=== PATIENT | male | born 1965 | race Caucasian/White ===

== ENCOUNTER → 2016-04-24 | Outpatient (CLI) | payer MEDICARE ==
[~2016-04-24] MED LIST: /ATOR40TA PO; /ESOM40CA OR; /MOXI40TA; ASPI81TA85 PO; CHLO25TA PO; COUM7.5T PO; COZA100T2 PO; DEPA500T2 PO; DICLOFENAC 1.5% TOP; FLON0.054; HYDR1TAB97 PO; KETO-28; LIDO5DIS36 TD; LISI-542 PO; MECL-68 PO; META800T82 PO; METF500T PO; METO10TA2; METO25TA2 PO; NICO21DI26 EXT; NICO21DI4; OMEG10002 PO; TRAM50TA2 PO; TRAZ50TA2 PO; TYLE325T5 PO; TYLENOL#3 PO; ZANT150T; ZETI10TA21 PO; percocet PO
--- NOTE | 2016-05-05 02:29 | ECWPNPC ---
PATIENT NAME: GELY CAMPA : 1965 GENDER: MALE VISIT DATE: 04/24/2016 DISCHARGE DATE: 04/24/16 1443 VISIT LOCKED DATE TIME: PHYSICIAN: KESHAWN ERWIN RESOURCE: KESHAWN ERWIN REASON FOR APPOINTMENT 1. BACK HISTORY OF PRESENT ILLNESS HISTORY OF PRESENT ILLNESS: PAIN THE PATIENT DESCRIBES THE PAIN... FALL RISK SCREENING: SCREENING :NO FALLS IN THE PAST YEAR TODAY'S VISIT: NOTES: RATES PAIN LEVEL TODAY 3-4/10. DESCRIBES PAIN SHARP AND ACHING. NOTES PAIN CENTERED IN BASE OF NECK, LOW BACK, KNEES AND FFEET.. CURRENT MEDICATIONS TAKING NEXIUM 40 MG CAPSULE DELAYED RELEASE 1 CAP(S) ORALLY DAILY TAKING TYLENOL EXTRA STRENGTH 625MG TABLET 2 TABLET NEEDED ORALLY NEEDED TAKING DEPAKOTE 500 MG TABLET DELAYED RELEASE 1 TABLET ORALLY ONCE A DAY TAKING MECLIZINE HCL 25 MG TABLET 2 TABLETS ORALLY TWICE DAILY TAKING LISINOPRIL 5 MG TABLET 1 TABLET ORALLY ONCE A DAY TAKING WARFARIN SODIUM 5 MG TABLET ORALLY DAILY TAKING LIPITOR 40 MG TABLET 1 TABLET ORALLY ONCE A DAY TAKING TRAZODONE 50 50MG TABLET DIRECTED ORAL AT BEDTIME TAKING VALTREX 1000 MG TABLET 1 TABLET ORALLY DAILY TAKING BACLOFEN 10 MG TABLET 1 TABLET WITH FOOD OR MILK ORALLY THREE TIMES A DAY TAKING METFORMIN HCL 850 MG TABLET 1 TABLET WITH MEALS ORALLY TWICE A DAY TAKING CHLORTHALIDONE 25 25 MG TABLET 1/2 TAB ORAL DAILY TAKING FLONASE 50 MCG/ACT SUSPENSION 1 SPRAY IN EACH NOSTRIL NASALLY ONCE A DAY TAKING NORCO 5-325 MG TABLET 1 TABLET NEEDED ORALLY TAKE 1 TAB EVERY 8-12 HRS PRN PAIN MDD=2 NOT-TAKING NEURONTIN 600 600 MG TABLET DIRECTED ORAL EVERY 8 HOURS NOT-TAKING SKELAXIN 800 MG TABLET 1 TABLET ORALLY EVERY 6HRS MEDICATION LIST REVIEWED AND RECONCILED WITH THE PATIENT PAST MEDICAL HISTORY GERD FRACTURED VERTEBRAE HIGH CHOLESTEROL STROKE HERPES ALLERGIES PENICILLIN (FOR ALLERGIES USE ONLY): HIVES: SIDE EFFECTS LATEX: HIVES/RASH SOCIAL HISTORY TOBACCO USE ARE YOU A:NONSMOKER LEARNING BARRIERS / SPECIAL NEEDS ORIENTED TO PLAN OF CARE: PATIENT, PAIN MANAGEMENT PATIENT, ORIENTED TO PLAN OF CARE: PATIENT, PAIN MANAGEMENT PATIENT. NEW PATIENT PAIN DIARY TODAY'S VISITNOTES FROM 0-10, WHAT LEVEL IS YOUR PAIN TODAY?0 PAIN CLINIC PFS, CLERGY, PUBLIC HEALTH REFERRALS PFS REFERRAL NEEDED?NO CLERGY REFERRAL NEEDED?NO PUBLIC HEALTH REFERRAL NEEDED?NO WAS THE PROVIDER NOTIFIED OF ANY PERTINENT INFO?NO PFS REFERRAL NEEDED?NO CLERGY REFERRAL NEEDED?NO PUBLIC HEALTH REFERRAL NEEDED?NO WAS THE PROVIDER NOTIFIED OF ANY PERTINENT INFO?NO REVIEW OF SYSTEMS CONSTITUTIONAL: ANY CHANGE IN YOUR MEDICAL CONDITION? NO . CHILLS NO . FEVER NO . INFECTION: DO YOU HAVE NEW INFECTIONS? NO . DO YOU HAVE HISTORY OF MRSA? NO . MUSCULOSKELETAL: ANY NEW PATTERNS OF PAIN OR NUMBNESS? RIGHT KNEE VERY UNCOMFORTABLE. LEFT KNEE POSTERIOR FEELS LIKE IT'S GRABBING AND RIGHT KNEE FEELS LIKE IT WILL GIVE OUT BUT HAS NOT FALLEN. . GASTROENTEROLOGY: ANY NEW CHANGE IN BOWEL CONTROL? NO . GENITOURINARY: ANY NEW CHANGE IN BLADDER CONTROL? NO . IS THERE A CHANCE YOU COULD BE ? NO . HEMATOLOGY/LYMPH: DO YOU TAKE ANY BLOOD THINNERS? (FOR EXAMPLE- COUMADIN, PLAVIX, AGGRENOX, PLATEL, PRADAXA, OR XARELTO) NO . WHEN WAS YOUR LAST DOSE? DATE: TIME: . NEUROLOGY: HAVE YOU FALLEN IN THE PAST 6 MONTHS? NO . ANY NEW EXTREMITY NUMBNESS OR WEAKNESS? NO . CARDIOLOGY: DO YOU HAVE A PACEMAKER OR DEFIBRILLATOR? NO . RESPIRATORY: HAVE YOU BEEN SICK IN THE PAST WEEK? NO . FEVER NO . FLU LIKE SYMPTOMS? NO . COUGH NO . INTEGUMENTARY: DO YOU HAVE ANY RASHES OR OPEN SORES? NO . ALLERGIC/IMMUNO: ARE YOU ALLERGIC TO SHELLFISH OR IV DYE? NO . ANY NEW ALLERGIES? NO . PSYCHIATRIC: DO YOU HAVE THOUGHTS OF HURTING YOURSELF OR SOMEONE ELSE? NO . ARE YOU ABUSED, NEGLECTED, OR IN AN UNSAFE ENVIRONMENT? NO . ENDOCRINOLOGY: ARE YOU DIABETIC? YES -RECENT A1C IS 7.9. IS WORKING WITH A DIET AND EXERCISE PLAN TO GET THIS UNDER CONTROL. . OTHER: DO YOU NEED ANY PRESCRIPTIONS? YES NORCO . IF YES, PLEASE LIST: ____ . ANY NEW PROBLEMS WITH YOUR MEDICATIONS? NO . WHEN DID YOU LAST EAT? ____ . WHEN DID YOU LAST DRINK? ____ . WHAT DID YOU LAST DRINK? ____ . NAME OF PERSON DRIVING YOU HOME? ____ . DO YOU HAVE ANY OTHER QUESTIONS OR CONCERNS NO . 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 VITAL SIGNS WT 250 LBS, HT 68 IN, BMI 38.01 INDEX, BP 143/84 MM HG, HR 78 /MIN, RR 18 /MIN, TEMP 97.0 F, OXYGEN SAT % 97%, NA INITIALS SC 13:46. EXAMINATION GENERAL EXAMINATION: PSYCH ALERT , ORIENTED X 3 . LUNGS:CLEAR TO AUSCULTATION BILATERALLY. HEART:HEART RATE REGULAR. MUSCULOSKELETAL:MUSCLE STRENGTH TESTING 5/5 BILATERAL LOWER EXTREMITIES, PALPATION: POSITIVE FOR PAIN OVER LUMBOSACRAL SPINE AND ACROSS THE LUMBOSACRAL AXIS. TRIGGER POINTS:, ELICITED WITH PALPATION OVER LUMBAR PARAVERTEBRAL MUSCLES AND INTO THE SACRUM. RESTRICTION OF ROM IN THIS AREA. SLOW TO RISE TO STANDING POSITION. . EXTREMITIES:MINIMAL EDEMA. ASSESSMENTS LOW BACK PAIN - M54.5 (PRIMARY) TREATMENT LOW BACK PAIN REFILL NORCO TABLET, 5-325 MG, 1 TABLET NEEDED, ORALLY, TAKE 1 TAB EVERY 8-12 HRS PRN PAIN MDD=2, 30 DAY(S), 60, REFILLS 0 NOTES: CONTINUE CURRENT MEDS. CONTINE EXERCISE ROUTINE. PROCEDURE CODES FA211 ESTABILISHED PATIENT [facility] CHARGE FOLLOW UP 2-3 MONTHS ELECTRONICALLY SIGNED BY JEFFRY CLANCY ON 05/04/2016 AT 11:05 AM EST DISCLAIMER : THIS IS A VISIT SUMMARY EXTRACTED FROM THE [employer] CHART. IT IS NOT A COPY OF THE [employer] PROGRESS NOTE. BRENT
== END ==
LOC: M PAIN 13:20
PROVIDERS: ATTEND Nurse Practitioner Family
DX: Z09 Encounter for follow-up examination after completed treatment for conditions other than malignant neoplasm (principal); M54.5 Low back pain; K21.9 Gastro-esophageal reflux disease without esophagitis; E78.00 Pure hypercholesterolemia, unspecified; Z87.81 Personal history of (healed) traumatic fracture; Z86.73 Personal history of transient ischemic attack (TIA), and cerebral infarction without residual deficits; B00.9 Herpesviral infection, unspecified; Z88.0 Allergy status to penicillin; Z91.040 Latex allergy status; Z79.01 Long term (current) use of anticoagulants; Z79.84 Long term (current) use of oral hypoglycemic drugs; Z79.891 Long term (current) use of opiate analgesic; Z79.899 Other long term (current) drug therapy

== ENCOUNTER 2016-05-15 05:48 | Inpatient (IN) | payer MEDICARE ==
[~2016-05-15] VITALS: Ht 172.7 cm; Wt 110.2 kg
[~2016-05-15 05:48] MED LIST changes: +HYDR-3713 PO; -HYDR1TAB97 PO
[2016-05-15] MEDS ORDERED: CEFUROXIME INJ 750 MG VIAL (J0697) As Ordered ONE (06:51)
[2016-05-15 07:07] LABS: BASO % 0.4 % (0.0-1.0); EOS % 0.6 % (0.0-3.0); LARGE UNSTAINED CELL # 0.2 K/mm3 (0.0-0.4); LYMPH # 1.4 K/mm3 (1.5-4.5); LYMPH % 17.8 % (24.0-44.0); MEAN CORPUSCULAR HEMOGLOBIN 33.1 pg (27.0-33.0); MEAN CORPUSCULAR HGB CONC 35.4 g/dl (32.0-36.5); MEAN CORPUSCULAR VOLUME 93.6 fl (80.0-96.0); MONO # 0.6 K/mm3 (0.0-0.8); MONO % 7.3 % (0.0-5.0); NEUTROPHILS # 5.6 K/mm3 (1.8-7.7); NEUTROPHILS % 71.9 % (36.0-66.0); PLATELET COUNT, AUTOMATED 218 k/mm3 (150-450); RED CELL DISTRIBUTION WIDTH 12.7 % (11.5-14.5); WHITE BLOOD COUNT 7.8 K/mm3 (4.0-10.0)
[2016-05-15 07:18] LABS: INR 2.07
[2016-05-15] MEDS ORDERED: diphenhydrAMINE INJ 50MG/ML VIAL (J1200) As Ordered ONE (07:27)
[2016-05-15 07:28] LABS: ANION GAP 8 MEQ/L (8-16); BLOOD UREA NITROGEN 15 MG/DL (7-18); CALCIUM LEVEL 8.9 MG/DL (8.5-10.1); CARBON DIOXIDE LEVEL 29 MEQ/L (21-32); CHLORIDE LEVEL 99 MEQ/L (98-107); CREATININE FOR GFR 0.91 MG/DL (0.70-1.30); GLOMERULAR FILTRATION RATE > 60.0 (>56); GLUCOSE, FASTING 121 MG/DL (70-105); POTASSIUM SERUM 3.7 MEQ/L (3.5-5.1); SODIUM LEVEL 136 MEQ/L (136-145)
[2016-05-15] MEDS ORDERED: CEFUROXIME SODIUM 1.5 GM in D5W MINI-BAG PLUS 50 ML IV ONE (07:30)
[2016-05-15] MEDS ORDERED: HYDROmorphone HCL 1 MG/ML SYRINGE (J1170) As Ordered ONE ×2 (08:11→10:27)
[2016-05-15] MEDS ORDERED: ISOVUE-370 76% 100ML VIAL (Q9967) As Ordered ONE (08:13)
[2016-05-15] MEDS ORDERED: NEXI40CA PO (08:40)
[2016-05-15] MEDS ORDERED: NORC5TAB PO (08:40)
[2016-05-15] MEDS ORDERED: METF850T PO (08:40)
[2016-05-15] MEDS ORDERED: CHLO25TA PO (08:40)
[2016-05-15] MEDS ORDERED: WARF-23 PO (08:40)
[2016-05-15] MEDS ORDERED: LISI-542 PO (08:40)
[2016-05-15] MEDS ORDERED: ATOR40TA PO (08:40)
[2016-05-15] MEDS ORDERED: DEPA500T2 PO (08:40)
[2016-05-15] MEDS ORDERED: TYLE500T78 PO (08:40)
[2016-05-15] MEDS ORDERED: ZETI10TA2 PO (08:40)
[2016-05-15] MEDS ORDERED: MECL-86 PO (08:40)
[2016-05-15] MEDS ORDERED: TRAZ25TA PO (08:41)
--- NOTE | 2016-05-15 09:18 | REP ---
CT NECK WITH CONTRAST: HISTORY: Abscess. CONTRAST: Isovue 370, 75 mL. There is soft tissue thickening along the lingual surface of the body of the left mandible. A 1 cm ring enhancing structure consistent with an abscess is present medial to the left mylohyoid muscle and lateral to the left stylo- and hyoglossus muscles. There is thickening of the muscles consistent with edema. Slight increased density consistent with edema is present in the surrounding subcutaneous tissue. There is no mass effect on the oropharynx. The naso- and hypopharynx, larynx and subglottic trachea are normal in appearance. The salivary and thyroid glands are normal. Small lymph nodes less than 1 cm in size are present in the internal jugular chains, posterior triangles, submandibular and submental areas. Atherosclerotic calcification is present at the carotid bifurcations. Degenerative change is present in the cervical spine. The lung apices are clear. Mucosal thickening is present in the left maxillary sinus. 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 IMPRESSION: 1 cm left tongue abscess as described above. There is no mass effect on the oropharynx. Signed by Jose Diaz MD 05/15/2016 09:30 A
[2016-05-15] MEDS ORDERED: ONDANSETRON 4MG/2ML VIAL (J2405) IV PRN (10:45)
[2016-05-15] MEDS ORDERED: MORPHINE 2 MG/ML 1ML SYRINGE IV PRN (10:45)
[2016-05-15] MEDS ORDERED: ACETAMINOPHEN TAB 650MG DOSE (2X325MG) PO PRN (10:45)
[2016-05-15] MEDS ORDERED: DEXTROSE 50% 50 ML SYRINGE IV PRN (12:00)
[2016-05-15] MEDS: HumaLOG INSULIN (NovoLOG) PER UNIT SC SCH ×3 (12:00→21:00)
[2016-05-15] MEDS ORDERED: GLUCAGON FOR INJ 1 MG VIAL (J1610) SC PRN (12:00)
[2016-05-15] MEDS ORDERED: GLUCOSE 4 GM CHEW TABLET PO PRN (12:00)
[2016-05-15 12:01] LABS: INR 2.14
--- NOTE | 2016-05-15 12:13 | HPE ---
DATE OF ADMISSION: 05/15/2016 PRIMARY CARE PROVIDER: Wesley Dyer MD CHIEF COMPLAINT: Mouth pain. HISTORY: 51-year-old gentleman feels like his throat, under each side of his tongue is swollen as if he has "golf ball" underneath his tongue and neck. He denies difficulty with swallowing. Denies shortness of breath but has had quite a bit of pain. There is no report of stridor. qSOFA score is zero. Negative sepsis screening. PAST MEDICAL HISTORY: Anxiety, CVA with some mild left-sided weakness, diabetes, hypertension and hyperlipidemia. PAST SURGICAL HISTORY: Appendectomy, tonsillectomy and cholecystectomy. SOCIAL HISTORY: He is a former smoker. Denies any alcohol use. No intravenous (IV) drug use. No recent travel. No sick contacts. FAMILY HISTORY: Noncontributory. ALLERGIES: PENICILLIN. HOME MEDICATIONS: - Nexium 40 mg daily - metformin 850 mg twice a day - Zetia 10 mg daily - chlorthalidone 25 mg half tablet daily - Lisinopril 5 mg daily - [place] 5/325 one tablet twice a day - Extra Strength Tylenol as needed - meclizine 50 mg twice a day - Coumadin 5 mg daily - Depakote 500 mg daily REVIEW OF SYSTEMS: Constitutional: He has had some chills. No reported fever. Had pain underneath the tongue, left side of the jaw line, for the last couple of days. HEENT: As outlined above. Tongue pain and jaw pain on the left with some swelling noted for the last 24-48 hours. He denies headache, lightheaded, dizziness. No difficulty with speech. No stridor. Pulmonary: Denies shortness of breath, productive sputum cough or hemoptysis. Cardiovascular: No paroxysmal nocturnal dyspnea (PND), orthopnea. No substernal chest pain. Gastrointestinal (GI): No nausea, vomiting, diarrhea. No hematochezia. Bowel movements regular. No melena. Genitourinary (): No dysuria, frequency or hematuria. Musculoskeletal: No bone loss or joint pain, swelling, erythema. Neurologic: Prior history of stroke. No migraine. No history of seizures. Endocrine: Positive for diabetes. Negative for thyroid disorder. Lymphatics: No lumps, bumps, swelling in the neck, axilla or groin. No weight loss. No night sweats. Hematology: Positive for factor V Leiden deficiency. Oncology: Negative for cancer. Psychiatric: No history of depression, suicidal ideation. No audiovisual hallucinations. 10-point review of systems complete. Pertinent positives are listed. PHYSICAL EXAMINATION: Temperature is 97.9, respiratory rate 18 and nonlabored, pulse 69, blood pressure (BP) 118/59, SpO2 is 99% on room air. General: The patient appears to be in no acute distress. Is alert, oriented, pleasant talk to. HEENT: Head is atraumatic, normocephalic. Eyes: Pupils equal, reactive to light and accommodation (FLYNN). Throat is clear, does have some notable submandibular and submental tenderness, some mild swelling. The airway appears to be patent and clear otherwise. Neck: Otherwise supple. Lungs: Clear to auscultation. Heart: Regular rate and rhythm. Abdomen: Soft. Extremities: No edema. No calf tenderness. LABORATORY DATA AND DIAGNOSTICS: White count is 7.8, hemoglobin is 14.2, and platelets are 218,000. Sodium 136, potassium 3.7, chloride 99, bicarbonate 29, anion gap 8, BUN is 15, creatinine 0.91, glucose is 121. INR is 2.07. Neck CT: 1 cm left-sided tongue mass. No mass effect on the oropharynx. Blood cultures pending times two. IMPRESSION: Mr. Trejo is a 51-year-old gentleman with a left tongue abscess affecting the submandibular and submental regions. His airway is patent. I did speak to Dr. Ashley, the ENT on-call today. He has examined the patient at bedside and will continue to follow the patient as a crm consultant. We will go ahead and admit him to the general medical floor since his airway does appear to be patent, and will continue with IV antibiotics and symptomatic therapy. PROBLEM LIST: 1. Oral abscess. 2. Diabetes. 3. History of cerebrovascular accident. 4. Hypertension. 5. History of factor V Leiden deficiency. 6. Hyperlipidemia. PLAN: The patient will be admitted to medical-surgical floor. We will continue his home medications, except for warfarin will hold, place him on a heparin drip for the time being and observe him overnight. If he does show some improvement in the abscess and does not appear to be requiring any surgical intervention, his Coumadin can be restarted in the next 24 hours. We will continue him on the cefuroxime unless Dr. Ashley recommends other antibiotic coverage. Cultures are pending at this time. DISPOSITION: Anticipate the patient will be here greater than two midnights.
[2016-05-15] MEDS ORDERED: MORPHINE 2 MG/ML 1ML SYRINGE As Ordered ONE (12:43)
[2016-05-15] MEDS ORDERED: HEPARIN SOD (PORCINE) 5000 UNITS/ML VIAL SC SCH (14:00)
[2016-05-15] MEDS ORDERED: HEPARIN 25,000 UNITS/250 ML D5W BAG (100 UNITS/ML) As Ordered ONE (15:18)
--- NOTE | 2016-05-15 15:30 | EDDOCDS ---
Physician Documentation [facility] Name: Abhijit Trejo Age: 51 yrs Sex: Male : 1965 Arrival Date: 05/15/2016 Time: 05:48 Bed 15 Private MD: Wesley Dyer Disposition: 05/15/16 09:24 Hospitalization ordered by Tello Ashley for Inpatient Admission. Preliminary diagnosis is Diseases of tongue - tongue abscess. - Bed requested for M PED. - Status is Inpatient Admission. ck1 - Condition is Stable. - Problem is new. - Symptoms are unchanged. Historical: - Allergies: PENICILLINS; unknown anxiety medication; - Home Meds: 1. Nexium 40 mg Oral cpDR 1 cap once daily 2. metformin 850 mg Oral tab 1 tab 2 times per day 3. Zetia 10 mg Oral tab 1 tab once daily 4. chlorthalidone 25 mg Oral tab 0.5 tab once daily 5. lisinopril 5 mg Oral tab 1 tab once daily 6. [place]illiard 5-325 mg Oral tab 1 tab twice a day 7. extra strength tylenol 8. meclizine 50 mg Oral tab 1 tab 2 times per day 9. warfarin 5 mg Oral tab 1 tab once daily 10. Depakote 500 mg Oral TbEC once daily - PMHx: Anxiety; CVA; GERD; Diabetes - NIDDM: controlled; Hypertension; High Cholesterol; - PSHx: Cystectomy; Appendectomy; Tonsillectomy; - Social history: Smoking status: Patient states former smoker of tobacco. No barriers to communication noted, The patient speaks fluent Bolivian, Speaks appropriately for age. - Family history: Not pertinent. - : The pt / caregiver states he / she is on anticoagulants: coumadin. Home medication list is obtained from the patient. - Exposure Risk Screening:: None identified. Vital Signs: 05/15 05:55 BP 137 / 74; Pulse 76; Resp 18; Temp 98.3(TE); Pulse Ox 97% on R/A; Weight 109.77 kg / js15 242 lbs; Height 5 ft. 8 in. (172.72 cm); 08:32 BP 118 / 59; Pulse 69; Resp 18; Temp 97.9(O); Pulse Ox 99% on R/A; Pain 2/10; ck1 11:03 BP 118 / 72; Pulse 69; Resp 18; Temp 98.7(O); Pulse Ox 97% on R/A; Pain 2/10; ck1 15:27 BP 114 / 58; Pulse 82; Resp 18; Temp 99.3; Pulse Ox 96% on R/A; Pain 4/10; ck1 05:55 Body Mass Index 36.80 (109.77 kg, 172.72 cm) js15 MDM: 06:29 IV Saline Lock ordered. cs11 06:29 -Blood Culture (Adults Only), peripheral from different site, or from device/port/PICC cs11 etc. if present ordered. 06:30 diphenhydrAMINE 12.5 mg IVP once ordered. cs11 06:30 cefUROXime 1.5 grams IV at calculated rate once over 30 mins; dilute in 50mL of NS or cs11 D5W ordered. 06:30 CBC with Diff Ordered. EDMS 06:30 MED Profile Ordered. EDMS 06:30 -Blood Culture Ordered. EDMS 06:31 Pt & Aptt Ordered. EDMS 06:34 -Blood Culture (Adults Only), peripheral from different site, or from device/port/PICC tmm1 etc. if present complete. 06:34 BLOOD CULTURES Ordered. EDMS 07:12 CBC with Diff Reviewed. sd1 07:13 BED REQUEST+ADM ordered. EDMS 07:49 MED Profile Reviewed. sd1 07:49 Pt & Aptt Reviewed. sd1 07:50 NS 0.9% 1000 ml IV at 250 mL/hr continuous ordered. sd1 07:51 CT Neck With Contrast Ordered. EDMS 08:04 Dilaudid - HYDROmorphone 0.5 mg IVP once ordered. sd1 10:26 Dilaudid - HYDROmorphone 0.5 mg IVP once ordered. sd1 10:37 PT/INR Ordered. EDMS 10:50 Admission / Observation Status ordered. EDMS 11:02 [facility] Payment Agreement was scanned into [employer] and attached to record. jp5 11:02 Financial registration complete. jp5 11:34 Attending Doctor Change: ordered. EDMS 11:50 FULL LIQUIDS DIET ordered. EDMS 11:51 PARTIAL THROMBOPLASTIN TIME Ordered. EDMS 11:51 PARTIAL THROMBOPLASTIN TIME Ordered. EDMS 11:56 PARTIAL THROMBOPLASTIN TIME Ordered. EDMS 12:48 NS 0.9% 1000 ml IV at 100 mL/hr continuous ordered. ck1 12:48 morphine 2 mg IVP once ordered. ck1 15:26 heparin (Thrombolytic Protocol, 12 units/kg/hr)) 26372 units IV at 1100 units/hr once; ck1 Max. dose 1000units/hr. No Lovenox past 18hrs/ draw labs. ordered. Administered Medications: 07:35 Drug: diphenhydrAMINE 12.5 mg [diphenhydramine 50 mg/mL injection solution (0.25 mL)] ck1 Route: IVP; Site: left antecubital; 07:35 Drug: cefUROXime 1.5 grams [cefuroxime sodium 1.5 gram solution for injection] Route: ck1 IV; Rate: calculated rate; Infused Over: 30 mins; Site: left antecubital; 08:42 Follow up: IV Status: Completed infusion ck1 08:17 Drug: Dilaudid - HYDROmorphone 0.5 mg [hydromorphone 1 mg/mL injection syringe (0.5 ck1 mL)] Route: IVP; Site: left antecubital; 08:32 Follow up: BP 118 / 59; Pulse 69 bpm; Resp 18 bpm; Temp 97.9 Oral; Pulse Ox 99% RA; ck1 Pain 2/10 Adult; Response: Confirmed pt not driving.; No Adverse Reaction; Pain is decreased 08:18 Drug: NS 0.9% 1000 ml [sodium chloride 0.9 % intravenous solution] Route: IV; Rate: 250 ck1 mL/hr; Site: left antecubital; 10:31 Drug: Dilaudid - HYDROmorphone 0.5 mg [hydromorphone 1 mg/mL injection syringe (0.5 ck1 mL)] Route: IVP; Site: left antecubital; 11:03 Follow up: BP 118 / 72; Pulse 69 bpm; Resp 18 bpm; Temp 98.7 Oral; Pulse Ox 97% RA; ck1 Pain 2/10 Adult; Response: Confirmed pt not driving.; No Adverse Reaction; Pain is decreased 12:49 Drug: NS 0.9% 1000 ml [sodium chloride 0.9 % intravenous solution] Route: IV; Rate: 100 ck1 mL/hr; Site: left antecubital; 15:25 Follow up: IV Status: Infusion discontinued ck1 12:49 Drug: morphine 2 mg [morphine 2 mg/mL intravenous cartridge (1 mL)] Route: IVP; Site: ck1 left antecubital; 15:27 Drug: heparin (Thrombolytic Protocol, 12 units/kg/hr)) 47988 units [heparin (porcine) ck1 25,000 unit/250 mL (100 unit/mL) in dextrose 5 % IV] {Co-Signature: mlb1 (Tello Gagnon RN).} Route: IV; Rate: 1100 units/hr; Site: left antecubital; Signatures: Dispatcher [employer] EDMS Elsy Ngo MD MD sd1 Lalita Rutledge RN RN kcs Rolanda Beebe RN RN ck1 Gatito Abdalla DO DO cs11 Rita Feliciano, SKATING RINK MANAGER SKATING RINK MANAGER tmm1 Leti Danielle,RN RN js15 Shaan Damon jp5 Tello Gagnon RN mlb1 The chart was reviewed and I authenticate all verbal orders and agree with the evaluation and treatment provided.Corrections: (The following items were deleted from the chart) 11:56 11:50 PARTIAL THROMBOPLASTIN TIME ordered. EDMS EDMS Attachments: 11:02 [facility] Payment Agreement jp5 MTDD
--- NOTE | 2016-05-15 15:30 | EDDOCDS ---
Nurse's Notes [facility] Name: Abhijit Trejo Age: 51 yrs Sex: Male : 1965 Arrival Date: 05/15/2016 Time: 05:48 Bed 15 Private MD: Wesley Dyer Diagnosis: Diseases of tongue-tongue abscess Presentation: 05/15 05:55 Presenting complaint: Patient states: My throat is all swollen up. It feels like I got js15 a golf ball up there. My left ear hurts and the back of my throat hurts. Risk factors: Stridor is not present. Drooling is not present. Shortness of breath is not present. Cellulitis is not present. Adult Sepsis Screening: The patient does not have new or worsening altered mentation. Patient's respiratory rate is less than 22. Systolic blood pressure is greater than 100. Patient has a qSOFA score of 0- Negative Sepsis Screen. Suicide/Homicide risk assessment-. Suicide/Homicide risk assessment- the patient denies having any suicidal and/or homicidal ideations and does not present with any other emotional, behavioral or mental health complaints. Status: Patient is not a field service supervisor or dependent. Transition of care: patient was not received from another setting of care. 05:55 Acuity: GUILLE Level 4 js15 05:55 Method Of Arrival: Walkin/Carried/Asstd js15 08:36 Acuity level changed due to complexity of care. ck1 08:36 Acuity: GUILLE Level 3 ck1 Triage Assessment: 06:02 General: Appears in no apparent distress. Pain: Location: left ear, left buccal mucosa, js15 right buccal mucosa, uvula, left aspect of posterior pharynx, right aspect of posterior pharynx and tongue Pain currently is 8 out of 10 on a pain scale. HIV screening NA for this visit Offered previously. EENT: Reports pain in mouth/throat when swallowing. Respiratory: Airway is patent Respiratory effort is even, unlabored, Respiratory pattern is regular, symmetrical. Derm: Skin is pink, warm & dry. Historical: - Allergies: PENICILLINS; unknown anxiety medication; - Home Meds: 1. Nexium 40 mg Oral cpDR 1 cap once daily 2. metformin 850 mg Oral tab 1 tab 2 times per day 3. Zetia 10 mg Oral tab 1 tab once daily 4. chlorthalidone 25 mg Oral tab 0.5 tab once daily 5. lisinopril 5 mg Oral tab 1 tab once daily 6. [place] 5-325 mg Oral tab 1 tab twice a day 7. extra strength tylenol 8. meclizine 50 mg Oral tab 1 tab 2 times per day 9. warfarin 5 mg Oral tab 1 tab once daily 10. Depakote 500 mg Oral TbEC once daily - PMHx: Anxiety; CVA; GERD; Diabetes - NIDDM: controlled; Hypertension; High Cholesterol; - PSHx: Cystectomy; Appendectomy; Tonsillectomy; - Social history: Smoking status: Patient states former smoker of tobacco. No barriers to communication noted, The patient speaks fluent Cypriot, Speaks appropriately for age. - Family history: Not pertinent. - : The pt / caregiver states he / she is on anticoagulants: coumadin. Home medication list is obtained from the patient. - Exposure Risk Screening:: None identified. Screenin:12 Screening information is obtained from the patient. Fall risk: No risks identified. ck1 Assistance ADL's: requires no assistance with activities of daily living. Abuse/DV Screen: The patient / caregiver reports he/she is: not in a situation that causes fear, pain or injury. Nutritional screening: No deficits noted. Advance Directives: Currently, there is no health care proxy. home support is adequate. Assessment: 06:30 General: Appears in no apparent distress, Behavior is cooperative. Neurological: Level af2 of Consciousness is awake, alert, obeys commands. Respiratory: Airway is patent Respiratory effort is even, unlabored. Derm: Skin is normal. 07:11 General: Appears in no apparent distress, comfortable, Behavior is appropriate for age, ck1 cooperative. Pain: Location: left ear and throat Pain currently is 8 out of 10 on a pain scale. Neurological: Level of Consciousness is awake, alert, obeys commands, Oriented to person, place, time. Respiratory: Respiratory effort is unlabored, Respiratory pattern is regular, symmetrical. Respiratory: Airway is patent Respiratory effort is even, unlabored, Respiratory pattern is regular, symmetrical. GI: No deficits noted. Derm: Skin is normal. 08:10 General: Patient complaining of increased pain in throat and left ear. Provider aware. ck1 08:46 General: Patient OOB to bathroom. Gait steady, no acute distress noted at this time. ck1 Respirations easy and unlabored, airway patent. Call light in reach, will continue to monitor patient. 09:21 General: Appears in no apparent distress, comfortable, Behavior is appropriate for age, ck1 cooperative. Pain: Location: left ear and throat Pain currently is 2 out of 10 on a pain scale. Neurological: Level of Consciousness is awake, alert, obeys commands, Oriented to person, place, time. Respiratory: Airway is patent Respiratory effort is even, unlabored, Respiratory pattern is regular, symmetrical. GI: No deficits noted. Derm: Skin is pink, warm & dry. Musculoskeletal: No deficits noted. 10:02 General: patient stating "my pain medication has worn off". Resting quietly on ck1 stretcher with eyes closed. Provider aware. 10:31 General: Appears in no apparent distress, comfortable, Behavior is appropriate for age, ck1 cooperative. Pain: Location: left ear and throat Pain currently is 7 out of 10 on a pain scale. Neurological: Level of Consciousness is awake, alert, obeys commands, Oriented to person, place, time. Respiratory: Respiratory effort is unlabored, Respiratory pattern is regular, symmetrical. Respiratory: Airway is patent. GI: No deficits noted. Derm: Skin is pink, warm & dry. 11:18 General: Appears in no apparent distress, comfortable, Behavior is appropriate for age, ck1 cooperative. Pain: Location: left ear and throat Pain currently is 2 out of 10 on a pain scale. Neurological: Level of Consciousness is awake, alert, obeys commands, Oriented to person, place, time. Respiratory: Airway is patent Respiratory effort is even, unlabored, Respiratory pattern is regular, symmetrical. GI: No deficits noted. Derm: Skin is pink, warm & dry. 12:15 General: Appears in no apparent distress, comfortable, Behavior is appropriate for age, ck1 cooperative. Pain: Location: left ear and throat Pain currently is 8 out of 10 on a pain scale. Neurological: Level of Consciousness is awake, alert, obeys commands, Oriented to person, place, time. Respiratory: Respiratory effort is unlabored, Respiratory pattern is regular, symmetrical. GI: No deficits noted. Derm: Skin is pink, warm & dry. Musculoskeletal: Circulation, motion, and sensation intact Range of motion intact in all extremities. 13:15 Reassessment: Patient appears in no apparent distress at this time. ck1 14:14 General: Patient is resting quietly on stretcher with eyes closed. Reports pain is ck1 currently 3/10. No acute distress noted. Tolerating full liquid diet without difficulty. Call light in reach, will continue to monitor patient. 15:28 General: Appears in no apparent distress, comfortable, Behavior is appropriate for age, ck1 cooperative. Pain: Location: left ear, throat Pain currently is 4 out of 10 on a pain scale. Neurological: Level of Consciousness is awake, alert, obeys commands, Oriented to person, place, time. Respiratory: Respiratory effort is unlabored, Respiratory pattern is regular, symmetrical. GI: No deficits noted. Derm: Skin is pink, warm & dry. Vital Signs: 05:55 BP 137 / 74; Pulse 76; Resp 18; Temp 98.3(TE); Pulse Ox 97% on R/A; Weight 109.77 kg; js15 Height 5 ft. 8 in. (172.72 cm); 08:32 BP 118 / 59; Pulse 69; Resp 18; Temp 97.9(O); Pulse Ox 99% on R/A; Pain 2/10; ck1 11:03 BP 118 / 72; Pulse 69; Resp 18; Temp 98.7(O); Pulse Ox 97% on R/A; Pain 2/10; ck1 15:27 BP 114 / 58; Pulse 82; Resp 18; Temp 99.3; Pulse Ox 96% on R/A; Pain 4/10; ck1 05:55 Body Mass Index 36.80 (109.77 kg, 172.72 cm) [facility] Vitals: 05:55 Log In Time: May 15, 2016 at 05:48. 15 ED Course: 05:50 Patient visited by Vasile Marlow, Reg. pm4 05:50 Wesley Dyer is Private Physician. pm4 05:50 Patient moved to Waiting pm4 05:54 Patient moved to Pre RCE js15 05:57 Triage Initiated js15 06:04 Saira Lyon,EUGENE is Primary Nurse. js15 06:04 Patient moved to 15 js15 06:26 Gatito Abdalla DO is Attending Physician. cs11 06:27 Patient visited by Gatito Abdalla DO. cs11 06:57 Rolanda Beebe,EUGENE is Primary Nurse. ck1 07:00 Attending Physician role handed off by Gatito Abdalla DO sd1 07:00 Elsy Ngo MD is Attending Physician. sd1 07:00 Pt & Aptt Sent. af2 07:00 MED Profile Sent. af2 07:00 CBC with Diff Sent. af2 07:00 -Blood Culture Sent. af2 07:08 Inserted saline lock: 18 gauge in left antecubital area and blood collected. The af2 patient tolerated the procedure well. 07:09 Patient visited by Saira Lyon RN. af2 07:12 The patient / caregiver is instructed regarding the plan of care and ED course. ck1 07:35 Patient visited by Rolanda Beebe RN. ck1 08:06 Patient visited by Rolanda Beebe RN. ck1 08:17 Patient visited by Rolanda Beebe RN. ck1 08:[address] ck1 08:31 Patient visited by Rolanda Beebe RN. ck1 08:31 Patient moved to 15 ck1 08:42 Patient visited by Rolanda Beebe RN. ck1 09:13 Primary Nurse role handed off by Saira Lyon RN kr3 09:19 Patient visited by Rolanda Beebe RN. ck1 09:24 Tello Ashley is Hospitalizing Provider. sd1 09:36 CT Neck With Contrast Returned. EDMS 11:02 [facility] Payment Agreement was scanned into [employer] and attached to record. jp5 11:19 No procedures done that require assistance. ck1 11:53 PO fluids given. ck1 Administered Medications: 07:35 Drug: diphenhydrAMINE 12.5 mg [diphenhydramine 50 mg/mL injection solution (0.25 mL)] ck1 Route: IVP; Site: left antecubital; 07:35 Drug: cefUROXime 1.5 grams [cefuroxime sodium 1.5 gram solution for injection] Route: ck1 IV; Rate: calculated rate; Infused Over: 30 mins; Site: left antecubital; 08:42 Follow up: IV Status: Completed infusion ck1 08:17 Drug: Dilaudid - HYDROmorphone 0.5 mg [hydromorphone 1 mg/mL injection syringe (0.5 ck1 mL)] Route: IVP; Site: left antecubital; 08:32 Follow up: BP 118 / 59; Pulse 69 bpm; Resp 18 bpm; Temp 97.9 Oral; Pulse Ox 99% RA; ck1 Pain 2/10 Adult; Response: Confirmed pt not driving.; No Adverse Reaction; Pain is decreased 08:18 Drug: NS 0.9% 1000 ml [sodium chloride 0.9 % intravenous solution] Route: IV; Rate: 250 ck1 mL/hr; Site: left antecubital; 10:31 Drug: Dilaudid - HYDROmorphone 0.5 mg [hydromorphone 1 mg/mL injection syringe (0.5 ck1 mL)] Route: IVP; Site: left antecubital; 11:03 Follow up: BP 118 / 72; Pulse 69 bpm; Resp 18 bpm; Temp 98.7 Oral; Pulse Ox 97% RA; ck1 Pain 2/10 Adult; Response: Confirmed pt not driving.; No Adverse Reaction; Pain is decreased 12:49 Drug: NS 0.9% 1000 ml [sodium chloride 0.9 % intravenous solution] Route: IV; Rate: 100 ck1 mL/hr; Site: left antecubital; 15:25 Follow up: IV Status: Infusion discontinued ck1 12:49 Drug: morphine 2 mg [morphine 2 mg/mL intravenous cartridge (1 mL)] Route: IVP; Site: ck1 left antecubital; 15:27 Drug: heparin (Thrombolytic Protocol, 12 units/kg/hr)) 27478 units [heparin (porcine) ck1 25,000 unit/250 mL (100 unit/mL) in dextrose 5 % IV] {Co-Signature: mlb1 (Tello Gagnon RN).} Route: IV; Rate: 1100 units/hr; Site: left antecubital; Order Results: Lab Order: CBC with Diff; SPEC'M 05/15/16 06:51 Test: WHITE BLOOD COUNT; Value: 7.8; Range: 4.0-10.0; Units: K/mm3; Status: F Test: RED BLOOD COUNT; Value: 4.28; Range: 4.30-6.10; Abnormal: Below low normal; Units: M/mm3; Status: F Test: HEMOGLOBIN; Value: 14.2; Range: 14.0-18.0; Units: g/dl; Status: F Test: HEMATOCRIT; Value: 40.0; Range: 42.0-52.0; Abnormal: Below low normal; Units: %; Status: F Test: MEAN CORPUSCULAR VOLUME; Value: 93.6; Range: 80.0-96.0; Units: fl; Status: F Test: MEAN CORPUSCULAR HEMOGLOBIN; Value: 33.1; Range: 27.0-33.0; Abnormal: Above high normal; Units: pg; Status: F Test: MEAN CORPUSCULAR HGB CONC; Value: 35.4; Range: 32.0-36.5; Units: g/dl; Status: F Test: RED CELL DISTRIBUTION WIDTH; Value: 12.7; Range: 11.5-14.5; Units: %; Status: F Test: PLATELET COUNT, AUTOMATED; Value: 218; Range: 150-450; Units: k/mm3; Status: F Test: NEUTROPHILS %; Value: 71.9; Range: 36.0-66.0; Abnormal: Above high normal; Units: %; Status: F Test: LYMPH %; Value: 17.8; Range: 24.0-44.0; Abnormal: Below low normal; Units: %; Status: F Test: MONO %; Value: 7.3; Range: 0.0-5.0; Abnormal: Above high normal; Units: %; Status: F Test: EOS %; Value: 0.6; Range: 0.0-3.0; Units: %; Status: F Test: BASO %; Value: 0.4; Range: 0.0-1.0; Units: %; Status: F Test: LARGE UNSTAINED CELL %; Value: 2.0; Range: 0.0-4.0; Units: %; Status: F Test: NEUTROPHILS #; Value: 5.6; Range: 1.8-7.7; Units: K/mm3; Status: F Test: LYMPH #; Value: 1.4; Range: 1.5-4.5; Abnormal: Below low normal; Units: K/mm3; Status: F Test: MONO #; Value: 0.6; Range: 0.0-0.8; Units: K/mm3; Status: F Test: EOS #; Value: 0.0; Range: 0.0-0.50; Units: K/mm3; Status: F Test: BASO #; Value: 0.0; Range: 0.0-0.2; Units: K/mm3; Status: F Test: LARGE UNSTAINED CELL #; Value: 0.2; Range: 0.0-0.4; Units: K/mm3; Status: F Lab Order: MED Profile; SPEC'M 05/15/16 06:51 Test: GLUCOSE, FASTING; Value: 121; Range: 70-105; Abnormal: Above high normal; Units: MG/DL; Status: F Test: BLOOD UREA NITROGEN; Value: 15; Range: 7-18; Units: MG/DL; Status: F Test: CREATININE FOR GFR; Value: 0.91; Range: 0.70-1.30; Units: MG/DL; Status: F Test: GLOMERULAR FILTRATION RATE; Value: > 60.0; Range: >56; Status: F Test: SODIUM LEVEL; Value: 136; Range: 136-145; Units: MEQ/L; Status: F Test: POTASSIUM SERUM; Value: 3.7; Range: 3.5-5.1; Units: MEQ/L; Status: F Test: CHLORIDE LEVEL; Value: 99; Range: 98-107; Units: MEQ/L; Status: F Test: CARBON DIOXIDE LEVEL; Value: 29; Range: 21-32; Units: MEQ/L; Status: F Test: ANION GAP; Value: 8; Range: 8-16; Units: MEQ/L; Status: F Test: CALCIUM LEVEL; Value: 8.9; Range: 8.5-10.1; Units: MG/DL; Status: F Test Note: ; Units are mL/min/1.73 m2 Chronic Kidney Disease Staging per NKF: Stage I & II GFR >=60 Normal to Mildly Decreased Stage III GFR 30-59 Moderately Decreased Stage IV GFR 15-29 Severely Decreased Stage V GFR <15 Very Little GFR Left ESRD GFR <15 on PROJECT MANAGEMENT INTERN Lab Order: Pt & Aptt; SPEC'M 05/15/16 06:51 Test: PROTHROMBIN TIME; Value: 23.4; Range: 12.3-14.5; Abnormal: Above high normal; Units: SECONDS; Status: F Test: INR; Value: 2.07; Status: F Test: PARTIAL THROMBOPLASTIN TIME; Value: 35.8; Range: 26.6-37.1; Units: SECONDS; Status: F Test Note: ; THERAPUTIC HUMAN INR VALUES INDICATIONS NORMAL RANGES PROPHYLAXIS/TREATMENT OF: VENOUS THROMBOSIS 2.0-3.0 PULMONARY EMBOLISM 2.0-3.0 PREVENTION OF SYSTEMIC EMBOLISM FROM: TISSUE HEART VALVES 2.0-3.0 ACUTE MYOCARDIAL INFARCTION 2.0-3.0 VALVULAR HEART DISEASE 2.0-3.0 ATRIAL FIBRILLATION 2.0-3.0 MECHANICAL VALVES(HIGH RISK) 2.5-3.5 RECURRENT MYOCARDIAL INFARCTION 2.5-3.5 Lab Order: PT/INR; SPEC'M 05/15/16 11:22 Test: PROTHROMBIN TIME; Value: 24.0; Range: 12.3-14.5; Abnormal: Above high normal; Units: SECONDS; Status: F Test: INR; Value: 2.14; Status: F Test Note: ; THERAPUTIC HUMAN INR VALUES INDICATIONS NORMAL RANGES PROPHYLAXIS/TREATMENT OF: VENOUS THROMBOSIS 2.0-3.0 PULMONARY EMBOLISM 2.0-3.0 PREVENTION OF SYSTEMIC EMBOLISM FROM: TISSUE HEART VALVES 2.0-3.0 ACUTE MYOCARDIAL INFARCTION 2.0-3.0 VALVULAR HEART DISEASE 2.0-3.0 ATRIAL FIBRILLATION 2.0-3.0 MECHANICAL VALVES(HIGH RISK) 2.5-3.5 RECURRENT MYOCARDIAL INFARCTION 2.5-3.5 Lab Order: PARTIAL THROMBOPLASTIN TIME; SPEC'M 05/15/16 11:22 Test: PARTIAL THROMBOPLASTIN TIME; Value: 35.4; Range: 26.6-37.1; Units: SECONDS; Status: F Radiology Order: CT Neck With Contrast Test: CT Neck With Contrast REASON FOR EXAMINATION: R/O abscess; CT NECK WITH CONTRAST:; ; HISTORY: Abscess.; ; CONTRAST: Isovue 370, 75 mL.; ; There is soft tissue thickening along the lingual surface of the body of the left; mandible. A 1 cm ring enhancing structure consistent with an abscess is present; medial to the left mylohyoid muscle and lateral to the left stylo- and hyoglossus; muscles. There is thickening of the muscles consistent with edema. Slight; increased density consistent with edema is present in the surrounding; subcutaneous tissue. There is no mass effect on the oropharynx. The naso- and; hypopharynx, larynx and subglottic trachea are normal in appearance. The; salivary and thyroid glands are normal. Small lymph nodes less than 1 cm in size; are present in the internal jugular chains, posterior triangles, submandibular; and submental areas. Atherosclerotic calcification is present at the carotid; bifurcations. Degenerative change is present in the cervical spine. The lung; apices are clear. Mucosal thickening is present in the left maxillary sinus. 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 There is no mass effect on the; oropharynx.; ; ; Signed by; Jose Diaz MD 05/15/2016 09:30 A; Outcome: 08:32 CT Study completed. ck1 09:24 Decision to Hospitalize by Provider. sd1 13:34 Discharge Assessment: Patient awake, alert and oriented x 3. No cognitive and/or ck1 functional deficits noted. Patient verbalized understanding of disposition instructions. patient administered narcotics - yes. Patient was admitted to the hospital or transferred to another facility. The following High Risk Discharge criteria are identified: None. Admitted to Pediatrics accompanied by tech, family with patient, via wheelchair, with chart. Condition: stable. Admission hand-off: Report called to Анна Bernal RN. Property :Personal belongings accompany Pt. 15:29 Patient left the ED. ck1 Signatures: Dispatcher [employer] EDMS Elsy Ngo MD MD sd1 Rolanda BeebeRN RN ck1 Mattie Will,RN RN kr3 Gatito Abdalla, DO cs11 Saira Lyon,RN RN af2 Leti Danielle,RN RN js15 Shaan Damon jp5 Vasile Marlow, Reg Reg pm4 Tello Gagnon RN mlb1 MTDD
[2016-05-15 15:40] VITALS: BP 138/98
[2016-05-15] MEDS ORDERED: CEFUROXIME SODIUM 1.5 GM in D5W MINI-BAG PLUS 50 ML IV SCH (16:00)
--- NOTE | 2016-05-15 16:18 | CR ---
DATE OF CONSULTATION: 05/15/2016 I was asked to see this pleasant 51-year-old white male who began three days ago with some pain in his left ear that then spread down onto his jaw and today, he developed swelling on the left side of his face and under his jaw and the tenderness increased. He was having difficulty swallowing because of the pain. A CT scan done today of his soft tissue of his neck shows a possible 1 cm abscess just alongside and under his mandible on the left side. The patient has been admitted for IV antibiotics, observation, and switching off of his warfarin in case surgical intervention is necessary. The patient denies any difficulty hearing or drainage from his ears or ringing in his ears. He has no nasal congestion, runny nose, or postnasal drip. Other than this pain in the left side of his face, jaw and neck, he has no sore throat, difficulty or hoarseness and it hurts to swallow and to drink. PHYSICAL EXAMINATION: Examination of his ears reveal the canals to be clear. Tympanic membranes are intact and mobile with normal coloration and landmarks. Examination of the nose is unremarkable. Examination of the mouth and pharynx is unremarkable. Examination of the floor of the mouth does not show a great deal of swelling if any. Examination of his neck reveals tenderness along the jawline anterior to the angle of the mandible and bimanual palpation again elicits tenderness in this area. No stones are felt in the floor of the mouth along the ducts from the submandibular gland on either side. IMPRESSION: Early possible abscess formation of the left upper neck just under the jawline. PLAN AND RECOMMENDATIONS: We will admit the patient, put him on IV antibiotics, and keep a close watch and reevaluate him for possible surgical intervention. Thank you very much for this consultation. We will follow.
[2016-05-15] MEDS: PERCOCET 5MG/325MG TAB PO PRN ×2 (16:47→21:05)
[2016-05-15] MEDS: ATORVASTATIN 20 MG TAB PO SCH (17:49)
[2016-05-15] MEDS: NS 1,000 ML IV SCH ×2 (17:49→20:42)
[2016-05-15] MEDS: CEFUROXIME SODIUM 1.5 GM in D5W MINI-BAG PLUS 50 ML IV SCH ×2 (18:01→23:45)
[2016-05-15 20:00] VITALS: BP 140/82
[2016-05-15] MEDS ORDERED: traZODone 25MG PER 1/2 TABLET PO SCH (21:00)
[2016-05-15] MEDS: DIVALPROEX 500MG *ER* TAB PO SCH (21:03)
[2016-05-15] MEDS: DOCUSATE SODIUM 100 MG CAP PO SCH (21:04)
[2016-05-15] MEDS: MECLIZINE 25 MG TABLET PO SCH (21:04)
[2016-05-15] MEDS: traZODone 50 MG TAB PO SCH (21:57)
[2016-05-15] MEDS: CHLORTHALIDONE 12.5MG PER 1/2 TABLET PO SCH (21:57)
[2016-05-15] MEDS: HEPARIN SOD (PORCINE) 5000 UNITS/ML VIAL IV PRN (22:38)
[2016-05-16] VITALS: BP 134/61
[2016-05-16] MEDS: PERCOCET 5MG/325MG TAB PO PRN ×5 (02:17→21:04)
[2016-05-16 05:05] LABS: MEAN CORPUSCULAR HGB CONC 35.1 g/dl (32.0-36.5); MEAN CORPUSCULAR VOLUME 94.2 fl (80.0-96.0); WHITE BLOOD COUNT 8.2 K/mm3 (4.0-10.0)
[2016-05-16 05:27] LABS: ANION GAP 10 MEQ/L (8-16); BLOOD UREA NITROGEN 9 MG/DL (7-18); CALCIUM LEVEL 8.4 MG/DL (8.5-10.1); CARBON DIOXIDE LEVEL 28 MEQ/L (21-32); CHLORIDE LEVEL 104 MEQ/L (98-107); CREATININE FOR GFR 0.89 MG/DL (0.70-1.30); GLOMERULAR FILTRATION RATE > 60.0 (>56); GLUCOSE, FASTING 119 MG/DL (70-105); POTASSIUM SERUM 3.9 MEQ/L (3.5-5.1); SODIUM LEVEL 142 MEQ/L (136-145)
[2016-05-16 08:00] VITALS: BP 131/71
[2016-05-16] MEDS: ATORVASTATIN 20 MG TAB PO SCH (08:37)
[2016-05-16] MEDS: DOCUSATE SODIUM 100 MG CAP PO SCH ×2 (08:37→21:05)
[2016-05-16] MEDS: CEFUROXIME SODIUM 1.5 GM in D5W MINI-BAG PLUS 50 ML IV SCH ×2 (08:37→16:02)
[2016-05-16] MEDS: EZETIMIBE 10 MG TAB (ZETIA) PO SCH (08:37)
[2016-05-16] MEDS: MECLIZINE 25 MG TABLET PO SCH ×2 (08:37→21:03)
[2016-05-16] MEDS: PANTOPRAZOLE 40MG TAB (PROTONIX) PO SCH (08:37)
[2016-05-16] MEDS: LISINOPRIL 5 MG TAB PO SCH (08:38)
[2016-05-16] MEDS: HumaLOG INSULIN (NovoLOG) PER UNIT SC SCH ×4 (08:39→21:00)
[2016-05-16] MEDS ORDERED: CHLORTHALIDONE 25 MG TAB PO SCH (09:00)
[2016-05-16] MEDS ORDERED: CHLORTHALIDONE 12.5MG PER 1/2 TABLET PO SCH (09:00)
[2016-05-16] MEDS: HEPARIN DRIP 25,000 UNITS in APPROPRIATE DILUENT 1 EA IV SCH (09:31)
--- NOTE | 2016-05-16 10:41 | IPNPDOC ---
Assessment/Plan Date Seen The patient was seen on 05/16/16. Problems Problems: (1) Oral abscess Status: Acute Problem Text: will continue with cefuroxime . ENT following. (2) Diabetes Status: Chronic (3) Hypertension Status: Chronic (4) JOSE on CPAP Status: Chronic (5) Hyperlipidemia Status: Chronic (6) GERD (gastroesophageal reflux disease) Status: Chronic (7) COPD (chronic obstructive pulmonary disease) Status: Chronic (8) Chronic back pain Status: Chronic (9) Personal history of DVT (deep vein thrombosis) Status: Chronic Problem Text: has factor v leiden and lupus anticoagulant. will keep the patient on heparin infusion and hold Coumadin as the patient may need surgical evacuation. Plan / VTE VTE Prophylaxis Ordered?: Yes Subjective Review of Systems CC/HPI The patient is a 51-year-old male admitted with a reason for visit of Oral Abscess. Events since last encounter oral and throat pain a little better, able to manage soft diet, no fever or chills, no chest pain or SOB , no abdominal pain nausea or vomiting. Objective Physical Examination General Exam: Positive: Alert, No Acute Distress Eye Exam: Positive: Conjunctiva & lids normal, EOMI, PERRLA, Negative: Sclera icteric ENT Exam: Positive: Other ENT (tongue swollen on one side), Pharyngeal Edema Neck Exam: Positive: Lymphadenopathy, Supple Chest Exam: Positive: Clear to auscultation, Normal air movement Heart Exam: Positive: Normal S1, Normal S2, Rate Normal, Regular Rhythm, Negative: Murmurs, Rubs Abdomen Exam: Positive: Normal bowel sounds, Soft, Negative: Hepatospenomegaly, Tenderness Skin Exam: Positive: Nl turgor and temperature, Negative: Breakdown, Rash Vital Signs/I&O Vital Signs Date Time Temp Pulse Resp B/P Pulse Ox O2 Delivery O2 Flow Rate FiO2 05/16/16 08:38 131/71 05/16/16 08:00 97.5 74 18 97 Room Air I&O- Last 24 Hours up to 6 AM 05/16/16 06:00 Intake Total 2010 ml Output Total 1600 ml Balance 410 ml Laboratory Data Labs 24H Laboratory Tests 2 05/15/16 11:22: Activated Partial Thromboplast Time 35.4, Prothromb Time International Ratio 2.14, Prothrombin Time 24.0H 05/15/16 16:43: Bedside Glucose (Misc Panel) 102 05/15/16 20:58: Bedside Glucose (Misc Panel) 158H 05/15/16 21:47: Activated Partial Thromboplast Time 54.6H 05/16/16 04:48: Activated Partial Thromboplast Time 82.5H, Anion Gap 10, Blood Urea Nitrogen 9, Creatinine 0.89, Sodium Level 142, Potassium Level 3.9, Chloride Level 104, Carbon Dioxide Level 28, Calcium Level 8.4L, Glomerular Filtration Rate > 60.0, Prothromb Time International Ratio 2.00, Prothrombin Time 22.8H CBC/BMP Laboratory Tests 05/16/16 04:48 Calcium Level 8.4 L, Red Blood Count 3.92 L, Mean Corpuscular Volume 94.2, Mean Corpuscular Hemoglobin 33.0, Mean Corpuscular Hemoglobin Concent 35.1, Red Cell Distribution Width 13.0 FSBS Laboratory Tests Test 05/15/16 16:43 05/15/16 20:58 Range/Units Bedside Glucose (Misc Panel) 102 158 70-105 MG/DL Microbiology Microbiology 05/15/16 Blood Culture - Preliminary, Resulted No growth after 24 hours . All specim... 05/15/16 Blood Culture - Preliminary, Resulted No growth after 24 hours . All specim... 05/16/16 Stool Occult Blood (MACHELLE), Received Pending ALEXANDER VALERO MD May 16, 2016 10:41
[2016-05-16] MEDS: HEPARIN SOD (PORCINE) 5000 UNITS/ML VIAL IV PRN (12:55)
[2016-05-16 16:00] VITALS: BP 122/65
[2016-05-16 20:00] VITALS: BP 140/69
[2016-05-16] MEDS: CHLORTHALIDONE 12.5MG PER 1/2 TABLET PO SCH (21:03)
[2016-05-16] MEDS: DIVALPROEX 500MG *ER* TAB PO SCH (21:03)
[2016-05-16] MEDS: traZODone 50 MG TAB PO SCH (21:03)
[2016-05-17 00:30] VITALS: BP 120/58
[2016-05-17] MEDS: CEFUROXIME SODIUM 1.5 GM in D5W MINI-BAG PLUS 50 ML IV SCH ×4 (00:44→23:59)
[2016-05-17] MEDS: HEPARIN DRIP 25,000 UNITS in APPROPRIATE DILUENT 1 EA IV SCH ×2 (02:55→18:19)
[2016-05-17] MEDS: PERCOCET 5MG/325MG TAB PO PRN ×5 (03:04→21:36)
[2016-05-17 07:10] LABS: MEAN CORPUSCULAR HEMOGLOBIN 32.9 pg (27.0-33.0); MEAN CORPUSCULAR HGB CONC 33.6 g/dl (32.0-36.5); MEAN CORPUSCULAR VOLUME 97.8 fl (80.0-96.0); RED CELL DISTRIBUTION WIDTH 13.7 % (11.5-14.5); WHITE BLOOD COUNT 6.1 K/mm3 (4.0-10.0)
[2016-05-17 07:15] LABS: ANION GAP 9 MEQ/L (8-16); BLOOD UREA NITROGEN 12 MG/DL (7-18); CALCIUM LEVEL 8.6 MG/DL (8.5-10.1); CARBON DIOXIDE LEVEL 27 MEQ/L (21-32); CHLORIDE LEVEL 106 MEQ/L (98-107); CREATININE FOR GFR 0.86 MG/DL (0.70-1.30); GLOMERULAR FILTRATION RATE > 60.0 (>56); GLUCOSE, FASTING 122 MG/DL (70-105); INR 1.45; POTASSIUM SERUM 4.2 MEQ/L (3.5-5.1); SODIUM LEVEL 142 MEQ/L (136-145)
[2016-05-17] MEDS: HEPARIN SOD (PORCINE) 5000 UNITS/ML VIAL IV PRN ×2 (08:00→16:24)
[2016-05-17] MEDS: PANTOPRAZOLE 40MG TAB (PROTONIX) PO SCH (08:15)
[2016-05-17] MEDS: DOCUSATE SODIUM 100 MG CAP PO SCH ×2 (08:15→21:05)
[2016-05-17] MEDS: ATORVASTATIN 20 MG TAB PO SCH (08:15)
[2016-05-17] MEDS: MECLIZINE 25 MG TABLET PO SCH ×2 (08:15→21:04)
[2016-05-17] MEDS: EZETIMIBE 10 MG TAB (ZETIA) PO SCH (08:16)
[2016-05-17] MEDS: LISINOPRIL 5 MG TAB PO SCH (08:18)
[2016-05-17] MEDS: HumaLOG INSULIN (NovoLOG) PER UNIT SC SCH ×4 (08:19→21:00)
[2016-05-17 08:31] VITALS: BP 129/65
[2016-05-17] MEDS ORDERED: ISOVUE-370 76% 100ML VIAL (Q9967) As Ordered ONE (12:54)
[2016-05-17 13:54] VITALS: BP 128/76
--- NOTE | 2016-05-17 14:27 | REP ---
CT NECK WITH CONTRAST: HISTORY: Neck abscess. CONTRAST: Isovue 370, 75 mL. A 1.3 cm abscess is present in the left floor of the mouth. The abscess is slightly increased in size compared to the previous study. The abscess is medial to the mylohyoid and lateral to the stylo- and hyoglossus muscles. The muscles are slightly increased in size. Increased soft tissue density is present along the lingual surface of the body of the mandible. These findings are consistent with edema. There is no mass effect on the oropharynx. The naso- and hypopharynx, larynx, and subglottic trachea are normal in appearance. The salivary and thyroid glands are normal. Small lymph nodes less than 1 cm in size are present in the internal jugular chains, posterior triangles, submandibular and submental areas. Atherosclerotic calcification is present at the carotid bifurcations. Degenerative change is present in the cervical spine. The lung apices are clear. Mucosal thickening is present in the left maxillary sinus. 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 IMPRESSION: There is a 1.3 cm abscess in the left floor of the mouth that is slightly increased in size compared to the previous study. There is no mass effect on the oropharynx . Signed by Jose Diaz MD 05/17/2016 02:44 P
--- NOTE | 2016-05-17 16:29 | EDDOCDS ---
Physician Documentation [facility] Name: Abhijit Trejo Age: 51 yrs Sex: Male : 1965 Arrival Date: 05/15/2016 Time: 05:48 Bed 15 Private MD: Wesley Dyer Disposition: 05/15/16 09:24 Hospitalization ordered by Tello Ashley for Inpatient Admission. Preliminary diagnosis is Diseases of tongue - tongue abscess. - Bed requested for M PED. - Status is Inpatient Admission. ck1 - Condition is Stable. - Problem is new. - Symptoms are unchanged. Historical: - Allergies: PENICILLINS; unknown anxiety medication; - Home Meds: 1. Nexium 40 mg Oral cpDR 1 cap once daily 2. metformin 850 mg Oral tab 1 tab 2 times per day 3. Zetia 10 mg Oral tab 1 tab once daily 4. chlorthalidone 25 mg Oral tab 0.5 tab once daily 5. lisinopril 5 mg Oral tab 1 tab once daily 6. [place] 5-325 mg Oral tab 1 tab twice a day 7. extra strength tylenol 8. meclizine 50 mg Oral tab 1 tab 2 times per day 9. warfarin 5 mg Oral tab 1 tab once daily 10. Depakote 500 mg Oral TbEC once daily - PMHx: Anxiety; CVA; GERD; Diabetes - NIDDM: controlled; Hypertension; High Cholesterol; - PSHx: Cystectomy; Appendectomy; Tonsillectomy; - Social history: Smoking status: Patient states former smoker of tobacco. No barriers to communication noted, The patient speaks fluent Tunisian, Speaks appropriately for age. - Family history: Not pertinent. - : The pt / caregiver states he / she is on anticoagulants: coumadin. Home medication list is obtained from the patient. - Exposure Risk Screening:: None identified. Vital Signs: 05/15 05:55 BP 137 / 74; Pulse 76; Resp 18; Temp 98.3(TE); Pulse Ox 97% on R/A; Weight 109.77 kg / js15 242 lbs; Height 5 ft. 8 in. (172.72 cm); 08:32 BP 118 / 59; Pulse 69; Resp 18; Temp 97.9(O); Pulse Ox 99% on R/A; Pain 2/10; ck1 11:03 BP 118 / 72; Pulse 69; Resp 18; Temp 98.7(O); Pulse Ox 97% on R/A; Pain 2/10; ck1 15:27 BP 114 / 58; Pulse 82; Resp 18; Temp 99.3; Pulse Ox 96% on R/A; Pain 4/10; ck1 05:55 Body Mass Index 36.80 (109.77 kg, 172.72 cm) js15 MDM: 06:29 IV Saline Lock ordered. cs11 06:29 -Blood Culture (Adults Only), peripheral from different site, or from device/port/PICC cs11 etc. if present ordered. 06:30 diphenhydrAMINE 12.5 mg IVP once ordered. cs11 06:30 cefUROXime 1.5 grams IV at calculated rate once over 30 mins; dilute in 50mL of NS or cs11 D5W ordered. 06:30 CBC with Diff Ordered. EDMS 06:30 MED Profile Ordered. EDMS 06:30 -Blood Culture Ordered. EDMS 06:31 Pt & Aptt Ordered. EDMS 06:34 -Blood Culture (Adults Only), peripheral from different site, or from device/port/PICC tmm1 etc. if present complete. 06:34 BLOOD CULTURES Ordered. EDMS 07:12 CBC with Diff Reviewed. sd1 07:13 BED REQUEST+ADM ordered. EDMS 07:49 MED Profile Reviewed. sd1 07:49 Pt & Aptt Reviewed. sd1 07:50 NS 0.9% 1000 ml IV at 250 mL/hr continuous ordered. sd1 07:51 CT Neck With Contrast Ordered. EDMS 08:04 Dilaudid - HYDROmorphone 0.5 mg IVP once ordered. sd1 10:26 Dilaudid - HYDROmorphone 0.5 mg IVP once ordered. sd1 10:37 PT/INR Ordered. EDMS 10:50 Admission / Observation Status ordered. EDMS 11:02 [facility] Payment Agreement was scanned into [employer] and attached to record. jp5 11:02 Financial registration complete. jp5 11:34 Attending Doctor Change: ordered. EDMS 11:50 FULL LIQUIDS DIET ordered. EDMS 11:51 PARTIAL THROMBOPLASTIN TIME Ordered. EDMS 11:51 PARTIAL THROMBOPLASTIN TIME Ordered. EDMS 11:56 PARTIAL THROMBOPLASTIN TIME Ordered. EDMS 12:48 NS 0.9% 1000 ml IV at 100 mL/hr continuous ordered. ck1 12:48 morphine 2 mg IVP once ordered. ck1 15:26 heparin (Thrombolytic Protocol, 12 units/kg/hr)) 83715 units IV at 1100 units/hr once; ck1 Max. dose 1000units/hr. No Lovenox past 18hrs/ draw labs. ordered. 05/16 09:22 T-Sheet-- Draft Copy was scanned into [employer] and attached to record. gb Administered Medications: 05/15 07:35 Drug: diphenhydrAMINE 12.5 mg [diphenhydramine 50 mg/mL injection solution (0.25 mL)] ck1 Route: IVP; Site: left antecubital; 07:35 Drug: cefUROXime 1.5 grams [cefuroxime sodium 1.5 gram solution for injection] Route: ck1 IV; Rate: calculated rate; Infused Over: 30 mins; Site: left antecubital; 08:42 Follow up: IV Status: Completed infusion ck1 08:17 Drug: Dilaudid - HYDROmorphone 0.5 mg [hydromorphone 1 mg/mL injection syringe (0.5 ck1 mL)] Route: IVP; Site: left antecubital; 08:32 Follow up: BP 118 / 59; Pulse 69 bpm; Resp 18 bpm; Temp 97.9 Oral; Pulse Ox 99% RA; ck1 Pain 2/10 Adult; Response: Confirmed pt not driving.; No Adverse Reaction; Pain is decreased 08:18 Drug: NS 0.9% 1000 ml [sodium chloride 0.9 % intravenous solution] Route: IV; Rate: 250 ck1 mL/hr; Site: left antecubital; 10:31 Drug: Dilaudid - HYDROmorphone 0.5 mg [hydromorphone 1 mg/mL injection syringe (0.5 ck1 mL)] Route: IVP; Site: left antecubital; 11:03 Follow up: BP 118 / 72; Pulse 69 bpm; Resp 18 bpm; Temp 98.7 Oral; Pulse Ox 97% RA; ck1 Pain 2/10 Adult; Response: Confirmed pt not driving.; No Adverse Reaction; Pain is decreased 12:49 Drug: NS 0.9% 1000 ml [sodium chloride 0.9 % intravenous solution] Route: IV; Rate: 100 ck1 mL/hr; Site: left antecubital; 15:25 Follow up: IV Status: Infusion discontinued ck1 12:49 Drug: morphine 2 mg [morphine 2 mg/mL intravenous cartridge (1 mL)] Route: IVP; Site: ck1 left antecubital; 15:27 Drug: heparin (Thrombolytic Protocol, 12 units/kg/hr)) 79484 units [heparin (porcine) ck1 25,000 unit/250 mL (100 unit/mL) in dextrose 5 % IV] {Co-Signature: mlb1 (Tello Gagnon RN).} Route: IV; Rate: 1100 units/hr; Site: left antecubital; Signatures: Dispatcher [employer] EDMS Elsy Ngo MD MD sdLalita Becerra RN RN [facility] Etta Busby, Reg Reg gb Rolanda Beebe RN RN ck1 Gatito Abdalla, DO cs11 McLear, Rita, DIRECTOR [employer] DIRECTOR [employer] tmm1 Leti Danielle RN RN js15 Shaan Damon jp5 Tello Gagnon RN mlb1 The chart was reviewed and I authenticate all verbal orders and agree with the evaluation and treatment provided.Corrections: (The following items were deleted from the chart) 11:56 11:50 PARTIAL THROMBOPLASTIN TIME ordered. [facility] EDWI Attachments: 11:02 [facility] Payment Agreement jp5 05/16 09:22 T-Sheet-- Draft Copy gb Chart Complete MTDD
--- NOTE | 2016-05-17 16:29 | EDDOCDS ---
Physician Documentation [facility] Name: Abhijit Trejo Age: 51 yrs Sex: Male : 1965 Arrival Date: 05/15/2016 Time: 05:48 Bed 15 Private MD: Wesley Dyer Disposition: 05/15/16 09:24 Hospitalization ordered by Tello Ashley for Inpatient Admission. Preliminary diagnosis is Diseases of tongue - tongue abscess. - Bed requested for M PED. - Status is Inpatient Admission. ck1 - Condition is Stable. - Problem is new. - Symptoms are unchanged. Historical: - Allergies: PENICILLINS; unknown anxiety medication; - Home Meds: 1. Nexium 40 mg Oral cpDR 1 cap once daily 2. metformin 850 mg Oral tab 1 tab 2 times per day 3. Zetia 10 mg Oral tab 1 tab once daily 4. chlorthalidone 25 mg Oral tab 0.5 tab once daily 5. lisinopril 5 mg Oral tab 1 tab once daily 6. [place] 5-325 mg Oral tab 1 tab twice a day 7. extra strength tylenol 8. meclizine 50 mg Oral tab 1 tab 2 times per day 9. warfarin 5 mg Oral tab 1 tab once daily 10. Depakote 500 mg Oral TbEC once daily - PMHx: Anxiety; CVA; GERD; Diabetes - NIDDM: controlled; Hypertension; High Cholesterol; - PSHx: Cystectomy; Appendectomy; Tonsillectomy; - Social history: Smoking status: Patient states former smoker of tobacco. No barriers to communication noted, The patient speaks fluent Samoan, Speaks appropriately for age. - Family history: Not pertinent. - : The pt / caregiver states he / she is on anticoagulants: coumadin. Home medication list is obtained from the patient. - Exposure Risk Screening:: None identified. Vital Signs: 05/15 05:55 BP 137 / 74; Pulse 76; Resp 18; Temp 98.3(TE); Pulse Ox 97% on R/A; Weight 109.77 kg / js15 242 lbs; Height 5 ft. 8 in. (172.72 cm); 08:32 BP 118 / 59; Pulse 69; Resp 18; Temp 97.9(O); Pulse Ox 99% on R/A; Pain 2/10; ck1 11:03 BP 118 / 72; Pulse 69; Resp 18; Temp 98.7(O); Pulse Ox 97% on R/A; Pain 2/10; ck1 15:27 BP 114 / 58; Pulse 82; Resp 18; Temp 99.3; Pulse Ox 96% on R/A; Pain 4/10; ck1 05:55 Body Mass Index 36.80 (109.77 kg, 172.72 cm) js15 MDM: 06:29 IV Saline Lock ordered. cs11 06:29 -Blood Culture (Adults Only), peripheral from different site, or from device/port/PICC cs11 etc. if present ordered. 06:30 diphenhydrAMINE 12.5 mg IVP once ordered. cs11 06:30 cefUROXime 1.5 grams IV at calculated rate once over 30 mins; dilute in 50mL of NS or cs11 D5W ordered. 06:30 CBC with Diff Ordered. EDMS 06:30 MED Profile Ordered. EDMS 06:30 -Blood Culture Ordered. EDMS 06:31 Pt & Aptt Ordered. EDMS 06:34 -Blood Culture (Adults Only), peripheral from different site, or from device/port/PICC tmm1 etc. if present complete. 06:34 BLOOD CULTURES Ordered. EDMS 07:12 CBC with Diff Reviewed. sd1 07:13 BED REQUEST+ADM ordered. EDMS 07:49 MED Profile Reviewed. sd1 07:49 Pt & Aptt Reviewed. sd1 07:50 NS 0.9% 1000 ml IV at 250 mL/hr continuous ordered. sd1 07:51 CT Neck With Contrast Ordered. EDMS 08:04 Dilaudid - HYDROmorphone 0.5 mg IVP once ordered. sd1 10:26 Dilaudid - HYDROmorphone 0.5 mg IVP once ordered. sd1 10:37 PT/INR Ordered. EDMS 10:50 Admission / Observation Status ordered. EDMS 11:02 [facility] Payment Agreement was scanned into [employer] and attached to record. jp5 11:02 Financial registration complete. jp5 11:34 Attending Doctor Change: ordered. EDMS 11:50 FULL LIQUIDS DIET ordered. EDMS 11:51 PARTIAL THROMBOPLASTIN TIME Ordered. EDMS 11:51 PARTIAL THROMBOPLASTIN TIME Ordered. EDMS 11:56 PARTIAL THROMBOPLASTIN TIME Ordered. EDMS 12:48 NS 0.9% 1000 ml IV at 100 mL/hr continuous ordered. ck1 12:48 morphine 2 mg IVP once ordered. ck1 15:26 heparin (Thrombolytic Protocol, 12 units/kg/hr)) 53830 units IV at 1100 units/hr once; ck1 Max. dose 1000units/hr. No Lovenox past 18hrs/ draw labs. ordered. 05/16 09:22 T-Sheet-- Draft Copy was scanned into [employer] and attached to record. gb Administered Medications: 05/15 07:35 Drug: diphenhydrAMINE 12.5 mg [diphenhydramine 50 mg/mL injection solution (0.25 mL)] ck1 Route: IVP; Site: left antecubital; 07:35 Drug: cefUROXime 1.5 grams [cefuroxime sodium 1.5 gram solution for injection] Route: ck1 IV; Rate: calculated rate; Infused Over: 30 mins; Site: left antecubital; 08:42 Follow up: IV Status: Completed infusion ck1 08:17 Drug: Dilaudid - HYDROmorphone 0.5 mg [hydromorphone 1 mg/mL injection syringe (0.5 ck1 mL)] Route: IVP; Site: left antecubital; 08:32 Follow up: BP 118 / 59; Pulse 69 bpm; Resp 18 bpm; Temp 97.9 Oral; Pulse Ox 99% RA; ck1 Pain 2/10 Adult; Response: Confirmed pt not driving.; No Adverse Reaction; Pain is decreased 08:18 Drug: NS 0.9% 1000 ml [sodium chloride 0.9 % intravenous solution] Route: IV; Rate: 250 ck1 mL/hr; Site: left antecubital; 10:31 Drug: Dilaudid - HYDROmorphone 0.5 mg [hydromorphone 1 mg/mL injection syringe (0.5 ck1 mL)] Route: IVP; Site: left antecubital; 11:03 Follow up: BP 118 / 72; Pulse 69 bpm; Resp 18 bpm; Temp 98.7 Oral; Pulse Ox 97% RA; ck1 Pain 2/10 Adult; Response: Confirmed pt not driving.; No Adverse Reaction; Pain is decreased 12:49 Drug: NS 0.9% 1000 ml [sodium chloride 0.9 % intravenous solution] Route: IV; Rate: 100 ck1 mL/hr; Site: left antecubital; 15:25 Follow up: IV Status: Infusion discontinued ck1 12:49 Drug: morphine 2 mg [morphine 2 mg/mL intravenous cartridge (1 mL)] Route: IVP; Site: ck1 left antecubital; 15:27 Drug: heparin (Thrombolytic Protocol, 12 units/kg/hr)) 52553 units [heparin (porcine) ck1 25,000 unit/250 mL (100 unit/mL) in dextrose 5 % IV] {Co-Signature: mlb1 (Tello Gagnon RN).} Route: IV; Rate: 1100 units/hr; Site: left antecubital; Signatures: Dispatcher [employer] EDMS Elsy Ngo MD MD sdLalita Becerra RN RN [facility] Etta Busby, Reg Reg gb Rolanda Beebe RN RN ck1 Gatito Abdalla, DO cs11 McLear, Rita, HOSPITAL MORTICIAN H[facility]PITAL MORTICIAN tmm1 Leti Danielle RN RN js15 Shaan Damon jp5 Tello Gagnon RN mlb1 The chart was reviewed and I authenticate all verbal orders and agree with the evaluation and treatment provided.Corrections: (The following items were deleted from the chart) 11:56 11:50 PARTIAL THROMBOPLASTIN TIME ordered. [facility] EDWI Attachments: 11:02 [facility] Payment Agreement jp5 05/16 09:22 T-Sheet-- Draft Copy gb Chart Complete MTDD
--- NOTE | 2016-05-17 16:30 | EDDOCDS ---
Nurse's Notes [facility] Name: Abhijit Trejo Age: 51 yrs Sex: Male : 1965 Arrival Date: 05/15/2016 Time: 05:48 Bed 15 Private MD: Wesley Dyer Diagnosis: Diseases of tongue-tongue abscess Presentation: 05/15 05:55 Presenting complaint: Patient states: My throat is all swollen up. It feels like I got js15 a golf ball up there. My left ear hurts and the back of my throat hurts. Risk factors: Stridor is not present. Drooling is not present. Shortness of breath is not present. Cellulitis is not present. Adult Sepsis Screening: The patient does not have new or worsening altered mentation. Patient's respiratory rate is less than 22. Systolic blood pressure is greater than 100. Patient has a qSOFA score of 0- Negative Sepsis Screen. Suicide/Homicide risk assessment-. Suicide/Homicide risk assessment- the patient denies having any suicidal and/or homicidal ideations and does not present with any other emotional, behavioral or mental health complaints. Status: Patient is not a marketing services manager or dependent. Transition of care: patient was not received from another setting of care. 05:55 Acuity: GUILLE Level 4 js15 05:55 Method Of Arrival: Walkin/Carried/Asstd js15 08:36 Acuity level changed due to complexity of care. ck1 08:36 Acuity: GUILLE Level 3 ck1 Triage Assessment: 06:02 General: Appears in no apparent distress. Pain: Location: left ear, left buccal mucosa, js15 right buccal mucosa, uvula, left aspect of posterior pharynx, right aspect of posterior pharynx and tongue Pain currently is 8 out of 10 on a pain scale. HIV screening NA for this visit Offered previously. EENT: Reports pain in mouth/throat when swallowing. Respiratory: Airway is patent Respiratory effort is even, unlabored, Respiratory pattern is regular, symmetrical. Derm: Skin is pink, warm & dry. Historical: - Allergies: PENICILLINS; unknown anxiety medication; - Home Meds: 1. Nexium 40 mg Oral cpDR 1 cap once daily 2. metformin 850 mg Oral tab 1 tab 2 times per day 3. Zetia 10 mg Oral tab 1 tab once daily 4. chlorthalidone 25 mg Oral tab 0.5 tab once daily 5. lisinopril 5 mg Oral tab 1 tab once daily 6. Lando 5-325 mg Oral tab 1 tab twice a day 7. extra strength tylenol 8. meclizine 50 mg Oral tab 1 tab 2 times per day 9. warfarin 5 mg Oral tab 1 tab once daily 10. Depakote 500 mg Oral TbEC once daily - PMHx: Anxiety; CVA; GERD; Diabetes - NIDDM: controlled; Hypertension; High Cholesterol; - PSHx: Cystectomy; Appendectomy; Tonsillectomy; - Social history: Smoking status: Patient states former smoker of tobacco. No barriers to communication noted, The patient speaks fluent Kazakh, Speaks appropriately for age. - Family history: Not pertinent. - : The pt / caregiver states he / she is on anticoagulants: coumadin. Home medication list is obtained from the patient. - Exposure Risk Screening:: None identified. Screenin:12 Screening information is obtained from the patient. Fall risk: No risks identified. ck1 Assistance ADL's: requires no assistance with activities of daily living. Abuse/DV Screen: The patient / caregiver reports he/she is: not in a situation that causes fear, pain or injury. Nutritional screening: No deficits noted. Advance Directives: Currently, there is no health care proxy. home support is adequate. Assessment: 06:30 General: Appears in no apparent distress, Behavior is cooperative. Neurological: Level af2 of Consciousness is awake, alert, obeys commands. Respiratory: Airway is patent Respiratory effort is even, unlabored. Derm: Skin is normal. 07:11 General: Appears in no apparent distress, comfortable, Behavior is appropriate for age, ck1 cooperative. Pain: Location: left ear and throat Pain currently is 8 out of 10 on a pain scale. Neurological: Level of Consciousness is awake, alert, obeys commands, Oriented to person, place, time. Respiratory: Respiratory effort is unlabored, Respiratory pattern is regular, symmetrical. Respiratory: Airway is patent Respiratory effort is even, unlabored, Respiratory pattern is regular, symmetrical. GI: No deficits noted. Derm: Skin is normal. 08:10 General: Patient complaining of increased pain in throat and left ear. Provider aware. ck1 08:46 General: Patient OOB to bathroom. Gait steady, no acute distress noted at this time. ck1 Respirations easy and unlabored, airway patent. Call light in reach, will continue to monitor patient. 09:21 General: Appears in no apparent distress, comfortable, Behavior is appropriate for age, ck1 cooperative. Pain: Location: left ear and throat Pain currently is 2 out of 10 on a pain scale. Neurological: Level of Consciousness is awake, alert, obeys commands, Oriented to person, place, time. Respiratory: Airway is patent Respiratory effort is even, unlabored, Respiratory pattern is regular, symmetrical. GI: No deficits noted. Derm: Skin is pink, warm & dry. Musculoskeletal: No deficits noted. 10:02 General: patient stating "my pain medication has worn off". Resting quietly on ck1 stretcher with eyes closed. Provider aware. 10:31 General: Appears in no apparent distress, comfortable, Behavior is appropriate for age, ck1 cooperative. Pain: Location: left ear and throat Pain currently is 7 out of 10 on a pain scale. Neurological: Level of Consciousness is awake, alert, obeys commands, Oriented to person, place, time. Respiratory: Respiratory effort is unlabored, Respiratory pattern is regular, symmetrical. Respiratory: Airway is patent. GI: No deficits noted. Derm: Skin is pink, warm & dry. 11:18 General: Appears in no apparent distress, comfortable, Behavior is appropriate for age, ck1 cooperative. Pain: Location: left ear and throat Pain currently is 2 out of 10 on a pain scale. Neurological: Level of Consciousness is awake, alert, obeys commands, Oriented to person, place, time. Respiratory: Airway is patent Respiratory effort is even, unlabored, Respiratory pattern is regular, symmetrical. GI: No deficits noted. Derm: Skin is pink, warm & dry. 12:15 General: Appears in no apparent distress, comfortable, Behavior is appropriate for age, ck1 cooperative. Pain: Location: left ear and throat Pain currently is 8 out of 10 on a pain scale. Neurological: Level of Consciousness is awake, alert, obeys commands, Oriented to person, place, time. Respiratory: Respiratory effort is unlabored, Respiratory pattern is regular, symmetrical. GI: No deficits noted. Derm: Skin is pink, warm & dry. Musculoskeletal: Circulation, motion, and sensation intact Range of motion intact in all extremities. 13:15 Reassessment: Patient appears in no apparent distress at this time. ck1 14:14 General: Patient is resting quietly on stretcher with eyes closed. Reports pain is ck1 currently 3/10. No acute distress noted. Tolerating full liquid diet without difficulty. Call light in reach, will continue to monitor patient. 15:28 General: Appears in no apparent distress, comfortable, Behavior is appropriate for age, ck1 cooperative. Pain: Location: left ear, throat Pain currently is 4 out of 10 on a pain scale. Neurological: Level of Consciousness is awake, alert, obeys commands, Oriented to person, place, time. Respiratory: Respiratory effort is unlabored, Respiratory pattern is regular, symmetrical. GI: No deficits noted. Derm: Skin is pink, warm & dry. Vital Signs: 05:55 BP 137 / 74; Pulse 76; Resp 18; Temp 98.3(TE); Pulse Ox 97% on R/A; Weight 109.77 kg; js15 Height 5 ft. 8 in. (172.72 cm); 08:32 BP 118 / 59; Pulse 69; Resp 18; Temp 97.9(O); Pulse Ox 99% on R/A; Pain 2/10; ck1 11:03 BP 118 / 72; Pulse 69; Resp 18; Temp 98.7(O); Pulse Ox 97% on R/A; Pain 2/10; ck1 15:27 BP 114 / 58; Pulse 82; Resp 18; Temp 99.3; Pulse Ox 96% on R/A; Pain 4/10; ck1 05:55 Body Mass Index 36.80 (109.77 kg, 172.72 cm) rust Vitals: 05:55 Log In Time: May 15, 2016 at 05:48. 15 ED Course: 05:50 Patient visited by Vasile Marlow, Reg. pm4 05:50 Wesley Dyer is Private Physician. pm4 05:50 Patient moved to Waiting pm4 05:54 Patient moved to Pre RCE js15 05:57 Triage Initiated js15 06:04 Saira Lyon,EUGENE is Primary Nurse. js15 06:04 Patient moved to 15 js15 06:26 Gatito Abdalla DO is Attending Physician. cs11 06:27 Patient visited by Gatito Abdalla DO. cs11 06:57 Rolanda Beebe,EUGENE is Primary Nurse. ck1 07:00 Attending Physician role handed off by Gatito Abdalla DO sd1 07:00 Elsy Ngo MD is Attending Physician. sd1 07:00 Pt & Aptt Sent. af2 07:00 MED Profile Sent. af2 07:00 CBC with Diff Sent. af2 07:00 -Blood Culture Sent. af2 07:08 Inserted saline lock: 18 gauge in left antecubital area and blood collected. The af2 patient tolerated the procedure well. 07:09 Patient visited by Saira Lyon RN. af2 07:12 The patient / caregiver is instructed regarding the plan of care and ED course. ck1 07:35 Patient visited by Rolanda Beeeb RN. ck1 08:06 Patient visited by Rolanda Beebe RN. ck1 08:17 Patient visited by Rolanda Beebe RN. ck1 08:[address] ck1 08:31 Patient visited by Rolanda Beebe RN. ck1 08:31 Patient moved to 15 ck1 08:42 Patient visited by Rolanda Beebe RN. ck1 09:13 Primary Nurse role handed off by Saira Lyon RN kr3 09:19 Patient visited by Rolanda Beebe RN. ck1 09:24 Tello Ashley is Hospitalizing Provider. sd1 09:36 CT Neck With Contrast Returned. EDMS 11:02 [facility] Payment Agreement was scanned into [employer] and attached to record. jp5 11:19 No procedures done that require assistance. ck1 11:53 PO fluids given. ck1 05/16 09:22 T-Sheet-- Draft Copy was scanned into [employer] and attached to record. gb Administered Medications: 05/15 07:35 Drug: diphenhydrAMINE 12.5 mg [diphenhydramine 50 mg/mL injection solution (0.25 mL)] ck1 Route: IVP; Site: left antecubital; 07:35 Drug: cefUROXime 1.5 grams [cefuroxime sodium 1.5 gram solution for injection] Route: ck1 IV; Rate: calculated rate; Infused Over: 30 mins; Site: left antecubital; 08:42 Follow up: IV Status: Completed infusion ck1 08:17 Drug: Dilaudid - HYDROmorphone 0.5 mg [hydromorphone 1 mg/mL injection syringe (0.5 ck1 mL)] Route: IVP; Site: left antecubital; 08:32 Follow up: BP 118 / 59; Pulse 69 bpm; Resp 18 bpm; Temp 97.9 Oral; Pulse Ox 99% RA; ck1 Pain 2/10 Adult; Response: Confirmed pt not driving.; No Adverse Reaction; Pain is decreased 08:18 Drug: NS 0.9% 1000 ml [sodium chloride 0.9 % intravenous solution] Route: IV; Rate: 250 ck1 mL/hr; Site: left antecubital; 10:31 Drug: Dilaudid - HYDROmorphone 0.5 mg [hydromorphone 1 mg/mL injection syringe (0.5 ck1 mL)] Route: IVP; Site: left antecubital; 11:03 Follow up: BP 118 / 72; Pulse 69 bpm; Resp 18 bpm; Temp 98.7 Oral; Pulse Ox 97% RA; ck1 Pain 2/10 Adult; Response: Confirmed pt not driving.; No Adverse Reaction; Pain is decreased 12:49 Drug: NS 0.9% 1000 ml [sodium chloride 0.9 % intravenous solution] Route: IV; Rate: 100 ck1 mL/hr; Site: left antecubital; 15:25 Follow up: IV Status: Infusion discontinued ck1 12:49 Drug: morphine 2 mg [morphine 2 mg/mL intravenous cartridge (1 mL)] Route: IVP; Site: ck1 left antecubital; 15:27 Drug: heparin (Thrombolytic Protocol, 12 units/kg/hr)) 23623 units [heparin (porcine) ck1 25,000 unit/250 mL (100 unit/mL) in dextrose 5 % IV] {Co-Signature: mlb1 (Tello Gagnon RN).} Route: IV; Rate: 1100 units/hr; Site: left antecubital; Order Results: Lab Order: CBC with Diff; SPEC'M 05/15/16 06:51 Test: WHITE BLOOD COUNT; Value: 7.8; Range: 4.0-10.0; Units: K/mm3; Status: F Test: RED BLOOD COUNT; Value: 4.28; Range: 4.30-6.10; Abnormal: Below low normal; Units: M/mm3; Status: F Test: HEMOGLOBIN; Value: 14.2; Range: 14.0-18.0; Units: g/dl; Status: F Test: HEMATOCRIT; Value: 40.0; Range: 42.0-52.0; Abnormal: Below low normal; Units: %; Status: F Test: MEAN CORPUSCULAR VOLUME; Value: 93.6; Range: 80.0-96.0; Units: fl; Status: F Test: MEAN CORPUSCULAR HEMOGLOBIN; Value: 33.1; Range: 27.0-33.0; Abnormal: Above high normal; Units: pg; Status: F Test: MEAN CORPUSCULAR HGB CONC; Value: 35.4; Range: 32.0-36.5; Units: g/dl; Status: F Test: RED CELL DISTRIBUTION WIDTH; Value: 12.7; Range: 11.5-14.5; Units: %; Status: F Test: PLATELET COUNT, AUTOMATED; Value: 218; Range: 150-450; Units: k/mm3; Status: F Test: NEUTROPHILS %; Value: 71.9; Range: 36.0-66.0; Abnormal: Above high normal; Units: %; Status: F Test: LYMPH %; Value: 17.8; Range: 24.0-44.0; Abnormal: Below low normal; Units: %; Status: F Test: MONO %; Value: 7.3; Range: 0.0-5.0; Abnormal: Above high normal; Units: %; Status: F Test: EOS %; Value: 0.6; Range: 0.0-3.0; Units: %; Status: F Test: BASO %; Value: 0.4; Range: 0.0-1.0; Units: %; Status: F Test: LARGE UNSTAINED CELL %; Value: 2.0; Range: 0.0-4.0; Units: %; Status: F Test: NEUTROPHILS #; Value: 5.6; Range: 1.8-7.7; Units: K/mm3; Status: F Test: LYMPH #; Value: 1.4; Range: 1.5-4.5; Abnormal: Below low normal; Units: K/mm3; Status: F Test: MONO #; Value: 0.6; Range: 0.0-0.8; Units: K/mm3; Status: F Test: EOS #; Value: 0.0; Range: 0.0-0.50; Units: K/mm3; Status: F Test: BASO #; Value: 0.0; Range: 0.0-0.2; Units: K/mm3; Status: F Test: LARGE UNSTAINED CELL #; Value: 0.2; Range: 0.0-0.4; Units: K/mm3; Status: F Lab Order: MED Profile; SPEC'M 05/15/16 06:51 Test: GLUCOSE, FASTING; Value: 121; Range: 70-105; Abnormal: Above high normal; Units: MG/DL; Status: F Test: BLOOD UREA NITROGEN; Value: 15; Range: 7-18; Units: MG/DL; Status: F Test: CREATININE FOR GFR; Value: 0.91; Range: 0.70-1.30; Units: MG/DL; Status: F Test: GLOMERULAR FILTRATION RATE; Value: > 60.0; Range: >56; Status: F Test: SODIUM LEVEL; Value: 136; Range: 136-145; Units: MEQ/L; Status: F Test: POTASSIUM SERUM; Value: 3.7; Range: 3.5-5.1; Units: MEQ/L; Status: F Test: CHLORIDE LEVEL; Value: 99; Range: 98-107; Units: MEQ/L; Status: F Test: CARBON DIOXIDE LEVEL; Value: 29; Range: 21-32; Units: MEQ/L; Status: F Test: ANION GAP; Value: 8; Range: 8-16; Units: MEQ/L; Status: F Test: CALCIUM LEVEL; Value: 8.9; Range: 8.5-10.1; Units: MG/DL; Status: F Test Note: ; Units are mL/min/1.73 m2 Chronic Kidney Disease Staging per NKF: Stage I & II GFR >=60 Normal to Mildly Decreased Stage III GFR 30-59 Moderately Decreased Stage IV GFR 15-29 Severely Decreased Stage V GFR <15 Very Little GFR Left ESRD GFR <15 on AUTOMOBILE UPHOLSTERER Lab Order: Pt & Aptt; SPEC'M 05/15/16 06:51 Test: PROTHROMBIN TIME; Value: 23.4; Range: 12.3-14.5; Abnormal: Above high normal; Units: SECONDS; Status: F Test: INR; Value: 2.07; Status: F Test: PARTIAL THROMBOPLASTIN TIME; Value: 35.8; Range: 26.6-37.1; Units: SECONDS; Status: F Test Note: ; THERAPUTIC HUMAN INR VALUES INDICATIONS NORMAL RANGES PROPHYLAXIS/TREATMENT OF: VENOUS THROMBOSIS 2.0-3.0 PULMONARY EMBOLISM 2.0-3.0 PREVENTION OF SYSTEMIC EMBOLISM FROM: TISSUE HEART VALVES 2.0-3.0 ACUTE MYOCARDIAL INFARCTION 2.0-3.0 VALVULAR HEART DISEASE 2.0-3.0 ATRIAL FIBRILLATION 2.0-3.0 MECHANICAL VALVES(HIGH RISK) 2.5-3.5 RECURRENT MYOCARDIAL INFARCTION 2.5-3.5 Lab Order: PT/INR; SPEC'M 05/15/16 11:22 Test: PROTHROMBIN TIME; Value: 24.0; Range: 12.3-14.5; Abnormal: Above high normal; Units: SECONDS; Status: F Test: INR; Value: 2.14; Status: F Test Note: ; THERAPUTIC HUMAN INR VALUES INDICATIONS NORMAL RANGES PROPHYLAXIS/TREATMENT OF: VENOUS THROMBOSIS 2.0-3.0 PULMONARY EMBOLISM 2.0-3.0 PREVENTION OF SYSTEMIC EMBOLISM FROM: TISSUE HEART VALVES 2.0-3.0 ACUTE MYOCARDIAL INFARCTION 2.0-3.0 VALVULAR HEART DISEASE 2.0-3.0 ATRIAL FIBRILLATION 2.0-3.0 MECHANICAL VALVES(HIGH RISK) 2.5-3.5 RECURRENT MYOCARDIAL INFARCTION 2.5-3.5 Lab Order: PARTIAL THROMBOPLASTIN TIME; SPEC'M 05/15/16 11:22 Test: PARTIAL THROMBOPLASTIN TIME; Value: 35.4; Range: 26.6-37.1; Units: SECONDS; Status: F Radiology Order: CT Neck With Contrast Test: CT Neck With Contrast REASON FOR EXAMINATION: R/O abscess; CT NECK WITH CONTRAST:; ; HISTORY: Abscess.; ; CONTRAST: Isovue 370, 75 mL.; ; There is soft tissue thickening along the lingual surface of the body of the left; mandible. A 1 cm ring enhancing structure consistent with an abscess is present; medial to the left mylohyoid muscle and lateral to the left stylo- and hyoglossus; muscles. There is thickening of the muscles consistent with edema. Slight; increased density consistent with edema is present in the surrounding; subcutaneous tissue. There is no mass effect on the oropharynx. The naso- and; hypopharynx, larynx and subglottic trachea are normal in appearance. The; salivary and thyroid glands are normal. Small lymph nodes less than 1 cm in size; are present in the internal jugular chains, posterior triangles, submandibular; and submental areas. Atherosclerotic calcification is present at the carotid; bifurcations. Degenerative change is present in the cervical spine. The lung; apices are clear. Mucosal thickening is present in the left maxillary sinus. 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 There is no mass effect on the; oropharynx.; ; ; Signed by; Jose Diaz MD 05/15/2016 09:30 A; Outcome: 08:32 CT Study completed. ck1 09:24 Decision to Hospitalize by Provider. sd1 13:34 Discharge Assessment: Patient awake, alert and oriented x 3. No cognitive and/or ck1 functional deficits noted. Patient verbalized understanding of disposition instructions. patient administered narcotics - yes. Patient was admitted to the hospital or transferred to another facility. The following High Risk Discharge criteria are identified: None. Admitted to Pediatrics accompanied by tech, family with patient, via wheelchair, with chart. Condition: stable. Admission hand-off: Report called to Анна Bernal RN. Property :Personal belongings accompany Pt. 15:29 Patient left the ED. ck1 Signatures: Dispatcher [employer] EDWA Elsy Ngo MD MD sd1 Etta Busby, Reg Reg gb Rolanda BeebeRN RN ck1 Mattie Will,RN RN kr3 Gatito Abdalla, DO cs11 Saira LyonRN RN af2 Leti Danielle,EUGENE RN js15 Shaan Damon jp5 Vasile Marlow, Reg Reg pm4 Tello Gagnon RN mlb1 Chart Complete MTDD
[2016-05-17] MEDS ORDERED: WARFARIN SOD 10 MG TAB PO SCH (17:00)
--- NOTE | 2016-05-17 19:34 | IPN ---
DATE: 05/17/2016 SUBJECTIVE: Patient seen and examined. No acute events overnight. Patient tolerating oral. Denies any chest pain, pressure, discomfort. Feeling that the abscess seems to be improving. Denies any shortness of breath. Able to swallow. Denies any chest pain, pressure, discomfort. Denies any fevers or chills. VITAL SIGNS: Temperature 98.6, pulse 72, respirations 18, blood pressure 128/76, pulse oximetry 100% on room air. LABORATORY DATA: WBC 6.1, hemoglobin and hematocrit 12 over 35.6, platelets 185. Chemistry: Sodium 142, potassium 4.2, chloride 106, bicarbonate 27, BUN 12, creatinine 0.86. PHYSICAL EXAMINATION: GENERAL: The patient alert and oriented times three in no acute distress. HEENT: Normocephalic. Pharyngeal swelling and left floor of the mouth swelling. NECK: Positive for lymphadenopathy. CHEST: Bilaterally clear to auscultation. CARDIAC: Regular rate and rhythm. Normal S1, S2. ABDOMEN: Soft, nontender. Positive bowel sounds. EXTREMITIES: No edema bilateral lower extremities. ASSESSMENT AND PLAN: This is a 51-year-old male patient with underlying medical history of cerebrovascular accident (CVA) with left-sided weakness, type 2 diabetes, anxiety, hypertension, dyslipidemia, also with lupus anticoagulant and factor V Leiden on Coumadin chronically, admitted for oral abscess. 1. Oral abscess. The patient currently on cefuroxime. Cultures were negative to date. Ears, nose and throat (ENT) Dr. Ashley consulted. Nothing by mouth for operating room (OR) tomorrow for abscess drainage as per Dr. Ashley. The patient is intermediate risk for intermediate risk procedure. Will hold heparin drip three hours prior to OR and restart heparin drip two hours after the procedure. 2. Type 2 diabetes. Holding oral medications. Insulin as per protocol. 3. Hypertension. Continue home medication. Monitor blood pressure. 4. Dyslipidemia. Continue home medication. 5. Obstructive sleep apnea. Continue continuous positive airway pressure (CPAP). 6. Gastroesophageal reflux disease (GERD). Continue home medication. 7. Chronic obstructive pulmonary disease (COPD). Currently stable. Continue to monitor. 8. Chronic back pain. Outpatient followup. Currently stable. 9. Underlying history of factor V Leiden and lupus anticoagulant, with history of cerebrovascular accident (CVA). Case discussed with Dr. Smith. Patient currently on heparin drip. Coumadin on hold for possible surgery. As per Dr. Smith, patient needs to be therapeutic on Coumadin prior to discharge. 10. Deep venous thrombosis (DVT) prophylaxis. The patient on heparin drip. DISPOSITION PLANNING: Pending OR tomorrow. Will restart heparin two hours after OR, and dose Coumadin and discharge the patient when the patient is clinically improved.
[2016-05-17 20:00] VITALS: BP 119/69
[2016-05-17] MEDS: CHLORTHALIDONE 12.5MG PER 1/2 TABLET PO SCH (21:04)
[2016-05-17] MEDS: traZODone 50 MG TAB PO SCH (21:04)
[2016-05-17] MEDS: DIVALPROEX 500MG *ER* TAB PO SCH (21:05)
[2016-05-18] VITALS (8 sets, daily range): BP systolic 120–162; BP diastolic 57–85
[2016-05-18 05:06] LABS: MEAN CORPUSCULAR HEMOGLOBIN 32.9 pg (27.0-33.0); MEAN CORPUSCULAR HGB CONC 34.6 g/dl (32.0-36.5); RED CELL DISTRIBUTION WIDTH 13.6 % (11.5-14.5); WHITE BLOOD COUNT 6.1 K/mm3 (4.0-10.0)
[2016-05-18 05:10] LABS: INR 1.07
[2016-05-18 05:27] LABS: ANION GAP 11 MEQ/L (8-16); BLOOD UREA NITROGEN 10 MG/DL (7-18); CALCIUM LEVEL 8.5 MG/DL (8.5-10.1); CARBON DIOXIDE LEVEL 28 MEQ/L (21-32); CHLORIDE LEVEL 104 MEQ/L (98-107); CREATININE FOR GFR 0.87 MG/DL (0.70-1.30); GLOMERULAR FILTRATION RATE > 60.0 (>56); GLUCOSE, FASTING 114 MG/DL (70-105); POTASSIUM SERUM 3.9 MEQ/L (3.5-5.1); SODIUM LEVEL 143 MEQ/L (136-145)
[2016-05-18] MEDS: HEPARIN SOD (PORCINE) 5000 UNITS/ML VIAL IV PRN (05:46)
[2016-05-18] MEDS: HumaLOG INSULIN (NovoLOG) PER UNIT SC SCH ×2 (06:23→12:21)
[2016-05-18] MEDS: HEPARIN DRIP 25,000 UNITS in APPROPRIATE DILUENT 1 EA IV SCH (07:31)
[2016-05-18] MEDS: LR 1,000 ML IV SCH ×2 (07:31→21:28)
[2016-05-18] MEDS: CEFUROXIME SODIUM 1.5 GM in D5W MINI-BAG PLUS 50 ML IV SCH ×3 (08:31→23:15)
[2016-05-18] MEDS: MECLIZINE 25 MG TABLET PO SCH ×2 (08:32→21:27)
[2016-05-18] MEDS: LISINOPRIL 5 MG TAB PO SCH (08:32)
[2016-05-18] MEDS: ATORVASTATIN 20 MG TAB PO SCH (08:32)
[2016-05-18] MEDS: DOCUSATE SODIUM 100 MG CAP PO SCH ×2 (08:32→21:27)
[2016-05-18] MEDS: PANTOPRAZOLE 40MG TAB (PROTONIX) PO SCH (08:33)
[2016-05-18] MEDS: EZETIMIBE 10 MG TAB (ZETIA) PO SCH (08:33)
--- NOTE | 2016-05-18 08:35 | IPNPDOC ---
Assessment/Plan Date Seen The patient was seen on 05/18/16. Problems Problems: (1) Oral abscess Status: Acute Problem Text: will continue with cefuroxime . planned for OR today Hold heparin 3 hours prior to OR ENT following. (2) Diabetes Status: Chronic (3) Hypertension Status: Chronic (4) JOSE on CPAP Status: Chronic (5) Hyperlipidemia Status: Chronic (6) GERD (gastroesophageal reflux disease) Status: Chronic (7) COPD (chronic obstructive pulmonary disease) Status: Chronic (8) Chronic back pain Status: Chronic (9) Personal history of DVT (deep vein thrombosis) Status: Chronic Problem Text: has factor v leiden and lupus anticoagulant. will keep the patient on heparin infusion in the perioperative period. on discharge pateint is going to be on lovenox and coumadin. Plan / VTE VTE Prophylaxis Ordered?: Yes Subjective Review of Systems CC/HPI The patient is a 51-year-old male admitted with a reason for visit of Oral Abscess. Events since last encounter says feels better, pain reduced , able to eat better, palnned for surgery this afternoon as collection increased in the repeat CT scan. Objective Physical Examination General Exam: Positive: Alert, No Acute Distress Eye Exam: Positive: Conjunctiva & lids normal, EOMI, PERRLA, Negative: Sclera icteric ENT Exam: Positive: Other ENT (tongue swollen on one side), Pharyngeal Edema Neck Exam: Positive: Lymphadenopathy, Supple Chest Exam: Positive: Clear to auscultation, Normal air movement Heart Exam: Positive: Normal S1, Normal S2, Rate Normal, Regular Rhythm, Negative: Murmurs, Rubs Abdomen Exam: Positive: Normal bowel sounds, Soft, Negative: Hepatospenomegaly, Tenderness Skin Exam: Positive: Nl turgor and temperature, Negative: Breakdown, Rash Vital Signs/I&O Vital Signs Date Time Temp Pulse Resp B/P Pulse Ox O2 Delivery O2 Flow Rate FiO2 05/18/16 00:00 97.1 67 20 128/64 96 Room Air I&O- Last 24 Hours up to 6 AM 05/18/16 06:00 Intake Total 2623 ml Output Total 2860 ml Balance -237 ml Laboratory Data Labs 24H Laboratory Tests 2 05/17/16 12:13: Bedside Glucose (Misc Panel) 112H 05/17/16 15:20: Activated Partial Thromboplast Time 60.2H 05/17/16 17:34: Bedside Glucose (Misc Panel) 103 05/17/16 20:50: Bedside Glucose (Misc Panel) 240H 05/17/16 22:13: Activated Partial Thromboplast Time 98.3H 05/18/16 01:39: Bedside Glucose (Misc Panel) 109H 05/18/16 04:41: Activated Partial Thromboplast Time 64.4H, Anion Gap 11, Blood Urea Nitrogen 10 , Creatinine 0.87, Sodium Level 143, Potassium Level 3.9, Chloride Level 104, Carbon Dioxide Level 28, Calcium Level 8.5, Glomerular Filtration Rate > 60.0, Prothromb Time International Ratio 1.07, Prothrombin Time 14.0 CBC/BMP Laboratory Tests 05/18/16 04:41 Calcium Level 8.5, Red Blood Count 3.77 L, Mean Corpuscular Volume 95.0, Mean Corpuscular Hemoglobin 32.9, Mean Corpuscular Hemoglobin Concent 34.6, Red Cell Distribution Width 13.6 FSBS Laboratory Tests Test 05/17/16 12:13 05/17/16 17:34 05/17/16 20:50 05/18/16 01:39 Range/Units Bedside Glucose (Misc Panel) 112 103 240 109 70-105 MG/DL Microbiology Microbiology 05/15/16 Blood Culture - Preliminary, Resulted No Growth after 72 hours. All specime... 05/15/16 Blood Culture - Preliminary, Resulted No Growth after 72 hours. All specime... 05/18/16 Stool Occult Blood (MACHELLE), Received Pending 05/16/16 Stool Occult Blood ([facility]) - Final, Complete ALEXANDER VALERO MD May 18, 2016 08:35
[2016-05-18] MEDS: PERCOCET 5MG/325MG TAB PO PRN ×4 (08:40→19:55)
[2016-05-18] MEDS ORDERED: ROCURONIUM BROMIDE 50 MG/5 ML VIAL As Ordered ONE (11:18)
[2016-05-18] MEDS ORDERED: ONDANSETRON 4MG/2ML VIAL (J2405) As Ordered ONE (11:18)
[2016-05-18] MEDS ORDERED: LIDOCAINE 2% INJ 100 MG/5 ML SDV (FOR ANES.) As Ordered ONE (11:18)
[2016-05-18] MEDS ORDERED: fentaNYL 250 MCG/5 ML INJECTION (J3010) As Ordered ONE (11:18)
[2016-05-18] MEDS ORDERED: dexameTHASONE 4 MG/ML 1ML VIAL (J1100) As Ordered ONE (11:18)
[2016-05-18] MEDS ORDERED: MIDAZOLAM INJ 2 MG/2 ML VIAL (J2250) As Ordered ONE ×2 (11:18→18:21)
[2016-05-18] MEDS ORDERED: PROPOFOL 200 MG/20 ML VIAL As Ordered ONE (11:18)
[2016-05-18] MEDS ORDERED: LIDOCAINE W/EPINEPHRINE 1% 20ML VIAL As Ordered ONE (18:26)
[2016-05-18] MEDS ORDERED: LIDOCAINE W/EPINEPHRINE 1% 20ML VIAL XX ONE (18:55)
[2016-05-18] MEDS ORDERED: NEOSTIGMINE 1MG/ML 5 ML SYRINGE (J2710) As Ordered ONE (18:57)
[2016-05-18] MEDS ORDERED: SEVOFLURANE INHAL SOLN 250 ML BTL As Ordered ONE (18:57)
[2016-05-18] MEDS ORDERED: GLYCOPYRROLATE INJ 0.2 MG/ML 2 ML VIAL As Ordered ONE ×2 (18:57)
[2016-05-18] MEDS ORDERED: PERCOCET 5MG/325MG TAB As Ordered ONE ×2 (19:31→19:56)
[2016-05-18] MEDS ORDERED: MEPERIDINE INJ 25 MG/ML VIAL (J2175) As Ordered ONE (19:38)
[2016-05-18] MEDS: MEPERIDINE INJ 25 MG/ML VIAL (J2175) IV PRN ×2 (19:40→19:45)
[2016-05-18] MEDS ORDERED: fentaNYL 100 MCG/2 ML INJECTION (J3010) IV PRN (19:45)
[2016-05-18] MEDS ORDERED: LR 1,000 ML IV SCH (19:45)
[2016-05-18] MEDS ORDERED: METOCLOPRAMIDE INJ 10MG/2ML VIAL (J2765) IV PRN (19:45)
[2016-05-18] MEDS ORDERED: ONDANSETRON 4MG/2ML VIAL (J2405) IV PRN (19:45)
[2016-05-18] MEDS: DIVALPROEX 500MG *ER* TAB PO SCH (21:27)
[2016-05-18] MEDS: traZODone 50 MG TAB PO SCH (21:27)
[2016-05-18] MEDS: CHLORTHALIDONE 12.5MG PER 1/2 TABLET PO SCH (21:27)
[2016-05-18] MEDS ORDERED: HEPARIN DRIP 25,000 UNITS in APPROPRIATE DILUENT 1 EA IV SCH (21:48)
[2016-05-18] MEDS ORDERED: HEPARIN SOD (PORCINE) 5000 UNITS/ML VIAL IV PRN (22:00)
[2016-05-19] VITALS (7 sets, daily range): BP systolic 110–157; BP diastolic 56–79
[2016-05-19] MEDS: PERCOCET 5MG/325MG TAB PO PRN ×6 (00:50→21:33)
[2016-05-19 05:07] LABS: MEAN CORPUSCULAR HEMOGLOBIN 32.4 pg (27.0-33.0); MEAN CORPUSCULAR HGB CONC 33.4 g/dl (32.0-36.5); MEAN CORPUSCULAR VOLUME 96.9 fl (80.0-96.0); RED CELL DISTRIBUTION WIDTH 12.6 % (11.5-14.5); WHITE BLOOD COUNT 7.8 K/mm3 (4.0-10.0)
[2016-05-19 05:13] LABS: INR 0.99
[2016-05-19 05:18] LABS: ANION GAP 9 MEQ/L (8-16); BLOOD UREA NITROGEN 7 MG/DL (7-18); CALCIUM LEVEL 8.8 MG/DL (8.5-10.1); CARBON DIOXIDE LEVEL 30 MEQ/L (21-32); CHLORIDE LEVEL 102 MEQ/L (98-107); CREATININE FOR GFR 0.83 MG/DL (0.70-1.30); GLOMERULAR FILTRATION RATE > 60.0 (>56); GLUCOSE, FASTING 116 MG/DL (70-105); POTASSIUM SERUM 4.1 MEQ/L (3.5-5.1); SODIUM LEVEL 141 MEQ/L (136-145)
[2016-05-19] MEDS: HumaLOG INSULIN (NovoLOG) PER UNIT SC SCH ×4 (08:39→21:00)
[2016-05-19] MEDS: CEFUROXIME SODIUM 1.5 GM in D5W MINI-BAG PLUS 50 ML IV SCH ×3 (08:40→23:02)
[2016-05-19] MEDS: ATORVASTATIN 20 MG TAB PO SCH (09:10)
[2016-05-19] MEDS: DOCUSATE SODIUM 100 MG CAP PO SCH ×2 (09:10→21:32)
[2016-05-19] MEDS: MECLIZINE 25 MG TABLET PO SCH ×2 (09:10→21:31)
[2016-05-19] MEDS: PANTOPRAZOLE 40MG TAB (PROTONIX) PO SCH (09:10)
[2016-05-19] MEDS: EZETIMIBE 10 MG TAB (ZETIA) PO SCH (09:11)
[2016-05-19] MEDS: LISINOPRIL 5 MG TAB PO SCH (09:12)
--- NOTE | 2016-05-19 09:48 | IPNPDOC ---
Assessment/Plan Date Seen The patient was seen on 05/19/16. Problems Problems: (1) Oral abscess Status: Acute Problem Text: will continue with cefuroxime . s/p Incision and drainage on 05/18 restarted heparin overnight. will continue for now. (2) Diabetes Status: Chronic (3) Hypertension Status: Chronic (4) JOSE on CPAP Status: Chronic (5) Hyperlipidemia Status: Chronic (6) GERD (gastroesophageal reflux disease) Status: Chronic (7) COPD (chronic obstructive pulmonary disease) Status: Chronic (8) Chronic back pain Status: Chronic (9) Personal history of DVT (deep vein thrombosis) Status: Chronic Problem Text: has factor v leiden and lupus anticoagulant. will keep the patient on heparin infusion in the perioperative period. on discharge pateint is going to be on lovenox and coumadin. Plan / VTE VTE Prophylaxis Ordered?: Yes Subjective Review of Systems CC/HPI The patient is a 51-year-old male admitted with a reason for visit of Oral Abscess. Events since last encounter complains of increased swelling and pain in the neck. no fever or chills, had incision and drainage dose on the floor of the mouth yesterday. Objective Physical Examination General Exam: Positive: Alert, No Acute Distress Eye Exam: Positive: Conjunctiva & lids normal, EOMI, PERRLA, Negative: Sclera icteric ENT Exam: Positive: Other ENT (tongue swollen on one side), Pharyngeal Edema Neck Exam: Positive: Lymphadenopathy, Supple Chest Exam: Positive: Clear to auscultation, Normal air movement Heart Exam: Positive: Normal S1, Normal S2, Rate Normal, Regular Rhythm, Negative: Murmurs, Rubs Abdomen Exam: Positive: Normal bowel sounds, Soft, Negative: Hepatospenomegaly, Tenderness Skin Exam: Positive: Nl turgor and temperature, Negative: Breakdown, Rash Vital Signs/I&O Vital Signs Date Time Temp Pulse Resp B/P Pulse Ox O2 Delivery O2 Flow Rate FiO2 05/19/16 09:13 18 Room Air 05/19/16 09:12 157/75 05/19/16 08:00 99.4 71 98 05/19/16 04:30 2.0 I&O- Last 24 Hours up to 6 AM 05/19/16 06:00 Intake Total 2978 ml Output Total 2280 ml Balance 698 ml Laboratory Data Labs 24H Laboratory Tests 2 05/18/16 12:03: Bedside Glucose (Misc Panel) 107H 05/18/16 12:04: Activated Partial Thromboplast Time 76.7H 05/18/16 21:16: Bedside Glucose (Misc Panel) 90 05/18/16 22:40: Activated Partial Thromboplast Time 23.8L 05/19/16 04:49: Activated Partial Thromboplast Time 55.4H, Anion Gap 9, Blood Urea Nitrogen 7, Creatinine 0.83, Sodium Level 141, Potassium Level 4.1, Chloride Level 102, Carbon Dioxide Level 30, Calcium Level 8.8, Glomerular Filtration Rate > 60.0, Prothromb Time International Ratio 0.99, Prothrombin Time 13.2 05/19/16 08:33: Bedside Glucose (Misc Panel) 115H CBC/BMP Laboratory Tests 05/19/16 04:49 Calcium Level 8.8, Red Blood Count 3.90 L, Mean Corpuscular Volume 96.9 H, Mean Corpuscular Hemoglobin 32.4, Mean Corpuscular Hemoglobin Concent 33.4, Red Cell Distribution Width 12.6 FSBS Laboratory Tests Test 05/18/16 12:03 05/18/16 21:16 05/19/16 08:33 Range/Units Bedside Glucose (Misc Panel) 107 90 115 70-105 MG/DL Microbiology Microbiology 05/15/16 Blood Culture - Preliminary, Resulted No Growth after 72 hours. All specime... 05/15/16 Blood Culture - Preliminary, Resulted No Growth after 72 hours. All specime... 05/18/16 Stool Occult Blood ([facility]LE) - Final, Complete 05/16/16 Stool Occult Blood ([facility]) - Final, Complete ALEXANDER VALERO MD May 19, 2016 09:48
[2016-05-19] MEDS: HEPARIN DRIP 25,000 UNITS in APPROPRIATE DILUENT 1 EA IV SCH ×2 (11:18→23:02)
[2016-05-19] MEDS: LR 1,000 ML IV SCH ×2 (11:19→22:59)
[2016-05-19] MEDS ORDERED: MAALOX 30 ML SUSP *UDC PO PRN (15:00)
[2016-05-19] MEDS: traZODone 50 MG TAB PO SCH (21:31)
[2016-05-19] MEDS: DIVALPROEX 500MG *ER* TAB PO SCH (21:32)
[2016-05-19] MEDS: CHLORTHALIDONE 12.5MG PER 1/2 TABLET PO SCH (21:32)
[2016-05-19] MEDS: FAMOTIDINE 20 MG TAB PO SCH (21:33)
[2016-05-20] VITALS: BP 113/56
[2016-05-20 04:00] VITALS: BP 121/59
[2016-05-20] MEDS: PERCOCET 5MG/325MG TAB PO PRN ×3 (04:33→21:28)
[2016-05-20 06:34] LABS: MEAN CORPUSCULAR HEMOGLOBIN 32.4 pg (27.0-33.0); MEAN CORPUSCULAR HGB CONC 33.9 g/dl (32.0-36.5); MEAN CORPUSCULAR VOLUME 95.4 fl (80.0-96.0); RED CELL DISTRIBUTION WIDTH 13.5 % (11.5-14.5); WHITE BLOOD COUNT 7.3 K/mm3 (4.0-10.0)
[2016-05-20 06:40] LABS: INR 0.98
[2016-05-20 06:55] LABS: ANION GAP 10 MEQ/L (8-16); BLOOD UREA NITROGEN 9 MG/DL (7-18); CALCIUM LEVEL 8.6 MG/DL (8.5-10.1); CARBON DIOXIDE LEVEL 27 MEQ/L (21-32); CHLORIDE LEVEL 103 MEQ/L (98-107); CREATININE FOR GFR 0.88 MG/DL (0.70-1.30); GLOMERULAR FILTRATION RATE > 60.0 (>56); GLUCOSE, FASTING 121 MG/DL (70-105); POTASSIUM SERUM 3.7 MEQ/L (3.5-5.1); SODIUM LEVEL 140 MEQ/L (136-145)
[2016-05-20 08:00] VITALS: BP 130/76
[2016-05-20] MEDS: HEPARIN DRIP 25,000 UNITS in APPROPRIATE DILUENT 1 EA IV SCH (08:42)
[2016-05-20] MEDS: CEFUROXIME SODIUM 1.5 GM in D5W MINI-BAG PLUS 50 ML IV SCH ×2 (08:49→17:11)
[2016-05-20] MEDS: FAMOTIDINE 20 MG TAB PO SCH ×2 (08:53→21:11)
[2016-05-20] MEDS: DOCUSATE SODIUM 100 MG CAP PO SCH ×2 (08:53→21:11)
[2016-05-20] MEDS: MECLIZINE 25 MG TABLET PO SCH ×2 (08:53→21:26)
[2016-05-20] MEDS: PANTOPRAZOLE 40MG TAB (PROTONIX) PO SCH (08:53)
[2016-05-20] MEDS: EZETIMIBE 10 MG TAB (ZETIA) PO SCH (08:53)
[2016-05-20] MEDS: ATORVASTATIN 20 MG TAB PO SCH (08:53)
[2016-05-20] MEDS: LISINOPRIL 5 MG TAB PO SCH (08:54)
[2016-05-20] MEDS: HumaLOG INSULIN (NovoLOG) PER UNIT SC SCH ×4 (08:55→21:00)
[2016-05-20] MEDS ORDERED: oxyCODONE 5MG TAB PO PRN (10:00)
[2016-05-20] MEDS ORDERED: ACETAMINOPHEN 500 MG TAB PO PRN (10:00)
--- NOTE | 2016-05-20 11:34 | IPNPDOC ---
Assessment/Plan Date Seen The patient was seen on 05/20/16. Problems Problems: (1) Oral abscess Status: Acute Problem Text: will continue with cefuroxime . s/p Incision and drainage on 05/18 restarted heparin overnight. will continue for now. (2) Diabetes Status: Chronic (3) Hypertension Status: Chronic (4) JOSE on CPAP Status: Chronic (5) Hyperlipidemia Status: Chronic (6) GERD (gastroesophageal reflux disease) Status: Chronic (7) COPD (chronic obstructive pulmonary disease) Status: Chronic (8) Chronic back pain Status: Chronic (9) Personal history of DVT (deep vein thrombosis) Status: Chronic Problem Text: has factor v leiden and lupus anticoagulant. will keep the patient on heparin infusion in the perioperative period. on discharge pateint is going to be on lovenox and coumadin. Plan / VTE VTE Prophylaxis Ordered?: Yes Subjective Review of Systems CC/HPI The patient is a 51-year-old male admitted with a reason for visit of Oral Abscess. Events since last encounter no complaints overnight , pain and swelling of the neck improving. Objective Physical Examination General Exam: Positive: Alert, No Acute Distress Eye Exam: Positive: Conjunctiva & lids normal, EOMI, PERRLA, Negative: Sclera icteric ENT Exam: Positive: Other ENT (tongue swollen on one side), Pharyngeal Edema Neck Exam: Positive: Lymphadenopathy, Supple Chest Exam: Positive: Clear to auscultation, Normal air movement Heart Exam: Positive: Normal S1, Normal S2, Rate Normal, Regular Rhythm, Negative: Murmurs, Rubs Abdomen Exam: Positive: Normal bowel sounds, Soft, Negative: Hepatospenomegaly, Tenderness Skin Exam: Positive: Nl turgor and temperature, Negative: Breakdown, Rash Vital Signs/I&O Vital Signs Date Time Temp Pulse Resp B/P Pulse Ox O2 Delivery O2 Flow Rate FiO2 05/20/16 10:59 100.3 20 95 Room Air 05/20/16 08:54 130/76 05/20/16 08:00 70 05/19/16 16:00 2.0 I&O- Last 24 Hours up to 6 AM 05/20/16 05:59 Intake Total 3681 ml Output Total 3250 ml Balance 431 ml Laboratory Data Labs 24H Laboratory Tests 2 05/19/16 12:19: Bedside Glucose (Misc Panel) 134H 05/20/16 06:16: Activated Partial Thromboplast Time 56.8H, Anion Gap 10, Blood Urea Nitrogen 9, Creatinine 0.88, Sodium Level 140, Potassium Level 3.7, Chloride Level 103, Carbon Dioxide Level 27, Calcium Level 8.6, Glomerular Filtration Rate > 60.0, Prothromb Time International Ratio 0.98, Prothrombin Time 13.1 CBC/BMP Laboratory Tests 05/20/16 06:16 Calcium Level 8.6, Red Blood Count 3.53 L, Mean Corpuscular Volume 95.4, Mean Corpuscular Hemoglobin 32.4, Mean Corpuscular Hemoglobin Concent 33.9, Red Cell Distribution Width 13.5 FSBS Laboratory Tests Test 05/19/16 12:19 Range/Units Bedside Glucose (Misc Panel) 134 70-105 MG/DL Microbiology Microbiology 05/15/16 Blood Culture - Final, Complete NO GROWTH AFTER 5 DAYS 05/15/16 Blood Culture - Final, Complete NO GROWTH AFTER 5 DAYS 05/18/16 Stool Occult Blood ([facility]LE) - Final, Complete 05/16/16 Stool Occult Blood ([facility]) - Final, Complete ALEXANDER VALERO MD May 20, 2016 11:34
[2016-05-20] MEDS: ENOXAPARIN 120 MG/0.8 ML SYR (J1650) SC SCH ×2 (14:00→21:17)
[2016-05-20] MEDS ORDERED: WARFARIN SOD 7.5 MG TAB PO ONE (17:00)
[2016-05-20 18:08] VITALS: BP 128/62
[2016-05-20] MEDS ORDERED: PERCOCET 5MG/325MG TAB PO PRN (18:15)
[2016-05-20] MEDS ORDERED: ACETAMINOPHEN TAB 650MG DOSE (2X325MG) PO PRN (18:15)
[2016-05-20 21:00] VITALS: BP 116/70
[2016-05-20] MEDS ORDERED: MOM 30ML SUSPENSION UDC PO SCH (21:00)
[2016-05-20] MEDS: CHLORTHALIDONE 12.5MG PER 1/2 TABLET PO SCH (21:07)
[2016-05-20] MEDS: traZODone 50 MG TAB PO SCH (21:10)
[2016-05-20] MEDS: DIVALPROEX 500MG *ER* TAB PO SCH (21:11)
[2016-05-21] MEDS: CEFUROXIME SODIUM 1.5 GM in D5W MINI-BAG PLUS 50 ML IV SCH ×2 (00:14→08:23)
[2016-05-21 02:00] VITALS: BP 122/59
[2016-05-21] MEDS: PERCOCET 5MG/325MG TAB PO PRN ×3 (03:46→13:03)
[2016-05-21 06:48] LABS: MEAN CORPUSCULAR HEMOGLOBIN 32.4 pg (27.0-33.0); MEAN CORPUSCULAR HGB CONC 33.8 g/dl (32.0-36.5); MEAN CORPUSCULAR VOLUME 95.8 fl (80.0-96.0); RED CELL DISTRIBUTION WIDTH 13.6 % (11.5-14.5); WHITE BLOOD COUNT 5.6 K/mm3 (4.0-10.0)
[2016-05-21 06:59] LABS: INR 1.01
[2016-05-21 07:00] LABS: ANION GAP 6 MEQ/L (8-16); BLOOD UREA NITROGEN 9 MG/DL (7-18); CALCIUM LEVEL 8.5 MG/DL (8.5-10.1); CARBON DIOXIDE LEVEL 31 MEQ/L (21-32); CHLORIDE LEVEL 103 MEQ/L (98-107); CREATININE FOR GFR 0.99 MG/DL (0.70-1.30); GLOMERULAR FILTRATION RATE > 60.0 (>56); GLUCOSE, FASTING 100 MG/DL (70-105); POTASSIUM SERUM 3.9 MEQ/L (3.5-5.1); SODIUM LEVEL 140 MEQ/L (136-145)
[2016-05-21] MEDS: HumaLOG INSULIN (NovoLOG) PER UNIT SC SCH ×2 (07:30→13:05)
[2016-05-21 08:15] VITALS: BP 120/59
--- NOTE | 2016-05-21 08:29 | RO ---
DATE OF PROCEDURE: 05/18/2016 PREPROCEDURE DIAGNOSIS: Left floor of the mouth abscess. POSTPROCEDURE DIAGNOSIS: Left floor of the mouth abscess. PROCEDURE: Incision and drainage of left floor of the mouth abscess. SURGEON: Dr. Tello Ashley HOUSE CALLS NURSE PRACTITIONER: ANESTHESIA: ESTIMATED BLOOD LOSS: Patient was moved to the operating table in supine position after the induction of general anesthesia and placement of an endotracheal tube. A mouth gag was placed against the upper and lower teeth to hold the mouth open. The tongue was moved toward the right revealing the left floor of the mouth. The patient already had some bleeding from the left floor of the mouth where the abscess was starting to point. 1% Xylocaine with epinephrine 1:100,000 was injected into the mucosa at this point, approximately 2 mL was used. A small incision was made with a scalpel and then using a clamp, the area was entered. A small amount of pus was obtained, not enough to obtain culture with. After further probing and no further pus coming out, the abscess site was then packed with half inch iodoform Gauze and the procedure was terminated. Patient tolerated the procedure well and left the operating room in good condition. Sponge and needle counts were correct. Estimated blood loss for the procedure was 20 mL.
[2016-05-21] MEDS ORDERED: PERCOCET 5MG/325MG TAB PO PRN (08:45)
[2016-05-21] MEDS: FAMOTIDINE 20 MG TAB PO SCH (08:47)
[2016-05-21] MEDS: PANTOPRAZOLE 40MG TAB (PROTONIX) PO SCH (08:48)
[2016-05-21] MEDS: MECLIZINE 25 MG TABLET PO SCH (08:49)
[2016-05-21] MEDS: EZETIMIBE 10 MG TAB (ZETIA) PO SCH (08:49)
[2016-05-21 08:51] VITALS: BP 122/59
[2016-05-21] MEDS: LISINOPRIL 5 MG TAB PO SCH (08:51)
[2016-05-21] MEDS: ATORVASTATIN 20 MG TAB PO SCH (08:51)
[2016-05-21] MEDS: ENOXAPARIN 120 MG/0.8 ML SYR (J1650) SC SCH (08:54)
[2016-05-21] MEDS: DOCUSATE SODIUM 100 MG CAP PO SCH (08:57)
[2016-05-21] MEDS ORDERED: PERCOCET PO (13:47)
[2016-05-21] MEDS ORDERED: LOVE0.01 SC (13:47)
[2016-05-21] MEDS ORDERED: CEFT500T3 PO (13:47)
[2016-05-21] MEDS ORDERED: CHLO125TA PO (14:35)
[2016-05-21] MEDS ORDERED: CEFUROXIME 500 MG TAB PO SCH (21:00)
== END 2016-05-21 14:55 | disposition home or self-care (01) | DRG 137 ==
LOC: M ED 05:48 → M ED INP 10:42 → M PED 15:35
PROVIDERS: ADMIT Hospitalist; ATTEND Internal Medicine Nephrology
PROC: 0W930ZZ Drainage of Oral Cavity and Throat, Open Approach (ICD-10-PCS; principal; 2016-05-18 15:00)
DX: K12.2 Cellulitis and abscess of mouth (principal); I69.354 Hemiplegia and hemiparesis following cerebral infarction affecting left non-dominant side; D68.2 Hereditary deficiency of other clotting factors; D68.62 Lupus anticoagulant syndrome; I10 Essential (primary) hypertension; E11.9 Type 2 diabetes mellitus without complications; J44.9 Chronic obstructive pulmonary disease, unspecified; M54.9 Dorsalgia, unspecified; K21.9 Gastro-esophageal reflux disease without esophagitis; E78.5 Hyperlipidemia, unspecified; G47.33 Obstructive sleep apnea (adult) (pediatric); F41.9 Anxiety disorder, unspecified; Z79.84 Long term (current) use of oral hypoglycemic drugs; Z79.01 Long term (current) use of anticoagulants; Z79.899 Other long term (current) drug therapy; Z86.718 Personal history of other venous thrombosis and embolism

== ENCOUNTER → 2016-07-09 | Outpatient (REF) | payer MEDICARE, MEDICAID ==
[~2016-07-09] MED LIST changes: +ATOR40TA PO; +CEFT500T3 PO; +CHLO125TA PO; +LOVE0.01 SC; +MECL-86 PO; +METF850T PO; +NEXI40CA PO; +NORC5TAB PO; +PERCOCET PO; +TRAZ25TA PO; +TYLE500T78 PO; +WARF-23 PO; +ZETI10TA2 PO
[2016-07-09 18:21] LABS: MEAN CORPUSCULAR HGB CONC 33.6 g/dl (32.0-36.5); MEAN CORPUSCULAR VOLUME 95.2 fl (80.0-96.0); RED CELL DISTRIBUTION WIDTH 12.6 % (11.5-14.5); WHITE BLOOD COUNT 6.4 K/mm3 (4.0-10.0)
[2016-07-09 18:45] LABS: ALBUMIN 4.4 GM/DL (3.2-5.2); ALBUMIN/GLOBULIN RATIO 1.52 (1.00-1.93); ALKALINE PHOSPHATASE 75 U/L (45-117); ALT/SGPT 25 U/L (12-78); ANION GAP 8 MEQ/L (8-16); AST/SGOT 12 U/L (15-37); BILIRUBIN,TOTAL 0.7 MG/DL (0.2-1.0); BLOOD UREA NITROGEN 13 MG/DL (7-18); CALCIUM LEVEL 8.9 MG/DL (8.5-10.1); CARBON DIOXIDE LEVEL 26 MEQ/L (21-32); CHLORIDE LEVEL 103 MEQ/L (98-107); CREATININE FOR GFR 0.88 MG/DL (0.70-1.30); GLOMERULAR FILTRATION RATE > 60.0 (>56); GLUCOSE, FASTING 118 MG/DL (70-105); POTASSIUM SERUM 4.2 MEQ/L (3.5-5.1); SODIUM LEVEL 137 MEQ/L (136-145); TOTAL PROTEIN 7.3 GM/DL (6.4-8.2)
== END ==
LOC: M LABDRAW1 14:40
PROVIDERS: ATTEND Family Medicine
DX: E11.9 Type 2 diabetes mellitus without complications (principal); E78.5 Hyperlipidemia, unspecified

== ENCOUNTER → 2016-07-23 | Outpatient (CLI) | payer MEDICARE ==
[~2016-07-23] MED LIST changes: +NORC1TAB4 PO; -NORC5TAB PO
--- NOTE | 2016-08-04 01:39 | ECWPNPC ---
PATIENT NAME: GELY CAMPA : 1965 GENDER: MALE VISIT DATE: 07/23/2016 DISCHARGE DATE: 07/23/16 1212 VISIT LOCKED DATE TIME: PHYSICIAN: KESHAWN ERWIN RESOURCE: KESHAWN ERWIN REASON FOR APPOINTMENT 1. FOLLOWUP-BACK HISTORY OF PRESENT ILLNESS HISTORY OF PRESENT ILLNESS: PAIN THE PATIENT DESCRIBES THE PAIN... FALL RISK SCREENING: SCREENING :NO FALLS IN THE PAST YEAR TODAY'S VISIT: NOTES: NO NEW STROKE SYMPTOMSRATES PAIN LEVEL TODAY 3/10 DESCRIBES PAIN CONSTANT, BURNING, SHARP, STABBING, THROBBING. NOTES PAIN IS CENTERED AT BASE OF NECK, LOW BACK AND AT KNEES AND HEELS.. CURRENT MEDICATIONS TAKING NEXIUM 40 MG CAPSULE DELAYED RELEASE 1 CAP(S) ORALLY DAILY TAKING TYLENOL EXTRA STRENGTH 625MG TABLET 2 TABLET NEEDED ORALLY NEEDED TAKING DEPAKOTE 500 MG TABLET DELAYED RELEASE 1 TABLET ORALLY ONCE A DAY TAKING MECLIZINE HCL 25 MG TABLET 2 TABLETS ORALLY TWICE DAILY TAKING LISINOPRIL 5 MG TABLET 1 TABLET ORALLY ONCE A DAY TAKING WARFARIN SODIUM 5 MG TABLET ORALLY DAILY TAKING LIPITOR 40 MG TABLET 1 TABLET ORALLY ONCE A DAY TAKING TRAZODONE 50 50MG TABLET DIRECTED ORAL AT BEDTIME TAKING METFORMIN HCL 850 MG TABLET 1 TABLET WITH MEALS ORALLY TWICE A DAY TAKING CHLORTHALIDONE 25 25 MG TABLET 1/2 TAB ORAL DAILY TAKING FLONASE 50 MCG/ACT SUSPENSION 1 SPRAY IN EACH NOSTRIL NASALLY ONCE A DAY TAKING VALTREX 1000 MG TABLET 1 TABLET ORALLY DAILY TAKING NORCO 5-325 MG TABLET 1 TABLET NEEDED ORALLY TAKE 1 TAB EVERY 8-12 HRS PRN PAIN MDD=2 NOT-TAKING BACLOFEN 10 MG TABLET 1 TABLET WITH FOOD OR MILK ORALLY THREE TIMES A DAY NOT-TAKING NEURONTIN 600 600 MG TABLET DIRECTED ORAL EVERY 8 HOURS NOT-TAKING SKELAXIN 800 MG TABLET 1 TABLET ORALLY EVERY 6HRS MEDICATION LIST REVIEWED AND RECONCILED WITH THE PATIENT PAST MEDICAL HISTORY GERD FRACTURED VERTEBRAE HIGH CHOLESTEROL STROKE HERPES ALLERGIES PENICILLIN (FOR ALLERGIES USE ONLY): HIVES: SIDE EFFECTS LATEX: HIVES/RASH EFFEXOR: ARON: SIDE EFFECTS GABAPENTIN: ALT METAL STATUS: SIDE EFFECTS TYLENOL WITH CODEINE: ANGRY THOUGHTS: SIDE EFFECTS SOCIAL HISTORY GENERAL: PAIN CLINIC PFS, CLERGY, PUBLIC HEALTH REFERRALS CLERGY REFERRAL NEEDED?NO WAS THE PROVIDER NOTIFIED OF ANY PERTINENT INFO?NO PFS REFERRAL NEEDED?NO PUBLIC HEALTH REFERRAL NEEDED?NO PATIENT: ____. REVIEW OF SYSTEMS CONSTITUTIONAL: ANY CHANGE IN YOUR MEDICAL CONDITION? NO . CHILLS NO . FEVER NO . INFECTION: DO YOU HAVE NEW INFECTIONS? NO . DO YOU HAVE HISTORY OF MRSA? NO . MUSCULOSKELETAL: ANY NEW PATTERNS OF PAIN OR NUMBNESS? YES PT REPORTS AN INCREASE IN PAIN IN HIS RIGHT KNEE . GASTROENTEROLOGY: ANY NEW CHANGE IN BOWEL CONTROL? NO . GENITOURINARY: ANY NEW CHANGE IN BLADDER CONTROL? NO . IS THERE A CHANCE YOU COULD BE ? NO . HEMATOLOGY/LYMPH: DO YOU TAKE ANY BLOOD THINNERS? (FOR EXAMPLE- COUMADIN, PLAVIX, AGGRENOX, PLATEL, PRADAXA, OR XARELTO) YES COUMADIN . WHEN WAS YOUR LAST DOSE? DATE: TIME: . NEUROLOGY: HAVE YOU FALLEN IN THE PAST 6 MONTHS? NO . ANY NEW EXTREMITY NUMBNESS OR WEAKNESS? NO . CARDIOLOGY: DO YOU HAVE A PACEMAKER OR DEFIBRILLATOR? NO . CHEST PAIN PATIENT DENIES . RESPIRATORY: HAVE YOU BEEN SICK IN THE PAST WEEK? NO . FEVER NO . FLU LIKE SYMPTOMS? NO . SHORTNESS OF BREATH ON EXERTION YES . COUGH NO . INTEGUMENTARY: DO YOU HAVE ANY RASHES OR OPEN SORES? NO . ALLERGIC/IMMUNO: ARE YOU ALLERGIC TO SHELLFISH OR IV DYE? NO . ANY NEW ALLERGIES? NO . PSYCHIATRIC: DO YOU HAVE THOUGHTS OF HURTING YOURSELF OR SOMEONE ELSE? NO . ARE YOU ABUSED, NEGLECTED, OR IN AN UNSAFE ENVIRONMENT? NO . ENDOCRINOLOGY: ARE YOU DIABETIC? YES . OTHER: DO YOU NEED ANY PRESCRIPTIONS? YES . IF YES, PLEASE LIST: ____NORCO 5/325 MG . ANY NEW PROBLEMS WITH YOUR MEDICATIONS? NO . WHEN DID YOU LAST EAT? ____ . WHEN DID YOU LAST DRINK? ____ . WHAT DID YOU LAST DRINK? ____ . NAME OF PERSON DRIVING YOU HOME? ____ . DO YOU HAVE ANY OTHER QUESTIONS OR CONCERNS NO . REVIEWED BY: PROVIDER: KESHAWN SUH . VITAL SIGNS WT 237 LBS, HT 68 IN, BMI 36.03 INDEX, BP 126/79 MM HG, HR 78 /MIN, RR 18 /MIN, TEMP 98.7 F, OXYGEN SAT % 98%, SAFE IN ENV? (Y/N) YES, NA INITIALS SC11:08, REVIEWED BY: LESLIE. EXAMINATION GENERAL EXAMINATION: PSYCH ALERT , ORIENTED X 3 . LUNGS:CLEAR TO AUSCULTATION BILATERALLY. HEART:HEART RATE REGULAR. MUSCULOSKELETAL:MUSCLE STRENGTH TESTING 5/5 BILATERAL LOWER EXTREMITIES, PALPATION: POSITIVE FOR PAIN OVER LUMBOSACRAL SPINE AND ACROSS THE LUMBOSACRAL AXIS. TRIGGER POINTS:, ELICITED WITH PALPATION OVER LUMBAR PARAVERTEBRAL MUSCLES AND INTO THE SACRUM. RESTRICTION OF ROM IN THIS AREA. SLOW TO RISE TO STANDING POSITION. . EXTREMITIES:MINIMAL EDEMA. ASSESSMENTS LOW BACK PAIN - M54.5 (PRIMARY) TREATMENT LOW BACK PAIN REFILL NORCO TABLET, 5-325 MG, 1 TABLET NEEDED, ORALLY, TAKE 1 TAB EVERY 8-12 HRS PRN PAIN MDD=2, 30 DAY(S), 60, REFILLS 0 STOP BACLOFEN TABLET, 10 MG, 1 TABLET WITH FOOD OR MILK, ORALLY, THREE TIMES A DAY NOTES: [place] CREAM OR ASPER CREME TO LOW BACK - ARE AVAIL OVER THE COUNTER. TRY TO WEAN BACK ON NORCO SO IT WILL WORK BETTER WHEN TAKING. WALK DAILY. CLINICAL NOTES: ISTOP REGISTRY REVIEWED AND DEMNOSTRATES COMPLLIANCE. BRINGS IN MEDICATIONS WHICH IS APPROPRIATE FOR WHAT WAS DISPENSED. RECENT URINE TOXICOLOGY REVIEWED. NO UNAUTHORIZED MEDICATIONS. NO ILLICIT SUBSTANCES AND PRESCRIBED MEDICATIONS WERE PRESENT. PROCEDURE CODES FA211 ESTABILISHED PATIENT [facility] FACILITY CHARGE G8783 BP SCR PRFRM RCMDD DEFIND SCR INTVL G8730 PAIN ASSESS POS TOOL F/U PLAN DOC 3016F PT SCRND [place]HL[place] USE 1124F ACP DISCUSS-NO DSCNMKR DOCD 1036F TOBACCO NON-USER 0518F FALL PLAN OF CARE DOCD G8427 DOC MEDS VERIFIED W/PT OR RE G8420 BMI<30 AND >=22 CALC & DOCU 3288F FALL RISK ASSESSMENT DOCD DISPOSITION & COMMUNICATION FOLLOW UP 6 MONTHS ELECTRONICALLY SIGNED BY JEFFRY CLANCY ON 08/01/2016 AT 07:06 PM EDT DISCLAIMER : THIS IS A VISIT SUMMARY EXTRACTED FROM THE [facility] CHART. IT IS NOT A COPY OF THE [employer] PROGRESS NOTE. MTDD
== END ==
LOC: M PAIN 11:00
PROVIDERS: ATTEND Nurse Practitioner Family
DX: Z09 Encounter for follow-up examination after completed treatment for conditions other than malignant neoplasm (principal); M54.5 Low back pain; K21.9 Gastro-esophageal reflux disease without esophagitis; E78.00 Pure hypercholesterolemia, unspecified; Z86.73 Personal history of transient ischemic attack (TIA), and cerebral infarction without residual deficits; B00.9 Herpesviral infection, unspecified; Z79.01 Long term (current) use of anticoagulants; Z79.84 Long term (current) use of oral hypoglycemic drugs; Z79.891 Long term (current) use of opiate analgesic; Z88.0 Allergy status to penicillin; Z91.040 Latex allergy status; Z88.8 Allergy status to other drugs, medicaments and biological substances; Z88.5 Allergy status to narcotic agent

== ENCOUNTER 2016-10-05 13:05 | Emergency (ER) | payer MEDICAID, MEDICARE ==
[~2016-10-05] VITALS: Ht 172.7 cm; Wt 111.0 kg
[2016-10-05 13:05] VITALS: BP 135/72
[2016-10-16] MEDS ORDERED: CARA1TAB2 PO (06:26)
== END 2016-10-05 14:24 | disposition home or self-care (01) ==
LOC: M ED 14:17
DX: M23.92 Unspecified internal derangement of left knee (principal); I10 Essential (primary) hypertension; E78.5 Hyperlipidemia, unspecified; G89.29 Other chronic pain; E11.9 Type 2 diabetes mellitus without complications; Z87.891 Personal history of nicotine dependence; Z79.899 Other long term (current) drug therapy; Z79.01 Long term (current) use of anticoagulants; Z79.84 Long term (current) use of oral hypoglycemic drugs; Z88.8 Allergy status to other drugs, medicaments and biological substances; Z88.0 Allergy status to penicillin; Z91.040 Latex allergy status

== ENCOUNTER 2016-10-15 23:25 | Emergency (ER) | payer MEDICARE, MEDICAID ==
[~2016-10-15] VITALS: Ht 172.7 cm; Wt 112.5 kg
[~2016-10-15 23:25] MED LIST changes: -ATOR40TA PO; +ATOR40TA75 PO; -LIDO5DIS36 TD; +LIDO5DIS41 TD; -METF500T PO; +METF500T13 PO; -METF850T PO; +METF850T4 PO; -ZETI10TA2 PO; +ZETI10TA30 PO
[2016-10-15] MEDS ORDERED: HYDR-3713 (23:41)
[2016-10-16] MEDS ORDERED: NITROGLYCERIN 0.4 MG SUBL TABLET SL PRN (00:15)
[2016-10-16] MEDS ORDERED: ASPIRIN 81 MG CHEW TABLET PO ONE (00:15)
[2016-10-16 00:31] LABS: ADD MANUAL DIFFER YES; DIFF SLIDE NUMBER 99; MEAN CORPUSCULAR HEMOGLOBIN 32.4 pg (27.0-33.0); MEAN CORPUSCULAR HGB CONC 33.8 g/dl (32.0-36.5); MEAN CORPUSCULAR VOLUME 95.9 fl (80.0-96.0); PLATELET COUNT, AUTOMATED 204 k/mm3 (150-450); RED CELL DISTRIBUTION WIDTH 12.9 % (11.5-14.5); WHITE BLOOD COUNT 5.3 K/mm3 (4.0-10.0)
[2016-10-16 00:37] LABS: INR 2.76
[2016-10-16 00:51] LABS: BANDS 1 % (< 11); BASOPHILS 1 % (0-4); EOSINOPHILS 1 % (0-5)
[2016-10-16 01:16] LABS: ANION GAP 6 MEQ/L (8-16); BLOOD UREA NITROGEN 14 MG/DL (7-18); CALCIUM LEVEL 8.2 MG/DL (8.5-10.1); CARBON DIOXIDE LEVEL 29 MEQ/L (21-32); CHLORIDE LEVEL 99 MEQ/L (98-107); CREATININE FOR GFR 0.82 MG/DL (0.70-1.30); GLOMERULAR FILTRATION RATE > 60.0 (>56); GLUCOSE, FASTING 107 MG/DL (70-105); POTASSIUM SERUM 3.5 MEQ/L (3.5-5.1); SODIUM LEVEL 134 MEQ/L (136-145)
[2016-10-16] MEDS ORDERED: GI COCKTAIL 50ML BTL(HYOSCYAMINE/MAALOX/LIDOCAINE VISCOUS)(1:3:1) PO ONE (01:30)
--- NOTE | 2016-10-16 06:17 | REP ---
Clinical: Chest pain . Comparison: 07/22/2014 . Technique: PA and lateral. Findings: The mediastinum and cardiac silhouette are normal. The lung saeed are clear and without acute consolidation, effusion, or pneumothorax. The skeletal structures are intact and normal. Impression: 1. No acute cardiopulmonary process. Signed by Kalpesh Reyes MD 10/16/2016 06:08 A
[2016-10-16] MEDS ORDERED: CARA1TAB6 PO (06:26)
[2016-10-16] MEDS ORDERED: PEPC1TAB4 PO (06:26)
[2016-10-16 06:31] VITALS: BP 135/85
--- NOTE | 2016-10-17 07:25 | ECGEPIP ---
Stationary ECG Study [facility] - ED Test Date: 2016-10-15 Pat Name: GELY CAMPA Department: Room: - Gender: M [employer]ulatory Internship: : 1965 Requested By: CARLOS Chang Order Number: [id number] Reading MD: Elsy Ngo Measurements Intervals [place] Rate: 66 P: 25 RI: 144 QRS: -16 QRSD: 69 T: 29 QT: 400 QTc: 421 Interpretive Statements SINUS RHYTHM PRWP NSTTW ABNORMALITY SIMILAR 07/22/14 Electronically Signed On 10-17-2016 7:25:19 EDT by Elsy Ngo
--- NOTE | 2016-10-17 07:27 | ECGEPIP ---
Stationary ECG Study [facility] - ED Test Date: 2016-10-16 Pat Name: GELY CAMPA Department: Room: - Gender: M [employer]: : 1965 Requested By: CARLOS Chang Order Number: [id number] Reading MD: Elsy Ngo Measurements Intervals [place] Rate: 57 P: 34 WV: 160 QRS: -15 QRSD: 73 T: 20 QT: 435 QTc: 426 Interpretive Statements SINUS BRADYCARDIA LOW QRS VOLTAGE IN PRECORDIAL LEADS PRWP NSTTW ABNORMALITY DECREASED RATE 10/15/16 Electronically Signed On 10-17-2016 7:27:32 EDT by Elsy Ngo
== END 2016-10-16 06:53 | disposition home or self-care (01) ==
LOC: M ED 23:25
DX: K21.9 Gastro-esophageal reflux disease without esophagitis (principal); E11.9 Type 2 diabetes mellitus without complications; I10 Essential (primary) hypertension; Z86.73 Personal history of transient ischemic attack (TIA), and cerebral infarction without residual deficits; Z87.891 Personal history of nicotine dependence; Z79.899 Other long term (current) drug therapy; Z79.84 Long term (current) use of oral hypoglycemic drugs; Z79.01 Long term (current) use of anticoagulants; Z88.8 Allergy status to other drugs, medicaments and biological substances; Z88.0 Allergy status to penicillin; Z91.040 Latex allergy status

== ENCOUNTER → 2016-10-19 | Outpatient (CLI) | payer MEDICARE, MEDICAID ==
[~2016-10-19] MED LIST changes: +CARA1TAB6 PO; +HYDR-3713; +PEPC1TAB4 PO
--- NOTE | 2016-10-19 15:13 | REP ---
Left knee MRI: Comparisons is the plain film study of 04/13/2014. The study is performed with proton density, T2 and gradient echo data sets in sagittal, axial and coronal projections. There is a joint effusion. There are filling defects within the joint fluid in the medial gutter which could be a loose bodies or synovial artifact. The patellar articular cartilage and trochlear articular cartilage is unremarkable. The the medial lateral compartment articular cartilage is unremarkable. There is a bipartite patella. The anterior posterior cruciate ligaments are unremarkable. There is a flap tear/horizontal cleavage tear of the medial meniscus posterior horn. The anterior horn is unremarkable. The lateral meniscus is unremarkable. The quadriceps and patellar tendons are unremarkable. The medial and lateral collateral ligaments are unremarkable. Impression: Flap tear/ horizontal cleavage tear the posterior horn of the medial meniscus. Large joint effusion. Filling defects within the effusion in the suprapatellar pouch medially could represent loose bodies or synovial artifact. There is a bipartite patella. There is no Redman's cyst. There are small osteophytes on the lateral femoral condyle compatible with mild osteoarthritis. Signed by Riley Johnson MD 10/19/2016 03:04 P
== END ==
LOC: M PLARAD 11:15
PROVIDERS: ATTEND Orthopaedic Surgery
DX: M25.562 Pain in left knee (principal)

== ENCOUNTER → 2016-10-24 | Outpatient (REF) | payer MEDICARE ==
[2016-10-24 13:30] LABS: BASO % 0.5 % (0.0-1.0); EOS # 0.1 K/mm3 (0.0-0.50); LYMPH # 2.3 K/mm3 (1.5-4.5); LYMPH % 32.6 % (24.0-44.0); MEAN CORPUSCULAR HEMOGLOBIN 32.6 pg (27.0-33.0); MONO # 0.4 K/mm3 (0.0-0.8); MONO % 6.6 % (0.0-5.0); NEUTROPHILS # 3.8 K/mm3 (1.8-7.7); NEUTROPHILS % 56.3 % (36.0-66.0); RED CELL DISTRIBUTION WIDTH 13.1 % (11.5-14.5); WHITE BLOOD COUNT 6.7 K/mm3 (4.0-10.0)
[2016-10-24 14:59] LABS: ALBUMIN 3.9 GM/DL (3.2-5.2); ALBUMIN/GLOBULIN RATIO 1.26 (1.00-1.93); ALKALINE PHOSPHATASE 71 U/L (45-117); ALT/SGPT 34 U/L (12-78); ANION GAP 9 MEQ/L (8-16); AST/SGOT 17 U/L (15-37); BILIRUBIN,TOTAL 0.6 MG/DL (0.2-1.0); BLOOD UREA NITROGEN 16 MG/DL (7-18); CALCIUM LEVEL 9.2 MG/DL (8.5-10.1); CARBON DIOXIDE LEVEL 28 MEQ/L (21-32); CHLORIDE LEVEL 103 MEQ/L (98-107); CHOLESTEROL LEVEL 101 MG/DL (<200); CREATININE FOR GFR 0.86 MG/DL (0.70-1.30); GLOMERULAR FILTRATION RATE > 60.0 (>56); GLUCOSE, FASTING 119 MG/DL (70-105); POTASSIUM SERUM 4.5 MEQ/L (3.5-5.1); SODIUM LEVEL 140 MEQ/L (136-145); TRIGLYCERIDES LEVEL 118 MG/DL (<150)
== END ==
LOC: M LABDRAW1 12:56
PROVIDERS: ATTEND Family Medicine
DX: Z00.00 Encounter for general adult medical examination without abnormal findings (principal); E11.9 Type 2 diabetes mellitus without complications; I10 Essential (primary) hypertension

== ENCOUNTER → 2016-10-31 | Outpatient (CLI) | payer MEDICARE, MEDICAID ==
--- NOTE | 2016-10-31 16:11 | REP ---
MRI LUMBAR SPINE WITHOUT CONTRAST: HISTORY: Left leg numbness. COMPARISON: 02/11/2013 Decreased signal intensity on T2-weighted images is present in the L2-3 through L5-S1 intervertebral discs. The discs are decreased in height. These findings are consistent with disc degeneration. A small right paracentral disc protrusion is present at the T11-12 level. There is minimal effacement of the thecal sac without spinal cord compression. The T11 neural foramina are patent on sagittal images. There is bulge or herniation at the L1-2 and L2-3 levels. There nerves exit the neural foramina without compression. A diffuse disc bulge is present at the L3-4 level. There is minimal compression of the thecal sac. There is hypertrophy of the posterior articulating facets. The L3 nerves exit the neural foramina without compression. A diffuse disc bulge is present at the L4-5 level. This abuts the thecal sac. There is hypertrophy of the posterior articulating facets. A small right intraforaminal and lateral disc protrusion is present. There is compression of the right L4 nerve in the neural foramen. The left L4 nerve exits the neural foramen without compression. A diffuse disc bulge is present at the L5-S1 level. This abuts the thecal sac. There is hypertrophy of the posterior articulating facets. There are 7 mm of grade 1 spondylolisthesis of L5 on S1. This is associated with L5 pars defects. There is compression of the L5 nerves in the neural foramina. The conus medullaris is normal in appearance terminating at the level of the T12-L1 intervertebral discs. Normal signal intensity is present in the lumbar vertebral bodies. IMPRESSION: 1. Diffuse disc bulges at the L3-4 level with minimal thecal sac compression. 2. Diffuse disc bulge at the L4-5 level. This abuts the thecal sac. A small right intraforaminal and lateral disc protrusion is present. There is compression of the right L4 nerve in the neural foramen. The disc protrusion and nerve compression are new findings. 3. Diffuse disc bulge at the L5-S1 level. This abuts the thecal sac. There is grade 1 spondylolisthesis of L5 on S1 with associated L5 pars defects. There is compression of the L5 nerves in the neural foramina. There is no other significant change. Signed by Jose Diaz MD 10/31/2016 04:13 P
== END ==
LOC: M RAD 14:52
PROVIDERS: ATTEND Family Medicine
DX: M51.36 Other intervertebral disc degeneration, lumbar region (principal); M51.06 Intervertebral disc disorders with myelopathy, lumbar region; M51.17 Intervertebral disc disorders with radiculopathy, lumbosacral region; M43.17 Spondylolisthesis, lumbosacral region

== ENCOUNTER → 2017-02-20 | Outpatient (CLI) | payer MEDICARE | END | disposition home or self-care (01) | LOC: M PAIN 13:15 | PROVIDERS: ATTEND Nurse Practitioner Family | DX: G89.29 Other chronic pain (principal); M54.5 Low back pain; M12.88 Other specific arthropathies, not elsewhere classified, other specified site; M43.16 Spondylolisthesis, lumbar region; K21.9 Gastro-esophageal reflux disease without esophagitis; E78.00 Pure hypercholesterolemia, unspecified; A60.02 Herpesviral infection of other male genital organs; Z86.73 Personal history of transient ischemic attack (TIA), and cerebral infarction without residual deficits; Z79.899 Other long term (current) drug therapy; Z79.01 Long term (current) use of anticoagulants; Z88.0 Allergy status to penicillin; Z88.8 Allergy status to other drugs, medicaments and biological substances; L23.1 Allergic contact dermatitis due to adhesives; Z87.891 Personal history of nicotine dependence ==

== ENCOUNTER → 2017-04-10 | Outpatient (CLI) | payer MEDICARE | LOC: M PAIN 13:00 | DX: M54.5 Low back pain (principal); M12.88 Other specific arthropathies, not elsewhere classified, other specified site; M43.16 Spondylolisthesis, lumbar region; M25.562 Pain in left knee; M25.561 Pain in right knee; E11.9 Type 2 diabetes mellitus without complications; Z88.0 Allergy status to penicillin; Z88.8 Allergy status to other drugs, medicaments and biological substances; Z91.040 Latex allergy status; Z79.01 Long term (current) use of anticoagulants; Z79.84 Long term (current) use of oral hypoglycemic drugs; Z79.891 Long term (current) use of opiate analgesic; Z79.899 Other long term (current) drug therapy; Z86.73 Personal history of transient ischemic attack (TIA), and cerebral infarction without residual deficits | CPT/HCPCS: G0463 ==

== ENCOUNTER → 2017-04-11 | Outpatient (CLI) | payer MEDICARE ==
--- NOTE | 2017-04-11 13:39 | REP ---
Right knee series: Five views. History: Pain in the right knee. Comparison study: April 13, 2014. Findings: Five views of the right knee show mild osteoarthritic spurring of the patella on lateral and sunrise views and in the medial and lateral compartments on the frontal and oblique radiographs. There is a small benign exostosis from the proximal tibial metaphysis unchanged. No bony erosive or destructive lesion is seen. A normal fabella is again noted. Impression: Mild three compartment osteoarthritis. No acute bony abnormality. Signed by David Mccormick MD 04/11/2017 03:59 P
== END ==
LOC: M RAD 12:51
PROVIDERS: ATTEND Nurse Practitioner Family
DX: M17.11 Unilateral primary osteoarthritis, right knee (principal)

== ENCOUNTER 2017-05-01 08:13 | Day surgery (SDC) | payer MEDICARE ==
[2017-05-01] MEDS ORDERED: PROPOFOL 200 MG/20 ML VIAL As Ordered ×3 (08:57→09:15)
[2017-05-01] MEDS ORDERED: LIDOCAINE 2% INJ 100 MG/5 ML SDV (FOR ANES.) As Ordered (08:57)
== END 2017-05-01 10:11 | disposition home or self-care (01) ==
LOC: M OPP 08:13
DX: Z12.11 Encounter for screening for malignant neoplasm of colon (principal); Z86.010 Personal history of colon polyps; D12.0 Benign neoplasm of cecum; K64.0 First degree hemorrhoids; K22.70 Barrett's esophagus without dysplasia; K22.8 Other specified diseases of esophagus; K44.9 Diaphragmatic hernia without obstruction or gangrene; I10 Essential (primary) hypertension; E78.5 Hyperlipidemia, unspecified; R00.2 Palpitations; E11.9 Type 2 diabetes mellitus without complications; R12 Heartburn; K21.9 Gastro-esophageal reflux disease without esophagitis; A60.09 Herpesviral infection of other urogenital tract; D68.51 Activated protein C resistance; M19.90 Unspecified osteoarthritis, unspecified site; M54.2 Cervicalgia; M54.89 Other dorsalgia; I63.9 Cerebral infarction, unspecified; G47.30 Sleep apnea, unspecified; R06.83 Snoring; Z87.891 Personal history of nicotine dependence; Z88.8 Allergy status to other drugs, medicaments and biological substances; Z88.0 Allergy status to penicillin; Z91.040 Latex allergy status; Z79.01 Long term (current) use of anticoagulants; Z79.899 Other long term (current) drug therapy
CPT/HCPCS: 45385

== ENCOUNTER → 2017-05-24 | Outpatient (CLI) | payer MEDICARE, MEDICAID | LOC: M PAIN 10:00 | DX: M54.5 Low back pain (principal); M12.88 Other specific arthropathies, not elsewhere classified, other specified site; M43.16 Spondylolisthesis, lumbar region; M25.562 Pain in left knee; M25.561 Pain in right knee; K21.9 Gastro-esophageal reflux disease without esophagitis; E11.9 Type 2 diabetes mellitus without complications; E78.00 Pure hypercholesterolemia, unspecified; Z79.01 Long term (current) use of anticoagulants; Z79.84 Long term (current) use of oral hypoglycemic drugs; Z79.899 Other long term (current) drug therapy; Z88.0 Allergy status to penicillin; Z88.5 Allergy status to narcotic agent; Z88.8 Allergy status to other drugs, medicaments and biological substances; Z91.040 Latex allergy status; Z86.73 Personal history of transient ischemic attack (TIA), and cerebral infarction without residual deficits; Z87.891 Personal history of nicotine dependence | CPT/HCPCS: G0463 ==

== ENCOUNTER → 2017-08-21 | Outpatient (CLI) | payer MEDICARE, MEDICAID | LOC: M PAIN 10:00 | DX: M54.5 Low back pain (principal); M12.88 Other specific arthropathies, not elsewhere classified, other specified site; M43.16 Spondylolisthesis, lumbar region; M25.562 Pain in left knee; M25.561 Pain in right knee; E78.00 Pure hypercholesterolemia, unspecified; E11.9 Type 2 diabetes mellitus without complications; Z79.01 Long term (current) use of anticoagulants; Z79.84 Long term (current) use of oral hypoglycemic drugs; Z79.899 Other long term (current) drug therapy; Z88.0 Allergy status to penicillin; Z88.8 Allergy status to other drugs, medicaments and biological substances; Z91.040 Latex allergy status; Z86.73 Personal history of transient ischemic attack (TIA), and cerebral infarction without residual deficits | CPT/HCPCS: G0463 ==

== ENCOUNTER 2017-10-09 08:25 | Emergency (ER) | payer MEDICARE, MEDICAID ==
[2017-10-09] MEDS: PERCOCET 5MG/325MG TAB PO (09:19)
== END 2017-10-09 09:47 | disposition home or self-care (01) ==
LOC: M ED 08:25
DX: S93.402A Sprain of unspecified ligament of left ankle, initial encounter (principal); X50.1XXA Overexertion from prolonged static or awkward postures, initial encounter; Y92.9 Unspecified place or not applicable; Y93.9 Activity, unspecified; Y99.9 Unspecified external cause status; Z79.84 Long term (current) use of oral hypoglycemic drugs; Z79.01 Long term (current) use of anticoagulants; Z79.899 Other long term (current) drug therapy; Z88.1 Allergy status to other antibiotic agents; Z88.0 Allergy status to penicillin; Z88.8 Allergy status to other drugs, medicaments and biological substances; Z91.040 Latex allergy status
CPT/HCPCS: 73610

== ENCOUNTER → 2017-11-21 | Outpatient (CLI) | payer MEDICARE, MEDICAID | LOC: M PAIN 10:00 | DX: M54.5 Low back pain (principal); M12.88 Other specific arthropathies, not elsewhere classified, other specified site; M43.16 Spondylolisthesis, lumbar region; M25.562 Pain in left knee; M25.561 Pain in right knee; E78.00 Pure hypercholesterolemia, unspecified; Z79.01 Long term (current) use of anticoagulants; Z79.84 Long term (current) use of oral hypoglycemic drugs; Z79.899 Other long term (current) drug therapy; Z88.0 Allergy status to penicillin; Z88.8 Allergy status to other drugs, medicaments and biological substances; Z91.040 Latex allergy status; Z86.73 Personal history of transient ischemic attack (TIA), and cerebral infarction without residual deficits; Z87.891 Personal history of nicotine dependence | CPT/HCPCS: G0463 ==

== ENCOUNTER → 2018-02-21 | Outpatient (CLI) | payer MEDICARE, MEDICAID | LOC: M PAIN 09:00 | DX: M54.5 Low back pain (principal); M12.88 Other specific arthropathies, not elsewhere classified, other specified site; M25.561 Pain in right knee; M25.562 Pain in left knee; K21.9 Gastro-esophageal reflux disease without esophagitis; E78.00 Pure hypercholesterolemia, unspecified; Z86.73 Personal history of transient ischemic attack (TIA), and cerebral infarction without residual deficits; B00.9 Herpesviral infection, unspecified; Z87.891 Personal history of nicotine dependence; Z79.01 Long term (current) use of anticoagulants; Z79.84 Long term (current) use of oral hypoglycemic drugs; Z79.899 Other long term (current) drug therapy; Z79.891 Long term (current) use of opiate analgesic; Z88.0 Allergy status to penicillin; Z91.040 Latex allergy status; Z88.8 Allergy status to other drugs, medicaments and biological substances | CPT/HCPCS: G0463 ==

== ENCOUNTER → 2018-07-08 | Outpatient (REF) | payer MEDICARE, MEDICAID ==
[~2018-07-08] MED LIST changes: -/ATOR40TA PO; -/ESOM40CA OR; -/MOXI40TA; +AVEL1TAB2; +COUM6TAB PO; -HYDR-3713; +LIPI1TAB2 PO; +LOVE1INJ2 SC; +METO1TAB32 PO; +NEXI1CAP3 OR; -NORC1TAB4 PO; +NORC1TAB7 PO; -PEPC1TAB4 PO; +PEPC1TAB5 PO; +TYLE650T35 PO; +VALT500T PO
[2018-07-08 12:22] LABS: APPEARANCE, URINE CLEAR (CLEAR); BACTERIA, URINE AUTO NEGATIVE (NEGATIVE); BILIRUBIN, URINE AUTO NEGATIVE (NEGATIVE); BLOOD, URINE BLOOD NEGATIVE (NEGATIVE); COLOR, URINE YELLOW (YELLOW); GLUCOSE, URINE (UA) AUTO NEGATIVE (NEGATIVE); KETONE, URINE AUTO NEGATIVE (NEGATIVE); LEUKOCYTE ESTERASE, URINE AUTO NEGATIVE (NEGATIVE); NITRITE, URINE AUTO NEGATIVE (NEGATIVE); PROTEIN, URINE AUTO NEGATIVE (NEGATIVE); RBC, URINE AUTO 2 /HPF (0-3); SPECIFIC GRAVITY URINE AUTO 1.018 (1.002-1.035); SQUAMOUS EPITHELIAL CELL UR AU 0 /HPF (0-6); UROBILINOGEN, URINE AUTO 0.2 mg/dL (0.0-2.0); WBC, URINE AUTO 0 /HPF (0-3)
[2018-07-08 12:27] LABS: BASO % 0.4 % (0.0-1.0); EOS # 0.1 10^3/uL (0.0-0.50); EOS % 1.1 % (0.0-3.0); HEMATOCRIT 43.1 % (42.0-52.0); HEMOGLOBIN 14.9 g/dl (13.5-17.5); LYMPH # 2.2 10^3/uL (1.5-4.5); LYMPH % 28.5 % (24.0-44.0); MEAN CORPUSCULAR HGB CONC 34.6 g/dl (32.0-36.5); MEAN CORPUSCULAR VOLUME 92.5 fl (80.0-96.0); MONO # 0.7 10^3/uL (0.0-0.8); MONO % 8.9 % (0.0-5.0); NEUTROPHILS # 4.8 10^3/uL (1.8-7.7); NEUTROPHILS % 60.7 % (36.0-66.0); PLATELET COUNT, AUTOMATED 243 10^3/uL (150-450); RED BLOOD COUNT 4.66 10^6/uL (4.30-6.10); WHITE BLOOD COUNT 7.9 10^3/uL (4.0-10.0)
[2018-07-08 13:03] LABS: ALBUMIN 4.2 GM/DL (3.2-5.2); ALT/SGPT 45 U/L (12-78); BILIRUBIN,TOTAL 0.6 MG/DL (0.2-1.0); BLOOD UREA NITROGEN 17 MG/DL (7-18); CALCIUM LEVEL 9.1 MG/DL (8.5-10.1); CARBON DIOXIDE LEVEL 26 MEQ/L (21-32); CHLORIDE LEVEL 99 MEQ/L (98-107); CREATININE FOR GFR 1.06 MG/DL (0.70-1.30); GLOMERULAR FILTRATION RATE > 60.0 (>56); GLUCOSE, FASTING 163 MG/DL (70-100); IMMUNOGLOBULIN G 895 MG/DL (681-1648); IMMUNOGLOBULIN M 76.3 MG/DL (40-230); POTASSIUM SERUM 4.4 MEQ/L (3.5-5.1); SODIUM LEVEL 134 MEQ/L (136-145); TOTAL PROTEIN 7.2 GM/DL (6.4-8.2)
[2018-07-09 06:33] LABS: HEPATITIS C VIRUS ABY INDEX 0.1 INDEX (<0.8); HIV 1&2 SCREEN CENTAUR NEGATIVE (NEGATIVE)
[2018-07-09 12:33] LABS: CHLAMYDIA DNA AMPLIFICATION NEGATIVE (NEGATIVE); GC DNA AMPLIFICATION NEGATIVE (NEGATIVE)
== END ==
LOC: M SFHCPLAZ 10:00
PROVIDERS: ATTEND Internal Medicine Infectious Disease
DX: N41.1 Chronic prostatitis (principal); A60.02 Herpesviral infection of other male genital organs; L81.8 Other specified disorders of pigmentation; B37.2 Candidiasis of skin and nail
CPT/HCPCS: 80053; 81001; 82784; 85025; 86780; 86803; 87088; 87186; 87389; 87491; 87591; G0463

== ENCOUNTER → 2018-07-10 | Outpatient (CLI) | payer MEDICARE, MEDICAID ==
--- NOTE | 2018-07-25 00:51 | ECWPNPC ---
PATIENT NAME: GELY CAMPA : 1965 GENDER: MALE VISIT DATE: 07/10/2018 DISCHARGE DATE: 07/10/18 1444 VISIT LOCKED DATE TIME: PHYSICIAN: ISABELLE HERNANDEZ RESOURCE: ISABELLE HERNANDEZ REASON FOR APPOINTMENT 1. BACK PAIN/KNEES HISTORY OF PRESENT ILLNESS HISTORY OF PRESENT ILLNESS: HERE FOR CHRONIC LOW BACK AND NECK PAIN.ALSO SUFFERS FROM CHRONIC KNEE PAIN.FINDING CURRENT MEDICATION HELPFUL AT REDUCING PAIN AND KEEPING HIM COMFORTABLE.HE IS NOTING THAT RECENTLY MIDDAY PAIN IS ESCALATED.HE CANT TAKE IBUPROFEN DUE TO PRIOR HX OF STROKE AND CURRENTLY ON BLOOD THINNER. PAIN THE PATIENT DESCRIBES THE PAIN... FALL RISK SCREENING: SCREENING : NO FALLS IN THE PAST YEAR. CURRENT MEDICATIONS TAKING NEXIUM 40 MG CAPSULE DELAYED RELEASE 1 CAP(S) ORALLY TWICE A DAY TAKING TYLENOL EXTRA STRENGTH 625MG TABLET 2 TABLET NEEDED ORALLY THREE TIMES A DAY TAKING DEPAKOTE 500 MG TABLET DELAYED RELEASE 1 TABLET ORALLY ONCE A DAY TAKING MECLIZINE HCL 25 MG TABLET 2 TABLETS ORALLY TWICE DAILY TAKING LISINOPRIL 5 MG TABLET 1 TABLET ORALLY ONCE A DAY TAKING WARFARIN SODIUM 5 MG TABLET ORALLY DAILY, EXCEPT ON WEDNESDAYS AND FRIDAYS PATIENT TAKES 6 MG TAKING LIPITOR 40 MG TABLET 1 TABLET ORALLY ONCE A DAY TAKING TRAZODONE 50 50MG TABLET DIRECTED ORAL AT BEDTIME TAKING METFORMIN HCL 1000 MG TABLET 1 TABLET WITH MEALS ORALLY TWICE A DAY TAKING CHLORTHALIDONE 25 25 MG TABLET 1/2 TAB ORAL DAILY TAKING FLONASE 50 MCG/ACT SUSPENSION 1 SPRAY IN EACH NOSTRIL NASALLY ONCE A DAY TAKING ZETIA 10 MG TABLET 1 TABLET ORALLY ONCE A DAY TAKING BACLOFEN 10 MG TABLET 1 TABLET WITH FOOD OR MILK ORALLY THREE TIMES A DAY TAKING OXYCODONE-ACETAMINOPHEN 5-325 MG TABLET 1 TABLET NEEDED ORALLY EVERY 6- 8 HRS PRN PAIN MDD=2 TAKING VALACYCLOVIR HCL 1 GM TABLET 1 TABLET ORALLY ONCE A DAY NOT-TAKING VALTREX 1 GM TABLET 1 TABLET ORALLY DAILY, NOTES: DUPLICATE MEDICATION LIST REVIEWED AND RECONCILED WITH THE PATIENT PAST MEDICAL HISTORY GERD FRACTURED VERTEBRAE HIGH CHOLESTEROL STROKE HERPES DM CHRONIC PROSTATITIS KNEE PAIN BACK PAIN ALLERGIES PENICILLIN (FOR ALLERGIES USE ONLY): HIVES - SIDE EFFECTS LATEX: HIVES/RASH EFFEXOR: ARON - SIDE EFFECTS GABAPENTIN: ALT METAL STATUS - SIDE EFFECTS TYLENOL WITH CODEINE: ANGRY THOUGHTS - SIDE EFFECTS JANUVIA: SWEATING/CHEST PAIN - SIDE EFFECTS SURGICAL HISTORY REMOVAL BREAST CYSTS X2 APPENDECTOMY FAMILY HISTORY FATHER: 62 YRS, DIAGNOSED WITH HEART DISEASE MOTHER: ALIVE 75 YRS, DIABETES, HYPERTENSION, HEART DISEASE SOCIAL HISTORY GENERAL: TOBACCO USE ARE YOU A:FORMER SMOKER HOW LONG HAS IT BEEN SINCE YOU LAST SMOKED?1-5 YEARS LATEX QUESTIONNAIRE LATEX ALLERGY : HAVE YOU EVER DEVELOPED ANY TYPE OF REACTION AFTER HANDLING LATEX PRODUCTS SUCH RUBBER GLOVES, CONDOMS, DIAPHRAGMS, BALLOONS, SOCKS, OR UNDERWEAR?YES - PLEASE INDICATE :RUBBER GLOVES LATEX ALLERGY : HAVE YOU EVER DEVELOPED ANY TYPE OF REACTION DURING OR AFTER DENTAL APPOINTMENT, VAGINAL/RECTAL EXAMINATION, SURGICAL PROCEDURE, OR ANY OTHER EXPOSURE?NO LATEX RISK : HAVE YOU EVER HAD ANY DIFFICULTY BREATHING OR HIVES AFTER EATING OR HANDLING ANY FRUITS, OR VEGETABLES; SUCH KIWI, BANANAS, STONE FRUITS, OR CHESTNUTSNO LATEX RISK : DO YOU HAVE A PREVIOUS PERSONAL HISTORY OF MORE THAN NINE SURGERIES, SPINA BIFIDA, OR REPEATED CATHERTIZATIONS? NO LATEX RISK : ARE YOU FREQUENTLY EXPOSED TO LATEX PRODUCTS IN YOUR OCCUPATION?NO DATE ASKED : 07/08/2018 ALCOHOL SCREENING DID YOU HAVE A DRINK CONTAINING ALCOHOL IN THE PAST YEAR?NO POINTS0 INTERPRETATIONNEGATIVE RECREATIONAL DRUG USE DRUG USE?NO CAFFEINE CAFFEINE USE?YES SEXUAL HX HAD SEX IN THE LAST 12 MONTHS (VAGINAL, ORAL, OR ANAL)?NO HAVE YOU EVER HAD AN STD?NO HIV / HEP-C SCREENING HIV TEST OFFERED TO PATIENT:YES DATE OFFERED:07/08/2018 BROCHURE PROVIDED TO PATIENTNO HEP-C TEST OFFERED TO PATIENT:YES DATE OFFERED:07/08/2018 JEWISH [id number] NONE LANGUAGE LANGUAGES SPOKEN:DANISH EDUCATION LEVEL OF EDUCATION:FINISHED HIGH SCHOOL LEARNING BARRIERS / SPECIAL NEEDS BARRIERS TO LEARNING?NO HEARING IMPAIRED?NO VISION IMPAIRED?YES :CORRECTIVE LENSES COGNITIVELY IMPAIRED?NO READINESS TO LEARN?YES LEARNING PREFERENCES?NO LEARNING CAPABILITIES PRESENT?YES EMOTIONAL BARRIERS?NO SPECIAL 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 DIET: NO CONCENTRATED SWEETS.. EXERCISE: NONE. MARITAL STATUS: SINGLE. OTHERS AT HOME: CHILD-SON. PAIN CLINIC PFS, CLERGY, PUBLIC HEALTH REFERRALS PFS REFERRAL NEEDED?NO CLERGY REFERRAL NEEDED?NO PUBLIC HEALTH REFERRAL NEEDED?NO WAS THE PROVIDER NOTIFIED OF ANY PERTINENT INFO?NO HAS THE PATIENT BEEN EDUCATED REGARDING HIS/HER PLAN OF CARE?YES HAS THE PATIENT BEEN EDUCATED REGARDING PAIN, THE RISK FOR PAIN, THE IMPORTANCE OF EFFECTIVE PAIN MANAGEMENT, AND THE PAIN ASSESSMENT PROCESS?YES ADVANCE DIRECTIVE HEALTH CARE PROXY? YES, NAME OF HCP ARNAUD CAMPA, CONTACT # FOR HCP [phone], DO YOU HAVE A COPY WITH YOU? NO, DO YOU HAVE A DNR? NO, WOULD YOU LIKE MORE INFORMATION? NO, LIVING WILL? NO, WOULD YOU LIKE MORE INFORMATION? NO, POWER OF INSURANCE VERIFICATION CLERK? NO, WOULD YOU LIKE MORE INFORMATION? NO. 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 HOSPITALIZATION/MAJOR DIAGNOSTIC PROCEDURE STROKE REVIEW OF SYSTEMS REVIEWED BY: PROVIDER: ISABELLE SUH . CONSTITUTIONAL: ANY CHANGE IN YOUR MEDICAL CONDITION? NO . CHILLS NO . FEVER NO . INFECTION: DO YOU HAVE NEW INFECTIONS? YES, STATES TOOTH INFECTION FROM BROKEN TOOTH . DO YOU HAVE HISTORY OF MRSA? NO . MUSCULOSKELETAL: ANY NEW PATTERNS OF PAIN OR NUMBNESS? YES, STATES WORSENING PAIN IN RIGHT KNEE . GASTROENTEROLOGY: ANY NEW CHANGE IN BOWEL CONTROL? NO . GENITOURINARY: ANY NEW CHANGE IN BLADDER CONTROL? NO . IS THERE A CHANCE YOU COULD BE ? NO . HEMATOLOGY/LYMPH: DO YOU TAKE ANY BLOOD THINNERS? (FOR EXAMPLE- COUMADIN, PLAVIX, AGGRENOX, PLATEL, PRADAXA, OR XARELTO) YES, COUMADIN . WHEN WAS YOUR LAST DOSE? DATE: 07/09/18TIME: 1700 . NEUROLOGY: HAVE YOU FALLEN IN THE PAST 12 MONTHS? NO . ANY NEW EXTREMITY NUMBNESS OR WEAKNESS? NO . CARDIOLOGY: DO YOU HAVE A PACEMAKER OR DEFIBRILLATOR? NO . RESPIRATORY: HAVE YOU BEEN SICK IN THE PAST WEEK? YES, TOOTH ACHE/INFECTION . FEVER NO . FLU LIKE SYMPTOMS? NO . COUGH NO . INTEGUMENTARY: DO YOU HAVE ANY RASHES OR OPEN SORES? NO . ALLERGIC/IMMUNO: ARE YOU ALLERGIC TO IV DYE? NO . ANY NEW ALLERGIES? NO . PSYCHIATRIC: DO YOU HAVE THOUGHTS OF HURTING YOURSELF OR SOMEONE ELSE? NO . ARE YOU ABUSED, NEGLECTED, OR IN AN UNSAFE ENVIRONMENT? NO . ENDOCRINOLOGY: ARE YOU DIABETIC? YES . OTHER: DO YOU NEED ANY PRESCRIPTIONS? YES . IF YES, PLEASE LIST: ____OXYCODONE . ANY NEW PROBLEMS WITH YOUR MEDICATIONS? YES, STATES BACLOFEN DOES NOT HELP FOR LONG PERIODS OF TIME. STATES THEY ONLY LAST FOR A FEW HOURS . WHEN DID YOU LAST EAT? ____ . WHEN DID YOU LAST DRINK? ____ . WHAT DID YOU LAST DRINK? ____ . NAME OF PERSON DRIVING YOU HOME? ____ . DO YOU HAVE ANY OTHER QUESTIONS OR CONCERNS YES, WOULD LIKE TO JUST FAMILIARIZE HIMSELF WITH ISABELLE . VITAL SIGNS WT 252.6 LBS, HT 68 IN, BMI 38.40 INDEX, BP 124/85 MM HG, HR 80 /MIN, RR 18 /MIN, TEMP 97.5 F, OXYGEN SAT % 97%, SAFE IN ENV? (Y/N) YES, NA INITIALS SC 13:47, REVIEWED BY: EN. EXAMINATION GENERAL EXAMINATION: GENERAL APPEARANCE:AWAKE,ALERT ,PLEAASANT . PSYCHAFFECT NORMAL . LUNGS:LUNG KRAFT ARE CLEAR TO AUSCULTATION BILATERALLY. GOOD MOVEMENT OF AIR . HEART:S1, S2 IN A REGULAR RATE AND RHYTHM. NO SIGNIFICANT MURMURS, RUBS OR GALLOPS NOTED . ASSESSMENTS LOW BACK PAIN - M54.5 (PRIMARY) TREATMENT LOW BACK PAIN INCREASE OXYCODONE-ACETAMINOPHEN TABLET, 5-325 MG, 1 TABLET NEEDED, ORALLY, Q8H PRN MDD3 #75 TABS SHOULD LAST 30 DAYS, 30 DAY(S), 75, REFILLS 0 STOP BACLOFEN TABLET, 10 MG, 1 TABLET WITH FOOD OR MILK, ORALLY, THREE TIMES A DAY NOTES: SLOWLY WEAN DOWN AND OFF BACLOFEN.TAKE ONE AM AND PM X5 DAYS,THEN 1 DAILY X5 DAYS THEN STOP, ISTOP REGISTRY REVIEWED AND DEMONSTRATES COMPLLIANCE. BRINGS IN MEDICATIONS WHICH IS APPROPRIATE FOR WHAT WAS DISPENSED. RECENT URINE TOXICOLOGY REVIEWED. NO UNAUTHORIZED MEDICATIONS. NO ILLICIT SUBSTANCES AND PRESCRIBED MEDICATIONS WERE PRESENT. , RISKS AND BENEFITS OF NARCOTIC/OPIOD MEDICATIONS WERE REVIEWED WITH PATIENT - THIS INCLUDES BUT IS NOT LIMITED TO RISK OF DEPENDANCE/DEVELOPMENT OF ADDICTION, MOOD DISTURBANCE AND DEPRESSION, OSTEOPOROSIS, HORMONAL AND LABIDAL CHANGES, RESPIRATORY DEPRESSION AND . PATIENT IS ADVISED NOT TO DRIVE OR DRINK ALCOHOL WHILE ON THESE MEDICATIONS. PROCEDURE CODES FA211 ESTABILISHED PATIENT [facility] CHARGE DISPOSITION & COMMUNICATION FOLLOW UP 2 MONTHS ELECTRONICALLY SIGNED BY VIKASH GRADY ON 07/24/2018 AT 01:58 PM EDT DISCLAIMER : THIS IS A VISIT SUMMARY EXTRACTED FROM THE [employer] CHART. IT IS NOT A COPY OF THE [employer] PROGRESS NOTE. BRENT
== END ==
LOC: M PAIN 13:45
PROVIDERS: ATTEND Nurse Practitioner Family
DX: M54.5 Low back pain (principal); M54.2 Cervicalgia; G89.29 Other chronic pain; K21.9 Gastro-esophageal reflux disease without esophagitis; E78.00 Pure hypercholesterolemia, unspecified; Z86.73 Personal history of transient ischemic attack (TIA), and cerebral infarction without residual deficits; E11.9 Type 2 diabetes mellitus without complications; Z87.891 Personal history of nicotine dependence; Z88.0 Allergy status to penicillin; Z91.040 Latex allergy status; Z88.5 Allergy status to narcotic agent; Z88.8 Allergy status to other drugs, medicaments and biological substances; Z79.01 Long term (current) use of anticoagulants; Z79.84 Long term (current) use of oral hypoglycemic drugs; Z79.899 Other long term (current) drug therapy

== ENCOUNTER 2018-08-16 20:29 | Observation (INO) | payer MEDICARE, MEDICAID ==
[~2018-08-16] VITALS: Ht 172.7 cm; Wt 116.4 kg
[2018-08-16] MEDS ORDERED: DIVALPROEX 500MG *ER* TAB PO SCH (21:00)
[2018-08-16] MEDS ORDERED: traZODone 50 MG TAB PO SCH (21:00)
[2018-08-16] MEDS ORDERED: OXYC1TAB23 PO (21:10)
[2018-08-16 21:33] LABS: BASO % 0.5 % (0.0-1.0); EOS # 0.1 10^3/uL (0.0-0.50); EOS % 1.7 % (0.0-3.0); HEMOGLOBIN 13.9 g/dl (13.5-17.5); LYMPH # 2.2 10^3/uL (1.5-4.5); LYMPH % 33.8 % (24.0-44.0); MEAN CORPUSCULAR HEMOGLOBIN 32.6 pg (27.0-33.0); MEAN CORPUSCULAR HGB CONC 34.8 g/dl (32.0-36.5); MEAN CORPUSCULAR VOLUME 93.9 fl (80.0-96.0); MONO # 0.6 10^3/uL (0.0-0.8); MONO % 8.6 % (0.0-5.0); NEUTROPHILS # 3.6 10^3/uL (1.8-7.7); NEUTROPHILS % 55.1 % (36.0-66.0); PLATELET COUNT, AUTOMATED 249 10^3/uL (150-450); RED BLOOD COUNT 4.26 10^6/uL (4.30-6.10); WHITE BLOOD COUNT 6.6 10^3/uL (4.0-10.0)
[2018-08-16 21:44] LABS: INR 2.16; PARTIAL THROMBOPLASTIN TIME 35.1 SECONDS (25.4-37.6); PROTHROMBIN TIME 24.5 SECONDS (12.1-14.4)
[2018-08-16 21:58] LABS: ALBUMIN 3.8 GM/DL (3.2-5.2); ALT/SGPT 44 U/L (12-78); BILIRUBIN,DIRECT < 0.1 MG/DL (0.0-0.2); BILIRUBIN,TOTAL 0.3 MG/DL (0.2-1.0); BLOOD UREA NITROGEN 19 MG/DL (7-18); CALCIUM LEVEL 8.8 MG/DL (8.5-10.1); CARBON DIOXIDE LEVEL 28 MEQ/L (21-32); CHLORIDE LEVEL 102 MEQ/L (98-107); CK-MB VALUE MASS < 1.0 NG/ML (<3.6); CPK CREATINE PHOSPHOKINASE 72 U/L (39-308); CREATININE FOR GFR 1.02 MG/DL (0.70-1.30); GLOMERULAR FILTRATION RATE > 60.0 (>56); GLUCOSE, FASTING 212 MG/DL (70-100); MB/CK RELATIVE INDEX 1.39 (< OR =4); POTASSIUM SERUM 3.9 MEQ/L (3.5-5.1); SODIUM LEVEL 139 MEQ/L (136-145); TOTAL PROTEIN 6.6 GM/DL (6.4-8.2); TROPONIN I < 0.02 NG/ML (< 0.10)
--- NOTE | 2018-08-16 22:05 | REPVR ---
EXAM: CT Head Without Contrast EXAM DATE/TIME: 08/16/18 (8:37pm) CLINICAL HISTORY: 53 year old male with headache and dizziness TECHNIQUE: Imaging protocol: Axial computed tomography images of the head without contrast. Radiation optimization: All CT scans at this facility use at least one of these dose optimization techniques: automated exposure control; mA and/or kV adjustment per patient size (includes targeted exams where dose is matched to clinical indication); or iterative reconstruction. COMPARISON: CT HEAD of 07/04/13 FINDINGS: Brain: Atrophic changes (perhaps out of proportion to the stated age of this patient). No acute hemorrhage. No cerebral edema. Ventricles: Normal. No ventriculomegaly. Bones/joints: Unremarkable. No acute fracture. Sinuses: Visualized sinuses are unremarkable. No acute sinusitis. Mastoid air cells: Visualized mastoid air cells are unremarkable. No mastoid effusion. Soft tissues: Unremarkable. IMPRESSION: No acute intracranial pathology is appreciated. Slightly more advanced atrophy now seen, compared to June 2013. Electronically signed by: Amanda Bryan On 08/16/2018 22:04:39 PM
[2018-08-16] MEDS ORDERED: PERCOCET 5MG/325MG TAB PO ONE (22:30)
[2018-08-16] MEDS ORDERED: GLUCOSE 4 GM CHEW TABLET PO PRN (23:30)
[2018-08-16] MEDS ORDERED: ACETAMINOPHEN TAB 650MG DOSE (2X325MG) PO PRN (23:30)
[2018-08-16] MEDS ORDERED: GLUCAGON FOR INJ 1 MG VIAL (J1610) SC PRN (23:30)
[2018-08-16] MEDS ORDERED: DEXTROSE 50% 50 ML SYRINGE IV PRN (23:30)
[2018-08-16] MEDS ORDERED: CHLO125TA PO (23:48)
[2018-08-16] MEDS ORDERED: WARF-60 PO (23:48)
[2018-08-16] MEDS ORDERED: VALT1TAB PO (23:48)
[2018-08-16] MEDS ORDERED: WARF-23 PO (23:48)
[2018-08-16] MEDS ORDERED: FLON1SPR NARES (23:48)
[2018-08-16] MEDS ORDERED: METF10004 PO (23:48)
[2018-08-17] MEDS: PANTOPRAZOLE 40MG TAB (PROTONIX) PO SCH ×2 (00:33→09:24)
--- NOTE | 2018-08-17 00:41 | REPVR ---
EXAM: US Duplex Bilateral Extracranial Arteries EXAM DATE/TIME: 08/16/2018 11:30 PM CLINICAL HISTORY: 53 years old, male; Signs and symptoms; Other: Headache, TIA TECHNIQUE: Imaging protocol: Real-time Duplex ultrasound scan of the Bilateral carotid and vertebral arteries combining millard scale, color Doppler and spectral waveform analysis. COMPARISON: CT Head without contrast 08/16/2018 8:30 PM FINDINGS: Right common carotid artery: Right proximal common carotid artery velocity is 82 cm/s, mid is 84 cm/s and distal is 72 cm/s. Right internal carotid artery: Right proximal ICA velocity is 60 cm/s, mid is 61 cm/s and distal is 58 cm/s. Right ICA/CCA ratio: Right ICA/CCA ratio is 0.73. Right external carotid artery: Right external carotid artery velocity is 92 cm/s. Left common carotid artery: Left proximal common carotid artery velocity is 106 cm/s, mid is 107 cm/s and distal is 97 cm/s. Left internal carotid artery: Left proximal ICA velocity is 36 cm/s, mid is 48 cm/s and distal is 55 cm/s. Left ICA/CCA ratio: Left ICA/CCA ratio is 0.52. Left external carotid artery: Left external carotid artery velocity is 60 cm/s. Other findings: Minimal plaque is noted bilaterally. IMPRESSION: 1. Minimal bilateral plaque. 2. No evidence of hemodynamically significant stenosis. COMMENT: Carotid Stenosis Reference using SRU criteria: Mild: less than 50% stenosis. ICA PSV is less than 125 cm/second and plaque or intimal thickening is visible. Moderate: 50-69% stenosis. ICA PSV is 125 to 230 cm/second and plaque is visible. Severe: 70-94% stenosis. ICA PSV is more than 230 cm/second and visible plaque and lumen narrowing are seen. Near occlusion: 95-99% stenosis. ICA PSV is variable and significant plaque and luminal narrowing are seen. Occluded: 100% stenosis. No flow identified. Electronically signed by: Mahesh Rosas On 08/17/2018 00:40:55 AM
[2018-08-17 01:05] VITALS: BP 159/86
--- NOTE | 2018-08-17 01:52 | REPVR ---
EXAM: MR Head Without Contrast EXAM DATE/TIME: 08/16/2018 12:14 AM CLINICAL HISTORY: 53 years old, male; Dizziness and visual disturbance; slight headache but mostly lost vision for a few min. Along with sweaty, nausea, and dizziness, does have HX of stroke 6 yrs ago TECHNIQUE: Imaging protocol: MR of the head without contrast. COMPARISON: CT head 08/16/2018 and 10/14/2012. MR Head 07/04/2013 images without report. FINDINGS: Brain: No midline shift, mass effect, acute intracranial hemorrhage, or restricted diffusion. Minimal, hyperintense FLAIR signal, periventricular, cerebral white matter abnormality. This likely represents minimal chronic small vessel ischemia. Focal volume loss with mild hypointense GRE signal of left cerebellar hemisphere inferior aspect again seen. Ventricles: No ventriculomegaly. Bones/joints: Unremarkable. Soft tissues: Unremarkable. Sinuses: Partially-imaged small mucous retention cyst or polyp in left maxillary sinus. Mastoid air cells: Unremarkable. Orbits: Unremarkable. IMPRESSION: 1. No MR evidence of acute intracranial abnormality. 2. Focal volume loss with mild abnormal signal of left cerebellar hemisphere inferior aspect again seen. This may represent old hemorrhage. Abnormality noted here since CT head of 10/14/2012. Electronically signed by: Eben Rodgers On 08/17/2018 01:51:37 AM
--- NOTE | 2018-08-17 02:06 | REPVR ---
EXAM: MR Angiogram Head Without Contrast, Arteries EXAM DATE/TIME: 08/16/2018 12:14 AM CLINICAL HISTORY: 53 years old, male; Dizziness and giddiness and headache and visual disturbance; Sudden visual loss; slight headache but mostly lost vision for a few min. Along with sweaty, nausea, and dizziness, does have HX of stroke 6 yrs ago TECHNIQUE: Imaging protocol: MR angiogram head without contrast. Exam focused on the arteries. 3D rendering: MIP reconstructed images were created and reviewed. COMPARISON: MRA BRAIN 07/04/2013 images without report. FINDINGS: Right internal carotid artery: Unremarkable. Right anterior cerebral artery: Unremarkable. Right middle cerebral artery: Unremarkable. Right posterior cerebral artery: Unremarkable. Right vertebral artery: Unremarkable. Left internal carotid artery: Unremarkable. Left anterior cerebral artery: Markedly small diameter of left A1 segment. Distal branches of left anterior cerebral artery appear to rise from right anterior cerebral artery (normal variant). Left middle cerebral artery: Unremarkable. Left posterior cerebral artery: Left P1 segment is atretic and persistent origin of left posterior cerebral artery (normal variant). Left vertebral artery: Intracranial left vertebral artery is markedly small diameter and terminates as left posterior inferior cerebellar artery (normal variant). Basilar artery: Unremarkable. IMPRESSION: No MR evidence of acute large intracranial arterial occlusion, aneurysm, or AVM. Electronically signed by: Eben Rodgers On 08/17/2018 02:06:30 AM
[2018-08-17 05:00] VITALS: BP 137/85
[2018-08-17] MEDS ORDERED: HumaLOG INSULIN (NovoLOG) PER UNIT SC SCH ×2 (07:30→21:00)
[2018-08-17 07:45] LABS: HEMATOCRIT 38.2 % (42.0-52.0); HEMOGLOBIN 13.3 g/dl (13.5-17.5); MEAN CORPUSCULAR HEMOGLOBIN 32.5 pg (27.0-33.0); MEAN CORPUSCULAR HGB CONC 34.8 g/dl (32.0-36.5); MEAN CORPUSCULAR VOLUME 93.4 fl (80.0-96.0); PLATELET COUNT, AUTOMATED 226 10^3/uL (150-450); RED BLOOD COUNT 4.09 10^6/uL (4.30-6.10); WHITE BLOOD COUNT 6.5 10^3/uL (4.0-10.0)
--- NOTE | 2018-08-17 07:46 | ECGEPIP ---
Stationary ECG Study [facility] - ED Test Date: 2018-08-16 Pat Name: GELY CAMPA Department: Room: [place] [address] Gender: M Block Breaker: SAMY : 1965 Requested By: SAIRA LOW Order Number: [id number] Reading MD: Elsy Ngo Measurements Intervals [place] Rate: 71 P: 49 NE: 127 QRS: 27 QRSD: 81 T: 45 QT: 389 QTc: 425 Interpretive Statements SINUS RHYTHM LOW QRS VOLTAGE IN PRECORDIAL LEADS PRWP NSTTW ABNORMALITY INCREASED RATE 10/16/16 Electronically Signed On 08-17-2018 7:46:03 EDT by Elsy Ngo
[2018-08-17 08:00] VITALS: BP 139/81
--- NOTE | 2018-08-17 08:04 | REP ---
Chest one-view HISTORY: Infarction Comparison: 08/16/2018 The lungs are clear. The heart is normal in size. The pulmonary vasculature is normal in appearance. Impression: No acute disease. Electronically Signed by Jose Diaz MD 08/17/2018 07:55 A
[2018-08-17 08:13] LABS: BLOOD UREA NITROGEN 20 MG/DL (7-18); CALCIUM LEVEL 8.9 MG/DL (8.5-10.1); CARBON DIOXIDE LEVEL 27 MEQ/L (21-32); CHLORIDE LEVEL 102 MEQ/L (98-107); CREATININE FOR GFR 0.86 MG/DL (0.70-1.30); GLOMERULAR FILTRATION RATE > 60.0 (>56); GLUCOSE, FASTING 232 MG/DL (70-100); SODIUM LEVEL 136 MEQ/L (136-145)
[2018-08-17] MEDS ORDERED: MECLIZINE 25 MG TABLET PO SCH (09:00)
[2018-08-17] MEDS ORDERED: FLUTICASONE PROP 0.05% NASAL SPRAY 16 GM (FLONASE) NARES SCH (09:00)
[2018-08-17] MEDS ORDERED: EZETIMIBE 10 MG TAB (ZETIA) PO SCH (09:00)
[2018-08-17] MEDS ORDERED: PERCOCET 5MG/325MG TAB PO SCH (09:00)
[2018-08-17] MEDS ORDERED: LISINOPRIL 5 MG TAB PO SCH (09:00)
[2018-08-17 09:24] LABS: INR 2.08; PROTHROMBIN TIME 23.8 SECONDS (12.1-14.4)
[2018-08-17 09:25] VITALS: BP 139/81
[2018-08-17] MEDS ORDERED: GLIM2TAB PO (10:24)
[2018-08-17] MEDS ORDERED: valACYclovir HCL 500 MG TAB PO SCH (12:00)
[2018-08-17] MEDS ORDERED: ATORVASTATIN 20 MG TAB PO SCH (12:00)
[2018-08-17] MEDS ORDERED: WARFARIN SOD 5 MG TAB PO SCH (17:00)
[2018-08-17] MEDS ORDERED: CHLORTHALIDONE 12.5MG PER 1/2 TABLET PO SCH (18:00)
--- NOTE | 2018-08-18 12:09 | DS.PDOC ---
Discharge Summary General Date of Admission Aug 16, 2018 at 23:02 Date of Discharge 08/17/18 Discharge Summary PROCEDURES PERFORMED DURING STAY: [None]. DISCHARGE DIAGNOSES: Non specific headache Stroke ruled out H/o cerebellar Stroke Diabetes. Hypertension. Obstructive sleep apnea (JOSE), on continuous positive airway pressure (CPAP). Hyperlipidemia. Gastroesophageal reflux disease (GERD). Chronic obstructive pulmonary disease (COPD). Chronic back pain. History of deep vein thrombosis (DVT) due to Factor V Leiden and antiphospholipid syndrome on Coumadin. Chronic genital Herpes Chronic prostatitis Hiatal hernia Whiting's esophagus Tubular and adenomatous polyps. Morbid obesity COMPLICATIONS/CHIEF COMPLAINT: Headache. HISTORY OF PRESENT ILLNESS: Please see history and physical HOSPITAL COURSE: 53 year old Patient with PMH of CVA , DVT , Factor V Leiden, antiphospholipid syndrome, JOSE on CPAP, Diabetes, hypertension, hyperlipidemia, COPD woke up with a headache and he saw his sugars are higher than usual he id not think anything off it . Later in the day he had a brief episode of blackness coming over his eyes which lasted for a few seconds then resolved however his headache continued . He was concerned that he may be having a stroke so came to the ED. He was admitted under observation status. In the hospital he had an MRI and MRA which did not show any acute stoke. His headache also resolved. He was discharged home in a stable condition. DISCHARGE MEDICATIONS: Please see below. ALLERGIES: Please see below. PHYSICAL EXAMINATION ON DISCHARGE: VITAL SIGNS: Please see below. GENERAL: awake, alert, oriented x 3, lying down in bed in no acute distress HEENT: Normocephalic, atraumatic moist mucous membranes, anicteric eyes NECK: supple, no JVD CARDIOVASCULAR EXAMINATION: S1, S2, regular, no rub, murmur or gallop RESPIRATORY EXAMINATION: clear to auscultation, distant breath sounds ABDOMINAL EXAMINATION: obese, nontender, normal bowel sounds. EXTREMITIES: No cyanosis, clubbing or edema. LABORATORY DATA: Please see below. ACTIVITY: [As tolerated]. DIET: Carb consistent DISPOSITION: 01 Home, Self-Care. DISCHARGE INSTRUCTIONS: Follow up with PMD in 2 weeks DISCHARGE CONDITION: [Stable]. TIME SPENT ON DISCHARGE: Greater than 30 minutes. Vital Signs/I&Os Vital Signs Date Time Temp Pulse Resp B/P (MAP) Pulse Ox O2 Delivery O2 Flow Rate FiO2 08/17/18 10:12 20 08/17/18 09:25 139/81 08/17/18 08:00 97.4 73 97 08/17/18 00:30 Room Air I&O- Last 24 Hours up to 6 AM 08/17/18 05:59 Intake Total 360 ml Balance 360 ml Laboratory Data Labs 24H Laboratory Tests 2 08/16/18 21:28: Immature Granulocyte % (Auto) 0.3, White Blood Count 6.6, Red Blood Count 4.26L, Hemoglobin 13.9, Hematocrit 40.0L, Mean Corpuscular Volume 93.9, Mean Corpuscular Hemoglobin 32.6, Mean Corpuscular Hemoglobin Concent 34.8, Red Cell Distribution Width 12.8, Platelet Count 249, Neutrophils (%) (Auto) 55.1, Lymphocytes (%) (Auto) 33.8, Monocytes (%) (Auto) 8.6H, Eosinophils (%) (Auto) 1.7, Basophils (%) (Auto) 0.5, Neutrophils # (Auto) 3.6, Lymphocytes # (Auto) 2.2, Monocytes # (Auto) 0.6, Eosinophils # (Auto) 0.1, Basophils # (Auto) 0.0, Nucleated Red Blood Cells % (auto) 0.0, Prothrombin Time 24.5H, Prothromb Time International Ratio 2.16, Activated Partial Thromboplast Time 35.1, Anion Gap 9, Glomerular Filtration Rate > 60.0, Calcium Level 8.8, Aspartate Amino Transf (AST/SGOT) 19, Alanine Aminotransferase (ALT/SGPT) 44, Alkaline Phosphatase 92, Total Bilirubin 0.3, Direct Bilirubin < 0.1, Total Creatine Kinase 72, Creatine Kinase MB < 1.0, Creatine Kinase MB Relative Index 1.39, Troponin I < 0.02, To toro Protein 6.6, Albumin 3.8, Albumin/Globulin Ratio 1.36 08/16/18 22:22: Bedside Glucose (Misc Panel) 170H 08/17/18 07:15: Nucleated Red Blood Cells % (auto) 0.0, Anion Gap 7L, Glomerular Filtration Rate > 60.0, Calcium Level 8.9, Blood Urea Nitrogen 20H, Creatinine 0.86, Sodium Level 136, Potassium Level 4.0, Chloride Level 102, Carbon Dioxide Level 27 08/17/18 08:40: Prothrombin Time 23.8H, Prothromb Time International Ratio 2.08 CBC/BMP Laboratory Tests 08/16/18 21:28 Red Blood Count 4.26 L, Mean Corpuscular Volume 93.9, Mean Corpuscular Hemoglobin 32.6, Mean Corpuscular Hemoglobin Concent 34.8, Red Cell Distribution Width 12.8, Neutrophils (%) (Auto) 55.1, Lymphocytes (%) (Auto) 33.8, Monocytes (%) (Auto) 8.6 H, Eosinophils (%) (Auto) 1.7, Basophils (%) (Auto) 0.5, Neutrophils # (Auto) 3.6, Lymphocytes # (Auto) 2.2, Monocytes # (Auto) 0.6, Eosinophils # (Auto) 0.1, Basophils # (Auto) 0.0 08/17/18 07:15 Red Blood Count 4.09 L, Mean Corpuscular Volume 93.4, Mean Corpuscular H emoglobin 32.5, Mean Corpuscular Hemoglobin Concent 34.8, Red Cell Distribution Width 12.7, Calcium Level 8.9 FSBS Laboratory Tests Test 08/16/18 22:22 Range/Units Bedside Glucose (Misc Panel) 170 70-105 MG/DL Discharge Medications Scheduled Atorvastatin Calcium (Atorvastatin Calcium) 40 Mg Tab, 40 MG PO DAILY, ( Reported) TAKES @ NOON Chlorthalidone (Chlorthalidone) 25 Mg Tablet, 12.5 MG PO QPM, (Reported) Divalproex Sodium (Depakote ER) 500 Mg Tab, 500 MG PO QHS, (Reported) Esomeprazole Magnesium (Nexium) 40 Mg Cap, 40 MG PO BID, (Reported) Ezetimibe (Zetia) 10 Mg Tab, 10 MG PO DAILY, (Reported) Fluticasone Propionate (Flonase Allergy Relief) 9.9 Ml [place].susp, 2 SPRAY NARES DAILY, (Reported) Glimepiride (Glimepiride) 2 Mg Tablet, 0.5 TAB PO DAILY before breakfast daily Lisinopril (Lisinopril) 5 Mg Tab, 5 MG PO DAILY, (Reported) Meclizine HCl (Meclizine HCl) 25 Mg Tab, 25 MG PO DAILY, (Reported) Metformin HCl (Metformin HCl) 1,000 Mg Tablet, 1,000 MG PO BID, (Reported) Oxycodone HCl/Acetaminophen (Oxycodone-Acetaminophen 5-325) 1 Each Tablet, 1 TAB PO BID, (Reported) Trazodone HCl (Trazodone HCl) 50 Mg Tab, 50 MG PO QHS, (Reported) Valacyclovir HCl (Valtrex) 1,000 Mg Tablet, 1 GM PO DAILY, (Reported) AT NOON Warfarin Sodium (Warfarin Sodium) 5 Mg Tablet, 5 MG PO 3XW, (Reported) SATURDAY, SATURDAY, AND SATURDAY Warfarin Sodium (Warfarin Sodium) 6 Mg Tablet, 6 MG PO 4XWK, (Reported) SATURDAY, SATURDAY, SATURDAY, AND SATURDAY Scheduled PRN Acetaminophen (Tylenol Arthritis) 650 Mg Tab, 1,300 MG PO BID PRN for PAIN, (Reported) Allergies Coded Allergies: Penicillins (Verified Allergy, Unknown, 08/16/18) LARGE HIVES celecoxib (Verified Allergy, Unknown, 08/16/18) INCREASE BLOOD PRESSURE gabapentin (Verified Allergy, Unknown, 08/16/18) MAKES PT FEEL WOOZY latex (Verified Allergy, Unknown, 08/16/18) RASH venlafaxine (Verified Allergy, Unknown, 08/16/18) PANIC ATTACKS; SIGNIFICANT INSOMNIA ALEXANDER VALERO MD Aug 17, 2018 17:02
--- NOTE | 2018-08-18 18:45 | HPE ---
DATE OF ADMISSION: 08/16/2018 CHIEF COMPLAINT: Headache. HISTORY OF PRESENT ILLNESS: A 53-year-old gentleman who came to the emergency room (ER) with worsening occipital area headache since today morning. The patient took 500 mg Tylenol three tablets at home and his home medication oral Percocet without any relief. In the ER, the patient was found hemodynamically stable with vital signs of temperature 97.8, heart rate 75, respiratory rate 20, blood pressure 152/72, saturating 96% on room air. CT head did not show any acute pathology. EKG was normal sinus rhythm. On physical examination, there was no focal deficit. ER contacted on-call neurologist and as per recommendation, MRI head, MRA head and ultrasound carotids were ordered and hospitalist service was consulted to admit the patient for observation. The patient was seen and examined at bedside in the emergency room. The patient was resting comfortably in the bed. The patient complained of mild occipital area headache. The patient denied any other associated symptoms. PAST MEDICAL HISTORY: Anxiety, history of cerebrovascular accident (CVA) with mild subjective left-sided weakness, history of factor V Leiden deficiency on oral Coumadin, diabetes mellitus type 2, hypertension, hyperlipidemia. PAST SURGICAL HISTORY: Appendectomy, tonsillectomy, cholecystectomy. ALLERGIES: Allergic to PENICILLIN. HOME MEDICATIONS: Reviewed, please refer to permanent medical records. SOCIAL HISTORY: Former smoker, denied alcohol intake or illicit drug abuse, independent for activities of daily living. FAMILY HISTORY: Reviewed and noncontributory. REVIEW OF SYSTEMS: 10-point review of systems was performed and it was negative except as per history of present illness (HPI). PHYSICAL EXAMINATION: GENERAL: The patient is comfortable, no in acute distress. HEENT: Head is atraumatic, bilateral pupils round, reacting to light and accommodation, oral mucosa moist. NECK: Supple. RESPIRATORY SYSTEM: Clear to auscultation. No added sounds. CARDIOVASCULAR SYSTEM: Regular rate and rhythm. No murmur appreciated. ABDOMEN: Soft, obese abdomen. Normal bowel sounds. EXTREMITIES: No peripheral edema. CENTRAL NERVOUS SYSTEM: Cranial nerves I-XII grossly intact. No focal deficit. PSYCHIATRIC: Mood normal. SKIN: No rash. LABORATORY DATA AND IMAGING STUDIES: Reviewed. White count 6.6, hemoglobin 13.9, platelets 249. BUN 19, creatinine 1.02, blood glucose 212, INR 2.16. CT head shows no acute pathology. EKG shows normal sinus rhythm. ASSESSMENT: A 53-year-old gentleman with history of prior cerebrovascular accident (CVA), history of factor V Leiden deficiency who came with complaint of sudden onset of worsening headache. The patient took Tylenol and Percocet at home and in the emergency department, he was given oral Percocet. After that, his headache improved. IMPRESSION: Headache. PLAN: 1. Headache. We will followup MRI head, MRA head, ultrasound carotids. We will continue home medication for chronic headache. The patient takes Depakote. 2. We will followup with neurology service. 3. Diabetes mellitus, type 2, uncontrolled. We will continue home medication and start the patient on insulin sliding scale. 4. Americal diabetes association (ADA) diet. 5. History of factor V Leiden deficiency. We will continue home medication Coumadin. International normalized ratio (INR) is therapeutic. 6. Hypertension. We will resume home medication. 7. Hyperlipidemia. We will resume home medication. 8. Obesity, supportive care.
== END 2018-08-17 10:53 | disposition home or self-care (01) ==
LOC: M ED 20:29 → M ED INP 23:02 → M PED 08-17 00:54
PROVIDERS: ADMIT Internal Medicine; ATTEND Internal Medicine
DX: R51 Headache (principal); R42 Dizziness and giddiness; H53.9 Unspecified visual disturbance; E11.65 Type 2 diabetes mellitus with hyperglycemia; I10 Essential (primary) hypertension; G47.33 Obstructive sleep apnea (adult) (pediatric); E78.5 Hyperlipidemia, unspecified; K21.9 Gastro-esophageal reflux disease without esophagitis; J44.9 Chronic obstructive pulmonary disease, unspecified; A60.02 Herpesviral infection of other male genital organs; N41.1 Chronic prostatitis; K44.9 Diaphragmatic hernia without obstruction or gangrene; K22.70 Barrett's esophagus without dysplasia; M54.9 Dorsalgia, unspecified; Z86.718 Personal history of other venous thrombosis and embolism; D68.61 Antiphospholipid syndrome; F41.9 Anxiety disorder, unspecified; E66.01 Morbid (severe) obesity due to excess calories; Z68.39 Body mass index [BMI] 39.0-39.9, adult; I69.354 Hemiplegia and hemiparesis following cerebral infarction affecting left non-dominant side; Z86.010 Personal history of colon polyps; Z79.899 Other long term (current) drug therapy; Z79.01 Long term (current) use of anticoagulants; Z79.84 Long term (current) use of oral hypoglycemic drugs; Z79.891 Long term (current) use of opiate analgesic; Z88.0 Allergy status to penicillin; Z88.8 Allergy status to other drugs, medicaments and biological substances; Z87.891 Personal history of nicotine dependence

== ENCOUNTER → 2018-09-05 | Outpatient (CLI) | payer MEDICARE, MEDICAID ==
[~2018-09-05] MED LIST changes: +FLON1SPR NARES; +GLIM2TAB PO; +METF10004 PO; +OXYC1TAB23 PO; +TRAZ1TAB11 PO; -TRAZ25TA PO; +VALT1TAB PO; +WARF-60 PO
--- NOTE | 2018-09-25 00:43 | ECWPNPC ---
PATIENT NAME: GELY CAMPA : 1965 GENDER: MALE VISIT DATE: 09/05/2018 DISCHARGE DATE: 09/05/18 1126 VISIT LOCKED DATE TIME: PHYSICIAN: ISABELLE HERNANDEZ RESOURCE: ISABELLE HERNANDEZ REASON FOR APPOINTMENT 1. BACK PAIN/KNEES HISTORY OF PRESENT ILLNESS HISTORY OF PRESENT ILLNESS: HERE FOR CHRONIC LOW BACK AND NECK PAIN.ALSO SUFFERS FROM CHRONIC KNEE PAIN.FINDING CURRENT MEDICATION HELPFUL AT REDUCING PAIN AND KEEPING HIM COMFORTABLE.WE INCREASED PERCOCET 5/325 #75 TAB FOR 30 DAY SUPPLY.THIS IS HELPING. PAIN THE PATIENT DESCRIBES THE PAIN... THE PATIENT DESCRIBES THE PAIN... FALL RISK SCREENING: SCREENING :NO FALLS REPORTED IN THE LAST YEAR CURRENT MEDICATIONS TAKING NEXIUM 40 MG CAPSULE DELAYED RELEASE 1 CAP(S) ORALLY TWICE A DAY TAKING TYLENOL EXTRA STRENGTH 625MG TABLET 2 TABLET NEEDED ORALLY THREE TIMES A DAY TAKING DEPAKOTE 500 MG TABLET DELAYED RELEASE 1 TABLET ORALLY ONCE A DAY TAKING MECLIZINE HCL 25 MG TABLET 1 TABLET NEEDED ORALLY TWICE DAILY TAKING LISINOPRIL 5 MG TABLET 1 TABLET ORALLY ONCE A DAY TAKING WARFARIN SODIUM 5 MG TABLET ORALLY Saturday SAT SUN OTHER DAYS 6 MG TAKING LIPITOR 40 MG TABLET 1 TABLET ORALLY ONCE A DAY TAKING TRAZODONE 50 50MG TABLET DIRECTED ORAL AT BEDTIME TAKING METFORMIN HCL 1000 MG TABLET 1 TABLET WITH MEALS ORALLY TWICE A DAY TAKING CHLORTHALIDONE 25 25 MG TABLET 1/2 TAB ORAL DAILY TAKING FLONASE 50 MCG/ACT SUSPENSION 1 SPRAY IN EACH NOSTRIL NASALLY ONCE A DAY TAKING ZETIA 10 MG TABLET 1 TABLET ORALLY ONCE A DAY TAKING VALACYCLOVIR HCL 1 GM TABLET 1 TABLET ORALLY ONCE A DAY UNKNOWN OXYCODONE-ACETAMINOPHEN 5-325 MG TABLET 1 TABLET NEEDED ORALLY Q8H PRN MDD3 #75 TABS SHOULD LAST 30 DAYS UNKNOWN VALTREX 1 GM TABLET 1 TABLET ORALLY DAILY, NOTES: DUPLICATE MEDICATION LIST REVIEWED AND RECONCILED WITH THE PATIENT PAST MEDICAL HISTORY GERD FRACTURED VERTEBRAE HIGH CHOLESTEROL STROKE HERPES DM CHRONIC PROSTATITIS KNEE PAIN BACK PAIN SQUAMOUS CELL CARCINOMA ALLERGIES PENICILLIN (FOR ALLERGIES USE ONLY): HIVES - SIDE EFFECTS LATEX: HIVES/RASH EFFEXOR: ARON - SIDE EFFECTS GABAPENTIN: ALT METAL STATUS - SIDE EFFECTS TYLENOL WITH CODEINE: ANGRY THOUGHTS - SIDE EFFECTS JANUVIA: SWEATING/CHEST PAIN - SIDE EFFECTS SURGICAL HISTORY REMOVAL BREAST CYSTS X2 APPENDECTOMY FAMILY HISTORY FATHER: 62 YRS, DIAGNOSED WITH HEART DISEASE MOTHER: ALIVE 75 YRS, DIABETES, HYPERTENSION, HEART DISEASE SOCIAL HISTORY GENERAL: TOBACCO USE ARE YOU A:FORMER SMOKER HOW LONG HAS IT BEEN SINCE YOU LAST SMOKED?1-5 YEARS HIV / HEP-C SCREENING HIV TEST OFFERED TO PATIENT:YES DATE OFFERED:07/08/2018 BROCHURE PROVIDED TO PATIENTNO HEP-C TEST OFFERED TO PATIENT:YES DATE OFFERED:07/08/2018 OTHERS AT HOME: CHILD-SON. EDUCATION LEVEL OF EDUCATION:FINISHED HIGH SCHOOL DIET: NO CONCENTRATED SWEETS.. LANGUAGE LANGUAGES SPOKEN:ANDORRAN DOMESTIC VIOLENCE DO YOU FEEL SAFE IN YOUR ENVIRONMENT?YES RECREATIONAL DRUG USE DRUG USE?NO EXERCISE: NONE. 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 CLINIC PFS, CLERGY, PUBLIC HEALTH REFERRALS PFS REFERRAL NEEDED?NO CLERGY REFERRAL NEEDED?NO PUBLIC HEALTH REFERRAL NEEDED?NO WAS THE PROVIDER NOTIFIED OF ANY PERTINENT INFO?NO HAS THE PATIENT BEEN EDUCATED REGARDING HIS/HER PLAN OF CARE?YES HAS THE PATIENT BEEN EDUCATED REGARDING PAIN, THE RISK FOR PAIN, THE IMPORTANCE OF EFFECTIVE PAIN MANAGEMENT, AND THE PAIN ASSESSMENT PROCESS?YES LATEX QUESTIONNAIRE LATEX ALLERGY : HAVE YOU EVER DEVELOPED ANY TYPE OF REACTION AFTER HANDLING LATEX PRODUCTS SUCH RUBBER GLOVES, CONDOMS, DIAPHRAGMS, BALLOONS, SOCKS, OR UNDERWEAR?YES - PLEASE INDICATE :RUBBER GLOVES LATEX ALLERGY : HAVE YOU EVER DEVELOPED ANY TYPE OF REACTION DURING OR AFTER DENTAL APPOINTMENT, VAGINAL/RECTAL EXAMINATION, SURGICAL PROCEDURE, OR ANY OTHER EXPOSURE?NO LATEX RISK : HAVE YOU EVER HAD ANY DIFFICULTY BREATHING OR HIVES AFTER EATING OR HANDLING ANY FRUITS, OR VEGETABLES; SUCH KIWI, BANANAS, STONE FRUITS, OR CHESTNUTSNO LATEX RISK : DO YOU HAVE A PREVIOUS PERSONAL HISTORY OF MORE THAN NINE SURGERIES, SPINA BIFIDA, OR REPEATED CATHERTIZATIONS? NO LATEX RISK : ARE YOU FREQUENTLY EXPOSED TO LATEX PRODUCTS IN YOUR OCCUPATION?NO DATE ASKED : 07/08/2018 CAFFEINE CAFFEINE USE?YES ADVANCE DIRECTIVE HEALTH CARE PROXY? YES, NAME OF HCP ARNAUD CAMPA, CONTACT # FOR HCP [phone], DO YOU HAVE A COPY WITH YOU? NO, DO YOU HAVE A DNR? NO, WOULD YOU LIKE MORE INFORMATION? NO, LIVING WILL? NO, WOULD YOU LIKE MORE INFORMATION? NO, POWER OF PCB DESIGNER? NO, WOULD YOU LIKE MORE INFORMATION? NO. JEHOVAH'S WITNESS [id number] NONE MARITAL STATUS: SINGLE. ALCOHOL SCREENING DID YOU HAVE A DRINK CONTAINING ALCOHOL IN THE PAST YEAR?NO POINTS0 INTERPRETATIONNEGATIVE OCCUPATION: RETIRED. SEXUAL HX HAD SEX IN THE LAST 12 MONTHS (VAGINAL, ORAL, OR ANAL)?NO HAVE YOU EVER HAD AN STD?NO SEPERATED DISABLED CONSTRUCTION WORKERREVIEWED WITH PATIENT 07/10/18 4279 JS. HOSPITALIZATION/MAJOR DIAGNOSTIC PROCEDURE STROKE REVIEW OF SYSTEMS REVIEWED BY: PROVIDER: ISABELLE SUH . CONSTITUTIONAL: ANY CHANGE IN YOUR MEDICAL CONDITION? NO . CHILLS NO . FEVER NO . INFECTION: DO YOU HAVE NEW INFECTIONS? NO . DO YOU HAVE HISTORY OF MRSA? NO . MUSCULOSKELETAL: ANY NEW PATTERNS OF PAIN OR NUMBNESS? NO . GASTROENTEROLOGY: ANY NEW CHANGE IN BOWEL CONTROL? NO . GENITOURINARY: ANY NEW CHANGE IN BLADDER CONTROL? NO . IS THERE A CHANCE YOU COULD BE ? NO . HEMATOLOGY/LYMPH: DO YOU TAKE ANY BLOOD THINNERS? (FOR EXAMPLE- COUMADIN, PLAVIX, AGGRENOX, PLATEL, PRADAXA, OR XARELTO) NO . WHEN WAS YOUR LAST DOSE? DATE: TIME: . NEUROLOGY: HAVE YOU FALLEN IN THE PAST 12 MONTHS? NO . ANY NEW EXTREMITY NUMBNESS OR WEAKNESS? NO . CARDIOLOGY: DO YOU HAVE A PACEMAKER OR DEFIBRILLATOR? NO . RESPIRATORY: HAVE YOU BEEN SICK IN THE PAST WEEK? NO . FEVER NO . FLU LIKE SYMPTOMS? NO . COUGH NO . INTEGUMENTARY: DO YOU HAVE ANY RASHES OR OPEN SORES? NO . ALLERGIC/IMMUNO: ARE YOU ALLERGIC TO IV DYE? NO . ANY NEW ALLERGIES? NO . PSYCHIATRIC: DO YOU HAVE THOUGHTS OF HURTING YOURSELF OR SOMEONE ELSE? NO . ARE YOU ABUSED, NEGLECTED, OR IN AN UNSAFE ENVIRONMENT? NO . ENDOCRINOLOGY: ARE YOU DIABETIC? NO . OTHER: DO YOU NEED ANY PRESCRIPTIONS? NO . IF YES, PLEASE LIST: ____ . ANY NEW PROBLEMS WITH YOUR MEDICATIONS? NO . WHEN DID YOU LAST EAT? ____ . WHEN DID YOU LAST DRINK? ____ . WHAT DID YOU LAST DRINK? ____ . NAME OF PERSON DRIVING YOU HOME? ____ . DO YOU HAVE ANY OTHER QUESTIONS OR CONCERNS NO . VITAL SIGNS WT 253.4 LBS, HT 68 IN, BMI 38.53 INDEX, BP 153/99 MM HG, HR 74 /MIN, TEMP 96.9 F, OXYGEN SAT % 97%, NA INITIALS SC 10:55. EXAMINATION GENERAL EXAMINATION: GENERAL APPEARANCE:AWAKE,ALERT ,PLEAASANT . PSYCHAFFECT NORMAL . LUNGS:LUNG KRAFT ARE CLEAR TO AUSCULTATION BILATERALLY. GOOD MOVEMENT OF AIR . HEART:S1, S2 IN A REGULAR RATE AND RHYTHM. NO SIGNIFICANT MURMURS, RUBS OR GALLOPS NOTED . ASSESSMENTS LOW BACK PAIN - M54.5 TREATMENT LOW BACK PAIN REFILL OXYCODONE-ACETAMINOPHEN TABLET, 5-325 MG, 1 TABLET NEEDED, ORALLY, Q8H PRN MDD3 #75 TABS SHOULD LAST 30 DAYS, 30 DAY(S), 75, REFILLS 0 NOTES: ISTOP REGISTRY REVIEWED AND DEMONSTRATES COMPLLIANCE. (REF # ) BRINGS IN MEDICATIONS WHICH IS APPROPRIATE FOR WHAT WAS DISPENSED. RECENT URINE TOXICOLOGY REVIEWED. NO UNAUTHORIZED MEDICATIONS. NO ILLICIT SUBSTANCES AND PRESCRIBED MEDICATIONS WERE PRESENT. , RISKS AND BENEFITS OF NARCOTIC/OPIOD MEDICATIONS WERE REVIEWED WITH PATIENT - THIS INCLUDES BUT IS NOT LIMITED TO RISK OF DEPENDANCE/DEVELOPMENT OF ADDICTION, MOOD DISTURBANCE AND DEPRESSION, OSTEOPOROSIS, HORMONAL AND LABIDAL CHANGES, RESPIRATORY DEPRESSION AND . PATIENT IS ADVISED NOT TO DRIVE OR DRINK ALCOHOL WHILE ON THESE MEDICATIONS. PROCEDURE CODES FA211 ESTABILISHED PATIENT [facility] CHARGE DISPOSITION & COMMUNICATION FOLLOW UP 3 MONTHS (REASON: MED MGMNT) ELECTRONICALLY SIGNED BY VIKASH GRADY ON 09/24/2018 AT 09:46 AM EDT DISCLAIMER : THIS IS A VISIT SUMMARY EXTRACTED FROM THE [employer] CHART. IT IS NOT A COPY OF THE [employer] PROGRESS NOTE. STEPHENIED
== END ==
LOC: M PAIN 10:15
PROVIDERS: ATTEND Nurse Practitioner Family
DX: M54.5 Low back pain (principal); M54.2 Cervicalgia; M25.569 Pain in unspecified knee; Z79.891 Long term (current) use of opiate analgesic; Z79.84 Long term (current) use of oral hypoglycemic drugs; Z79.899 Other long term (current) drug therapy; Z88.0 Allergy status to penicillin; Z91.040 Latex allergy status; Z87.891 Personal history of nicotine dependence

== ENCOUNTER → 2018-10-31 | Outpatient (REF) | payer MEDICARE, MEDICAID | LOC: M LAB LCGH 14:32 | PROVIDERS: ATTEND Surgery | DX: A60.00 Herpesviral infection of urogenital system, unspecified (principal); R22.1 Localized swelling, mass and lump, neck; L72.0 Epidermal cyst ==

== ENCOUNTER → 2018-12-05 | Outpatient (CLI) | payer MEDICARE, MEDICAID ==
[~2018-12-05] MED LIST changes: +ZETI10TA16 PO; -ZETI10TA30 PO
== END ==
LOC: M PAIN 10:00
PROVIDERS: ATTEND Nurse Practitioner Family
DX: M43.16 Spondylolisthesis, lumbar region (principal); M54.5 Low back pain; G89.29 Other chronic pain; K21.9 Gastro-esophageal reflux disease without esophagitis; E78.00 Pure hypercholesterolemia, unspecified; E11.9 Type 2 diabetes mellitus without complications; Z87.891 Personal history of nicotine dependence; Z88.0 Allergy status to penicillin; Z88.5 Allergy status to narcotic agent; Z88.8 Allergy status to other drugs, medicaments and biological substances; Z91.040 Latex allergy status; Z79.84 Long term (current) use of oral hypoglycemic drugs; Z79.899 Other long term (current) drug therapy

== ENCOUNTER 2019-01-01 02:21 | Emergency (ER) | payer MEDICARE, MEDICAID ==
[~2019-01-01] VITALS: Ht 172.7 cm; Wt 113.6 kg
[2019-01-01 02:55] LABS: BASO # 0.1 10^3/uL (0.0-0.2); BASO % 0.7 % (0.0-1.0); EOS # 0.2 10^3/uL (0.0-0.5); EOS % 2.3 % (0.0-3.0); HEMATOCRIT 39.1 % (42.0-52.0); HEMOGLOBIN 13.8 g/dl (13.5-17.5); LYMPH # 2.9 10^3/uL (1.5-5.0); MEAN CORPUSCULAR HEMOGLOBIN 33.3 pg (27.0-33.0); MEAN CORPUSCULAR HGB CONC 35.3 g/dl (32.0-36.5); MEAN CORPUSCULAR VOLUME 94.2 fl (80.0-96.0); MONO # 0.6 10^3/uL (0.0-0.8); MONO % 8.1 % (0.0-5.0); NEUTROPHILS # 3.7 10^3/uL (1.5-8.5); NEUTROPHILS % 49.5 % (36.0-66.0); PLATELET COUNT, AUTOMATED 244 10^3/uL (150-450); RED BLOOD COUNT 4.15 10^6/uL (4.30-6.10); WHITE BLOOD COUNT 7.5 10^3/uL (4.0-10.0)
[2019-01-01] MEDS ORDERED: METAL LOCK LOOP XX ONE (03:01)
[2019-01-01 03:24] LABS: BLOOD UREA NITROGEN 17 MG/DL (7-18); CALCIUM LEVEL 9.1 MG/DL (8.5-10.1); CARBON DIOXIDE LEVEL 27 MEQ/L (21-32); CHLORIDE LEVEL 99 MEQ/L (98-107); CK-MB VALUE MASS < 1.0 NG/ML (<3.6); CPK CREATINE PHOSPHOKINASE 70 U/L (39-308); GLOMERULAR FILTRATION RATE > 60.0 (>56); GLUCOSE, FASTING 164 MG/DL (70-100); MB/CK RELATIVE INDEX 1.43 (< OR =4); POTASSIUM SERUM 3.9 MEQ/L (3.5-5.1); SODIUM LEVEL 137 MEQ/L (136-145); TROPONIN I < 0.02 NG/ML (< 0.10)
[2019-01-01 05:02] VITALS: BP 146/74
--- NOTE | 2019-01-01 09:14 | REP ---
CHEST, SINGLE VIEW: COMPARISON: 08/16/2018 Single view of the chest is performed. There is no evidence of acute infiltrate or pulmonary edema. The heart is not significantly enlarged. There is mild calcification of the thoracic aorta. Mediastinal silhouette is unchanged. There is slight elevation of the left hemidiaphragm unchanged. IMPRESSION: No acute infiltrate. Electronically Signed by Riley Laboy MD 01/01/2019 11:38 A
--- NOTE | 2019-01-01 20:27 | ECGEPIP ---
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
== END 2019-01-01 05:11 | disposition left against medical advice (07) ==
LOC: M ED 02:21
DX: R07.9 Chest pain, unspecified (principal); I10 Essential (primary) hypertension; E78.5 Hyperlipidemia, unspecified; E11.9 Type 2 diabetes mellitus without complications; Z86.73 Personal history of transient ischemic attack (TIA), and cerebral infarction without residual deficits; Z87.891 Personal history of nicotine dependence; Z85.828 Personal history of other malignant neoplasm of skin; Z82.49 Family history of ischemic heart disease and other diseases of the circulatory system; Z88.0 Allergy status to penicillin; Z88.1 Allergy status to other antibiotic agents; Z88.8 Allergy status to other drugs, medicaments and biological substances; Z91.040 Latex allergy status; Z79.899 Other long term (current) drug therapy; Z79.891 Long term (current) use of opiate analgesic; Z79.01 Long term (current) use of anticoagulants; Z79.84 Long term (current) use of oral hypoglycemic drugs

== ENCOUNTER 2019-01-01 10:40 | Emergency (ER) | payer MEDICARE, MEDICAID ==
[~2019-01-01] VITALS: Ht 172.7 cm; Wt 113.7 kg
[2019-01-01 11:07] LABS: BASO % 0.5 % (0.0-1.0); EOS # 0.1 10^3/uL (0.0-0.5); EOS % 1.8 % (0.0-3.0); HEMOGLOBIN 15.1 g/dl (13.5-17.5); LYMPH # 1.6 10^3/uL (1.5-5.0); MEAN CORPUSCULAR HEMOGLOBIN 33.4 pg (27.0-33.0); MEAN CORPUSCULAR HGB CONC 35.1 g/dl (32.0-36.5); MEAN CORPUSCULAR VOLUME 95.1 fl (80.0-96.0); MONO # 0.6 10^3/uL (0.0-0.8); NEUTROPHILS # 3.9 10^3/uL (1.5-8.5); NEUTROPHILS % 62.2 % (36.0-66.0); PLATELET COUNT, AUTOMATED 252 10^3/uL (150-450); RED BLOOD COUNT 4.52 10^6/uL (4.30-6.10); WHITE BLOOD COUNT 6.2 10^3/uL (4.0-10.0)
--- NOTE | 2019-01-01 11:29 | REP ---
CHEST, SINGLE VIEW: Single view of the chest is performed and compared to a prior exam the same day. There is no change since the prior exam. There is no acute infiltrate. The heart and mediastinum are unchanged. IMPRESSION: Stable exam with no acute pulmonary disease. Electronically Signed by Riley Laboy MD 01/01/2019 02:07 P
[2019-01-01 11:41] LABS: BLOOD UREA NITROGEN 16 MG/DL (7-18); CARBON DIOXIDE LEVEL 31 MEQ/L (21-32); CHLORIDE LEVEL 100 MEQ/L (98-107); CK-MB VALUE MASS < 1.0 NG/ML (<3.6); CPK CREATINE PHOSPHOKINASE 123 U/L (39-308); CREATININE FOR GFR 0.99 MG/DL (0.70-1.30); GLOMERULAR FILTRATION RATE > 60.0 (>56); GLUCOSE, FASTING 173 MG/DL (70-100); MB/CK RELATIVE INDEX 0.81 (< OR =4); POTASSIUM SERUM 4.4 MEQ/L (3.5-5.1); SODIUM LEVEL 139 MEQ/L (136-145); TROPONIN I < 0.02 NG/ML (< 0.10)
[2019-01-01] MEDS ORDERED: GI COCKTAIL 50ML BTL(HYOSCYAMINE/MAALOX/LIDOCAINE VISCOUS)(1:3:1) PO ONE (12:30)
[2019-01-01] MEDS ORDERED: KETOROLAC 30 MG/ML VIAL (J1885) IV ONE (13:15)
[2019-01-01] MEDS ORDERED: METOCLOPRAMIDE INJ 10MG/2ML VIAL (J2765) IV ONE (13:15)
[2019-01-01 14:10] VITALS: BP 137/73
--- NOTE | 2019-01-01 20:32 | ECGEPIP ---
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
== END 2019-01-01 14:14 | disposition home or self-care (01) ==
LOC: M ED 10:40
DX: R07.89 Other chest pain (principal); I10 Essential (primary) hypertension; E11.9 Type 2 diabetes mellitus without complications; E78.5 Hyperlipidemia, unspecified; R06.02 Shortness of breath; F17.200 Nicotine dependence, unspecified, uncomplicated; Z86.73 Personal history of transient ischemic attack (TIA), and cerebral infarction without residual deficits; Z85.828 Personal history of other malignant neoplasm of skin; Z82.49 Family history of ischemic heart disease and other diseases of the circulatory system; Z88.0 Allergy status to penicillin; Z88.1 Allergy status to other antibiotic agents; Z88.8 Allergy status to other drugs, medicaments and biological substances; Z91.040 Latex allergy status; Z79.899 Other long term (current) drug therapy; Z79.891 Long term (current) use of opiate analgesic; Z79.01 Long term (current) use of anticoagulants; Z79.84 Long term (current) use of oral hypoglycemic drugs
CPT/HCPCS: 71045; 80048; 82550; 82553; 84484; 85025; 85379; 93005; 93041; 94760; 96374; 96375; 99284; 99285; J1885; J2765

== ENCOUNTER → 2019-01-15 | Outpatient (CLI) | payer MEDICARE, MEDICAID ==
--- NOTE | 2019-01-20 01:31 | ECWPNPC ---
PATIENT NAME: GELY CAMPA : 1965 GENDER: MALE VISIT DATE: 01/15/2019 DISCHARGE DATE: 01/15/19 1503 VISIT LOCKED DATE TIME: PHYSICIAN: LULU MANCUSO RESOURCE: LULU MANCUSO REASON FOR APPOINTMENT 1. MED MGMNT- WILL BE10 MINS LATE HISTORY OF PRESENT ILLNESS HISTORY OF PRESENT ILLNESS: PAIN THE PATIENT DESCRIBES THE PAIN... 54-YEAR-OLD MALE IN FOR CHRONIC PAIN FOLLOW-UP. HE RATES HIS PAIN CURRENTLY AT A 4/10 AND DESCRIBES IT SHARP, BURNING, AND SHOOTING. HE FEELS MEDICATIONS ARE WORKING WELL TO HELP MANAGE HIS PAIN AND HE DENIES MED SIDE EFFECTS THIS TIME. FALL RISK SCREENING: SCREENING :NO FALLS REPORTED IN THE LAST YEAR CURRENT MEDICATIONS TAKING NEXIUM 40 MG CAPSULE DELAYED RELEASE 1 CAP(S) ORALLY TWICE A DAY TAKING TYLENOL EXTRA STRENGTH 625MG TABLET 2 TABLET NEEDED ORALLY THREE TIMES A DAY TAKING DEPAKOTE 500 MG TABLET DELAYED RELEASE 1 TABLET ORALLY ONCE A DAY TAKING MECLIZINE HCL 25 MG TABLET 1 TABLET NEEDED ORALLY TWICE DAILY TAKING LISINOPRIL 5 MG TABLET 1 TABLET ORALLY 15 MG ONCE A DAY TAKING WARFARIN SODIUM 5 MG TABLET ORALLY SATURDAY - SATURDAY IS 6MG, SATURDAY IS 5MG TAKING LIPITOR 40 MG TABLET 1 TABLET ORALLY ONCE A DAY TAKING TRAZODONE 50 50MG TABLET DIRECTED ORAL AT BEDTIME TAKING METFORMIN HCL 1000 MG TABLET 1 TABLET WITH MEALS ORALLY TWICE A DAY TAKING CHLORTHALIDONE 25 25 MG TABLET 1/2 TAB ORAL DAILY TAKING FLONASE 50 MCG/ACT SUSPENSION 1 SPRAY IN EACH NOSTRIL NASALLY ONCE A DAY TAKING ZETIA 10 MG TABLET 1 TABLET ORALLY ONCE A DAY TAKING BYDUREON 2 MG PEN-INJECTOR DIRECTED SUBCUTANEOUS TAKING OXYCODONE-ACETAMINOPHEN 5-325 MG TABLET 1 TABLET NEEDED ORALLY Q8H PRN MDD3 #75 TABS SHOULD LAST 30 DAYS TAKING VALACYCLOVIR HCL 1 GM TABLET 1 TABLET ORALLY ONCE A DAY NOT-TAKING VALTREX 1 GM TABLET 1 TABLET ORALLY DAILY, NOTES: DUPLICATE MEDICATION LIST REVIEWED AND RECONCILED WITH THE PATIENT PAST MEDICAL HISTORY GERD FRACTURED VERTEBRAE HIGH CHOLESTEROL STROKE HERPES DM CHRONIC PROSTATITIS KNEE PAIN BACK PAIN SQUAMOUS CELL CARCINOMA ALLERGIES PENICILLIN (FOR ALLERGIES USE ONLY): HIVES - SIDE EFFECTS LATEX: HIVES/RASH EFFEXOR: ARON - SIDE EFFECTS GABAPENTIN: ALT METAL STATUS - SIDE EFFECTS TYLENOL WITH CODEINE: ANGRY THOUGHTS - SIDE EFFECTS JANUVIA: SWEATING/CHEST PAIN - SIDE EFFECTS SURGICAL HISTORY REMOVAL BREAST CYSTS X2 APPENDECTOMY ABD SKIN CANCER REMOVED FAMILY HISTORY FATHER: 62 YRS, DIAGNOSED WITH UNSPECIFIED HEART DISEASE MOTHER: ALIVE 75 YRS, DIABETES, HYPERTENSION, UNSPECIFIED HEART DISEASE SOCIAL HISTORY GENERAL: TOBACCO USE ARE YOU A:FORMER SMOKER HOW LONG HAS IT BEEN SINCE YOU LAST SMOKED?1-5 YEARS HIV / HEP-C SCREENING HIV TEST OFFERED TO PATIENT:YES DATE OFFERED:07/08/2018 HEP-C TEST OFFERED TO PATIENT:YES DATE OFFERED:07/08/2018 BROCHURE PROVIDED TO PATIENTNO OTHERS AT HOME: CHILD-SON. EDUCATION LEVEL OF EDUCATION:FINISHED HIGH SCHOOL DIET: NO CONCENTRATED SWEETS.. LANGUAGE LANGUAGES SPOKEN:[place]ER DOMESTIC VIOLENCE DO YOU FEEL SAFE IN YOUR ENVIRONMENT?YES RECREATIONAL DRUG USE DRUG USE?NO EXERCISE: NONE. 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 CLINIC PFS, CLERGY, PUBLIC HEALTH REFERRALS PFS REFERRAL NEEDED?NO CLERGY REFERRAL NEEDED?NO PUBLIC HEALTH REFERRAL NEEDED?NO WAS THE PROVIDER NOTIFIED OF ANY PERTINENT INFO?NO HAS THE PATIENT BEEN EDUCATED REGARDING HIS/HER PLAN OF CARE?YES HAS THE PATIENT BEEN EDUCATED REGARDING PAIN, THE RISK FOR PAIN, THE IMPORTANCE OF EFFECTIVE PAIN MANAGEMENT, AND THE PAIN ASSESSMENT PROCESS?YES LATEX QUESTIONNAIRE LATEX ALLERGY : HAVE YOU EVER DEVELOPED ANY TYPE OF REACTION AFTER HANDLING LATEX PRODUCTS SUCH RUBBER GLOVES, CONDOMS, DIAPHRAGMS, BALLOONS, SOCKS, OR UNDERWEAR?YES LATEX ALLERGY : HAVE YOU EVER DEVELOPED ANY TYPE OF REACTION DURING OR AFTER DENTAL APPOINTMENT, VAGINAL/RECTAL EXAMINATION, SURGICAL PROCEDURE, OR ANY OTHER EXPOSURE?NO - PLEASE INDICATE :RUBBER GLOVES DATE ASKED : 07/08/2018 LATEX RISK : HAVE YOU EVER HAD ANY DIFFICULTY BREATHING OR HIVES AFTER EATING OR HANDLING ANY FRUITS, OR VEGETABLES; SUCH KIWI, BANANAS, STONE FRUITS, OR CHESTNUTSNO LATEX RISK : DO YOU HAVE A PREVIOUS PERSONAL HISTORY OF MORE THAN NINE SURGERIES, SPINA BIFIDA, OR REPEATED CATHERIZATIONS? NO LATEX RISK : ARE YOU FREQUENTLY EXPOSED TO LATEX PRODUCTS IN YOUR OCCUPATION?NO CAFFEINE CAFFEINE USE?YES ADVANCE DIRECTIVE ADVANCE DIRECTIVE DISCUSSED WITH PATIENT:YES DECLINED [facility] [id number] NONE MARITAL STATUS: SINGLE. ALCOHOL SCREENING DID YOU HAVE A DRINK CONTAINING ALCOHOL IN THE PAST YEAR?NO POINTS0 INTERPRETATIONNEGATIVE OCCUPATION: RETIRED. SEXUAL HX HAD SEX IN THE LAST 12 MONTHS (VAGINAL, ORAL, OR ANAL)?NO HAVE YOU EVER HAD AN STD?NO SEPERATED DISABLED CONSTRUCTION WORKERREVIEWED WITH PATIENT 07/10/18 1359 JSREVIEWED WITH PT 01/15/19 1414 NLJ. HOSPITALIZATION/MAJOR DIAGNOSTIC PROCEDURE STROKE REVIEW OF SYSTEMS REVIEWED BY: PROVIDER: MELBA SUH-C . CONSTITUTIONAL: ANY CHANGE IN YOUR MEDICAL CONDITION? YES- STATES HE HAS BEEN SEEING HIS PCP AND DR. WALLACE FOR HIS HYPERTENSION, STATES HIS BP HAS BEEN HIGHER LATELY . CHILLS NO . FEVER NO . INFECTION: DO YOU HAVE NEW INFECTIONS? NO . DO YOU HAVE HISTORY OF MRSA? NO . MUSCULOSKELETAL: ANY NEW PATTERNS OF PAIN OR NUMBNESS? NO- STATES PAIN IS CONTROLLED WITH MEDS STATES AT HIS WORSE HIS PAIN IS A 4 . GASTROENTEROLOGY: ANY NEW CHANGE IN BOWEL CONTROL? NO . GENITOURINARY: ANY NEW CHANGE IN BLADDER CONTROL? NO . IS THERE A CHANCE YOU COULD BE ? NO . HEMATOLOGY/LYMPH: DO YOU TAKE ANY BLOOD THINNERS? (FOR EXAMPLE- COUMADIN, PLAVIX, AGGRENOX, PLATEL, PRADAXA, OR XARELTO) YES- COUMADIN . WHEN WAS YOUR LAST DOSE? DATE:01/14/19 TIME: 1700 . NEUROLOGY: HAVE YOU FALLEN IN THE PAST 12 MONTHS? NO . ANY NEW EXTREMITY NUMBNESS OR WEAKNESS? NO . CARDIOLOGY: DO YOU HAVE A PACEMAKER OR DEFIBRILLATOR? NO . RESPIRATORY: HAVE YOU BEEN SICK IN THE PAST WEEK? YES- STATES HIS BP HAS BEEN HOGH AND HIS FSBS HAVE BEEN HIGH, STATES HE IS SEEING HIS PCP AND DR. WALLACE . FEVER NO . FLU LIKE SYMPTOMS? NO . COUGH NO . INTEGUMENTARY: DO YOU HAVE ANY RASHES OR OPEN SORES? NO . ALLERGIC/IMMUNO: ARE YOU ALLERGIC TO IV DYE? NO . ANY NEW ALLERGIES? NO . PSYCHIATRIC: DO YOU HAVE THOUGHTS OF HURTING YOURSELF OR SOMEONE ELSE? NO . ARE YOU ABUSED, NEGLECTED, OR IN AN UNSAFE ENVIRONMENT? NO . ENDOCRINOLOGY: ARE YOU DIABETIC? YES . OTHER: DO YOU NEED ANY PRESCRIPTIONS? NO . IF YES, PLEASE LIST: ____ . ANY NEW PROBLEMS WITH YOUR MEDICATIONS? NO . WHEN DID YOU LAST EAT? ____ . WHEN DID YOU LAST DRINK? ____ . WHAT DID YOU LAST DRINK? ____ . NAME OF PERSON DRIVING YOU HOME? ____ . DO YOU HAVE ANY OTHER QUESTIONS OR CONCERNS NO . VITAL SIGNS WT 247.8 LBS, HT 68 IN, BMI 37.67 INDEX, BP 132/73 MM HG, HR 79 /MIN, RR 18 /MIN, TEMP 97.4 F, OXYGEN SAT % 100%, NA INITIALS AW 1412. EXAMINATION GENERAL EXAMINATION: GENERALNO ACUTE DISTRESS, WELL NOURISHED AND HYDRATED. PSYCHAPPROPRIATE MOOD AND AFFECT . LUNGS:CLEAR TO AUSCULTATION BILATERALLY, NO WHEEZES, RHONCHI, RALES. HEART:NO MURMURS, REGULAR RATE AND RHYTHM. ASSESSMENTS LOW BACK PAIN - M54.5 (PRIMARY) TREATMENT LOW BACK PAIN CLINICAL NOTES: 54-YEAR-OLD MALE IN FOR CHRONIC PAIN FOLLOW-UP. GIVEN PRESENTING SYMPTOMS AND RESULTS PHYSICAL EXAMINATION RECOMMENDED FOLLOW-UP IN 3 MONTHS. PATIENT HAS EXPRESSED UNDERSTANDING OF AND WAS IN AGREEMENT WITH TREATMENT PLAN. GIVEN TIME TO ASK QUESTIONS AND EXPRESS CONCERNS., ISTOP REGISTRY REVIEWED AND DEMONSTRATES COMPLLIANCE. (REF # [id number] ) BRINGS IN MEDICATIONS WHICH IS APPROPRIATE FOR WHAT WAS DISPENSED. RECENT URINE TOXICOLOGY REVIEWED. NO UNAUTHORIZED MEDICATIONS. NO ILLICIT SUBSTANCES AND PRESCRIBED MEDICATIONS WERE PRESENT. PROCEDURE CODES FA211 ESTABILISHED PATIENT [facility] FACILITY CHARGE DISPOSITION & COMMUNICATION FOLLOW UP 3 MONTHS (REASON: CHRONIC PAIN) ELECTRONICALLY SIGNED BY VIKASH HOOKS ON 01/19/2019 AT 10:11 AM EDT DISCLAIMER : THIS IS A VISIT SUMMARY EXTRACTED FROM THE [employer] CHART. IT IS NOT A COPY OF THE [employer] PROGRESS NOTE. BRENT
== END ==
LOC: M PAIN 13:45
PROVIDERS: ATTEND Family Medicine
DX: M54.5 Low back pain (principal); G89.29 Other chronic pain; K21.9 Gastro-esophageal reflux disease without esophagitis; E11.9 Type 2 diabetes mellitus without complications; Z87.891 Personal history of nicotine dependence; Z88.0 Allergy status to penicillin; Z88.5 Allergy status to narcotic agent; Z88.8 Allergy status to other drugs, medicaments and biological substances; Z91.040 Latex allergy status; Z79.01 Long term (current) use of anticoagulants; Z79.899 Other long term (current) drug therapy

== ENCOUNTER → 2019-01-29 | Outpatient (REF) | payer MEDICARE, MEDICAID ==
[2019-01-29 15:26] LABS: BASO % 0.4 % (0.0-1.0); EOS # 0.1 10^3/uL (0.0-0.5); EOS % 0.7 % (0.0-3.0); HEMATOCRIT 40.7 % (42.0-52.0); HEMOGLOBIN 13.4 g/dl (13.5-17.5); LYMPH # 2.1 10^3/uL (1.5-5.0); LYMPH % 31.2 % (24.0-44.0); MEAN CORPUSCULAR HGB CONC 32.9 g/dl (32.0-36.5); MEAN CORPUSCULAR VOLUME 97.1 fl (80.0-96.0); MONO # 0.6 10^3/uL (0.0-0.8); MONO % 9.2 % (0.0-5.0); NEUTROPHILS % 58.2 % (36.0-66.0); PLATELET COUNT, AUTOMATED 250 10^3/uL (150-450); RED BLOOD COUNT 4.19 10^6/uL (4.30-6.10); WHITE BLOOD COUNT 6.8 10^3/uL (4.0-10.0)
[2019-01-29 15:46] LABS: C REACTIVE PROTEIN QUANTITATIV < 0.30 MG/DL (0.00-0.30); GLUCOSE, FASTING 121 MG/DL (70-100); RHEUMATOID FACTOR QUANT < 10.0 IU/ML (<15.0)
[2019-02-01 00:07] LABS: ANTINUCLEAR ANTIBODIES DIRECT Negative (Negative); Lyme Disease IgG/IgM Antibodie <0.91 ISR (0.00-0.90); Lyme Disease IgM Ab Quantitati <0.80 index (0.00-0.79)
== END ==
LOC: M LABDRAW1 11:32
PROVIDERS: ATTEND Physician Assistant Surgical
DX: M17.0 Bilateral primary osteoarthritis of knee (principal); Z79.899 Other long term (current) drug therapy

== ENCOUNTER → 2019-03-05 | Outpatient (CLI) | payer MEDICARE, MEDICAID ==
[~2019-03-05] MED LIST changes: -GLIM2TAB PO; +GLIM2TAB2 PO
--- NOTE | 2019-03-05 19:11 | REP ---
MRI brain: 03/05/2019. Indication: Stroke. Comparison: 08/16/2018. Technique: Multiplanar short and long TR sequences of the brain were performed without IV Gadolinium. Findings: There are no areas of restricted diffusion to suggest an acute infarction. There is no intracranial mass effect or hydrocephalous. Chronic left cerebellar infarctions are redemonstrated. Very subtle loss of signal within the right frontal lobe on the gradient sequence is present. Stable. No significant signal abnormalities are present within the brainstem or brain parenchyma. The midline structures, and craniocervical junction are unremarkable. Impression: No acute intracranial process. Chronic left cerebellar infarctions. Electronically Signed by Van Vaughn DO 03/05/2019 07:03 P
--- NOTE | 2019-03-05 19:28 | REP ---
Intracranial MRA: 03/05/2019. Indication: Stroke. Comparison: 07/04/2013. New technique: 3-D [id number] imaging of the intracranial vessels were performed. Findings: There is no intracranial high-grade stenosis, vessel occlusion, aneurysm or AVM. Azygos MARCE is present with diminutive left A1 segment. The nondominant left vertebral artery terminates as PICA. Predominantly origins of the performance analyst is noted with associated diminutive basilar artery. Impression: No high-grade stenosis or vessel occlusion. Electronically Signed by Van Vaughn DO 03/05/2019 07:19 P
== END ==
LOC: M RAD 17:19
PROVIDERS: ATTEND Psychiatry & Neurology Neurology
DX: G46.4 Cerebellar stroke syndrome (principal); R29.810 Facial weakness

== ENCOUNTER → 2019-03-17 | Outpatient (REF) | payer MEDICARE, MEDICAID ==
[2019-03-17 16:02] LABS: APPEARANCE, URINE CLEAR (CLEAR); BACTERIA, URINE AUTO NEGATIVE (NEGATIVE); BILIRUBIN, URINE AUTO NEGATIVE (NEGATIVE); BLOOD, URINE BLOOD NEGATIVE (NEGATIVE); COLOR, URINE YELLOW (YELLOW); GLUCOSE, URINE (UA) AUTO NEGATIVE (NEGATIVE); KETONE, URINE AUTO TRACE mg/dL (NEGATIVE); LEUKOCYTE ESTERASE, URINE AUTO NEGATIVE (NEGATIVE); MUCUS, URINE SMALL (NEGATIVE); NITRITE, URINE AUTO NEGATIVE (NEGATIVE); PROTEIN, URINE AUTO NEGATIVE (NEGATIVE); RBC, URINE AUTO 1 /HPF (0-3); SQUAMOUS EPITHELIAL CELL UR AU 0 /HPF (0-6); UROBILINOGEN, URINE AUTO 0.2 mg/dL (0.0-2.0); WBC, URINE AUTO 1 /HPF (0-3)
== END ==
LOC: M SFHCPLAZ 15:25
PROVIDERS: ATTEND Internal Medicine Infectious Disease
DX: N41.1 Chronic prostatitis (principal)
CPT/HCPCS: 81001; 87086; G0463

== ENCOUNTER → 2019-03-24 | Outpatient (REF) | payer MEDICARE, MEDICAID ==
[2019-03-24 16:20] LABS: CREATININE, URINE 59.1 MG/DL; MALB URINE SIEMENS 5.7 MG/L; MAU/CREAT RATIO 9.6 MCG/MG (0.0-30.0)
== END ==
LOC: M LAB REF 15:28
PROVIDERS: ATTEND Internal Medicine Endocrinology, Diabetes & Metabolism
DX: E11.65 Type 2 diabetes mellitus with hyperglycemia (principal)

== ENCOUNTER → 2019-04-17 | Outpatient (CLI) | payer MEDICARE, MEDICAID ==
[~2019-04-17] MED LIST changes: -GLIM2TAB2 PO; +GLIM2TAB4 PO
--- NOTE | 2019-05-05 09:56 | ECWPNPC ---
PATIENT NAME: GELY CAMPA : 1965 GENDER: MALE VISIT DATE: 04/17/2019 DISCHARGE DATE: 04/17/19 1454 VISIT LOCKED DATE TIME: PHYSICIAN: ISABELLE HERNANDEZ RESOURCE: ISABELLE HERNANDEZ REASON FOR APPOINTMENT 1. CHRONIC PAIN HISTORY OF PRESENT ILLNESS HISTORY OF PRESENT ILLNESS: HERE FOR CHRONIC LOW BACK AND NECK PAIN.ALSO SUFFERS FROM CHRONIC KNEE PAIN.STATES KNEE PAIN AND GENERALIZED JOINT PAIN HAS ESCALATED OVER THE PAST 6 MONTHS.FINDING CURRENT MEDICATION NOT HELPFUL USUAL.STATES HE IS TAKING THREE TAB DAILY THEN RUNNING OUT AND SUFFERING UNTIL HE CAN GET MORE.HE IS GIVEN #75 TABS FOR 30 DAY SUPPLY.RATING PAIN VAS 4-5/10. PAIN THE PATIENT DESCRIBES THE PAIN... FALL RISK SCREENING: SCREENING :NO FALLS REPORTED IN THE LAST YEAR CURRENT MEDICATIONS TAKING NEXIUM 40 MG CAPSULE DELAYED RELEASE 1 CAP(S) ORALLY TWICE A DAY TAKING TYLENOL EXTRA STRENGTH 625MG TABLET 2 TABLET NEEDED ORALLY THREE TIMES A DAY TAKING DEPAKOTE 500 MG TABLET DELAYED RELEASE 1 TABLET ORALLY ONCE A DAY TAKING MECLIZINE HCL 25 MG TABLET 1 TABLET NEEDED ORALLY TWICE DAILY TAKING LISINOPRIL 10 MG TABLET 1 TABLET ORALLY BID TAKING WARFARIN SODIUM 5 MG TABLET ORALLY SATURDAY - SATURDAY IS 6MG, SATURDAY IS 5MG TAKING LIPITOR 40 MG TABLET 1 TABLET ORALLY ONCE A DAY TAKING TRAZODONE 50 50MG TABLET DIRECTED ORAL AT BEDTIME TAKING METFORMIN HCL 1000 MG TABLET 1 TABLET WITH MEALS ORALLY TWICE A DAY TAKING CHLORTHALIDONE 25 25 MG TABLET 1/2 TAB ORAL DAILY TAKING FLONASE 50 MCG/ACT SUSPENSION 1 SPRAY IN EACH NOSTRIL NASALLY ONCE A DAY TAKING ZETIA 10 MG TABLET 1 TABLET ORALLY ONCE A DAY TAKING BYDUREON 2 MG PEN-INJECTOR DIRECTED SUBCUTANEOUS TAKING VALACYCLOVIR HCL 1 GM TABLET 1 TABLET ORALLY ONCE A DAY TAKING LEVOFLOXACIN 500 MG TABLET 1 TABLET ORALLY ONCE A DAY TAKING OXYCODONE-ACETAMINOPHEN 5-325 MG TABLET 1 TABLET NEEDED ORALLY Q8H PRN MDD3 #75 TABS SHOULD LAST 30 DAYS MEDICATION LIST REVIEWED AND RECONCILED WITH THE PATIENT PAST MEDICAL HISTORY GERD FRACTURED VERTEBRAE HIGH CHOLESTEROL STROKE HERPES DM CHRONIC PROSTATITIS KNEE PAIN BACK PAIN 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 ALLERGIES PENICILLIN (FOR ALLERGIES USE ONLY): HIVES - SIDE EFFECTS LATEX: HIVES/RASH EFFEXOR: ARON - SIDE EFFECTS GABAPENTIN: ALT METAL STATUS - SIDE EFFECTS TYLENOL WITH CODEINE: ANGRY THOUGHTS - SIDE EFFECTS JANUVIA: SWEATING/CHEST PAIN - SIDE EFFECTS SURGICAL HISTORY REMOVAL BREAST CYSTS X2 APPENDECTOMY ABD SKIN CANCER REMOVED FAMILY HISTORY FATHER: 62 YRS, DIAGNOSED WITH UNSPECIFIED HEART DISEASE MOTHER: ALIVE 75 YRS, UNSPECIFIED HEART DISEASE, DIABETES, HYPERTENSION SOCIAL HISTORY GENERAL: TOBACCO USE ARE YOU A:FORMER SMOKER HOW LONG HAS IT BEEN SINCE YOU LAST SMOKED?1-5 YEARS HIV / HEP-C SCREENING HIV TEST OFFERED TO PATIENT:YES DATE OFFERED:07/08/2018 HEP-C TEST OFFERED TO PATIENT:YES DATE OFFERED:07/08/2018 BROCHURE PROVIDED TO PATIENTNO OTHERS AT HOME: CHILD-SON. EDUCATION LEVEL OF EDUCATION:FINISHED HIGH SCHOOL DIET: NO CONCENTRATED SWEETS.. LANGUAGE LANGUAGES SPOKEN:UG[place] DOMESTIC VIOLENCE DO YOU FEEL SAFE IN YOUR ENVIRONMENT?YES RECREATIONAL DRUG USE DRUG USE?NO EXERCISE: NONE. 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 NEEDED?NO PAIN CLINIC PFS, CLERGY, PUBLIC HEALTH REFERRALS PFS REFERRAL NEEDED?NO CLERGY REFERRAL NEEDED?NO PUBLIC HEALTH REFERRAL NEEDED?NO WAS THE PROVIDER NOTIFIED OF ANY PERTINENT INFO?NO HAS THE PATIENT BEEN EDUCATED REGARDING HIS/HER PLAN OF CARE?YES HAS THE PATIENT BEEN EDUCATED REGARDING PAIN, THE RISK FOR PAIN, THE IMPORTANCE OF EFFECTIVE PAIN MANAGEMENT, AND THE PAIN ASSESSMENT PROCESS?YES LATEX QUESTIONNAIRE LATEX ALLERGY : HAVE YOU EVER DEVELOPED ANY TYPE OF REACTION AFTER HANDLING LATEX PRODUCTS SUCH RUBBER GLOVES, CONDOMS, DIAPHRAGMS, BALLOONS, SOCKS, OR UNDERWEAR?YES LATEX ALLERGY : HAVE YOU EVER DEVELOPED ANY TYPE OF REACTION DURING OR AFTER DENTAL APPOINTMENT, VAGINAL/RECTAL EXAMINATION, SURGICAL PROCEDURE, OR ANY OTHER EXPOSURE?NO - PLEASE INDICATE :RUBBER GLOVES DATE ASKED : 07/08/2018 LATEX RISK : HAVE YOU EVER HAD ANY DIFFICULTY BREATHING OR HIVES AFTER EATING OR HANDLING ANY FRUITS, OR VEGETABLES; SUCH KIWI, BANANAS, STONE FRUITS, OR CHESTNUTSNO LATEX RISK : DO YOU HAVE A PREVIOUS PERSONAL HISTORY OF MORE THAN NINE SURGERIES, SPINA BIFIDA, OR REPEATED CATHERIZATIONS? NO LATEX RISK : ARE YOU FREQUENTLY EXPOSED TO LATEX PRODUCTS IN YOUR OCCUPATION?NO CAFFEINE CAFFEINE USE?YES ADVANCE DIRECTIVE ADVANCE DIRECTIVE DISCUSSED WITH PATIENT:YES DECLINED ALEVISM [id number] NONE MARITAL STATUS: SINGLE. ALCOHOL SCREENING DID YOU HAVE A DRINK CONTAINING ALCOHOL IN THE PAST YEAR?NO POINTS0 INTERPRETATIONNEGATIVE OCCUPATION: RETIRED. SEXUAL HX HAD SEX IN THE LAST 12 MONTHS (VAGINAL, ORAL, OR ANAL)?NO HAVE YOU EVER HAD AN STD?NO SEPERATED DISABLED CONSTRUCTION WORKERREVIEWED WITH PATIENT 07/10/18 1359 JSREVIEWED WITH PT 01/15/19 1414 NLJ. HOSPITALIZATION/MAJOR DIAGNOSTIC PROCEDURE STROKE 2012 REVIEW OF SYSTEMS REVIEWED BY: PROVIDER: ISABELLE SUH . CONSTITUTIONAL: ANY CHANGE IN YOUR MEDICAL CONDITION? LEFT KNEE TORN MENISCUS . CHILLS NO . FEVER NO . INFECTION: DO YOU HAVE NEW INFECTIONS? NO . DO YOU HAVE HISTORY OF MRSA? NO . MUSCULOSKELETAL: ANY NEW PATTERNS OF PAIN OR NUMBNESS? INCREASED IN BOTH KNEEAND HIPS "ESPECIALLY ON RIGHT"S . GASTROENTEROLOGY: ANY NEW CHANGE IN BOWEL CONTROL? NO . GENITOURINARY: ANY NEW CHANGE IN BLADDER CONTROL? NO . IS THERE A CHANCE YOU COULD BE ? NO . HEMATOLOGY/LYMPH: DO YOU TAKE ANY BLOOD THINNERS? (FOR EXAMPLE- COUMADIN, PLAVIX, AGGRENOX, PLATEL, PRADAXA, OR XARELTO) YES COUMADIN . WHEN WAS YOUR LAST DOSE? DATE: TIME: . NEUROLOGY: HAVE YOU FALLEN IN THE PAST 12 MONTHS? FELL ON PATCH OF ICE 3 OR 4 DAYS AGO . ANY NEW EXTREMITY NUMBNESS OR WEAKNESS? NO . CARDIOLOGY: DO YOU HAVE A PACEMAKER OR DEFIBRILLATOR? NO . RESPIRATORY: HAVE YOU BEEN SICK IN THE PAST WEEK? NO . FEVER NO . FLU LIKE SYMPTOMS? NO . COUGH NO . INTEGUMENTARY: DO YOU HAVE ANY RASHES OR OPEN SORES? BRUISING INSIDE LEFT KNEE FROM FALL . ALLERGIC/IMMUNO: ARE YOU ALLERGIC TO IV DYE? NO . ANY NEW ALLERGIES? NO . PSYCHIATRIC: DO YOU HAVE THOUGHTS OF HURTING YOURSELF OR SOMEONE ELSE? NO . ARE YOU ABUSED, NEGLECTED, OR IN AN UNSAFE ENVIRONMENT? NO . ENDOCRINOLOGY: ARE YOU DIABETIC? YES . OTHER: DO YOU NEED ANY PRESCRIPTIONS? NO . IF YES, PLEASE LIST: ____ . ANY NEW PROBLEMS WITH YOUR MEDICATIONS? NO . WHEN DID YOU LAST EAT? ____ . WHEN DID YOU LAST DRINK? ____ . WHAT DID YOU LAST DRINK? ____ . NAME OF PERSON DRIVING YOU HOME? ____ . DO YOU HAVE ANY OTHER QUESTIONS OR CONCERNS IN MORE PAIN THAN USUAL . VITAL SIGNS WT 250.0 LBS, HT 68 IN, BMI 38.01 INDEX, BP 141/71 MM HG, HR 74 /MIN, RR 16 /MIN, TEMP 97.0 F, OXYGEN SAT % 98%, NA INITIALS AW 1357. EXAMINATION GENERAL EXAMINATION: GENERAL AWAKE,ALERT ,PLEASANT . PSYCH AFFECT NORMAL . LUNGS: LUNG KRAFT ARE CLEAR TO AUSCULTATION BILATERALLY. GOOD MOVEMENT OF AIR . HEART: S1, S2 IN A REGULAR RATE AND RHYTHM. NO SIGNIFICANT MURMURS, RUBS OR GALLOPS NOTED . ASSESSMENTS LOW BACK PAIN - M54.5 (PRIMARY) TREATMENT LOW BACK PAIN INCREASE OXYCODONE-ACETAMINOPHEN TABLET, 7.5-325 MG, 1 TABLET NEEDED, ORALLY, Q8H PRN MDD3 #75 TABS SHOULD LAST 30 DAYS, 30 DAY(S), 75, REFILLS 0 NOTES: ISTOP REGISTRY REVIEWED AND DEMONSTRATES COMPLLIANCE. BRINGS IN MEDICATIONS WHICH IS APPROPRIATE FOR WHAT WAS DISPENSED. RECENT URINE TOXICOLOGY REVIEWED. NO UNAUTHORIZED MEDICATIONS. NO ILLICIT SUBSTANCES AND PRESCRIBED MEDICATIONS WERE PRESENT. , RISKS OF NARCOTIC/OPIOD MEDICATIONS INCLUDES BUT IS NOT LIMITED TO RISK OF DEPENDANCE/DEVELOPMENT OF ADDICTION, MOOD DISTURBANCE AND DEPRESSION, OSTEOPOROSIS, HORMONAL AND LABIDAL CHANGES, RESPIRATORY DEPRESSION AND . PATIENT IS ADVISED NOT TO DRIVE OR DRINK ALCOHOL WHILE ON THESE MEDICATIONS. PROCEDURE CODES FA211 ESTABILISHED PATIENT [facility] CHARGE DISPOSITION & COMMUNICATION FOLLOW UP 2 MONTHS WITH [facility] (REASON: MED MGMNT) ELECTRONICALLY SIGNED BY VIKASH GRADY ON 05/04/2019 AT 04:14 PM EST DISCLAIMER : THIS IS A VISIT SUMMARY EXTRACTED FROM THE [employer] CHART. IT IS NOT A COPY OF THE [employer] PROGRESS NOTE. BRENT
== END ==
LOC: M PAIN 13:45
PROVIDERS: ATTEND Nurse Practitioner Family
DX: M54.5 Low back pain (principal); G89.29 Other chronic pain; K21.9 Gastro-esophageal reflux disease without esophagitis; Z86.73 Personal history of transient ischemic attack (TIA), and cerebral infarction without residual deficits; E11.9 Type 2 diabetes mellitus without complications; Z87.891 Personal history of nicotine dependence; Z88.0 Allergy status to penicillin; Z88.5 Allergy status to narcotic agent; Z88.8 Allergy status to other drugs, medicaments and biological substances; Z91.040 Latex allergy status; Z79.84 Long term (current) use of oral hypoglycemic drugs; Z79.899 Other long term (current) drug therapy

== ENCOUNTER → 2019-05-11 | Outpatient (CLI) | payer MEDICARE, MEDICAID ==
--- NOTE | 2019-05-27 01:24 | ECWPNPC ---
PATIENT NAME: GELY CAMPA : 1965 GENDER: MALE VISIT DATE: 05/11/2019 DISCHARGE DATE: 05/11/19931 VISIT LOCKED DATE TIME: PHYSICIAN: ISABELLE HERNANDEZ RESOURCE: ISABELLE HERNANDEZ REASON FOR APPOINTMENT 1. MEDS/PILL DESTRUCTION HISTORY OF PRESENT ILLNESS HISTORY OF PRESENT ILLNESS: PAIN THE PATIENT DESCRIBES THE PAIN... HERE FOR ROUTINE FOLLOW-UP OF PRIMARY GENERALIZED BACK PAIN. LAST VISIT, I HAD INCREASED THE STRENGTH OF THE OXYCODONE TO 7.5 MG. STATES THAT HE IS UNABLE TO FUNCTION ON THAT DOSE. HE WAS COMPLAINING OF INCREASE IN GENERALIZED BACK PAIN AT THE LAST VISIT. HE HAS TRIED MULTIPLE DIFFERENT MEDICATIONS AND OXYCODONE SEEMS TO BE MOST EFFECTIVE AT THE 5 MG STRENGTH. I'VE AGREED TO INCREASE THAT TO 3 TABLETS A DAY NEEDED FOR SEVERE PAIN #90 FOR 30 DAYS. RATING PAIN LEVEL A 3/10 VAS. FALL RISK SCREENING: SCREENING :NO FALLS REPORTED IN THE LAST YEAR CURRENT MEDICATIONS TAKING NEXIUM 40 MG CAPSULE DELAYED RELEASE 1 CAP(S) ORALLY TWICE A DAY TAKING TYLENOL EXTRA STRENGTH 625MG TABLET 2 TABLET NEEDED ORALLY THREE TIMES A DAY TAKING DEPAKOTE 500 MG TABLET DELAYED RELEASE 1 TABLET ORALLY ONCE A DAY TAKING MECLIZINE HCL 25 MG TABLET 1 TABLET NEEDED ORALLY TWICE DAILY TAKING LISINOPRIL 10 MG TABLET 1 TABLET ORALLY BID TAKING WARFARIN SODIUM 5 MG TABLET ORALLY SATURDAY - SATURDAY IS 6MG, SATURDAY IS 5MG TAKING LIPITOR 40 MG TABLET 1 TABLET ORALLY ONCE A DAY TAKING TRAZODONE 50 50MG TABLET DIRECTED ORAL AT BEDTIME TAKING METFORMIN HCL 1000 MG TABLET 1 TABLET WITH MEALS ORALLY TWICE A DAY TAKING CHLORTHALIDONE 25 25 MG TABLET 1/2 TAB ORAL DAILY TAKING FLONASE 50 MCG/ACT SUSPENSION 1 SPRAY IN EACH NOSTRIL NASALLY ONCE A DAY TAKING ZETIA 10 MG TABLET 1 TABLET ORALLY ONCE A DAY TAKING BYDUREON 2 MG PEN-INJECTOR DIRECTED SUBCUTANEOUS TAKING VALACYCLOVIR HCL 1 GM TABLET 1 TABLET ORALLY ONCE A DAY TAKING OXYCODONE-ACETAMINOPHEN 7.5-325 MG TABLET 1 TABLET NEEDED ORALLY Q8H PRN MDD3 #75 TABS SHOULD LAST 30 DAYS NOT-TAKING LEVOFLOXACIN 500 MG TABLET 1 TABLET ORALLY ONCE A DAY MEDICATION LIST REVIEWED AND RECONCILED WITH THE PATIENT PAST MEDICAL HISTORY GERD FRACTURED VERTEBRAE HIGH CHOLESTEROL STROKE HERPES DM CHRONIC PROSTATITIS KNEE PAIN BACK PAIN 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 ALLERGIES PENICILLIN (FOR ALLERGIES USE ONLY): HIVES - SIDE EFFECTS LATEX: HIVES/RASH EFFEXOR: ARON - SIDE EFFECTS GABAPENTIN: ALT METAL STATUS - SIDE EFFECTS TYLENOL WITH CODEINE: ANGRY THOUGHTS - SIDE EFFECTS JANUVIA: SWEATING/CHEST PAIN - SIDE EFFECTS SURGICAL HISTORY REMOVAL BREAST CYSTS X2 APPENDECTOMY ABD SKIN CANCER REMOVED FAMILY HISTORY FATHER: 62 YRS, DIAGNOSED WITH UNSPECIFIED HEART DISEASE MOTHER: ALIVE 75 YRS, DIABETES, HYPERTENSION, UNSPECIFIED HEART DISEASE SOCIAL HISTORY GENERAL: TOBACCO USE ARE YOU A:FORMER SMOKER HOW LONG HAS IT BEEN SINCE YOU LAST SMOKED?1-5 YEARS HIV / HEP-C SCREENING HIV TEST OFFERED TO PATIENT:YES DATE OFFERED:07/08/2018 HEP-C TEST OFFERED TO PATIENT:YES DATE OFFERED:07/08/2018 BROCHURE PROVIDED TO PATIENTNO OTHERS AT HOME: CHILD-SON. EDUCATION LEVEL OF EDUCATION:FINISHED HIGH SCHOOL DIET: NO CONCENTRATED SWEETS.. LANGUAGE LANGUAGES SPOKEN:[place]GY[place] DOMESTIC VIOLENCE DO YOU FEEL SAFE IN YOUR ENVIRONMENT?YES RECREATIONAL DRUG USE DRUG USE?NO EXERCISE: NONE. 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?NO PAIN CLINIC PFS, CLERGY, PUBLIC HEALTH REFERRALS PFS REFERRAL NEEDED?NO CLERGY REFERRAL NEEDED?NO PUBLIC HEALTH REFERRAL NEEDED?NO WAS THE PROVIDER NOTIFIED OF ANY PERTINENT INFO?NO HAS THE PATIENT BEEN EDUCATED REGARDING HIS/HER PLAN OF CARE?YES HAS THE PATIENT BEEN EDUCATED REGARDING PAIN, THE RISK FOR PAIN, THE IMPORTANCE OF EFFECTIVE PAIN MANAGEMENT, AND THE PAIN ASSESSMENT PROCESS?YES LATEX QUESTIONNAIRE LATEX ALLERGY : HAVE YOU EVER DEVELOPED ANY TYPE OF REACTION AFTER HANDLING LATEX PRODUCTS SUCH RUBBER GLOVES, CONDOMS, DIAPHRAGMS, BALLOONS, SOCKS, OR UNDERWEAR?YES - PLEASE INDICATE :RUBBER GLOVES LATEX ALLERGY : HAVE YOU EVER DEVELOPED ANY TYPE OF REACTION DURING OR AFTER DENTAL APPOINTMENT, VAGINAL/RECTAL EXAMINATION, SURGICAL PROCEDURE, OR ANY OTHER EXPOSURE?NO LATEX RISK : HAVE YOU EVER HAD ANY DIFFICULTY BREATHING OR HIVES AFTER EATING OR HANDLING ANY FRUITS, OR VEGETABLES; SUCH KIWI, BANANAS, STONE FRUITS, OR CHESTNUTSNO LATEX RISK : DO YOU HAVE A PREVIOUS PERSONAL HISTORY OF MORE THAN NINE SURGERIES, SPINA BIFIDA, OR REPEATED CATHERIZATIONS? NO LATEX RISK : ARE YOU FREQUENTLY EXPOSED TO LATEX PRODUCTS IN YOUR OCCUPATION?NO DATE ASKED : 07/08/2018 CAFFEINE CAFFEINE USE?YES ADVANCE DIRECTIVE ADVANCE DIRECTIVE DISCUSSED WITH PATIENT:YES 05/11/2019 PATIENT HAS NO ADVANCED DIRECTIVES AND DECLINED HCP INFORMATION AT THIS TIME. JS SIKHISM [id number] NONE MARITAL STATUS: SINGLE. ALCOHOL SCREENING DID YOU HAVE A DRINK CONTAINING ALCOHOL IN THE PAST YEAR?NO POINTS0 INTERPRETATIONNEGATIVE OCCUPATION: RETIRED. SEXUAL HX HAD SEX IN THE LAST 12 MONTHS (VAGINAL, ORAL, OR ANAL)?NO HAVE YOU EVER HAD AN STD?NO SEPERATED DISABLED CONSTRUCTION WORKERREVIEWED WITH PATIENT 07/10/18 1359 JSREVIEWED WITH PT 01/15/19 1414 NLJREVIEWED WITH PATIENT 05/11/2019 0908 JS. HOSPITALIZATION/MAJOR DIAGNOSTIC PROCEDURE STROKE 2011 REVIEW OF SYSTEMS REVIEWED BY: PROVIDER: ISABELLE SUH . CONSTITUTIONAL: ANY CHANGE IN YOUR MEDICAL CONDITION? NO . CHILLS NO . FEVER NO . INFECTION: DO YOU HAVE NEW INFECTIONS? NO . DO YOU HAVE HISTORY OF MRSA? NO . MUSCULOSKELETAL: ANY NEW PATTERNS OF PAIN OR NUMBNESS? NO . GASTROENTEROLOGY: ANY NEW CHANGE IN BOWEL CONTROL? NO . GENITOURINARY: ANY NEW CHANGE IN BLADDER CONTROL? NO . IS THERE A CHANCE YOU COULD BE ? NO . HEMATOLOGY/LYMPH: DO YOU TAKE ANY BLOOD THINNERS? (FOR EXAMPLE- COUMADIN, PLAVIX, AGGRENOX, PLATEL, PRADAXA, OR XARELTO) YES, COUMADIN . WHEN WAS YOUR LAST DOSE? DATE: 05/10/2019TIME: 1700 . NEUROLOGY: HAVE YOU FALLEN IN THE PAST 12 MONTHS? NO . ANY NEW EXTREMITY NUMBNESS OR WEAKNESS? NO . CARDIOLOGY: DO YOU HAVE A PACEMAKER OR DEFIBRILLATOR? NO . RESPIRATORY: HAVE YOU BEEN SICK IN THE PAST WEEK? NO . FEVER NO . FLU LIKE SYMPTOMS? NO . COUGH NO . INTEGUMENTARY: DO YOU HAVE ANY RASHES OR OPEN SORES? NO . ALLERGIC/IMMUNO: ARE YOU ALLERGIC TO IV DYE? NO . ANY NEW ALLERGIES? NO . PSYCHIATRIC: DO YOU HAVE THOUGHTS OF HURTING YOURSELF OR SOMEONE ELSE? NO . ARE YOU ABUSED, NEGLECTED, OR IN AN UNSAFE ENVIRONMENT? NO . ENDOCRINOLOGY: ARE YOU DIABETIC? YES . OTHER: DO YOU NEED ANY PRESCRIPTIONS? YES . IF YES, PLEASE LIST: ____WOULD LIKE TO SWITCH BACK TO THE PERCOCET 5/325 MG . ANY NEW PROBLEMS WITH YOUR MEDICATIONS? YES, THE PERCOCET 7.5/325 MG IS TOO STRONG FOR HIM - STATES IT MAKES HIM TOO TIRED AND JUST WANT TO SLEEP ALL DAY . WHEN DID YOU LAST EAT? ____ . WHEN DID YOU LAST DRINK? ____ . WHAT DID YOU LAST DRINK? ____ . NAME OF PERSON DRIVING YOU HOME? ____ . DO YOU HAVE ANY OTHER QUESTIONS OR CONCERNS NO . VITAL SIGNS WT 252.8 LBS, HT 68 IN, BMI 38.43 INDEX, BP 177/92 MM HG, HR 74 /MIN, RR 18 /MIN, TEMP 97.8 F, OXYGEN SAT % 99%, SAFE IN ENV? (Y/N) YES, REVIEWED BY: EN05/11/2019 DISCUSSED ELEVAED BP WITH PATIENT. STATES THAT HE HAS BEEN VERY STRESSED THE PAST WEEK AND HAS ONLY BEEN GETTING 3 HOURS OF SLEEP PER NIGHT. ALSO SATES THAT HE HASN'T TAKEN HIS BP MEDICATION YET TODAY. JS. EXAMINATION GENERAL EXAMINATION: GENERAL AWAKE,ALERT ,PLEASANT . PSYCH AFFECT NORMAL . LUNGS: LUNG KRAFT ARE CLEAR TO AUSCULTATION BILATERALLY. GOOD MOVEMENT OF AIR . HEART: S1, S2 IN A REGULAR RATE AND RHYTHM. NO SIGNIFICANT MURMURS, RUBS OR GALLOPS NOTED . ASSESSMENTS LOW BACK PAIN - M54.5 (PRIMARY) TREATMENT LOW BACK PAIN STOP OXYCODONE-ACETAMINOPHEN TABLET, 7.5-325 MG, 1 TABLET NEEDED, ORALLY, Q8H PRN MDD3 #75 TABS SHOULD LAST 30 DAYS START PERCOCET TABLET, 5-325 MG, 1 TABLET NEEDED, ORALLY, Q8H PRN MDD3, 30 DAYS, 90, REFILLS 0 NOTES: OXYCODONE 7.5/325 IS WASTED PER CLINIC POLICY., ISTOP REGISTRY REVIEWED AND DEMONSTRATES COMPLLIANCE. BRINGS IN MEDICATIONS WHICH IS APPROPRIATE FOR WHAT WAS DISPENSED. RECENT URINE TOXICOLOGY REVIEWED. NO UNAUTHORIZED MEDICATIONS. NO ILLICIT SUBSTANCES AND PRESCRIBED MEDICATIONS WERE PRESENT. , RISKS OF NARCOTIC/OPIOD MEDICATIONS-INCLUDES BUT IS NOT LIMITED TO RISK OF DEPENDANCE/DEVELOPMENT OF ADDICTION, MOOD DISTURBANCE AND DEPRESSION, OSTEOPOROSIS, HORMONAL AND LABIDAL CHANGES, RESPIRATORY DEPRESSION AND . PATIENT IS ADVISED NOT TO DRIVE OR DRINK ALCOHOL WHILE ON THESE MEDICATIONS. DISPOSITION & COMMUNICATION FOLLOW UP 3 MOS W L[facility]U (REASON: MED MGMNT) ELECTRONICALLY SIGNED BY ISABELLE SUH, VIKASH ON 05/26/2019 AT 08:47 AM EST DISCLAIMER : THIS IS A VISIT SUMMARY EXTRACTED FROM THE [employer] CHART. IT IS NOT A COPY OF THE [employer] PROGRESS NOTE. BRENT
== END ==
LOC: M PAIN 09:00
PROVIDERS: ATTEND Nurse Practitioner Family
DX: M54.5 Low back pain (principal); K21.9 Gastro-esophageal reflux disease without esophagitis; E11.9 Type 2 diabetes mellitus without complications; Z87.891 Personal history of nicotine dependence; Z88.0 Allergy status to penicillin; Z88.5 Allergy status to narcotic agent; Z88.8 Allergy status to other drugs, medicaments and biological substances; Z91.040 Latex allergy status; Z79.01 Long term (current) use of anticoagulants; Z79.84 Long term (current) use of oral hypoglycemic drugs; Z79.899 Other long term (current) drug therapy

== ENCOUNTER 2019-06-22 10:17 | Day surgery (SDC) | payer MEDICARE, MEDICAID ==
[~2019-06-22] VITALS: Ht 172.7 cm; Wt 113.3 kg
[~2019-06-22 10:17] MED LIST changes: +LIDOCAINE 1% MDV 20ML VIAL SQ PRN; +LIDOCAINE 2% INJ 100 MG/5 ML SDV (FOR ANES.) As Ordered ONE; +LISI-538 PO; +MIDAZOLAM INJ 2 MG/2 ML VIAL (J2250) As Ordered ONE; +ONDANSETRON 4MG/2ML VIAL (J2405) As Ordered ONE; +fentaNYL 100 MCG/2 ML INJECTION (J3010) As Ordered ONE; +propofoL 200 MG/20 ML VIAL As Ordered ONE
[2019-06-22] MEDS ORDERED: ENOX120I3 SQ (10:52)
[2019-06-22 11:13] LABS: INR 0.95; PROTHROMBIN TIME 12.4 SECONDS (11.8-14.0)
[2019-06-22] MEDS ORDERED: LR 1,000 ML IV ONE (11:15)
[2019-06-22] MEDS ORDERED: CLINDAMYCIN 900 MG/50 ML PREMIX BAG As Ordered ONE (11:27)
[2019-06-22] MEDS ORDERED: ROPIvacaine 0.5% 30 ML INJECTION (J2795 PER 1MG) As Ordered ONE (11:31)
[2019-06-22] MEDS ORDERED: CLINDAMYCIN 900 MG in IV 1 EA IV ONE (11:45)
[2019-06-22] MEDS ORDERED: KETOROLAC 60 MG/2 ML VIAL (J1885) As Ordered ONE (11:52)
[2019-06-22] MEDS ORDERED: TRIAMCINOLONE ACETONIDE SUSP 40 MG/ML VIAL (J3301) As Ordered ONE (12:11)
[2019-06-22] MEDS ORDERED: propofoL 200 MG/20 ML VIAL As Ordered ONE (12:21)
[2019-06-22] MEDS ORDERED: oxyCODONE 5MG TAB As Ordered ONE (12:50)
[2019-06-22] MEDS: oxyCODONE 5MG TAB PO PRN ×2 (12:54→13:30)
[2019-06-22] MEDS ORDERED: fentaNYL 100 MCG/2 ML INJECTION (J3010) IV PRN (13:00)
[2019-06-22] MEDS ORDERED: ACETAMINOPH W/CODEINE #3 TAB UD PO PRN ×2 (13:00)
[2019-06-22] MEDS ORDERED: ONDANSETRON 4MG/2ML VIAL (J2405) IV PRN (13:00)
[2019-06-22] MEDS ORDERED: LR 1,000 ML IV SCH ×2 (13:00)
[2019-06-22] MEDS ORDERED: MORPHINE 2 MG/ML 1ML VIAL (J2270) IV PRN (13:15)
[2019-06-22 13:22] VITALS: BP 137/79
--- NOTE | 2019-06-23 09:17 | RO ---
DATE OF PROCEDURE: 06/22/2019 PREOP DIAGNOSIS: Right knee osteoarthritis and medial meniscus tear. POSTOPERATIVE DIAGNOSIS: Right knee osteoarthritis and medial meniscus tear with lateral meniscus tear plica with fairly extensive medial compartment and patellofemoral arthritis. PROCEDURE PERFORMED: SURGEON: Dr. Jamey Fontanez. JALOUSIES INSTALLER: ANESTHESIA: General: ESTIMATED BLOOD LOSS: 5 mL COMPLICATIONS: None. INDICATIONS: 54-year-old gentleman with multiple medical problems who has ongoing knee pain. He wished to go ahead with surgical treatment. He had an MRI scan consistent with meniscus pathology but he also had some arthritis. He understood the nature this the risks of bleeding, infection, damage to nerves, vessels, persistent pain, blood clots, medical problems among others. The patient was on bridge therapy before hand, off of his Coumadin on Lovenox and he has instructions from his primary provider to continue the Lovenox and Coumadin at a designated time frame postop. DESCRIPTION OF PROCEDURE: The patient was taken to the operating room, placed in supine position after general anesthesia was induced. The right lower extremity was prepped and draped in usual sterile fashion. Time-out was performed. Tourniquet was inflated. I then created inferomedial and collateral portals per routine. Identified patellofemoral joint. He had grade 3-4 changes in his trochlea, grade 3 changes on the patella. He had a thickened medial plica that was excised with a shaver. Both gutters were identified, the medial compartment was identified and he had a complex large medial meniscus tear that resected with a combination of basket punch a 4.2 shaver back to a stable rim. I then reprobed the meniscus, made sure it was stable. There was grade 2-3 changes on the medial femoral condyle, grade 2 changes on the medial tibial plateau. I then proceeded to notch. The anterior cruciate ligament (ACL) was identified was intact but he had some indentation on it and looking at the anterior part of the notch, there were some spurring evident that I think was impinging on the ACL so I debrided back the spur and the notch. In addition, there was some spurring on the tibial side anterior to the ACL the also appeared to impinge on the femur and so I burred this down as well. Following this there was no impingement anteriorly. I went to the lateral side and there was some central lateral meniscus tearing that was removed just with the shaver. I then re-examined entire joint, reprobed the menisci irrigated copiously, removed the instrumentation, closed the portals using #3-0 nylon suture. Injected 30 mL of Naropin with 20 mg of Kenalog for his arthritis. Sterile addressing was applied. Tourniquet was deflated. He was taken to recovery room in stable condition. There were no known complications. The plan will be routine postop.
== END 2019-06-22 14:32 | disposition home or self-care (01) ==
LOC: M SDC 10:17
PROVIDERS: ATTEND Orthopaedic Surgery
DX: M17.11 Unilateral primary osteoarthritis, right knee (principal); M23.231 Derangement of other medial meniscus due to old tear or injury, right knee; E11.9 Type 2 diabetes mellitus without complications; I10 Essential (primary) hypertension; E78.00 Pure hypercholesterolemia, unspecified; Z86.73 Personal history of transient ischemic attack (TIA), and cerebral infarction without residual deficits; Z79.4 Long term (current) use of insulin; Z79.01 Long term (current) use of anticoagulants; Z87.891 Personal history of nicotine dependence; Z79.899 Other long term (current) drug therapy; Z88.0 Allergy status to penicillin; Z88.8 Allergy status to other drugs, medicaments and biological substances; Z91.040 Latex allergy status
CPT/HCPCS: 29880; 36415; 85610; J1885; J2250; J2405; J2795; J3010; J3301

== ENCOUNTER → 2019-07-10 | Outpatient (CLI) | payer MEDICARE, MEDICAID ==
[~2019-07-10] MED LIST changes: +ENOX120I3 SQ; -LIDOCAINE 1% MDV 20ML VIAL SQ PRN; -LIDOCAINE 2% INJ 100 MG/5 ML SDV (FOR ANES.) As Ordered ONE; -MIDAZOLAM INJ 2 MG/2 ML VIAL (J2250) As Ordered ONE; -ONDANSETRON 4MG/2ML VIAL (J2405) As Ordered ONE; -fentaNYL 100 MCG/2 ML INJECTION (J3010) As Ordered ONE; -propofoL 200 MG/20 ML VIAL As Ordered ONE
--- NOTE | 2019-07-14 02:32 | ECWPNPC ---
PATIENT NAME: GELY CAMPA : 1965 GENDER: MALE VISIT DATE: 07/10/2019 DISCHARGE DATE: 07/10/19 1430 VISIT LOCKED DATE TIME: PHYSICIAN: LULU MANCUSO RESOURCE: LULU MANCUSO REASON FOR APPOINTMENT 1. MED AB- CHRONIC PAIN HISTORY OF PRESENT ILLNESS PAIN SCREENING: PATIENT HAS A COMPLAINT OF ACUTE OR CHRONIC PAIN :YES LOCATION OF PAIN:NECK, LOW BACK, KNEES INTENSITY OF PAIN (SCALE OF 1 TO 10):4 WHAT DOES YOUR PAIN FEEL LIKE:ACHING, BURNING DURATION:CONTINOUS, CONSTANT, ALL DAY PLAN/GOALS/TREATMENT/INTERVENTION/FOLLOW UP:SEE PLAN 54-YEAR-OLD MALE IN FOR CHRONIC PAIN FOLLOW-UP. HE RATES PAIN CURRENTLY AT A 3 OUT OF 10 AND DESCRIBES IT BURNING AND GRIPPING. HE FEELS MEDICATIONS ARE WORKING WELL AND DENIES MED SIDE EFFECTS AT THIS TIME. FALL RISK SCREENING: SCREENING :NO FALLS REPORTED IN THE LAST YEAR HISTORY OF PRESENT ILLNESS: PAIN THE PATIENT DESCRIBES THE PAIN... CURRENT MEDICATIONS TAKING NEXIUM 40 MG CAPSULE DELAYED RELEASE 1 CAP(S) ORALLY TWICE A DAY TAKING TYLENOL EXTRA STRENGTH 625MG TABLET 2 TABLET NEEDED ORALLY THREE TIMES A DAY TAKING DEPAKOTE 500 MG TABLET DELAYED RELEASE 1 TABLET ORALLY ONCE A DAY TAKING MECLIZINE HCL 25 MG TABLET 1 TABLET NEEDED ORALLY TWICE DAILY TAKING LISINOPRIL 10 MG TABLET 1 TABLET ORALLY BID TAKING WARFARIN SODIUM 5 MG TABLET ORALLY SATURDAY - SATURDAY IS 6MG, SATURDAY IS 5MG TAKING LIPITOR 40 MG TABLET 1 TABLET ORALLY ONCE A DAY TAKING TRAZODONE 50 50MG TABLET DIRECTED ORAL AT BEDTIME TAKING METFORMIN HCL 1000 MG TABLET 1 TABLET WITH MEALS ORALLY TWICE A DAY TAKING CHLORTHALIDONE 25 25 MG TABLET 1/2 TAB ORAL DAILY TAKING FLONASE 50 MCG/ACT SUSPENSION 1 SPRAY IN EACH NOSTRIL NASALLY ONCE A DAY TAKING ZETIA 10 MG TABLET 1 TABLET ORALLY ONCE A DAY TAKING BYDUREON 2 MG PEN-INJECTOR DIRECTED SUBCUTANEOUS TAKING VALACYCLOVIR HCL 1 GM TABLET 1 TABLET ORALLY ONCE A DAY TAKING PERCOCET 5-325 MG TABLET 1 TABLET NEEDED ORALLY Q8H PRN MDD3 NOT-TAKING LEVOFLOXACIN 500 MG TABLET 1 TABLET ORALLY ONCE A DAY MEDICATION LIST REVIEWED AND RECONCILED WITH THE PATIENT PAST MEDICAL HISTORY GERD FRACTURED VERTEBRAE HIGH CHOLESTEROL STROKE HERPES DM CHRONIC PROSTATITIS KNEE PAIN BACK PAIN 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 ALLERGIES PENICILLIN (FOR ALLERGIES USE ONLY): HIVES - SIDE EFFECTS LATEX: HIVES/RASH EFFEXOR: ARON - SIDE EFFECTS GABAPENTIN: ALT METAL STATUS - SIDE EFFECTS TYLENOL WITH CODEINE: ANGRY THOUGHTS - SIDE EFFECTS JANUVIA: SWEATING/CHEST PAIN - SIDE EFFECTS CELEBREX: B/P INCREASE SURGICAL HISTORY REMOVAL BREAST CYSTS X2 APPENDECTOMY ABD SKIN CANCER REMOVED RIGHT KNEE TORN MENISCUS 06/22/2019 FAMILY HISTORY FATHER: 62 YRS, DIAGNOSED WITH UNSPECIFIED HEART DISEASE MOTHER: ALIVE 75 YRS, DIABETES, HYPERTENSION, UNSPECIFIED HEART DISEASE SOCIAL HISTORY GENERAL: TOBACCO USE ARE YOU A:FORMER SMOKER HOW LONG HAS IT BEEN SINCE YOU LAST SMOKED?1-5 YEARS HIV / HEP-C SCREENING HIV TEST OFFERED TO PATIENT:YES DATE OFFERED:07/08/2018 HEP-C TEST OFFERED TO PATIENT:YES DATE OFFERED:07/08/2018 BROCHURE PROVIDED TO PATIENTNO OTHERS AT HOME: CHILD-SON. EDUCATION LEVEL OF EDUCATION:FINISHED HIGH SCHOOL DIET: NO CONCENTRATED SWEETS.. LANGUAGE LANGUAGES SPOKEN:CROATIAN DOMESTIC VIOLENCE DO YOU FEEL SAFE IN YOUR ENVIRONMENT?YES RECREATIONAL DRUG USE DRUG USE?NO EXERCISE: NONE. 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 RELINER NEEDED?NO PAIN CLINIC PFS, CLERGY, PUBLIC HEALTH REFERRALS PFS REFERRAL NEEDED?NO CLERGY REFERRAL NEEDED?NO PUBLIC HEALTH REFERRAL NEEDED?NO WAS THE PROVIDER NOTIFIED OF ANY PERTINENT INFO?NO HAS THE PATIENT BEEN EDUCATED REGARDING HIS/HER PLAN OF CARE?YES HAS THE PATIENT BEEN EDUCATED REGARDING PAIN, THE RISK FOR PAIN, THE IMPORTANCE OF EFFECTIVE PAIN MANAGEMENT, AND THE PAIN ASSESSMENT PROCESS?YES LATEX QUESTIONNAIRE LATEX ALLERGY : HAVE YOU EVER DEVELOPED ANY TYPE OF REACTION AFTER HANDLING LATEX PRODUCTS SUCH RUBBER GLOVES, CONDOMS, DIAPHRAGMS, BALLOONS, SOCKS, OR UNDERWEAR?YES - PLEASE INDICATE :RUBBER GLOVES LATEX ALLERGY : HAVE YOU EVER DEVELOPED ANY TYPE OF REACTION DURING OR AFTER DENTAL APPOINTMENT, VAGINAL/RECTAL EXAMINATION, SURGICAL PROCEDURE, OR ANY OTHER EXPOSURE?NO LATEX RISK : HAVE YOU EVER HAD ANY DIFFICULTY BREATHING OR HIVES AFTER EATING OR HANDLING ANY FRUITS, OR VEGETABLES; SUCH KIWI, BANANAS, STONE FRUITS, OR CHESTNUTSNO LATEX RISK : DO YOU HAVE A PREVIOUS PERSONAL HISTORY OF MORE THAN NINE SURGERIES, SPINA BIFIDA, OR REPEATED CATHERIZATIONS? NO LATEX RISK : ARE YOU FREQUENTLY EXPOSED TO LATEX PRODUCTS IN YOUR OCCUPATION?NO DATE ASKED : 07/10/2019 CAFFEINE CAFFEINE USE?YES ADVANCE DIRECTIVE ADVANCE DIRECTIVE DISCUSSED WITH PATIENT:YES 07/10/2019 PATIENT HAS NO ADVANCED DIRECTIVES AND DECLINED HCP INFORMATION AT THIS TIME. JS HOAHAOISM [id number] NONE MARITAL STATUS: SINGLE. ALCOHOL SCREENING DID YOU HAVE A DRINK CONTAINING ALCOHOL IN THE PAST YEAR?NO POINTS0 INTERPRETATIONNEGATIVE OCCUPATION: RETIRED. SEXUAL HX HAD SEX IN THE LAST 12 MONTHS (VAGINAL, ORAL, OR ANAL)?NO HAVE YOU EVER HAD AN STD?NO HOSPITALIZATION/MAJOR DIAGNOSTIC PROCEDURE STROKE 2011 REVIEW OF SYSTEMS REVIEWED BY: PROVIDER: MELBA TERAN . CONSTITUTIONAL: ANY CHANGE IN YOUR MEDICAL CONDITION? NO . CHILLS NO . FEVER NO . INFECTION: DO YOU HAVE NEW INFECTIONS? NO . DO YOU HAVE HISTORY OF MRSA? NO . MUSCULOSKELETAL: ANY NEW PATTERNS OF PAIN OR NUMBNESS? NO . GASTROENTEROLOGY: ANY NEW CHANGE IN BOWEL CONTROL? NO . GENITOURINARY: ANY NEW CHANGE IN BLADDER CONTROL? NO . IS THERE A CHANCE YOU COULD BE ? NO . HEMATOLOGY/LYMPH: DO YOU TAKE ANY BLOOD THINNERS? (FOR EXAMPLE- COUMADIN, PLAVIX, AGGRENOX, PLATEL, PRADAXA, OR XARELTO) NO . WHEN WAS YOUR LAST DOSE? DATE: TIME: . NEUROLOGY: HAVE YOU FALLEN IN THE PAST 12 MONTHS? NO . ANY NEW EXTREMITY NUMBNESS OR WEAKNESS? NO . CARDIOLOGY: DO YOU HAVE A PACEMAKER OR DEFIBRILLATOR? NO . RESPIRATORY: HAVE YOU BEEN SICK IN THE PAST WEEK? NO . FEVER NO . FLU LIKE SYMPTOMS? NO . COUGH NO . INTEGUMENTARY: DO YOU HAVE ANY RASHES OR OPEN SORES? NO . ALLERGIC/IMMUNO: ARE YOU ALLERGIC TO IV DYE? NO . ANY NEW ALLERGIES? NO . PSYCHIATRIC: DO YOU HAVE THOUGHTS OF HURTING YOURSELF OR SOMEONE ELSE? NO . ARE YOU ABUSED, NEGLECTED, OR IN AN UNSAFE ENVIRONMENT? NO . ENDOCRINOLOGY: ARE YOU DIABETIC? YES . OTHER: DO YOU NEED ANY PRESCRIPTIONS? NO . IF YES, PLEASE LIST: ____ . ANY NEW PROBLEMS WITH YOUR MEDICATIONS? NO . WHEN DID YOU LAST EAT? ____ . WHEN DID YOU LAST DRINK? ____ . WHAT DID YOU LAST DRINK? ____ . NAME OF PERSON DRIVING YOU HOME? ____ . DO YOU HAVE ANY OTHER QUESTIONS OR CONCERNS NO . VITAL SIGNS WT 249.9 LBS, HT 68 IN, BMI 37.99 INDEX, BP 127/65 MM HG, HR 89 /MIN, RR 18 /MIN, TEMP 96.4 F, OXYGEN SAT % 98%, SAFE IN ENV? (Y/N) YES, NA INITIALS AW 1344, REVIEWED BY: NA. EXAMINATION GENERAL EXAMINATION: GENERALNO ACUTE DISTRESS, WELL NOURISHED AND HYDRATED. PSYCHAPPROPRIATE MOOD AND AFFECT . LUNGS:CLEAR TO AUSCULTATION BILATERALLY, NO WHEEZES, RHONCHI, RALES. HEART:NO MURMURS, REGULAR RATE AND RHYTHM. 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 GIVEN PRESENTING SYMPTOMS AND RESULTS OF PHYSICAL EXAMINATION RECOMMENDED CONTINUATION OF CURRENT MEDICATION REGIMEN WITH FOLLOW-UP IN 3 MONTHS. PATIENT HAS EXPRESSED UNDERSTANDING OF AND WAS IN AGREEMENT WITH TREATMENT PLAN. GIVEN TIME TO ASK QUESTIONS AND EXPRESS CONCERNS., ISTOP REGISTRY REVIEWED AND DEMONSTRATES COMPLLIANCE. (REF # [id number] ) BRINGS IN MEDICATIONS WHICH IS APPROPRIATE FOR WHAT WAS DISPENSED. RECENT URINE TOXICOLOGY REVIEWED. NO UNAUTHORIZED MEDICATIONS. NO ILLICIT SUBSTANCES AND PRESCRIBED MEDICATIONS WERE PRESENT. PROCEDURE CODES FA211 ESTABILISHED PATIENT [facility] CHARGE DISPOSITION & COMMUNICATION FOLLOW UP 3 MONTHS (REASON: BACK PAIN) ELECTRONICALLY SIGNED BY VIKASH HOOKS ON 07/13/2019 AT 01:58 PM EDT DISCLAIMER : THIS IS A VISIT SUMMARY EXTRACTED FROM THE [employer] CHART. IT IS NOT A COPY OF THE [employer] PROGRESS NOTE. BRENT
== END ==
LOC: M PAIN 13:45
PROVIDERS: ATTEND Family Medicine
DX: M46.96 Unspecified inflammatory spondylopathy, lumbar region (principal)

== ENCOUNTER → 2019-10-19 | Outpatient (CLI) | payer MEDICARE, MEDICAID ==
[~2019-10-19] MED LIST changes: -COUM6TAB PO; +COUM6TAB10 PO
--- NOTE | 2019-10-21 04:55 | ECWPNPC ---
PATIENT NAME: GELY CAMPA : 1965 GENDER: MALE VISIT DATE: 10/19/2019 DISCHARGE DATE: 10/19/19 1334 VISIT LOCKED DATE TIME: PHYSICIAN: LULU MANCUSO RESOURCE: LULU MANCUSO REASON FOR APPOINTMENT 1. CHRONIC PAIN HISTORY OF PRESENT ILLNESS GENERAL: - 54-YEAR-OLD MALE IN FOR CHRONIC PAIN FOLLOW-UP. HE RATES HIS PAIN CURRENTLY AT A 3 OUT OF 10 AND DESCRIBES IT ACHING, BURNING, AND SHARP. PATIENT FEELS THE MEDICATIONS ARE HELPFUL AND DENIES MED SIDE EFFECTS AT THIS TIME. FALL RISK SCREENING: SCREENING :NO FALLS REPORTED IN THE LAST YEAR PAIN SCREENING: PATIENT HAS A COMPLAINT OF ACUTE OR CHRONIC PAIN :YES LOCATION OF PAIN:LOW BACK, KNEES INTENSITY OF PAIN (SCALE OF 1 TO 10):3 WHAT DOES YOUR PAIN FEEL LIKE:ACHING, BURNING, SHARP DURATION:CONTINOUS, CONSTANT, ALL DAY PAIN IS INCREASED BY:ACTIVITIES, PROLONGED STANDING PAIN IS DECREASED BY:USE OF PAIN MEDICATIONS, SITTING PAIN HAS INTERFERED WITH THE FOLLOWING:MOOD, HOUSEWORK, RELATIONSHIP WITH OTHERS, ENJOYMENT OF LIFE PLAN/GOALS/TREATMENT/INTERVENTION/FOLLOW UP:SEE PLAN NURSING NOTE: -. PAIN CENTER INTAKE QUESTIONS: DO YOU HAVE A HISTORY OF MRSA? :NO DO YOU TAKE A BLOOD THINNERS? :YES WARFARIN 10/18/19 @6PM DO YOU HAVE ANY BLEEDING DISORDERS? :YES CLOTTING DISORDERS ANY NEW NUMBNESS OR WEAKNESS IN YOUR LEGS OR ARMS? :NO ANY PACEMAKER,DEFIBRILLATOR, OR DORSAL COLUMN STIMULATOR? :NO DO YOU HAVE ANY RASHES OR OPEN SORES? :NO ARE YOU ALLERGIC TO IV DYE? :NO ARE YOU DIABETIC? :YES ANY NEW PROBLEMS WITH YOUR MEDICATIONS? :NO HAVE YOU RECEIVED A VACCINE IN THE PAST 30 DAYS? :NO DO YOU PLAN TO RECEIVE A VACCINE IN THE NEXT 21 DAYS? :NO DO YOU NEED ANY PRESCRIPTION? :NO DO YOU TAKE ANY IMMUNOSUPPRESSIVE MEDICATIONS? :NO IS THERE A CHANCE YOU COULD BE ? :NO ARE YOU BREAST FEEDING? :NO CURRENT MEDICATIONS TAKING NEXIUM 40 MG CAPSULE DELAYED RELEASE 1 CAP(S) ORALLY TWICE A DAY TAKING TYLENOL EXTRA STRENGTH 625MG TABLET 2 TABLET NEEDED ORALLY THREE TIMES A DAY TAKING DEPAKOTE 500 MG TABLET DELAYED RELEASE 1 TABLET ORALLY ONCE A DAY TAKING MECLIZINE HCL 25 MG TABLET 1 TABLET NEEDED ORALLY TWICE DAILY TAKING LISINOPRIL 10 MG TABLET 1 TABLET ORALLY BID TAKING WARFARIN SODIUM 5 MG TABLET ORALLY SATURDAY - SATURDAY IS 6MG, SATURDAY IS 5MG TAKING LIPITOR 40 MG TABLET 1 TABLET ORALLY ONCE A DAY TAKING TRAZODONE 50 50MG TABLET DIRECTED ORAL AT BEDTIME TAKING METFORMIN HCL 1000 MG TABLET 1 TABLET WITH MEALS ORALLY TWICE A DAY TAKING CHLORTHALIDONE 25 25 MG TABLET 1/2 TAB ORAL DAILY TAKING FLONASE 50 MCG/ACT SUSPENSION 1 SPRAY IN EACH NOSTRIL NASALLY ONCE A DAY TAKING ZETIA 10 MG TABLET 1 TABLET ORALLY ONCE A DAY TAKING BYDUREON 2 MG PEN-INJECTOR DIRECTED SUBCUTANEOUS TAKING VALACYCLOVIR HCL 1 GM TABLET 1 TABLET ORALLY ONCE A DAY TAKING PERCOCET 5-325 MG TABLET 1 TABLET NEEDED ORALLY Q8H PRN MDD3 NOT-TAKING LEVOFLOXACIN 500 MG TABLET 1 TABLET ORALLY ONCE A DAY MEDICATION LIST REVIEWED AND RECONCILED WITH THE PATIENT PAST MEDICAL HISTORY GERD FRACTURED VERTEBRAE HIGH CHOLESTEROL STROKE HERPES DM CHRONIC PROSTATITIS KNEE PAIN BACK PAIN 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 ALLERGIES PENICILLIN (FOR ALLERGIES USE ONLY): HIVES - SIDE EFFECTS LATEX: HIVES/RASH EFFEXOR: ARON - SIDE EFFECTS GABAPENTIN: ALT METAL STATUS - SIDE EFFECTS TYLENOL WITH CODEINE: ANGRY THOUGHTS - SIDE EFFECTS JANUVIA: SWEATING/CHEST PAIN - SIDE EFFECTS CELEBREX: B/P INCREASE SURGICAL HISTORY REMOVAL BREAST CYSTS X2 APPENDECTOMY ABD SKIN CANCER REMOVED RIGHT KNEE TORN MENISCUS 06/22/2019 FAMILY HISTORY FATHER: 62 YRS, DIAGNOSED WITH UNSPECIFIED HEART DISEASE MOTHER: ALIVE 75 YRS, DIABETES, HYPERTENSION, UNSPECIFIED HEART DISEASE SOCIAL HISTORY GENERAL: TOBACCO USE ARE YOU A:FORMER SMOKER HOW LONG HAS IT BEEN SINCE YOU LAST SMOKED?1-5 YEARS LATEX QUESTIONNAIRE LATEX ALLERGY : HAVE YOU EVER DEVELOPED ANY TYPE OF REACTION AFTER HANDLING LATEX PRODUCTS SUCH RUBBER GLOVES, CONDOMS, DIAPHRAGMS, BALLOONS, SOCKS, OR UNDERWEAR?YES - PLEASE INDICATE :RUBBER GLOVES LATEX ALLERGY : HAVE YOU EVER DEVELOPED ANY TYPE OF REACTION DURING OR AFTER DENTAL APPOINTMENT, VAGINAL/RECTAL EXAMINATION, SURGICAL PROCEDURE, OR ANY OTHER EXPOSURE?NO LATEX RISK : HAVE YOU EVER HAD ANY DIFFICULTY BREATHING OR HIVES AFTER EATING OR HANDLING ANY FRUITS, OR VEGETABLES; SUCH KIWI, BANANAS, STONE FRUITS, OR CHESTNUTSNO LATEX RISK : DO YOU HAVE A PREVIOUS PERSONAL HISTORY OF MORE THAN NINE SURGERIES, SPINA BIFIDA, OR REPEATED CATHERIZATIONS? NO LATEX RISK : ARE YOU FREQUENTLY EXPOSED TO LATEX PRODUCTS IN YOUR OCCUPATION?NO DATE ASKED : 10/19/2019 ALCOHOL SCREENING DID YOU HAVE A DRINK CONTAINING ALCOHOL IN THE PAST YEAR?NO POINTS0 INTERPRETATIONNEGATIVE RECREATIONAL DRUG USE DRUG USE?NO CAFFEINE CAFFEINE USE?YES SEXUAL HX HAD SEX IN THE LAST 12 MONTHS (VAGINAL, ORAL, OR ANAL)?NO HAVE YOU EVER HAD AN STD?NO HIV / HEP-C SCREENING HIV TEST OFFERED TO PATIENT:YES DATE OFFERED:07/08/2018 HEP-C TEST OFFERED TO PATIENT:YES DATE OFFERED:07/08/2018 BROCHURE PROVIDED TO PATIENTNO CHURCH [id number] NONE LANGUAGE LANGUAGES SPOKEN:IRISH EDUCATION LEVEL OF EDUCATION:FINISHED HIGH SCHOOL LEARNING BARRIERS / SPECIAL NEEDS BARRIERS TO LEARNING?NO HEARING IMPAIRED?NO VISION IMPAIRED?YES COGNITIVELY IMPAIRED?NO :CORRECTIVE LENSES READINESS TO LEARN?YES LEARNING PREFERENCES?NO LEARNING CAPABILITIES PRESENT?YES EMOTIONAL BARRIERS?NO SPECIAL DEVICES?YES :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 DIET: NO CONCENTRATED SWEETS.. EXERCISE: NONE. MARITAL STATUS: SINGLE. OTHERS AT HOME: CHILD-SON. PAIN CLINIC PFS, CLERGY, PUBLIC HEALTH REFERRALS PFS REFERRAL NEEDED?NO CLERGY REFERRAL NEEDED?NO PUBLIC HEALTH REFERRAL NEEDED?NO WAS THE PROVIDER NOTIFIED OF ANY PERTINENT INFO?NO HAS THE PATIENT BEEN EDUCATED REGARDING HIS/HER PLAN OF CARE?YES HAS THE PATIENT BEEN EDUCATED REGARDING PAIN, THE RISK FOR PAIN, THE IMPORTANCE OF EFFECTIVE PAIN MANAGEMENT, AND THE PAIN ASSESSMENT PROCESS?YES ADVANCE DIRECTIVE ADVANCE DIRECTIVE DISCUSSED WITH PATIENT:YES 07/10/2019 PATIENT HAS NO ADVANCED DIRECTIVES AND DECLINED HCP INFORMATION AT THIS TIME. JS HOSPITALIZATION/MAJOR DIAGNOSTIC PROCEDURE STROKE 2011 REVIEW OF SYSTEMS CONSTITUTIONAL: ANY RECENT FEVER NO . CHILLS NO . WEIGHT CHANGE OF UNKNOWN REASONS NO . GASTROENTEROLOGY: NEW UNEXPLAINABLE CHANGES IN BOWEL CONTROL NO . CONSTIPATION NO . GENITOURINARY: ANY NEW CHANGE IN BLADDER CONTROL? NO . NEUROLOGY: NEW ONSET DIZZINESS OR NEUROLOGICAL CHANGES NOT MENTIONED NO . NEW NUMBNESS OR PAIN PATTERNS NOT MENTIONED AND PERTINENT TO TODAY'S VISIT NO . CARDIOLOGY: NEW CHEST PRESSURE NO . NEW CHEST PAIN NO . RESPIRATORY: UNEXPLAINABLE COUGH NO . NEW SHORTNESS OF BREATH NO . VITAL SIGNS WT 245.0 LBS, HT 68 IN, BMI 37.25 INDEX, BP 122/73 MM HG, HR 69 /MIN, RR 18 /MIN, TEMP 98.1 F, OXYGEN SAT % 99%, NA INITIALS AW 1307. EXAMINATION GENERAL EXAMINATION: GENERALNO ACUTE DISTRESS, WELL NOURISHED AND HYDRATED. PSYCHAPPROPRIATE MOOD AND AFFECT . LUNGS:CLEAR TO AUSCULTATION BILATERALLY, NO WHEEZES, RHONCHI, RALES. HEART:NO MURMURS, REGULAR RATE AND RHYTHM. ASSESSMENTS LOW BACK PAIN - M54.5 (PRIMARY) TREATMENT LOW BACK PAIN CLINICAL NOTES: 54-YEAR-OLD MALE IN FOR CHRONIC PAIN FOLLOW-UP. GIVEN PRESENTING SYMPTOMS RECOMMENDED CONTINUATION OF CURRENT MEDICATION REGIMEN WITH FOLLOW-UP IN 3 MONTHS. PATIENT HAS EXPRESSED UNDERSTANDING OF AND WAS IN AGREEMENT WITH TREATMENT PLAN. GIVEN TIME TO ASK QUESTIONS AND EXPRESS CONCERNS. , ISTOP REGISTRY REVIEWED AND DEMONSTRATES COMPLLIANCE. (REF # [id number] ) BRINGS IN MEDICATIONS WHICH IS APPROPRIATE FOR WHAT WAS DISPENSED. RECENT URINE TOXICOLOGY REVIEWED. NO UNAUTHORIZED MEDICATIONS. NO ILLICIT SUBSTANCES AND PRESCRIBED MEDICATIONS WERE PRESENT. PROCEDURE CODES FA211 ESTABILISHED PATIENT [facility] CHARGE DISPOSITION & COMMUNICATION FOLLOW UP 3 MONTHS (REASON: BACK PAIN) ELECTRONICALLY SIGNED BY VIKASH HOOKS ON 10/20/2019 AT 08:27 AM EDT DISCLAIMER : THIS IS A VISIT SUMMARY EXTRACTED FROM THE [email or web address] CHART. IT IS NOT A COPY OF THE [email or web address] PROGRESS NOTE. BRENT
== END ==
LOC: M PAIN 13:00
PROVIDERS: ATTEND Family Medicine
DX: M54.5 Low back pain (principal); Z79.01 Long term (current) use of anticoagulants; Z79.84 Long term (current) use of oral hypoglycemic drugs; Z79.891 Long term (current) use of opiate analgesic; Z79.899 Other long term (current) drug therapy; Z88.0 Allergy status to penicillin; Z88.8 Allergy status to other drugs, medicaments and biological substances; Z91.040 Latex allergy status; Z87.891 Personal history of nicotine dependence

== ENCOUNTER → 2020-01-19 | Outpatient (CLI) | payer MEDICARE, MEDICAID ==
[~2020-01-19] MED LIST changes: +ACET650T61 PO; -TYLE650T35 PO
== END ==
LOC: M PAIN 12:53
PROVIDERS: ATTEND Family Medicine
DX: M54.5 Low back pain (principal)

== ENCOUNTER → 2020-02-18 | Outpatient (CLI) | payer MEDICARE, MEDICAID ==
--- NOTE | 2020-02-20 06:19 | ECWPNPC ---
PATIENT NAME: GELY CAMPA : 1965 GENDER: MALE VISIT DATE: 02/18/2020 DISCHARGE DATE: 02/18/20 1202 VISIT LOCKED DATE TIME: PHYSICIAN: LULU MANCUSO RESOURCE: LULU MANCUSO REASON FOR APPOINTMENT 1. BACK HISTORY OF PRESENT ILLNESS DEPRESSION SCREENING: PHQ-2 (2015 EDITION) LITTLE INTEREST OR PLEASURE IN DOING THINGS?NOT AT ALL FEELING DOWN, DEPRESSED, OR HOPELESS?NOT AT ALL TOTAL SCORE0 55-YEAR-OLD MALE IN FOR CHRONIC PAIN FOLLOW-UP. HE RATES HIS PAIN CURRENTLY AT A 2 OUT OF 10 AND DESCRIBES IT ACHING, AND SHARP. HE FEELS MEDICATIONS ARE HELPFUL AND DENIES MED SIDE EFFECTS AT THIS TIME. GENERAL: -. FALL RISK SCREENING: SCREENING :NO FALLS REPORTED IN THE LAST YEAR NONE PAIN SCREENING: PATIENT HAS A COMPLAINT OF ACUTE OR CHRONIC PAIN :YES LOCATION OF PAIN:NECK, MID BACK, LOW BACK, KNEES BACK-2 KNEES -4 WHEN WALKING INTENSITY OF PAIN (SCALE OF 1 TO 10):2 WHAT DOES YOUR PAIN FEEL LIKE:ACHING, SHARP DURATION:RHYTHMIC PAIN IS INCREASED BY:ACTIVITIES, PROLONGED STANDING PAIN IS DECREASED BY:USE OF PAIN MEDICATIONS NURSING NOTE: -. PAIN CENTER INTAKE QUESTIONS: DO YOU HAVE A HISTORY OF MRSA? :NO DO YOU TAKE A BLOOD THINNERS? :YES DO YOU HAVE ANY BLEEDING DISORDERS? :NO ANY NEW NUMBNESS OR WEAKNESS IN YOUR LEGS OR ARMS? :NO ANY PACEMAKER,DEFIBRILLATOR, OR DORSAL COLUMN STIMULATOR? :NO DO YOU HAVE ANY RASHES OR OPEN SORES? :NO ARE YOU ALLERGIC TO IV DYE? :NO ARE YOU DIABETIC? :YES ANY NEW PROBLEMS WITH YOUR MEDICATIONS? :NO HAVE YOU RECEIVED A VACCINE IN THE PAST 30 DAYS? :NO DO YOU PLAN TO RECEIVE A VACCINE IN THE NEXT 21 DAYS? :NO DO YOU NEED ANY PRESCRIPTION? :NO DO YOU TAKE ANY IMMUNOSUPPRESSIVE MEDICATIONS? :NO IS THERE A CHANCE YOU COULD BE ? :NO ARE YOU BREAST FEEDING? :NO CURRENT MEDICATIONS TAKING NEXIUM 40 MG CAPSULE DELAYED RELEASE 1 CAP(S) ORALLY TWICE A DAY TAKING DEPAKOTE 500 MG TABLET DELAYED RELEASE 1 TABLET ORALLY ONCE A DAY TAKING MECLIZINE HCL 25 MG TABLET 1 TABLET NEEDED ORALLY TWICE DAILY TAKING LISINOPRIL 10 MG TABLET 1 TABLET ORALLY BID TAKING WARFARIN SODIUM 5 MG TABLET ORALLY SATURDAY - SATURDAY IS 6MG, SATURDAY IS 5MG TAKING LIPITOR 40 MG TABLET 1 TABLET ORALLY ONCE A DAY TAKING TRAZODONE 50 50MG TABLET DIRECTED ORAL AT BEDTIME TAKING METFORMIN HCL 1000 MG TABLET 1 TABLET WITH MEALS ORALLY TWICE A DAY TAKING CHLORTHALIDONE 25 25 MG TABLET 1/2 TAB ORAL DAILY TAKING FLONASE 50 MCG/ACT SUSPENSION 1 SPRAY IN EACH NOSTRIL NASALLY ONCE A DAY TAKING ZETIA 10 MG TABLET 1 TABLET ORALLY ONCE A DAY TAKING BYDUREON 2 MG PEN-INJECTOR DIRECTED SUBCUTANEOUS TAKING VALACYCLOVIR HCL 1 GM TABLET 1 TABLET ORALLY ONCE A DAY TAKING PERCOCET 5-325 MG TABLET 1 TABLET NEEDED ORALLY Q6H PRN MDD4 NOT-TAKING TYLENOL EXTRA STRENGTH 625MG TABLET 2 TABLET NEEDED ORALLY THREE TIMES A DAY NOT-TAKING LEVOFLOXACIN 500 MG TABLET 1 TABLET ORALLY ONCE A DAY MEDICATION LIST REVIEWED AND RECONCILED WITH THE PATIENT PAST MEDICAL HISTORY GERD FRACTURED VERTEBRAE HIGH CHOLESTEROL STROKE HERPES DM CHRONIC PROSTATITIS KNEE PAIN BACK PAIN 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 ALLERGIES PENICILLIN (FOR ALLERGIES USE ONLY): HIVES - SIDE EFFECTS LATEX: HIVES/RASH EFFEXOR: ARON - SIDE EFFECTS GABAPENTIN: ALT METAL STATUS - SIDE EFFECTS TYLENOL WITH CODEINE: ANGRY THOUGHTS - SIDE EFFECTS JANUVIA: SWEATING/CHEST PAIN - SIDE EFFECTS CELEBREX: B/P INCREASE SURGICAL HISTORY REMOVAL BREAST CYSTS X2 APPENDECTOMY ABD SKIN CANCER REMOVED RIGHT KNEE TORN MENISCUS 06/22/2019 FAMILY HISTORY FATHER: 62 YRS, DIAGNOSED WITH UNSPECIFIED HEART DISEASE MOTHER: ALIVE 75 YRS, HYPERTENSION, UNSPECIFIED HEART DISEASE, DIABETES SOCIAL HISTORY GENERAL: TOBACCO USE ARE YOU A:FORMER SMOKER HOW LONG HAS IT BEEN SINCE YOU LAST SMOKED?1-5 YEARS LATEX QUESTIONNAIRE LATEX ALLERGY : HAVE YOU EVER DEVELOPED ANY TYPE OF REACTION AFTER HANDLING LATEX PRODUCTS SUCH RUBBER GLOVES, CONDOMS, DIAPHRAGMS, BALLOONS, SOCKS, OR UNDERWEAR?YES - PLEASE INDICATE :RUBBER GLOVES LATEX ALLERGY : HAVE YOU EVER DEVELOPED ANY TYPE OF REACTION DURING OR AFTER DENTAL APPOINTMENT, VAGINAL/RECTAL EXAMINATION, SURGICAL PROCEDURE, OR ANY OTHER EXPOSURE?NO LATEX RISK : HAVE YOU EVER HAD ANY DIFFICULTY BREATHING OR HIVES AFTER EATING OR HANDLING ANY FRUITS, OR VEGETABLES; SUCH KIWI, BANANAS, STONE FRUITS, OR CHESTNUTSNO LATEX RISK : DO YOU HAVE A PREVIOUS PERSONAL HISTORY OF MORE THAN NINE SURGERIES, SPINA BIFIDA, OR REPEATED CATHERIZATIONS? NO LATEX RISK : ARE YOU FREQUENTLY EXPOSED TO LATEX PRODUCTS IN YOUR OCCUPATION?NO DATE ASKED : 02/18/2020 ALCOHOL SCREENING DID YOU HAVE A DRINK CONTAINING ALCOHOL IN THE PAST YEAR?NO POINTS0 INTERPRETATIONNEGATIVE RECREATIONAL DRUG USE DRUG USE?NO CAFFEINE CAFFEINE USE?YES SEXUAL HX HAD SEX IN THE LAST 12 MONTHS (VAGINAL, ORAL, OR ANAL)?NO HAVE YOU EVER HAD AN STD?NO HIV / HEP-C SCREENING HIV TEST OFFERED TO PATIENT:YES DATE OFFERED:07/08/2018 HEP-C TEST OFFERED TO PATIENT:YES DATE OFFERED:07/08/2018 BROCHURE PROVIDED TO PATIENTNO ANGLICAN [id number] NONE LANGUAGE LANGUAGES SPOKEN:GUYANESE EDUCATION LEVEL OF EDUCATION:FINISHED HIGH SCHOOL LEARNING BARRIERS / SPECIAL NEEDS BARRIERS TO LEARNING?NO HEARING IMPAIRED?NO VISION IMPAIRED?YES COGNITIVELY IMPAIRED?NO :CORRECTIVE LENSES READINESS TO LEARN?YES LEARNING PREFERENCES?NO LEARNING CAPABILITIES PRESENT?YES EMOTIONAL BARRIERS?NO SPECIAL DEVICES?YES :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 DIET: NO CONCENTRATED SWEETS.. EXERCISE: NONE. MARITAL STATUS: SINGLE. OTHERS AT HOME: CHILD-SON. PAIN CLINIC PFS, CLERGY, PUBLIC HEALTH REFERRALS PFS REFERRAL NEEDED?NO CLERGY REFERRAL NEEDED?NO PUBLIC HEALTH REFERRAL NEEDED?NO WAS THE PROVIDER NOTIFIED OF ANY PERTINENT INFO?NO HAS THE PATIENT BEEN EDUCATED REGARDING HIS/HER PLAN OF CARE?YES HAS THE PATIENT BEEN EDUCATED REGARDING PAIN, THE RISK FOR PAIN, THE IMPORTANCE OF EFFECTIVE PAIN MANAGEMENT, AND THE PAIN ASSESSMENT PROCESS?YES ADVANCE DIRECTIVE ADVANCE DIRECTIVE DISCUSSED WITH PATIENT:YES 07/10/2019 PATIENT HAS NO ADVANCED DIRECTIVES AND DECLINED HCP INFORMATION AT THIS TIME. JS HOSPITALIZATION/MAJOR DIAGNOSTIC PROCEDURE STROKE 2012 REVIEW OF SYSTEMS CONSTITUTIONAL: ANY RECENT FEVER NO . CHILLS NO . WEIGHT CHANGE OF UNKNOWN REASONS NO . GASTROENTEROLOGY: NEW UNEXPLAINABLE CHANGES IN BOWEL CONTROL NO . CONSTIPATION NO . GENITOURINARY: ANY NEW CHANGE IN BLADDER CONTROL? NO . NEUROLOGY: NEW ONSET DIZZINESS OR NEUROLOGICAL CHANGES NOT MENTIONED NO . NEW NUMBNESS OR PAIN PATTERNS NOT MENTIONED AND PERTINENT TO TODAY'S VISIT NO . CARDIOLOGY: NEW CHEST PRESSURE NO . NEW CHEST PAIN NO . RESPIRATORY: UNEXPLAINABLE COUGH NO . NEW SHORTNESS OF BREATH NO . VITAL SIGNS WT 241.6 LBS, HT 68 IN, BMI 36.73 INDEX, BP 148/75 MM HG, HR 72 /MIN, RR 18 /MIN, TEMP 97.9 F, OXYGEN SAT % 98%, SAFE IN ENV? (Y/N) YES, NA INITIALS MI 11:43, REVIEWED BY: EN. EXAMINATION GENERAL EXAMINATION: GENERALNO ACUTE DISTRESS, WELL NOURISHED AND HYDRATED. PSYCHAPPROPRIATE MOOD AND AFFECT . LUNGS:CLEAR TO AUSCULTATION BILATERALLY, NO WHEEZES, RHONCHI, RALES. HEART:NO MURMURS, REGULAR RATE AND RHYTHM. 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 GIVEN PRESENTING SYMPTOMS RECOMMENDED CONTINUATION OF CURRENT MEDICATION REGIMEN WITH FOLLOW-UP IN 3 MONTHS. PATIENT HAS EXPRESSED UNDERSTANDING OF AND WAS IN AGREEMENT WITH TREATMENT PLAN. GIVEN TIME TO ASK QUESTIONS AND EXPRESS CONCERNS. , ISTOP REGISTRY REVIEWED AND DEMONSTRATES COMPLLIANCE. (REF # [id number] ) BRINGS IN MEDICATIONS WHICH IS APPROPRIATE FOR WHAT WAS DISPENSED. RECENT URINE TOXICOLOGY REVIEWED. NO UNAUTHORIZED MEDICATIONS. NO ILLICIT SUBSTANCES AND PRESCRIBED MEDICATIONS WERE PRESENT. PROCEDURE CODES FA211 ESTABILISHED PATIENT [facility] CHARGE DISPOSITION & COMMUNICATION FOLLOW UP 3 MONTHS (REASON: BACK PAIN ) ELECTRONICALLY SIGNED BY VIKASH HOOKS ON 02/19/2020 AT 10:02 AM EDT DISCLAIMER : THIS IS A VISIT SUMMARY EXTRACTED FROM THE [employer] CHART. IT IS NOT A COPY OF THE [employer] PROGRESS NOTE. BRENT
== END ==
LOC: M PAIN 11:30
PROVIDERS: ATTEND Family Medicine
DX: M46.96 Unspecified inflammatory spondylopathy, lumbar region (principal); G89.29 Other chronic pain; E11.9 Type 2 diabetes mellitus without complications; K21.9 Gastro-esophageal reflux disease without esophagitis; Z86.73 Personal history of transient ischemic attack (TIA), and cerebral infarction without residual deficits; Z87.891 Personal history of nicotine dependence; Z88.0 Allergy status to penicillin; Z88.5 Allergy status to narcotic agent; Z88.8 Allergy status to other drugs, medicaments and biological substances; Z91.040 Latex allergy status; Z79.01 Long term (current) use of anticoagulants; Z79.84 Long term (current) use of oral hypoglycemic drugs; Z79.899 Other long term (current) drug therapy

== ENCOUNTER → 2020-04-16 | Outpatient (CLI) | payer MEDICARE, MEDICAID | LOC: M LABSMTC 11:05 | PROVIDERS: ATTEND Orthopaedic Surgery | DX: Z01.812 Encounter for preprocedural laboratory examination (principal); Z20.828 Contact with and (suspected) exposure to other viral communicable diseases ==

== ENCOUNTER 2020-04-23 03:53 | Emergency (ER) | payer MEDICARE, MEDICAID ==
[~2020-04-23] VITALS: Ht 172.7 cm; Wt 112.7 kg
[2020-04-23] MEDS ORDERED: VALA1TAB5 (04:07)
[2020-04-23] MEDS ORDERED: METF-838 (04:07)
[2020-04-23] MEDS ORDERED: DOXY100C (04:07)
[2020-04-23] MEDS ORDERED: PREGABALIN 50 MG CAP (LYRICA) PO ONE (04:45)
--- NOTE | 2020-04-23 05:56 | REPVR ---
PROCEDURE INFORMATION: Exam: US Duplex Left Lower Extremity Veins, Limited Exam date and time: 04/23/2020 5:06 AM Age: 55 years old Clinical indication: Pain; Leg, lower; Left; Prior surgery; Surgery date: 3-7 days post-operative; Surgery type: Knee surgery on 04/20/2020; Additional info: Leg pain and swelling after surgery TECHNIQUE: Imaging protocol: Real-time Duplex ultrasound of the Left Lower Extremity with 2-D millard scale, color Doppler flow and spectral waveform analysis with image documentation. Limited exam focused on the left lower extremity veins. COMPARISON: No relevant prior studies available. FINDINGS: Left deep veins: Unremarkable. The common femoral, femoral, proximal profunda femoral and popliteal veins are patent without thrombus. Normal Doppler waveforms. Normal compressibility and/or augmentation response. Left superficial veins: Unremarkable. Saphenofemoral junction is patent without thrombus. Soft tissues: Unremarkable. IMPRESSION: No evidence of deep vein thrombosis. Electronically signed by: Gio Pond On 04/23/2020 05:56:22 AM
--- NOTE | 2020-04-23 06:31 | REPVR ---
PROCEDURE INFORMATION: Exam: XR Left Femur Exam date and time: 04/23/2020 5:37 AM Age: 55 years old Clinical indication: Pain; Thigh; Left; Additional info: Left hip/thigh pain after knee surgery TECHNIQUE: Imaging protocol: XR Left femur. Views: 2 views. COMPARISON: MRI-Knee WITHOUT CONTRAST 10/19/2016 12:27 PM FINDINGS: Bones/joints: No acute fracture. Large knee joint effusion. No dislocation. Bipartite patella. Knee is not fully evaluated on this study. Soft tissues: Unremarkable. No soft tissue gas. Vasculature: Moderate calcified atherosclerotic disease. IMPRESSION: 1. No acute fracture. 2. Large knee joint effusion. Correlate with history. Electronically signed by: Crista Hernandez On 04/23/2020 06:31:27 AM
[2020-04-23] MEDS ORDERED: METAXALONE 800 MG TABLET PO ONE (07:00)
[2020-04-23] MEDS ORDERED: MORPHINE 10 MG/ML 1ML VIAL (J2270) IM ONE (07:00)
[2020-04-23] MEDS ORDERED: SKEL800T97 PO (07:02)
[2020-04-23] MEDS ORDERED: PREG50CA PO (07:02)
[2020-04-23 07:52] VITALS: BP 151/79
== END 2020-04-23 08:00 | disposition home or self-care (01) ==
LOC: M ED 03:53
DX: M25.552 Pain in left hip (principal); M25.562 Pain in left knee; Z98.890 Other specified postprocedural states; M79.89 Other specified soft tissue disorders; D68.2 Hereditary deficiency of other clotting factors; D68.61 Antiphospholipid syndrome; Z88.0 Allergy status to penicillin; Z88.1 Allergy status to other antibiotic agents; Z88.8 Allergy status to other drugs, medicaments and biological substances; Z91.040 Latex allergy status; Z79.899 Other long term (current) drug therapy; Z79.891 Long term (current) use of opiate analgesic; Z79.01 Long term (current) use of anticoagulants; Z79.2 Long term (current) use of antibiotics; Z79.84 Long term (current) use of oral hypoglycemic drugs
CPT/HCPCS: 73552; 93971; 96372; 99283; J2270

== ENCOUNTER → 2020-05-19 | Outpatient (CLI) | payer MEDICARE, MEDICAID ==
[~2020-05-19] MED LIST changes: +DOXY100C; +METF-838; +PREG50CA PO; +SKEL800T97 PO; +VALA1TAB5
--- NOTE | 2020-05-20 07:32 | ECWPNPC ---
PATIENT NAME: GELY CAMPA : 1965 GENDER: MALE VISIT DATE: 05/19/2020 DISCHARGE DATE: 05/19/20 1211 VISIT LOCKED DATE TIME: PHYSICIAN: LULU MANCUSO RESOURCE: LULU MANCUSO REASON FOR APPOINTMENT 1. 3 MO F/O BACK PAIN HISTORY OF PRESENT ILLNESS PAIN CENTER INTAKE QUESTIONS: 55-YEAR-OLD MALE IN FOR CHRONIC PAIN FOLLOW-UP. HE RATES HIS PAIN CURRENTLY AT A 4 OUT OF 10 AND DESCRIBES IT ACHING, CONTINUOUS, THROBBING, AND SHOOTING. HE FEELS MEDICATIONS ARE HELPFUL AND DENIES MED SIDE EFFECTS AT THIS TIME. HE DOES ADMIT TO BREAKTHROUGH PAIN AT TIMES. DEPRESSION SCREENING: PHQ-2 (2015 EDITION) LITTLE INTEREST OR PLEASURE IN DOING THINGS?NOT AT ALL FEELING DOWN, DEPRESSED, OR HOPELESS?NOT AT ALL TOTAL SCORE0 55-YEAR-OLD MALE IN FOR CHRONIC PAIN FOLLOW-UP. HE RATES HIS PAIN CURRENTLY AT A 2 OUT OF 10 AND DESCRIBES IT ACHING, AND SHARP. HE FEELS MEDICATIONS ARE HELPFUL AND DENIES MED SIDE EFFECTS AT THIS TIME. GENERAL: - - -. FALL RISK SCREENING: SCREENING :NO FALLS REPORTED IN THE LAST YEAR NONE PAIN SCREENING: PATIENT HAS A COMPLAINT OF ACUTE OR CHRONIC PAIN :YES LOCATION OF PAIN:NECK, MID BACK, LOW BACK, KNEES BACK-2 KNEES -4 WHEN WALKING INTENSITY OF PAIN (SCALE OF 1 TO 10):4 WHAT DOES YOUR PAIN FEEL LIKE:ACHING, CONTINOUS, THROBBING, SHOOTING DURATION:RHYTHMIC PAIN IS INCREASED BY:ACTIVITIES, PROLONGED STANDING PAIN IS DECREASED BY:USE OF PAIN MEDICATIONS, OTHERS PHYSICAL THERAPY HELPS FOR 4 HOURS. EXERCISE AT HOME HELPS SOME. TREATMENT/MEDICATIONS USED TO MANAGE PAIN:OTC PAIN RELIEVERS, NSAIDS, TOPICAL CORTICOSTEROIDS, PHYSICAL THERAPY LEVEL OF RELIEF FROM PAIN TREATMENTS IN THE PAST:50% NURSING NOTE: - - -. CURRENT MEDICATIONS TAKING NEXIUM 40 MG CAPSULE DELAYED RELEASE 1 CAP(S) ORALLY TWICE A DAY TAKING DEPAKOTE 500 MG TABLET DELAYED RELEASE 1 TABLET ORALLY ONCE A DAY TAKING MECLIZINE HCL 25 MG TABLET 1 TABLET NEEDED ORALLY TWICE DAILY TAKING LISINOPRIL 20 MG TABLET 1 TABLET ORALLY DAILY TAKING WARFARIN SODIUM 5 MG TABLET ORALLY SATURDAY - SATURDAY IS 5MG TAKING LIPITOR 40 MG TABLET 1 TABLET ORALLY ONCE A DAY TAKING TRAZODONE 50 50MG TABLET 02/21 ORAL AT BEDTIME TAKING METFORMIN HCL 500 MG TABLET 2 TABLET WITH A MEAL ORALLY TWICE A DAY TAKING CHLORTHALIDONE 25 25 MG TABLET 1/2 TAB ORAL DAILY TAKING FLONASE 50 MCG/ACT SUSPENSION 1 SPRAY IN EACH NOSTRIL NASALLY ONCE A DAY TAKING ZETIA 10 MG TABLET 1 TABLET ORALLY ONCE A DAY TAKING BYDUREON 2 MG PEN-INJECTOR DIRECTED SUBCUTANEOUS TAKING VALACYCLOVIR HCL 1 GM TABLET 1 TABLET ORALLY ONCE A DAY TAKING ZOLOFT 50 MG TABLET 1 TABLET ORALLY ONCE A DAY TAKING IBUPROFEN 200 MG TABLET 4 TABLETS ORALLY DAILY TAKING PERCOCET 5-325 MG TABLET 1 TABLET NEEDED ORALLY Q6H PRN MDD4 TAKING ACETAMINOPHEN 650 MG TABLET EXTENDED RELEASE 3 TABLET ORALLY DAILY NOT-TAKING VALACYCLOVIR HCL 1 GM TABLET 1 TABLET ORALLY ONCE A DAY, NOTES: DUPLICATE NOT-TAKING DOXYCYCLINE HYCLATE 100 MG CAPSULE 1 CAPSULE ORALLY BID MEDICATION LIST REVIEWED AND RECONCILED WITH THE PATIENT PAST MEDICAL HISTORY GERD FRACTURED VERTEBRAE HIGH CHOLESTEROL STROKE HERPES DM CHRONIC PROSTATITIS KNEE PAIN BACK PAIN 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 ALLERGIES PENICILLIN (FOR ALLERGIES USE ONLY): HIVES - SIDE EFFECTS LATEX: HIVES/RASH EFFEXOR: ARON - SIDE EFFECTS GABAPENTIN: ALT METAL STATUS - SIDE EFFECTS TYLENOL WITH CODEINE: ANGRY THOUGHTS - SIDE EFFECTS JANUVIA: SWEATING/CHEST PAIN - SIDE EFFECTS CELEBREX: B/P INCREASE SURGICAL HISTORY REMOVAL BREAST CYSTS X2 APPENDECTOMY ABD SKIN CANCER REMOVED RIGHT KNEE TORN MENISCUS 06/22/2019 LEFT KNEE TORN MENISCUS AND CARTILAGE REPAIR 04/20/2020 SOCIAL HISTORY GENERAL: TOBACCO USE ARE YOU A:FORMER SMOKER HOW LONG HAS IT BEEN SINCE YOU LAST SMOKED?1-5 YEARS LATEX QUESTIONNAIRE LATEX ALLERGY : HAVE YOU EVER DEVELOPED ANY TYPE OF REACTION AFTER HANDLING LATEX PRODUCTS SUCH RUBBER GLOVES, CONDOMS, DIAPHRAGMS, BALLOONS, SOCKS, OR UNDERWEAR?YES - PLEASE INDICATE :RUBBER GLOVES LATEX ALLERGY : HAVE YOU EVER DEVELOPED ANY TYPE OF REACTION DURING OR AFTER DENTAL APPOINTMENT, VAGINAL/RECTAL EXAMINATION, SURGICAL PROCEDURE, OR ANY OTHER EXPOSURE?NO LATEX RISK : HAVE YOU EVER HAD ANY DIFFICULTY BREATHING OR HIVES AFTER EATING OR HANDLING ANY FRUITS, OR VEGETABLES; SUCH KIWI, BANANAS, STONE FRUITS, OR CHESTNUTSNO LATEX RISK : DO YOU HAVE A PREVIOUS PERSONAL HISTORY OF MORE THAN NINE SURGERIES, SPINA BIFIDA, OR REPEATED CATHERIZATIONS? NO LATEX RISK : ARE YOU FREQUENTLY EXPOSED TO LATEX PRODUCTS IN YOUR OCCUPATION?NO DATE ASKED : 05/19/2020 ALCOHOL USE: NO. ALCOHOL SCREENING DID YOU HAVE A DRINK CONTAINING ALCOHOL IN THE PAST YEAR?NO POINTS0 INTERPRETATIONNEGATIVE RECREATIONAL DRUG USE DRUG USE?NO CAFFEINE CAFFEINE USE?YES SEXUAL HX HAD SEX IN THE LAST 12 MONTHS (VAGINAL, ORAL, OR ANAL)?NO HAVE YOU EVER HAD AN STD?NO HIV / HEP-C SCREENING HIV TEST OFFERED TO PATIENT:YES DATE OFFERED:07/08/2018 HEP-C TEST OFFERED TO PATIENT:YES DATE OFFERED:07/08/2018 BROCHURE PROVIDED TO PATIENTNO SABIANIST [id number] NONE LANGUAGE LANGUAGES SPOKEN:[place] EDUCATION LEVEL OF EDUCATION:FINISHED HIGH SCHOOL LEARNING BARRIERS / SPECIAL NEEDS BARRIERS TO LEARNING?NO HEARING IMPAIRED?NO VISION IMPAIRED?YES :CORRECTIVE LENSES COGNITIVELY IMPAIRED?NO READINESS TO LEARN?YES LEARNING PREFERENCES?NO LEARNING CAPABILITIES PRESENT?YES EMOTIONAL BARRIERS?NO SPECIAL 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 DIET: NO CONCENTRATED SWEETS.. EXERCISE: NONE. MARITAL STATUS: SINGLE. OTHERS AT HOME: CHILD-SON. - PFS REFERRAL NEEDED?NO CLERGY REFERRAL NEEDED?NO PUBLIC HEALTH REFERRAL NEEDED?NO WAS THE PROVIDER NOTIFIED OF ANY PERTINENT INFO?NO HAS THE PATIENT BEEN EDUCATED REGARDING HIS/HER PLAN OF CARE?YES HAS THE PATIENT BEEN EDUCATED REGARDING PAIN, THE RISK FOR PAIN, THE IMPORTANCE OF EFFECTIVE PAIN MANAGEMENT, AND THE PAIN ASSESSMENT PROCESS?YES ADVANCE DIRECTIVE ADVANCE DIRECTIVE DISCUSSED WITH PATIENT:YES 07/10/2019 PATIENT HAS NO ADVANCED DIRECTIVES AND DECLINED HCP INFORMATION AT THIS TIME. JS HOSPITALIZATION/MAJOR DIAGNOSTIC PROCEDURE STROKE 2012 REVIEW OF SYSTEMS CONSTITUTIONAL: ANY RECENT FEVER NO . CHILLS NO . WEIGHT CHANGE OF UNKNOWN REASONS NO . GASTROENTEROLOGY: NEW UNEXPLAINABLE CHANGES IN BOWEL CONTROL NO . CONSTIPATION NO . GENITOURINARY: ANY NEW CHANGE IN BLADDER CONTROL? NO . NEUROLOGY: NEW ONSET DIZZINESS OR NEUROLOGICAL CHANGES NOT MENTIONED NO . NEW NUMBNESS OR PAIN PATTERNS NOT MENTIONED AND PERTINENT TO TODAY'S VISIT NO . CARDIOLOGY: NEW CHEST PRESSURE NO . NEW CHEST PAIN NO . RESPIRATORY: UNEXPLAINABLE COUGH NO . NEW SHORTNESS OF BREATH NO . VITAL SIGNS WT 245.8 LBS, HT 68 IN, BMI 37.37 INDEX, BP 135/62 MM HG, HR 95 /MIN, RR 20 /MIN, TEMP 99 F, OXYGEN SAT % 98%, SAFE IN ENV? (Y/N) YES, REVIEWED BY: ASHLIE MERRITT MA. EXAMINATION GENERAL EXAMINATION: GENERALNO ACUTE DISTRESS, WELL NOURISHED AND HYDRATED. PSYCHAPPROPRIATE MOOD AND AFFECT . LUNGS:CLEAR TO AUSCULTATION BILATERALLY, NO WHEEZES, RHONCHI, RALES. HEART:NO MURMURS, REGULAR RATE AND RHYTHM. ASSESSMENTS LUMBAR FACET ARTHROPATHY - M12.88 (PRIMARY), RISK: (NULL) CHRONIC PRESCRIPTION OPIATE USE - Z79.899 TREATMENT LUMBAR FACET ARTHROPATHY REFILL PERCOCET TABLET, 5-325 MG, 1 TABLET NEEDED, ORALLY, Q6H PRN MDD4, 30 DAYS, 120, REFILLS 0 START SKELAXIN TABLET, 800 MG, 1 TABLET, ORALLY, THREE TIMES A DAY, 30 DAY(S), 90 LAB: PAIN CENTER URINE TOX (SEND OUT) NOTES: 55-YEAR-OLD MALE IN FOR CHRONIC PAIN FOLLOW-UP. GIVEN PRESENTING SYMPTOMS RECOMMENDED STARTING SKELAXIN 800 MG 3 TIMES A DAY NEEDED FOR MUSCLE SPASMS. PATIENT HAS TRIALED AND FAILED CYCLOBENZAPRINE, TIZANIDINE, AND BACLOFEN IN THE PAST. SUCH, I WISH TO TRY SKELAXIN. PATIENT HAS EXPRESSED UNDERSTANDING OF AND WAS IN AGREEMENT WITH TREATMENT PLAN. GIVEN TIME TO ASK QUESTIONS AND EXPRESS CONCERNS. , ISTOP REGISTRY REVIEWED AND DEMONSTRATES COMPLLIANCE. (REF # [id number] ) BRINGS IN MEDICATIONS WHICH IS APPROPRIATE FOR WHAT WAS DISPENSED. RECENT URINE TOXICOLOGY REVIEWED. NO UNAUTHORIZED MEDICATIONS. NO ILLICIT SUBSTANCES AND PRESCRIBED MEDICATIONS WERE PRESENT. PROCEDURE CODES FA211 ESTABILISHED PATIENT [facility] CHARGE DISPOSITION & COMMUNICATION FOLLOW UP 3 MONTHS (REASON: BACK PAIN ) ELECTRONICALLY SIGNED BY VIKASH HOOKS ON 05/19/2020 AT 03:07 PM EST DISCLAIMER : THIS IS A VISIT SUMMARY EXTRACTED FROM THE [employer] CHART. IT IS NOT A COPY OF THE [employer] PROGRESS NOTE. BRENT
== END ==
LOC: M PAIN 11:15
PROVIDERS: ATTEND Family Medicine
DX: M12.88 Other specific arthropathies, not elsewhere classified, other specified site (principal); K21.9 Gastro-esophageal reflux disease without esophagitis; E78.00 Pure hypercholesterolemia, unspecified; Z86.73 Personal history of transient ischemic attack (TIA), and cerebral infarction without residual deficits; B02.9 Zoster without complications; E11.9 Type 2 diabetes mellitus without complications; Z85.828 Personal history of other malignant neoplasm of skin; Z87.891 Personal history of nicotine dependence; Z79.891 Long term (current) use of opiate analgesic; Z79.899 Other long term (current) drug therapy; Z79.1 Long term (current) use of non-steroidal anti-inflammatories (NSAID); Z88.0 Allergy status to penicillin; Z88.8 Allergy status to other drugs, medicaments and biological substances; Z88.5 Allergy status to narcotic agent; Z91.040 Latex allergy status

== ENCOUNTER → 2020-08-27 | Outpatient (CLI) | payer MEDICARE, MEDICAID ==
[~2020-08-27] MED LIST changes: -LISI-538 PO; -LISI-542 PO; +LISI-898 PO; +LISI20TA33 PO
== END ==
LOC: M LABSMTC 11:41
PROVIDERS: ATTEND Anesthesiology
DX: Z11.52 Encounter for screening for COVID-19 (principal)

== ENCOUNTER → 2020-09-01 | Outpatient (CLI) | payer MEDICARE, MEDICAID ==
[2020-09-01 10:37] LABS: INR 0.92; PROTHROMBIN TIME 12.6 SECONDS (12.5-14.3)
== END ==
LOC: M LAB 09:53
PROVIDERS: ATTEND Anesthesiology
DX: M47.817 Spondylosis without myelopathy or radiculopathy, lumbosacral region (principal); Z79.01 Long term (current) use of anticoagulants; M12.88 Other specific arthropathies, not elsewhere classified, other specified site; E11.9 Type 2 diabetes mellitus without complications; G47.30 Sleep apnea, unspecified; K21.9 Gastro-esophageal reflux disease without esophagitis; Z87.891 Personal history of nicotine dependence; Z88.0 Allergy status to penicillin; Z88.5 Allergy status to narcotic agent; Z88.8 Allergy status to other drugs, medicaments and biological substances; Z91.040 Latex allergy status; Z79.84 Long term (current) use of oral hypoglycemic drugs; Z79.899 Other long term (current) drug therapy
CPT/HCPCS: 36415; 64493; 64494; 85610; J3301; Q9967

== ENCOUNTER → 2020-09-01 | Outpatient (CLI) | payer MEDICARE, MEDICAID ==
[~2020-09-01] MED LIST changes: +BUPIVACAINE HCL 0.25% 30ML VIAL As Ordered ONE; +ISOVUE-M 300 61% 15ML VIAL As Ordered ONE; +LIDOCAINE 1% SDV 30ML VIAL As Ordered ONE; +NORCO, ANEXSIA 5/325MG TABLET (HYDROcodone/ACETAMINOPHEN) As Ordered ONE; +TRIAMCINOLONE ACETONIDE SUSP 40 MG/ML VIAL (J3301) As Ordered ONE; +diazePAM 5MG TABLET As Ordered ONE
--- NOTE | 2020-09-01 17:14 | REP ---
INDICATION: BILATERAL LFBT L4-L5, L5-S1. COMPARISON: None. TECHNIQUE: For C-arm views lower lumbar spine. FINDINGS: Mylo are seen along the lower lumbar spine. A small amount of contrast is injected. IMPRESSION: 30 seconds of fluoroscopy time was utilized. <Electronically signed by Riley Laboy > 09/01/20 [id number]
--- NOTE | 2020-09-02 23:55 | ECWPNPC ---
PATIENT NAME: GELY CAMPA : 1965 GENDER: MALE VISIT DATE: 09/01/2020 DISCHARGE DATE: 09/01/20 1249 VISIT LOCKED DATE TIME: PHYSICIAN: LILA DEGROOT MD RESOURCE: LILA DEGROOT MD REASON FOR APPOINTMENT 1. BILATERAL THERAPEUTIC LUMBAR FACET BLOCK L4-L5-L5-S1 HISTORY OF PRESENT ILLNESS GENERAL: -. FALL RISK SCREENING: SCREENING : NO FALLS REPORTED IN THE LAST YEAR. PAIN SCREENING: PATIENT HAS A COMPLAINT OF ACUTE OR CHRONIC PAIN :YES LOCATION OF PAIN:LOW BACK, LEFT HIP INTENSITY OF PAIN (SCALE OF 1 TO 10):6 5-6 WITH ACTIVITY, 3-4 AT REST WHAT DOES YOUR PAIN FEEL LIKE:ACHING, BURNING, CONTINOUS, SHARP, THROBBING DURATION:CONTINOUS, CONSTANT PAIN IS INCREASED BY:ACTIVITIES, PROLONGED STANDING PAIN IS DECREASED BY:USE OF PAIN MEDICATIONS, OTHERS REST NURSING NOTE: -. PAIN CENTER INTAKE QUESTIONS: DO YOU HAVE A HISTORY OF MRSA? :NO DO YOU TAKE A BLOOD THINNERS? :YES COUMADIN LAST DOSE 08/27/20. LOVENOX LAST DOSE 08/31/20. DO YOU HAVE ANY BLEEDING DISORDERS? :YES FACTOR V LEIDEN AND ANTIPHOSPHOLID ANY NEW NUMBNESS OR WEAKNESS IN YOUR LEGS OR ARMS? :NO ANY PACEMAKER,DEFIBRILLATOR, OR DORSAL COLUMN STIMULATOR? :NO DO YOU HAVE ANY RASHES OR OPEN SORES? :NO ARE YOU ALLERGIC TO IV DYE? :NO ARE YOU DIABETIC? :YES FSBS: 198 ANY NEW PROBLEMS WITH YOUR MEDICATIONS? :NO HAVE YOU RECEIVED A VACCINE IN THE PAST 30 DAYS? :NO DO YOU PLAN TO RECEIVE A VACCINE IN THE NEXT 21 DAYS? :NO DO YOU TAKE ANY IMMUNOSUPPRESSIVE MEDICATIONS? :NO ANY HISTORY OF SEIZURES? :NO ANY HISTORY OF CARDIAC ISSUES OR EVENTS? :NO DO YOU HAVE ANY KIDNEY OR LIVER DISEASE? :NO DO YOU HAVE SLEEP APNEA? :YES DO YOU WEAR A CPAP?YES ANY RECENT HEAD INJURY? :NO DO YOU HAVE ANY NEW INFECTIONS? :NO IS THERE A CHANCE YOU COULD BE ? :NO ARE YOU BREAST FEEDING? :NO WHEN DID YOU LAST EAT? : 08/31 2300 WHEN DID YOU LAST DRINK? : 09/01 0830 WHAT DID YOU LAST DRINK? : WATER NAME OF PERSON DRIVING YOU HOME? : ARNAUD (DAUGHTER) DO YOU HAVE ANY OTHER QUESTIONS OR CONCERNS? : NO CURRENT MEDICATIONS TAKING NEXIUM 40 MG CAPSULE DELAYED RELEASE 1 CAP(S) ORALLY TWICE A DAY TAKING DEPAKOTE 500 MG TABLET DELAYED RELEASE 1 TABLET ORALLY ONCE A DAY, NOTES: 08/31 PM TAKING MECLIZINE HCL 25 MG TABLET 1 TABLET NEEDED ORALLY TWICE DAILY TAKING LISINOPRIL 20 MG TABLET 1 TABLET ORALLY DAILY TAKING WARFARIN SODIUM 5 MG TABLET ORALLY SATURDAY - SATURDAY IS 5MG, NOTES: COUMADIN LAST DOSE 08/27. BRIDGED WITH LOVENOX WITH LAST DOSE 120MG BID 08/30 AT 2200 TAKING LIPITOR 40 MG TABLET 1 TABLET ORALLY ONCE A DAY TAKING TRAZODONE 50 50MG TABLET 02/21 ORAL 75MG AT BEDTIME, NOTES: 08/31 PM TAKING METFORMIN HCL 500 MG TABLET 2 TABLET WITH A MEAL ORALLY TWICE A DAY, NOTES: 08/31 1699 TAKING CHLORTHALIDONE 25 25 MG TABLET 1/2 TAB ORAL DAILY, NOTES: 08/31 PM TAKING FLONASE 50 MCG/ACT SUSPENSION 1 SPRAY IN EACH NOSTRIL NASALLY ONCE A DAY TAKING ZETIA 10 MG TABLET 1 TABLET ORALLY ONCE A DAY, NOTES: 09/01 AM TAKING BYDUREON 2 MG PEN-INJECTOR DIRECTED SUBCUTANEOUS ONCE A WEEK, NOTES: Saturday08/28/20 TAKING VALACYCLOVIR HCL 1 GM TABLET 1 TABLET ORALLY ONCE A DAY, NOTES: 08/31 PM TAKING ZOLOFT 50 MG TABLET 1 TABLET ORALLY ONCE A DAY TAKING ACETAMINOPHEN 650 MG TABLET EXTENDED RELEASE 3 TABLET ORALLY DAILY, NOTES: 08/31 PM TAKING SKELAXIN 800 MG TABLET 1 TABLET ORALLY THREE TIMES A DAY, NOTES: NOT RECENTLY TAKING PERCOCET 5-325 MG TABLET 1 TABLET NEEDED ORALLY 1 TAB TID X 1 WEEK, THEN 1 TAB BID X 2 WEEKS, THEN 1 TAB DAILY X 1 WEEK, THEN 1 TAB EVERY OTHER DAY THEN STO, NOTES: 09/01 AM TAKING ADVIL LIQUI-GELS MINIS 200 MG CAPSULE 1 CAPSULE WITH FOOD OR MILK NEEDED ORALLY THREE TIMES A DAY, NOTES: NOT RECENTLY NOT-TAKING IBUPROFEN 200 MG TABLET 4 TABLETS ORALLY EVERY 4 HOURS NEEDED MDD 2400 MG NOT-TAKING VALACYCLOVIR HCL 1 GM TABLET 1 TABLET ORALLY ONCE A DAY, NOTES: DUPLICATE NOT-TAKING DOXYCYCLINE HYCLATE 100 MG CAPSULE 1 CAPSULE ORALLY BID MEDICATION LIST REVIEWED AND RECONCILED WITH THE PATIENT PAST MEDICAL HISTORY GERD FRACTURED VERTEBRAE HIGH CHOLESTEROL STROKE HERPES DM CHRONIC PROSTATITIS KNEE PAIN BACK PAIN 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 ALLERGIES PENICILLIN (FOR ALLERGIES USE ONLY): HIVES - SIDE EFFECTS LATEX: HIVES/RASH EFFEXOR: ARON - SIDE EFFECTS GABAPENTIN: ALT METAL STATUS - SIDE EFFECTS TYLENOL WITH CODEINE: ANGRY THOUGHTS - SIDE EFFECTS JANUVIA: SWEATING/CHEST PAIN - SIDE EFFECTS CELEBREX: B/P INCREASE SURGICAL HISTORY REMOVAL BREAST CYSTS X2 APPENDECTOMY ABD SKIN CANCER REMOVED RIGHT KNEE TORN MENISCUS 06/22/2019 LEFT KNEE TORN MENISCUS AND CARTILAGE REPAIR 04/20/2020 FAMILY HISTORY FATHER: 62 YRS, DIAGNOSED WITH UNSPECIFIED HEART DISEASE MOTHER: ALIVE 75 YRS, HYPERTENSION, UNSPECIFIED HEART DISEASE, DIABETES SOCIAL HISTORY GENERAL: TOBACCO USE ARE YOU A:FORMER SMOKER HOW LONG HAS IT BEEN SINCE YOU LAST SMOKED?1-5 YEARS LATEX QUESTIONNAIRE LATEX ALLERGY : HAVE YOU EVER DEVELOPED ANY TYPE OF REACTION AFTER HANDLING LATEX PRODUCTS SUCH RUBBER GLOVES, CONDOMS, DIAPHRAGMS, BALLOONS, SOCKS, OR UNDERWEAR?YES - PLEASE INDICATE :RUBBER GLOVES LATEX ALLERGY : HAVE YOU EVER DEVELOPED ANY TYPE OF REACTION DURING OR AFTER DENTAL APPOINTMENT, VAGINAL/RECTAL EXAMINATION, SURGICAL PROCEDURE, OR ANY OTHER EXPOSURE?NO LATEX RISK : HAVE YOU EVER HAD ANY DIFFICULTY BREATHING OR HIVES AFTER EATING OR HANDLING ANY FRUITS, OR VEGETABLES; SUCH KIWI, BANANAS, STONE FRUITS, OR CHESTNUTSNO LATEX RISK : DO YOU HAVE A PREVIOUS PERSONAL HISTORY OF MORE THAN NINE SURGERIES, SPINA BIFIDA, OR REPEATED CATHERIZATIONS? NO LATEX RISK : ARE YOU FREQUENTLY EXPOSED TO LATEX PRODUCTS IN YOUR OCCUPATION?NO DATE ASKED : 08/30/2020 ALCOHOL USE: NO. ALCOHOL SCREENING DID YOU HAVE A DRINK CONTAINING ALCOHOL IN THE PAST YEAR?NO POINTS0 INTERPRETATIONNEGATIVE RECREATIONAL DRUG USE DRUG USE?NO CAFFEINE CAFFEINE USE?YES SEXUAL HX HAD SEX IN THE LAST 12 MONTHS (VAGINAL, ORAL, OR ANAL)?NO HAVE YOU EVER HAD AN STD?NO HIV / HEP-C SCREENING HIV TEST OFFERED TO PATIENT:YES DATE OFFERED:07/08/2018 HEP-C TEST OFFERED TO PATIENT:YES DATE OFFERED:07/08/2018 BROCHURE PROVIDED TO PATIENTNO BAPTISM [id number] NONE LANGUAGE LANGUAGES SPOKEN:SWISS EDUCATION LEVEL OF EDUCATION:FINISHED HIGH SCHOOL LEARNING BARRIERS / SPECIAL NEEDS CHANGE FROM LAST VISIT?NO BARRIERS TO LEARNING?NO HEARING IMPAIRED?NO VISION IMPAIRED?YES COGNITIVELY IMPAIRED?NO :CORRECTIVE LENSES READINESS TO LEARN?YES LEARNING PREFERENCES?NO LEARNING CAPABILITIES PRESENT?YES EMOTIONAL BARRIERS?NO SPECIAL DEVICES?YES :CANE NEEDED BIOMEDICAL ENGINEERING SUPERVISOR NEEDED?NO DOMESTIC VIOLENCE DO YOU FEEL SAFE IN YOUR ENVIRONMENT?YES OCCUPATION: RETIRED. DIET: NO CONCENTRATED SWEETS.. EXERCISE: NONE. MARITAL STATUS: SINGLE. OTHERS AT HOME: CHILD-SON. - PFS REFERRAL NEEDED?NO CLERGY REFERRAL NEEDED?NO PUBLIC HEALTH REFERRAL NEEDED?NO WAS THE PROVIDER NOTIFIED OF ANY PERTINENT INFO?NO HAS THE PATIENT BEEN EDUCATED REGARDING HIS/HER PLAN OF CARE?YES HAS THE PATIENT BEEN EDUCATED REGARDING PAIN, THE RISK FOR PAIN, THE IMPORTANCE OF EFFECTIVE PAIN MANAGEMENT, AND THE PAIN ASSESSMENT PROCESS?YES ADVANCE DIRECTIVE ADVANCE DIRECTIVE DISCUSSED WITH PATIENT:YES 07/10/2019 PATIENT HAS NO ADVANCED DIRECTIVES AND DECLINED HCP INFORMATION AT THIS TIME. JS HOSPITALIZATION/MAJOR DIAGNOSTIC PROCEDURE STROKE 2011 VITAL SIGNS WT 250.6 LBS, HT 68 IN, BMI 38.10 INDEX, BP 125/75 MM HG, HR 86 /MIN, RR 20 /MIN, TEMP 98.0 F, OXYGEN SAT % 98%, BLOOD GLUCOSE LEVEL 198, SAFE IN ENV? (Y/N) YES, NA INITIALS SC 10:24, REVIEWED BY: Amadou GUTIERREZ CLINICAL ASSESSMENT MANAGER. EXAMINATION GENERAL: A HISTORY AND PHYSICAL EXAM ON THE PATIENT WAS DONE ON 08/17/2020(DATE OF ORIGINAL ASSESSMENT) IN PREPARATION OF SURGERY/PROCEDURE. I HAVE NOW REASSESSED THIS PATIENT'S HEALTH STATUS AND PERFORMED AN UPDATED EXAM TODAY. ALL CHANGES IN THE PATIENT'S HISTORY, PHYSICAL EXAM, PRE-EXISTING CONDITONS, AND INDICATIONS/CONTRAINDICATIONS TO THE PLANNED PROCEDURE AND ANESTHESIA ARE DOCUMENTED AND EVALUATED BELOW. I ATTEST TO THE ADEQUACY AND APPROPRIATENESS OF MY ASSESSMENT, AND CONFIRM THE NECESSITY FOR THE PLANNED PROCEDURE. THE PATIENT IS ALERT, ORIENTED TIMES THREE AND COOPERATIVE. LUNGS ARE CLEAR TO AUSCULTATION. HEART SHOWS REGULAR RHYTHM, NO MURMURS AND NO GALLOPS. ASSESSMENTS LUMBAR FACET ARTHROPATHY - M12.88 (PRIMARY) TREATMENT LUMBAR FACET ARTHROPATHY [facility] FACET BLOCK (PAIN)[id number] COMPLETION OF PROCEDURAL VISIT WHEN MEETS CRITERIA MEDICATION: NORCO TABLET 5MG/325MG ORALLY (HYDROCODONE/ACETAMINOPHEN)EMY GUTIERREZ 09/01/2020 10:54:05 AM > VERIFIED ТАТЬЯНА GUTIERREZ 09/01/2020 11:04:31 AM > ADMINISTERED AT 1103. MEDICATION: VALIUM TAB 5MG ORALLY (DIAZEPAM)EMY GUTIERREZ 09/01/2020 10:54:21 AM > VERIFIED ТАТЬЯНА GUTIERREZ 09/01/2020 11:05:14 AM > ADMINISTERED AT 1103. SALINE ТАТЬЯНА CONTRERAS 09/01/2020 11:19:57 AM > 2 ATTEMPTS, FIRST ATTEMPT IN LEFT AC, POSITIVE FLASH, UNABLE TO ADVANCE IV CATHETER OR FLUSH, IV CATHETER DISCONTINUED, DSD APPLIED. SECOND ATTEMPT IN IN RIGHT HAND UNABLE TO OBTAIN FLASH, IV CATHETER REMOVED, DSD APPLIED. PATIENT TOLERATED PROCEDURE WELL. ТАТЬЯНА GUTIERREZ 09/01/2020 12:08:58 PM > 22G OBTAINED BY Willa AKHTAR RN ON FIRST ATTEMPT IN LEFT HAND, POSITIVE FLASH, POSITIVE FLUSH, NO S/S OF INFILTRATION, PATIENT TOLERATED WELL. OTHERS NOTES: PAT COMPLETED 08/30/20 M KIERAN KNIGHT. PROCEDURES PAIN NURSING RECORD PROCEDURE IN ROOM 1155, PHYSICIAN IN ROOM 1212, START 1218, FINISH 1223, PHYSICIAN OUT OF ROOM 1225, OUT OF ROOM 1230, ECG NORMAL SINUS, PATIENT SHIELDED YES, SAFETY STRAP YES, PREP CHLOROPREP Amadou GUTIERREZ RN, DRESSING TEGADERM DR. DEGROOT LOC: ТАТЬЯНА GUTIERREZ 09/01/2020 11:55:55 PM > 1. ALERT, ORIENTED LOC REMAINED AT BASELINE THROUGHOUT THE PROCEDURE RESP: ТАТЬЯНА GUTIERREZ 09/01/2020 11:55:55 PM > 1. REGULAR, NO DYSPNEA COLOR: ТАТЬЯНА GUTIERREZ 09/01/2020 11:55:55 PM > 1. PINK SKIN: ТАТЬЯНА GUTIERREZ 09/01/2020 11:55:55 PM > 1. WARM, DRY POSITION: ТАТЬЯНА GUTIERREZ 09/01/2020 11:55:55 PM > 1. PRONE VITALS: ANA SNELL 09/01/2020 11:22:31 AM > HR 74 02 96% BP 112/62 ANA SNELL 09/01/2020 11:35:49 AM > HR78 02 94% BP 129/69 ANA SNELL 09/01/2020 11:59:02 AM > HR 70 02 97% BP 115/65 ТАТЬЯНА GUTIERREZ 09/01/2020 12:04:37 PM > 161/106, 79, 98% RA, 18. ТАТЬЯНА GUTIERREZ 09/01/2020 12:06:05 PM > 157/81, 75, 97% RA, 18. ТАТЬЯНА GUTIERREZ 09/01/2020 12:15:43 PM > 136/70, 72, 98 % RA, 18. ТАТЬЯНА GUTIERREZ 09/01/2020 12:32:58 PM > POST PROCEDURE: 123/73, 76, 97% RA, 18. NOTES ТАТЬЯНА GUTIERREZ 09/01/2020 10:37:35 AM > TMR TEACHER SPOKE WITH HARSHAL IN LAB X 4943, SHE STATED SPECIMEN RECIEVED AND WILL TAKE 15-20 MINS TO RESULT. ТАТЬЯНА GUTIERREZ 09/01/2020 12:37:12 PM > PATIENT GIVEN SPECIAL INSTRUCTIONS BY DR. MIKAYLA ONEAL TO RESUME COUMADIN TODAY 09/01/20 AND LOVENOX ON 09/02/20. COMPLETION OF PROCEDURE APPOINTMENT: POST PAIN 3-07/30, DRESSING SITE DRY AND INTACT, IV DISCONTINUED, SITE CLEAR, CATHETER INTACT, GAIT STEADY, TEACHING COMPLETED, PATIENT ACKNOWLEDGES UNDERSTANDING YES PATIENT PROVIDED POST PROCEDURE PAIN DIARY, COVID SYMPTOM MONITORING INSTRUCTIONS AND POST PROCEDURE INSTRUCTIONS, HANDOUTS REVIEWED WITH PATIENT; PATIENT VERBALIZES UNDERSTANDING, NO QUESTIONS OR CONCERNS AT THIS TIME., PROCEDURE APPOINTMENT COMPLETED AT 1245 BY: Amadou GUTIERREZ RN. PN LUMBAR FACET BLOCK THERAPEUTIC PRE PROCEDURE DIAGNOSIS LUMBAR SPONDYLOSIS, LUMBOSACRAL SPONDYLOSIS POST PROCEDURE DIAGNOSIS LUMBAR SPONDYLOSIS, LUMBOSACRAL SPONDYLOSIS PROCEDURE BILATERAL L4-L5 AND BILATERAL L5-S1 LUMBAR FACET THERAPEUTIC BLOCK SURGEON DR. LILA DEGROOT OTOLARYNGOLOGIST NONE ANESTHESIA LOCAL PRE PROCEDURE NOTE THE PATIENT HAS A HISTORY OF CHRONIC LOW BACK PAIN. I EVALUATED THE PATIENT AND REVIEWED THE CHART. I WENT OVER THE RISKS, ALTERNATIVES, AND BENEFITS ASSOCIATED WITH THIS PROCEDURE. THE PATIENT WOULD LIKE TO PROCEED AND GIVES CONSENT TO PERFORM THE PROCEDURE. THE PATIENT DENIES UNEXPLAINABLE WEIGHT LOSS, FEVER, CHILLS, OR NEW CHANGES IN URINARY OR BOWEL CONTROL. THE PATIENT IS COVID-19 NEGATIVE DESCRIPTION OF PROCEDURE THE PATIENT WAS BROUGHT TO THE PROCEDURE ROOM AND PLACED IN THE PRONE POSITION. THE LUMBOSACRAL AREA WAS CLEANED WITH CHLORAPREP SOLUTION AND DRAPED ASEPTICALLY. THE PROCEDURE WAS DONE UNDER STERILE CONDITIONS. A TIMEOUT WAS PERFORMED WHERE THE CONSENTED SITE WAS VERIFIED WITH EVERYONE IN THE ROOM. UNDER FLUOROSCOPIC GUIDANCE, THE TARGET POINT WAS SELECTED AT THE RIGHT AND LEFT L4-L5 AND RIGHT AND LEFT L5-S1 FACET JOINTS. TARGET POINT WAS SELECTED AFTER LATERAL ROTATION AND TILT OF THE MAGNIFIER OF THE C-ARM. I CONFIRMED AGAIN THE SITE OF TARGET. LIDOCAINE 0.5% WAS USED TO NUMB THE SKIN AND THE SUBCUTANEOUS TISSUE BELOW IT. SPINAL NEEDLES, 22-GAUGE, WERE ADVANCED UNDER FLUOROSCOPIC GUIDANCE AND FOLLOWING PATIENT FEEDBACK UNTIL THE TARGETS WERE TOUCHED. THE POSITION OF THE NEEDLES WAS VERIFIED WITH AP AND LATERAL VIEWS. AFTER PROPER POSITION OF THE NEEDLES WAS ACHIEVED, ISOVUE-M DYE 30%, 0.1 ML, WAS INJECTED SHOWING ADEQUATE SPREAD OF THE DYE. KENALOG 10 MG WAS INJECTED AT EACH SITE. THEN, A SOLUTION OF 1.0 ML OF BUPIVACAINE 0.125% OF WAS USED TO FLUSH EACH SITE. THE MEDICATION WAS VERIFIED WITH THE NURSE. THERE WAS NO EVIDENCE OF BLOOD, PARESTHESIA OR CEREBROSPINAL FLUID DURING THE PROCEDURE. THE PATIENT WAS SENT TO THE RECOVERY ROOM. THE PATIENT WAS MOVING THE EXTREMITIES AND DOING WELL. THERE WERE NO COMPLICATIONS DURING THE PROCEDURE. ESTIMATED BLOOD LOSS WAS LESS THAN 5 ML. FLUOROSCOPY TIME WAS 30 SECONDS POST PROCEDURE NOTE DEPENDING ON THE RESULTS, CONSIDER DIAGNOSTIC TESTS TO CONSIDER RADIOFREQUENCY. THE PATIENT WILL BE SEEN IN A FOLLOW UP IN THE NEXT FEW WEEKS. I AM LOOKING FOR LONG LASTING RELIEF FOR THE PATIENT WITH THIS INTERVENTION. INSTRUCTIONS WERE GIVEN, QUESTIONS WERE ANSWERED, AND THE PATIENT EXPRESSED UNDERSTANDING AND AGREES WITH THE PLAN. I, MORENA SHER, DOCUMENTED THE ABOVE INFORMATION ACTING A SCRIBE FOR DR. DEGROOT. I HAVE REVIEWED THE ABOVE DOCUMENT, WRITTEN BY MORENA SHER, PRODUCTION MACHINE TENDER, AND I VERIFY THAT IT IS ACCURATE LABS LAB: PT-INR INR 0.92 ( - ) PROTIME 12.6 (12.5-14.3 - SECONDS) PROCEDURE CODES 21305 INJ PARAVERT F JNT L/S 1 LEV, MODIFIERS: 50 [id number] INJ PARAVERT F JNT L/S 2 LEV, MODIFIERS: 50 DISPOSITION & COMMUNICATION FOLLOW UP FOLLOW UP WITH COMMUNITY ENGAGEMENT SPECIALIST (REASON: POST BILATERAL THERAPEUTIC LUMBAR FACET BLOCK L4-L5, L5-S1) ELECTRONICALLY SIGNED BY LILA DEGROOT MD, MD ON 09/02/2020 AT 04:02 PM EDT DISCLAIMER : THIS IS A VISIT SUMMARY EXTRACTED FROM THE [employer] CHART. IT IS NOT A COPY OF THE [employer] PROGRESS NOTE. BRENT
== END ==
LOC: M PAIN 10:20
PROVIDERS: ATTEND Anesthesiology
DX: M12.88 Other specific arthropathies, not elsewhere classified, other specified site (principal); E11.9 Type 2 diabetes mellitus without complications; G47.30 Sleep apnea, unspecified; K21.9 Gastro-esophageal reflux disease without esophagitis; Z87.891 Personal history of nicotine dependence; Z88.0 Allergy status to penicillin; Z88.5 Allergy status to narcotic agent; Z88.8 Allergy status to other drugs, medicaments and biological substances; Z91.040 Latex allergy status; Z79.84 Long term (current) use of oral hypoglycemic drugs; Z79.899 Other long term (current) drug therapy

== ENCOUNTER → 2020-09-15 | Outpatient (CLI) | payer MEDICARE, MEDICAID ==
[~2020-09-15] MED LIST changes: -BUPIVACAINE HCL 0.25% 30ML VIAL As Ordered ONE; -ISOVUE-M 300 61% 15ML VIAL As Ordered ONE; -LIDOCAINE 1% SDV 30ML VIAL As Ordered ONE; -NORCO, ANEXSIA 5/325MG TABLET (HYDROcodone/ACETAMINOPHEN) As Ordered ONE; -TRIAMCINOLONE ACETONIDE SUSP 40 MG/ML VIAL (J3301) As Ordered ONE; -diazePAM 5MG TABLET As Ordered ONE
--- NOTE | 2020-09-17 03:29 | ECWPNPC ---
PATIENT NAME: GELY CAMPA : 1965 GENDER: MALE VISIT DATE: 09/15/2020 DISCHARGE DATE: 09/15/20 1406 VISIT LOCKED DATE TIME: PHYSICIAN: LULU MANCUSO RESOURCE: LULU MANCUSO REASON FOR APPOINTMENT 1. POST BILATERAL THERAPEUTIC LUMBAR FACET BLOCK L4-L5-L5-S1/DISCUSS MEDICATIONS HISTORY OF PRESENT ILLNESS DEPRESSION SCREENING: PHQ-2 (2015 EDITION) LITTLE INTEREST OR PLEASURE IN DOING THINGS?NOT AT ALL FEELING DOWN, DEPRESSED, OR HOPELESS?NOT AT ALL TOTAL SCORE0 GENERAL: HPI 55-YEAR-OLD MALE IN FOR A POST-BILATERAL THERAPEUTIC LUMBAR FACET BLOCK FOLLOW-UP. PATIENT FEELS THE PROCEDURE DID NOT HELP HIM ALL THAT MUCH FURTHER STATING HIS PAIN PRIOR TO THE PROCEDURE WAS 6 OUT OF 10 AND POSTPROCEDURE WAS A 4-5 OUT OF 10. HE RATES PAIN CURRENTLY AT A 4/10 AND DESCRIBES IT ACHING, AND SHOOTING.. -. FALL RISK SCREENING: SCREENING : NO FALLS REPORTED IN THE LAST YEAR. PAIN SCREENING: PATIENT HAS A COMPLAINT OF ACUTE OR CHRONIC PAIN :YES LOCATION OF PAIN:LOW BACK INTENSITY OF PAIN (SCALE OF 1 TO 10):4 WHAT DOES YOUR PAIN FEEL LIKE:ACHING, SHOOTING DURATION:CONTINOUS, CONSTANT, ALL DAY PAIN IS INCREASED BY:ACTIVITIES PAIN IS DECREASED BY:USE OF PAIN MEDICATIONS, OTHERS " NOTHING REALLY " NURSING NOTE: -. PAIN CENTER INTAKE QUESTIONS: DO YOU HAVE A HISTORY OF MRSA? :NO DO YOU TAKE A BLOOD THINNERS? :YES WARFARIN DO YOU HAVE ANY BLEEDING DISORDERS? :NO CLOTTING DISORDER ANY NEW NUMBNESS OR WEAKNESS IN YOUR LEGS OR ARMS? :NO ANY PACEMAKER,DEFIBRILLATOR, OR DORSAL COLUMN STIMULATOR? :NO DO YOU HAVE ANY RASHES OR OPEN SORES? :NO ARE YOU ALLERGIC TO IV DYE? :NO ARE YOU DIABETIC? :YES ANY NEW PROBLEMS WITH YOUR MEDICATIONS? :NO HAVE YOU RECEIVED A VACCINE IN THE PAST 30 DAYS? :NO DO YOU PLAN TO RECEIVE A VACCINE IN THE NEXT 21 DAYS? :YES IF SO WHAT VACCINE AND WHEN? 1ST COVID 10/18/2020 DO YOU NEED ANY PRESCRIPTION? :NO DO YOU TAKE ANY IMMUNOSUPPRESSIVE MEDICATIONS? :NO IS THERE A CHANCE YOU COULD BE ? :NO ARE YOU BREAST FEEDING? :NO CURRENT MEDICATIONS TAKING NEXIUM 40 MG CAPSULE DELAYED RELEASE 1 CAP(S) ORALLY TWICE A DAY TAKING DEPAKOTE 500 MG TABLET DELAYED RELEASE 1 TABLET ORALLY ONCE A DAY TAKING MECLIZINE HCL 25 MG TABLET 1 TABLET NEEDED ORALLY TWICE DAILY TAKING LISINOPRIL 20 MG TABLET 1 TABLET ORALLY DAILY TAKING WARFARIN SODIUM 5 MG TABLET ORALLY SATURDAY - SATURDAY IS 5MG, NOTES: COUMADIN LAST DOSE 08/27. BRIDGED WITH LOVENOX WITH LAST DOSE 120MG BID 08/30 AT 2200 TAKING LIPITOR 40 MG TABLET 1 TABLET ORALLY ONCE A DAY TAKING TRAZODONE 50 50MG TABLET 02/21 ORAL 75MG AT BEDTIME TAKING METFORMIN HCL 500 MG TABLET 2 TABLET WITH A MEAL ORALLY TWICE A DAY TAKING CHLORTHALIDONE 25 25 MG TABLET 1/2 TAB ORAL DAILY TAKING FLONASE 50 MCG/ACT SUSPENSION 1 SPRAY IN EACH NOSTRIL NASALLY ONCE A DAY TAKING ZETIA 10 MG TABLET 1 TABLET ORALLY ONCE A DAY TAKING BYDUREON 2 MG PEN-INJECTOR DIRECTED SUBCUTANEOUS ONCE A WEEK TAKING VALACYCLOVIR HCL 1 GM TABLET 1 TABLET ORALLY ONCE A DAY TAKING ZOLOFT 50 MG TABLET 1 TABLET ORALLY ONCE A DAY TAKING ACETAMINOPHEN 650 MG TABLET EXTENDED RELEASE 3 TABLET ORALLY DAILY TAKING ADVIL LIQUI-GELS MINIS 200 MG CAPSULE 1 CAPSULE WITH FOOD OR MILK NEEDED ORALLY THREE TIMES A DAY NOT-TAKING SKELAXIN 800 MG TABLET 1 TABLET ORALLY THREE TIMES A DAY, NOTES: NOT RECENTLY NOT-TAKING PERCOCET 5-325 MG TABLET 1 TABLET NEEDED ORALLY 1 TAB TID X 1 WEEK, THEN 1 TAB BID X 2 WEEKS, THEN 1 TAB DAILY X 1 WEEK, THEN 1 TAB EVERY OTHER DAY THEN STO NOT-TAKING IBUPROFEN 200 MG TABLET 4 TABLETS ORALLY EVERY 4 HOURS NEEDED MDD 2400 MG NOT-TAKING VALACYCLOVIR HCL 1 GM TABLET 1 TABLET ORALLY ONCE A DAY, NOTES: DUPLICATE NOT-TAKING DOXYCYCLINE HYCLATE 100 MG CAPSULE 1 CAPSULE ORALLY BID MEDICATION LIST REVIEWED AND RECONCILED WITH THE PATIENT PAST MEDICAL HISTORY GERD FRACTURED VERTEBRAE HIGH CHOLESTEROL STROKE HERPES DM CHRONIC PROSTATITIS KNEE PAIN BACK PAIN 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 ALLERGIES PENICILLIN (FOR ALLERGIES USE ONLY): HIVES - SIDE EFFECTS LATEX: HIVES/RASH EFFEXOR: ARON - SIDE EFFECTS GABAPENTIN: ALT METAL STATUS - SIDE EFFECTS TYLENOL WITH CODEINE: ANGRY THOUGHTS - SIDE EFFECTS JANUVIA: SWEATING/CHEST PAIN - SIDE EFFECTS CELEBREX: B/P INCREASE SURGICAL HISTORY REMOVAL BREAST CYSTS X2 APPENDECTOMY ABD SKIN CANCER REMOVED RIGHT KNEE TORN MENISCUS 06/22/2019 LEFT KNEE TORN MENISCUS AND CARTILAGE REPAIR 04/20/2020 RIGHT KNEE REPLACEMENT 10/27/2020 FAMILY HISTORY FATHER: 62 YRS, DIAGNOSED WITH UNSPECIFIED HEART DISEASE MOTHER: ALIVE 75 YRS, HYPERTENSION, UNSPECIFIED HEART DISEASE, DIABETES SOCIAL HISTORY GENERAL: TOBACCO USE ARE YOU A:FORMER SMOKER HOW LONG HAS IT BEEN SINCE YOU LAST SMOKED?1-5 YEARS LATEX QUESTIONNAIRE LATEX ALLERGY : HAVE YOU EVER DEVELOPED ANY TYPE OF REACTION AFTER HANDLING LATEX PRODUCTS SUCH RUBBER GLOVES, CONDOMS, DIAPHRAGMS, BALLOONS, SOCKS, OR UNDERWEAR?YES - PLEASE INDICATE :RUBBER GLOVES LATEX ALLERGY : HAVE YOU EVER DEVELOPED ANY TYPE OF REACTION DURING OR AFTER DENTAL APPOINTMENT, VAGINAL/RECTAL EXAMINATION, SURGICAL PROCEDURE, OR ANY OTHER EXPOSURE?NO LATEX RISK : HAVE YOU EVER HAD ANY DIFFICULTY BREATHING OR HIVES AFTER EATING OR HANDLING ANY FRUITS, OR VEGETABLES; SUCH KIWI, BANANAS, STONE FRUITS, OR CHESTNUTSNO LATEX RISK : DO YOU HAVE A PREVIOUS PERSONAL HISTORY OF MORE THAN NINE SURGERIES, SPINA BIFIDA, OR REPEATED CATHERIZATIONS? NO LATEX RISK : ARE YOU FREQUENTLY EXPOSED TO LATEX PRODUCTS IN YOUR OCCUPATION?NO DATE ASKED : 09/15/2020 ALCOHOL USE: NO. ALCOHOL SCREENING DID YOU HAVE A DRINK CONTAINING ALCOHOL IN THE PAST YEAR?NO POINTS0 INTERPRETATIONNEGATIVE RECREATIONAL DRUG USE DRUG USE?NO CAFFEINE CAFFEINE USE?YES SEXUAL HX HAD SEX IN THE LAST 12 MONTHS (VAGINAL, ORAL, OR ANAL)?NO HAVE YOU EVER HAD AN STD?NO HIV / HEP-C SCREENING HIV TEST OFFERED TO PATIENT:YES DATE OFFERED:07/08/2018 HEP-C TEST OFFERED TO PATIENT:YES DATE OFFERED:07/08/2018 BROCHURE PROVIDED TO PATIENTNO MANDAEISM [id number] NONE LANGUAGE LANGUAGES SPOKEN:UPPER SORBIAN EDUCATION LEVEL OF EDUCATION:FINISHED HIGH SCHOOL LEARNING BARRIERS / SPECIAL NEEDS CHANGE FROM LAST VISIT?NO BARRIERS TO LEARNING?NO HEARING IMPAIRED?NO VISION IMPAIRED?YES :CORRECTIVE LENSES COGNITIVELY IMPAIRED?NO READINESS TO LEARN?YES LEARNING PREFERENCES?NO LEARNING CAPABILITIES PRESENT?YES EMOTIONAL BARRIERS?NO SPECIAL DEVICES?YES :CANE NEEDED FRENCH EDGE OPERATOR NEEDED?NO DOMESTIC VIOLENCE DO YOU FEEL SAFE IN YOUR ENVIRONMENT?YES OCCUPATION: RETIRED. DIET: NO CONCENTRATED SWEETS.. EXERCISE: NONE. MARITAL STATUS: SINGLE. OTHERS AT HOME: CHILD-SON. - PFS REFERRAL NEEDED?NO CLERGY REFERRAL NEEDED?NO PUBLIC HEALTH REFERRAL NEEDED?NO WAS THE PROVIDER NOTIFIED OF ANY PERTINENT INFO?NO HAS THE PATIENT BEEN EDUCATED REGARDING HIS/HER PLAN OF CARE?YES HAS THE PATIENT BEEN EDUCATED REGARDING PAIN, THE RISK FOR PAIN, THE IMPORTANCE OF EFFECTIVE PAIN MANAGEMENT, AND THE PAIN ASSESSMENT PROCESS?YES ADVANCE DIRECTIVE ADVANCE DIRECTIVE DISCUSSED WITH PATIENT:YES 07/10/2019 PATIENT HAS NO ADVANCED DIRECTIVES AND DECLINED HCP INFORMATION AT THIS TIME. JS HOSPITALIZATION/MAJOR DIAGNOSTIC PROCEDURE STROKE 2012 REVIEW OF SYSTEMS CONSTITUTIONAL: ANY RECENT FEVER NO . CHILLS NO . WEIGHT CHANGE OF UNKNOWN REASONS NO . GASTROENTEROLOGY: NEW UNEXPLAINABLE CHANGES IN BOWEL CONTROL NO . CONSTIPATION NO . GENITOURINARY: ANY NEW CHANGE IN BLADDER CONTROL? NO . NEUROLOGY: NEW ONSET DIZZINESS OR NEUROLOGICAL CHANGES NOT MENTIONED NO . NEW NUMBNESS OR PAIN PATTERNS NOT MENTIONED AND PERTINENT TO TODAY'S VISIT NO . CARDIOLOGY: NEW CHEST PRESSURE NO . PATIENT DENIES NO . RESPIRATORY: UNEXPLAINABLE COUGH NO . NEW SHORTNESS OF BREATH NO . VITAL SIGNS WT 252 LBS, HT 68 IN, BMI 38.31 INDEX, BP 131/70 MM HG, HR 60 /MIN, RR 19 /MIN, TEMP 97.2 F, OXYGEN SAT % 99%, SAFE IN ENV? (Y/N) YES, NA INITIALS T.T 1:52PATIENT STATED THAT HE JUST DRANK A REDBULL ON HIS WAY TO HIS APPOINTMENT, CAUSING HIS BLOOD PRESSURE TO BE HIGH VICTOR MANUEL SMITH. EXAMINATION GENERAL EXAMINATION: GENERALNO ACUTE DISTRESS, WELL NOURISHED AND HYDRATED. PSYCHAPPROPRIATE MOOD AND AFFECT . LUNGS:CLEAR TO AUSCULTATION BILATERALLY, NO WHEEZES, RHONCHI, RALES. HEART:NO MURMURS, REGULAR RATE AND RHYTHM. ASSESSMENTS OTHER CHRONIC PAIN - G89.29 (PRIMARY) SPONDYLOSIS OF LUMBOSACRAL REGION - M47.817, RISK: (NULL) TREATMENT OTHER CHRONIC PAIN PAIN PROCEDURE LOGDATE OF [id number]/2021PROCEDURE:BILATERAL LUMBAR THERAPEUTIC FACET L4-L5 L5-C2NVSRSR OF PRE SEDATE5 MG VALIUM NORCO 5-325RESULT:PRE 10 POST 4-08/29- SPONDYLOSIS OF LUMBOSACRAL REGION REFILL PERCOCET TABLET, 5-325 MG, 1 TABLET NEEDED, ORALLY, Q6H PRN MDD 4, 30 DAY(S), 120, REFILLS 0 NOTES: 55-YEAR-OLD MALE IN FOR POST BILATERAL THERAPEUTIC LUMBAR FACET BLOCK FOLLOW-UP. GIVEN PRESENTING SYMPTOMS RECOMMEND CONTINUING WITH MEDICATIONS WITH FOLLOW-UP IN ONE MONTH. PATIENT HAS EXPRESSED UNDERSTANDING OF AND WAS IN AGREEMENT WITH TREATMENT PLAN. GIVEN TIME TO ASK QUESTIONS AND EXPRESS CONCERNS. [employer] REVIEWED AND DEMONSTRATES COMPLLIANCE. (REF #[id number] ) BRINGS IN MEDICATIONS WHICH IS APPROPRIATE FOR WHAT WAS DISPENSED. RECENT URINE TOXICOLOGY REVIEWED. NO UNAUTHORIZED MEDICATIONS. NO ILLICIT SUBSTANCES AND PRESCRIBED MEDICATIONS WERE PRESENT. PROCEDURE CODES [id number] ESTABILISHED PATIENT [facility] CHARGE DISPOSITION & COMMUNICATION FOLLOW UP 4 WEEKS (REASON: LOW BACK PAIN ) ELECTRONICALLY SIGNED BY VIKASH HOOKS ON 09/16/2020 AT 09:28 AM EDT DISCLAIMER : THIS IS A VISIT SUMMARY EXTRACTED FROM THE [employer] CHART. IT IS NOT A COPY OF THE [employer] PROGRESS NOTE. BRENT
== END ==
LOC: M PAIN 13:30
PROVIDERS: ATTEND Family Medicine
DX: G89.29 Other chronic pain (principal); M47.817 Spondylosis without myelopathy or radiculopathy, lumbosacral region; K21.9 Gastro-esophageal reflux disease without esophagitis; E78.00 Pure hypercholesterolemia, unspecified; E11.9 Type 2 diabetes mellitus without complications; Z86.73 Personal history of transient ischemic attack (TIA), and cerebral infarction without residual deficits; A60.02 Herpesviral infection of other male genital organs; N41.1 Chronic prostatitis; Z85.828 Personal history of other malignant neoplasm of skin; Z87.81 Personal history of (healed) traumatic fracture; Z87.891 Personal history of nicotine dependence; Z79.01 Long term (current) use of anticoagulants; Z79.84 Long term (current) use of oral hypoglycemic drugs; Z79.899 Other long term (current) drug therapy; Z88.0 Allergy status to penicillin; Z88.6 Allergy status to analgesic agent; Z88.8 Allergy status to other drugs, medicaments and biological substances; Z88.5 Allergy status to narcotic agent; Z91.040 Latex allergy status

== ENCOUNTER → 2020-09-30 | Outpatient (CLI) | payer MEDICARE, MEDICAID ==
[2020-09-30 16:58] LABS: ALBUMIN 3.9 GM/DL (3.2-5.2); ALT/SGPT 28 U/L (12-78); BILIRUBIN,TOTAL 0.5 MG/DL (0.2-1.0); BLOOD UREA NITROGEN 19 MG/DL (7-18); CALCIUM LEVEL 9.1 MG/DL (8.5-10.1); CARBON DIOXIDE LEVEL 27 MEQ/L (21-32); CHLORIDE LEVEL 100 MEQ/L (98-107); CREATININE FOR GFR 0.95 MG/DL (0.70-1.30); GLOMERULAR FILTRATION RATE > 60.0 (>56); GLUCOSE, FASTING 183 MG/DL (70-100); POTASSIUM SERUM 4.2 MEQ/L (3.5-5.1); SODIUM LEVEL 134 MEQ/L (136-145); TOTAL PROTEIN 7.2 GM/DL (6.4-8.2)
== END ==
LOC: M LAB 15:35
PROVIDERS: ATTEND Physician Assistant
DX: I11.9 Hypertensive heart disease without heart failure (principal)

== ENCOUNTER → 2020-10-13 | Outpatient (CLI) | payer MEDICARE, MEDICAID ==
--- NOTE | 2020-10-15 03:42 | ECWPNPC ---
PATIENT NAME: GELY CAMPA : 1965 GENDER: MALE VISIT DATE: 10/13/2020 DISCHARGE DATE: 10/13/20 1448 VISIT LOCKED DATE TIME: PHYSICIAN: LULU MANCUSO RESOURCE: LULU MANCUSO REASON FOR APPOINTMENT 1. LOW BACK PAIN HISTORY OF PRESENT ILLNESS GENERAL: HPI 55-YEAR-OLD MALE IN FOR CHRONIC PAIN FOLLOW-UP. HE RATES HIS PAIN CURRENTLY A 4 OUT OF 10 AND DESCRIBES IT ACHING, CONTINUOUS, SHARP, AND THROBBING.HE FEELS HIS MEDICATIONS ARE HELPFUL AND DENIES MED SIDE EFFECTS AT THIS TIME.. -. FALL RISK SCREENING: SCREENING : NO FALLS REPORTED IN THE LAST YEAR. PAIN SCREENING: PATIENT HAS A COMPLAINT OF ACUTE OR CHRONIC PAIN :YES LOCATION OF PAIN:LOW BACK, LEFT HIP INTENSITY OF PAIN (SCALE OF 1 TO 10):4 AVERAGE IS A 4 BUT GETS HIGH 5-6 WHAT DOES YOUR PAIN FEEL LIKE:ACHING, CONTINOUS, SHARP, THROBBING, SHOOTING DURATION:CONTINOUS, CONSTANT, AWAKENS FROM SLEEP PAIN IS INCREASED BY:ACTIVITIES, PROLONGED STANDING PAIN IS DECREASED BY:USE OF PAIN MEDICATIONS, SITTING, OTHERS REPOSITIONING NURSING NOTE: -. PAIN CENTER INTAKE QUESTIONS: DO YOU HAVE A HISTORY OF MRSA? :NO DO YOU TAKE A BLOOD THINNERS? :YES WARFARIN DO YOU HAVE ANY BLEEDING DISORDERS? :YES CLOTTING DISORDER-FACTOR IV, ANTILIPID ANY NEW NUMBNESS OR WEAKNESS IN YOUR LEGS OR ARMS? :NO ANY PACEMAKER,DEFIBRILLATOR, OR DORSAL COLUMN STIMULATOR? :NO DO YOU HAVE ANY RASHES OR OPEN SORES? :NO ARE YOU ALLERGIC TO IV DYE? :NO ARE YOU DIABETIC? :YES ANY NEW PROBLEMS WITH YOUR MEDICATIONS? :NO HAVE YOU RECEIVED A VACCINE IN THE PAST 30 DAYS? :YES SECOND COVID VACCINATION 10/08/2020 DO YOU PLAN TO RECEIVE A VACCINE IN THE NEXT 21 DAYS? :NO DO YOU NEED ANY PRESCRIPTION? :NO DO YOU TAKE ANY IMMUNOSUPPRESSIVE MEDICATIONS? :NO IS THERE A CHANCE YOU COULD BE ? :NO ARE YOU BREAST FEEDING? :NO CURRENT MEDICATIONS TAKING NEXIUM 40 MG CAPSULE DELAYED RELEASE 1 CAP(S) ORALLY TWICE A DAY TAKING DEPAKOTE 500 MG TABLET DELAYED RELEASE 1 TABLET ORALLY ONCE A DAY TAKING MECLIZINE HCL 25 MG TABLET 1 TABLET NEEDED ORALLY TWICE DAILY TAKING LISINOPRIL 20 MG TABLET 1 TABLET ORALLY DAILY TAKING WARFARIN SODIUM 5 MG TABLET ORALLY SATURDAY - SATURDAY IS 5MG, NOTES: COUMADIN LAST DOSE 08/27. BRIDGED WITH LOVENOX WITH LAST DOSE 120MG BID 08/30 AT 2200 TAKING LIPITOR 40 MG TABLET 1 TABLET ORALLY ONCE A DAY TAKING TRAZODONE 50 50MG TABLET 02/21 ORAL 75MG AT BEDTIME TAKING METFORMIN HCL 500 MG TABLET 2 TABLET WITH A MEAL ORALLY TWICE A DAY TAKING CHLORTHALIDONE 25 25 MG TABLET / TAB ORAL DAILY TAKING FLONASE 50 MCG/ACT SUSPENSION 1 SPRAY IN EACH NOSTRIL NASALLY ONCE A DAY TAKING ZETIA 10 MG TABLET 1 TABLET ORALLY ONCE A DAY TAKING BYDUREON 2 MG PEN-INJECTOR DIRECTED SUBCUTANEOUS ONCE A WEEK TAKING VALACYCLOVIR HCL 1 GM TABLET 1 TABLET ORALLY ONCE A DAY TAKING ZOLOFT 50 MG TABLET 1 TABLET ORALLY ONCE A DAY TAKING ACETAMINOPHEN 650 MG TABLET EXTENDED RELEASE 3 TABLET ORALLY DAILY TAKING ADVIL LIQUI-GELS MINIS 200 MG CAPSULE 1 CAPSULE WITH FOOD OR MILK NEEDED ORALLY THREE TIMES A DAY TAKING PERCOCET 5-325 MG TABLET 1 TABLET NEEDED ORALLY Q6H PRN MDD 4 NOT-TAKING SKELAXIN 800 MG TABLET 1 TABLET ORALLY THREE TIMES A DAY, NOTES: NOT RECENTLY NOT-TAKING IBUPROFEN 200 MG TABLET 4 TABLETS ORALLY EVERY 4 HOURS NEEDED MDD 2400 MG NOT-TAKING VALACYCLOVIR HCL 1 GM TABLET 1 TABLET ORALLY ONCE A DAY, NOTES: DUPLICATE NOT-TAKING DOXYCYCLINE HYCLATE 100 MG CAPSULE 1 CAPSULE ORALLY BID MEDICATION LIST REVIEWED AND RECONCILED WITH THE PATIENT PAST MEDICAL HISTORY GERD FRACTURED VERTEBRAE HIGH CHOLESTEROL STROKE HERPES DM CHRONIC PROSTATITIS KNEE PAIN BACK PAIN 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 ALLERGIES PENICILLIN (FOR ALLERGIES USE ONLY): HIVES - SIDE EFFECTS LATEX: HIVES/RASH EFFEXOR: ARON - SIDE EFFECTS GABAPENTIN: ALT METAL STATUS - SIDE EFFECTS TYLENOL WITH CODEINE: ANGRY THOUGHTS - SIDE EFFECTS JANUVIA: SWEATING/CHEST PAIN - SIDE EFFECTS CELEBREX: B/P INCREASE SOCIAL HISTORY GENERAL: TOBACCO USE ARE YOU A:FORMER SMOKER HOW LONG HAS IT BEEN SINCE YOU LAST SMOKED?1-5 YEARS LATEX QUESTIONNAIRE LATEX ALLERGY : HAVE YOU EVER DEVELOPED ANY TYPE OF REACTION AFTER HANDLING LATEX PRODUCTS SUCH RUBBER GLOVES, CONDOMS, DIAPHRAGMS, BALLOONS, SOCKS, OR UNDERWEAR?YES - PLEASE INDICATE :RUBBER GLOVES LATEX ALLERGY : HAVE YOU EVER DEVELOPED ANY TYPE OF REACTION DURING OR AFTER DENTAL APPOINTMENT, VAGINAL/RECTAL EXAMINATION, SURGICAL PROCEDURE, OR ANY OTHER EXPOSURE?NO LATEX RISK : HAVE YOU EVER HAD ANY DIFFICULTY BREATHING OR HIVES AFTER EATING OR HANDLING ANY FRUITS, OR VEGETABLES; SUCH KIWI, BANANAS, STONE FRUITS, OR CHESTNUTSNO LATEX RISK : DO YOU HAVE A PREVIOUS PERSONAL HISTORY OF MORE THAN NINE SURGERIES, SPINA BIFIDA, OR REPEATED CATHERIZATIONS? NO LATEX RISK : ARE YOU FREQUENTLY EXPOSED TO LATEX PRODUCTS IN YOUR OCCUPATION?NO DATE ASKED : 10/13/2020 ALCOHOL USE: NO. ALCOHOL SCREENING DID YOU HAVE A DRINK CONTAINING ALCOHOL IN THE PAST YEAR?NO POINTS0 INTERPRETATIONNEGATIVE RECREATIONAL DRUG USE DRUG USE?NO CAFFEINE CAFFEINE USE?YES SEXUAL HX HAD SEX IN THE LAST 12 MONTHS (VAGINAL, ORAL, OR ANAL)?NO HAVE YOU EVER HAD AN STD?NO HIV / HEP-C SCREENING HIV TEST OFFERED TO PATIENT:YES DATE OFFERED:07/08/2018 HEP-C TEST OFFERED TO PATIENT:YES DATE OFFERED:07/08/2018 BROCHURE PROVIDED TO PATIENTNO MANDAEISM [id number] NONE LANGUAGE LANGUAGES SPOKEN:TURKISH EDUCATION LEVEL OF EDUCATION:FINISHED HIGH SCHOOL LEARNING BARRIERS / SPECIAL NEEDS CHANGE FROM LAST VISIT?NO BARRIERS TO LEARNING?NO HEARING IMPAIRED?NO VISION IMPAIRED?YES :CORRECTIVE LENSES COGNITIVELY IMPAIRED?NO READINESS TO LEARN?YES LEARNING PREFERENCES?NO LEARNING CAPABILITIES PRESENT?YES EMOTIONAL BARRIERS?NO SPECIAL DEVICES?YES :CANE NEEDED 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 DIET: NO CONCENTRATED SWEETS.. EXERCISE: NONE. MARITAL STATUS: SINGLE. OTHERS AT HOME: CHILD-SON. - PFS REFERRAL NEEDED?NO CLERGY REFERRAL NEEDED?NO PUBLIC HEALTH REFERRAL NEEDED?NO WAS THE PROVIDER NOTIFIED OF ANY PERTINENT INFO?NO HAS THE PATIENT BEEN EDUCATED REGARDING HIS/HER PLAN OF CARE?YES HAS THE PATIENT BEEN EDUCATED REGARDING PAIN, THE RISK FOR PAIN, THE IMPORTANCE OF EFFECTIVE PAIN MANAGEMENT, AND THE PAIN ASSESSMENT PROCESS?YES ADVANCE DIRECTIVE ADVANCE DIRECTIVE DISCUSSED WITH PATIENT:YES 07/10/2019 PATIENT HAS NO ADVANCED DIRECTIVES AND DECLINED HCP INFORMATION AT THIS TIME. JS REVIEW OF SYSTEMS CONSTITUTIONAL: ANY RECENT FEVER NO . CHILLS NO . WEIGHT CHANGE OF UNKNOWN REASONS NO . GASTROENTEROLOGY: NEW UNEXPLAINABLE CHANGES IN BOWEL CONTROL NO . CONSTIPATION NO . GENITOURINARY: ANY NEW CHANGE IN BLADDER CONTROL? NO . NEUROLOGY: NEW ONSET DIZZINESS OR NEUROLOGICAL CHANGES NOT MENTIONED NO . NEW NUMBNESS OR PAIN PATTERNS NOT MENTIONED AND PERTINENT TO TODAY'S VISIT NO . CARDIOLOGY: NEW CHEST PRESSURE NO . PATIENT DENIES NO . RESPIRATORY: UNEXPLAINABLE COUGH NO . NEW SHORTNESS OF BREATH NO . VITAL SIGNS WT 251.0 LBS, HT 68 IN, BMI 38.16 INDEX, BP 118/61 MM HG, HR 89 /MIN, RR 18 /MIN, TEMP 98.3 F, OXYGEN SAT % 98%, SAFE IN ENV? (Y/N) YES, NA INITIALS AW 1417, REVIEWED BY: ASHLIE MERRITT MA. EXAMINATION GENERAL EXAMINATION: GENERALNO ACUTE DISTRESS, WELL NOURISHED AND HYDRATED. PSYCHAPPROPRIATE MOOD AND AFFECT . LUNGS:CLEAR TO AUSCULTATION BILATERALLY, NO WHEEZES, RHONCHI, RALES. HEART:NO MURMURS, REGULAR RATE AND RHYTHM. 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 GIVEN PRESENTING SYMPTOMS RECOMMEND CONTINUATION OF CURRENT MEDICATION REGIMEN WITH FOLLOW-UP IN 3 MONTHS. PATIENT HAS EXPRESSED UNDERSTANDING OF AND WAS IN AGREEMENT WITH TREATMENT PLAN. GIVEN TIME BEST QUESTIONS AND EXPRESS CONCERNS. [employer] REGISTRY REVIEWED AND DEMONSTRATES COMPLLIANCE. (REF # [id number] ) BRINGS IN MEDICATIONS WHICH IS APPROPRIATE FOR WHAT WAS DISPENSED. RECENT URINE TOXICOLOGY REVIEWED. NO UNAUTHORIZED MEDICATIONS. NO ILLICIT SUBSTANCES AND PRESCRIBED MEDICATIONS WERE PRESENT. PROCEDURE CODES FA211 ESTABILISHED PATIENT [facility] CHARGE DISPOSITION & COMMUNICATION FOLLOW UP 3 MONTHS (REASON: BACK PAIN ) ELECTRONICALLY SIGNED BY VIKASH HOOKS ON 10/14/2020 AT 12:58 PM EDT DISCLAIMER : THIS IS A VISIT SUMMARY EXTRACTED FROM THE [employer]. CHART. IT IS NOT A COPY OF THE [employer]. PROGRESS NOTE. MTDD
== END ==
LOC: M PAIN 14:15
PROVIDERS: ATTEND Family Medicine
DX: M47.817 Spondylosis without myelopathy or radiculopathy, lumbosacral region (principal); K21.9 Gastro-esophageal reflux disease without esophagitis; E78.00 Pure hypercholesterolemia, unspecified; E11.9 Type 2 diabetes mellitus without complications; Z85.828 Personal history of other malignant neoplasm of skin; N41.9 Inflammatory disease of prostate, unspecified; Z88.0 Allergy status to penicillin; Z88.8 Allergy status to other drugs, medicaments and biological substances; Z91.040 Latex allergy status; Z79.01 Long term (current) use of anticoagulants; Z79.891 Long term (current) use of opiate analgesic; Z79.899 Other long term (current) drug therapy; Z79.84 Long term (current) use of oral hypoglycemic drugs; Z86.73 Personal history of transient ischemic attack (TIA), and cerebral infarction without residual deficits

== ENCOUNTER → 2021-01-12 | Outpatient (CLI) | payer MEDICARE, MEDICAID ==
[~2021-01-12] MED LIST changes: -DOXY100C; +DOXY100C3
== END ==
LOC: M PAIN 14:15
PROVIDERS: ATTEND Anesthesiology
DX: M47.817 Spondylosis without myelopathy or radiculopathy, lumbosacral region (principal); M47.816 Spondylosis without myelopathy or radiculopathy, lumbar region; K21.9 Gastro-esophageal reflux disease without esophagitis; E78.00 Pure hypercholesterolemia, unspecified; E11.9 Type 2 diabetes mellitus without complications; Z85.828 Personal history of other malignant neoplasm of skin; Z86.73 Personal history of transient ischemic attack (TIA), and cerebral infarction without residual deficits; N41.1 Chronic prostatitis; Z88.0 Allergy status to penicillin; Z79.84 Long term (current) use of oral hypoglycemic drugs; Z79.01 Long term (current) use of anticoagulants; Z79.899 Other long term (current) drug therapy

== ENCOUNTER → 2021-04-24 | Outpatient (REF) | payer MEDICARE, MEDICAID | LOC: M LAB REF 17:23 | PROVIDERS: ATTEND Otolaryngology | DX: K13.21 Leukoplakia of oral mucosa, including tongue (principal) ==

== ENCOUNTER → 2021-05-10 | Outpatient (CLI) | payer MEDICARE, MEDICAID ==
[~2021-05-10] MED LIST changes: -LISI-898 PO; +LISI5TAB11 PO
== END ==
LOC: M PAIN 14:30
PROVIDERS: ATTEND Anesthesiology
DX: M47.816 Spondylosis without myelopathy or radiculopathy, lumbar region (principal); K21.9 Gastro-esophageal reflux disease without esophagitis; E78.00 Pure hypercholesterolemia, unspecified; E11.9 Type 2 diabetes mellitus without complications; Z85.828 Personal history of other malignant neoplasm of skin; Z86.73 Personal history of transient ischemic attack (TIA), and cerebral infarction without residual deficits; Z87.891 Personal history of nicotine dependence; Z79.01 Long term (current) use of anticoagulants; Z79.891 Long term (current) use of opiate analgesic; Z79.84 Long term (current) use of oral hypoglycemic drugs; Z79.899 Other long term (current) drug therapy; Z88.0 Allergy status to penicillin; Z88.8 Allergy status to other drugs, medicaments and biological substances; Z91.040 Latex allergy status

== ENCOUNTER → 2021-05-12 | Outpatient (CLI) | payer MEDICARE, MEDICAID | LOC: M PLARAD 12:44 | PROVIDERS: ATTEND Otolaryngology | DX: C02.1 Malignant neoplasm of border of tongue (principal) ==

== ENCOUNTER → 2021-06-05 | Outpatient (CLI) | payer MEDICARE, MEDICAID | LOC: M PLARAD 12:00 | PROVIDERS: ATTEND Otolaryngology Plastic Surgery within the Head & Neck | DX: C01 Malignant neoplasm of base of tongue (principal) | CPT/HCPCS: 78815; A9552 ==

== ENCOUNTER 2021-07-09 22:47 | Emergency (ER) | payer MEDICARE, MEDICAID ==
[~2021-07-09] VITALS: Ht 172.7 cm; Wt 113.6 kg
[2021-07-10] MEDS ORDERED: SILVER NITRATE APPLICATOR TOP ONE (01:10)
[2021-07-10 01:11] LABS: BASO # 0.1 10^3/uL (0.0-0.2); BASO % 0.7 % (0.0-1.0); EOS # 0.3 10^3/uL (0.0-0.5); EOS % 4.3 % (0.0-3.0); HEMATOCRIT 38.5 % (42.0-52.0); HEMOGLOBIN 13.3 g/dl (13.5-17.5); LYMPH # 1.9 10^3/uL (1.5-5.0); LYMPH % 25.2 % (24.0-44.0); MEAN CORPUSCULAR HEMOGLOBIN 31.7 pg (27.0-33.0); MEAN CORPUSCULAR HGB CONC 34.5 g/dl (32.0-36.5); MEAN CORPUSCULAR VOLUME 91.9 fl (80.0-96.0); MONO # 0.7 10^3/uL (0.0-0.8); MONO % 8.5 % (2.0-8.0); NEUTROPHILS # 4.7 10^3/uL (1.5-8.5); NEUTROPHILS % 60.9 % (36.0-66.0); PLATELET COUNT, AUTOMATED 246 10^3/uL (150-450); RED BLOOD COUNT 4.19 10^6/uL (4.30-6.10); WHITE BLOOD COUNT 7.7 10^3/uL (4.0-10.0)
[2021-07-10 01:21] LABS: INR 1.07; PROTHROMBIN TIME 14.3 SECONDS (12.7-14.5)
[2021-07-10 01:31] VITALS: BP 134/69
[2021-07-10 01:48] LABS: ALBUMIN 3.9 GM/DL (3.2-5.2); ALT/SGPT 78 U/L (12-78); BILIRUBIN,DIRECT < 0.1 MG/DL (0.0-0.2); BILIRUBIN,TOTAL 0.2 MG/DL (0.2-1.0); TOTAL PROTEIN 7.4 GM/DL (6.4-8.2)
== END 2021-07-10 01:39 | disposition home or self-care (01) ==
LOC: M ED 22:47
DX: T81.9XXA Unspecified complication of procedure, initial encounter (principal); E11.9 Type 2 diabetes mellitus without complications; I10 Essential (primary) hypertension; E78.5 Hyperlipidemia, unspecified; G47.33 Obstructive sleep apnea (adult) (pediatric); D68.2 Hereditary deficiency of other clotting factors; F32.A Depression, unspecified; F41.9 Anxiety disorder, unspecified; Z86.73 Personal history of transient ischemic attack (TIA), and cerebral infarction without residual deficits; Z88.0 Allergy status to penicillin; Z88.8 Allergy status to other drugs, medicaments and biological substances; Z91.040 Latex allergy status; Z79.01 Long term (current) use of anticoagulants; Z79.899 Other long term (current) drug therapy

== ENCOUNTER 2021-08-14 11:19 | Inpatient (IN) | payer MEDICARE, MEDICAID ==
[~2021-08-14] VITALS: Ht 172.7 cm; Wt 110.5 kg
[~2021-08-14 11:19] MED LIST changes: -METF-838; +METF-838 PO; -VALA1TAB5; +VALA1TAB5 PO
[2021-08-14 12:10] LABS: HEMATOCRIT 29.6 % (42.0-52.0); HEMOGLOBIN 10.3 g/dl (13.5-17.5); MEAN CORPUSCULAR HEMOGLOBIN 33.2 pg (27.0-33.0); MEAN CORPUSCULAR HGB CONC 34.8 g/dl (32.0-36.5); MEAN CORPUSCULAR VOLUME 95.5 fl (80.0-96.0); PLATELET COUNT, AUTOMATED 316 10^3/uL (150-450); WHITE BLOOD COUNT 14.4 10^3/uL (4.0-10.0)
[2021-08-14 12:24] LABS: INR 2.5; PROTHROMBIN TIME 27.4 SECONDS (12.7-14.5)
[2021-08-14 12:25] LABS: PARTIAL THROMBOPLASTIN TIME 50.3 SECONDS (25.9-37.0)
[2021-08-14] MEDS ORDERED: NS 3,270 ML in IV 1 EA IV ONE (12:30)
[2021-08-14 12:33] LABS: ANISOCYTOSIS 2+; LYMPHOCYTES 7 % (16-44); MONOCYTES 2 % (0-5); NEUTROPHILS 84 % (28-66); PLATELET ESTIMATE NORMAL (NORMAL)
[2021-08-14 12:41] LABS: ABG HCO3 20.5 MEQ/L (22.0-26.0); ABG O2 SATURATION 66.4 % (95.0-99.0); ABG PARTIAL PRESSURE CO2 35.6 mmHg (35.0-45.0); ABG STANDARD HCO3 20.6 MEQ/L (22.0-26.0); ABG TOTAL CO2 21.6 MEQ/L (22.0-29.0); ABG pH (ARTERIAL) 7.379 UNITS (7.350-7.450)
[2021-08-14 12:41] LABS: ALBUMIN 3.1 GM/DL (3.2-5.2); BILIRUBIN,DIRECT 0.1 MG/DL (0.0-0.2); BILIRUBIN,TOTAL 0.4 MG/DL (0.2-1.0); C REACTIVE PROTEIN QUANTITATIV 11.6 MG/DL (0.00-0.30); CALCIUM LEVEL 9.1 MG/DL (8.5-10.1); CREATININE FOR GFR 2.3 MG/DL (0.70-1.30); GLOMERULAR FILTRATION RATE 31.2 (>56); POTASSIUM SERUM 5.5 MEQ/L (3.5-5.1); TOTAL PROTEIN 6.1 GM/DL (6.4-8.2)
[2021-08-14 12:43] LABS: CK-MB VALUE MASS 3.8 NG/ML (<3.6); MB/CK RELATIVE INDEX 3.42 (< OR =4)
[2021-08-14 12:46] LABS: ABG PARTIAL PRESSURE O2 34.5 mmHg (75.0-100.0)
[2021-08-14] MEDS ORDERED: oxyCODONE 5MG TAB PO ONE (13:40)
[2021-08-14] MEDS ORDERED: cefTRIAXone SOD 2 GM in D5W MINI-BAG PLUS 50 ML IV ONE (13:40)
[2021-08-14] MEDS ORDERED: GABAPENTIN 300 MG CAP PO ONE (14:05)
[2021-08-14] MEDS ORDERED: HEPARIN SOD (PORCINE) 5000UNITS/ML 1ML VIAL/SYRINGE IV PRN (18:15)
[2021-08-14] MEDS ORDERED: VANCOMYCIN HCL 750 MG, VIAL MATE ADAPTER 1 EACH in NS 250 ML IV SCH (18:25)
[2021-08-14] MEDS ORDERED: GLUCAGON INJ 1MG VIAL SC PRN (18:25)
[2021-08-14] MEDS ORDERED: GLUCOSE 4GM CHEW TABLET PO PRN (18:25)
[2021-08-14] MEDS ORDERED: DEXTROSE 50% 50 ML SYRINGE IV PRN (18:25)
[2021-08-14] MEDS ORDERED: METF-838 PO (18:42)
[2021-08-14] MEDS ORDERED: TRAZ-189 PO (18:46)
[2021-08-14] MEDS ORDERED: WARF-60 PO (18:46)
[2021-08-14] MEDS ORDERED: GABA600T4 PO (18:52)
[2021-08-14] MEDS ORDERED: BYDU2INJ7 SC (18:52)
[2021-08-14] MEDS ORDERED: IBUP-1022 PO (18:52)
[2021-08-14] MEDS ORDERED: ZOLO100T PO (18:52)
[2021-08-14] MEDS ORDERED: OXYC10TA12 PO (18:52)
[2021-08-14] MEDS ORDERED: HOME MED LIST COMPLETE! XX SCH (18:55)
[2021-08-14] MEDS ORDERED: FLUTICASONE PROP 0.05% NASAL SPRAY 16 GM (FLONASE) NARES PRN (19:05)
[2021-08-14] MEDS: oxyCODONE 5MG TAB PO PRN (19:37)
[2021-08-14] MEDS: GABAPENTIN 300 MG CAP PO PRN (19:39)
[2021-08-14] MEDS: HEPARIN DRIP 25,000 UNITS in IV 1 EA IV SCH (19:47)
[2021-08-14] MEDS: HumaLOG INSULIN (NovoLOG) PER UNIT SC SCH (21:00)
[2021-08-14] MEDS: DIVALPROEX 500MG *ER* TAB PO SCH (21:04)
[2021-08-14] MEDS: PANTOPRAZOLE 40MG TAB (PROTONIX) PO SCH (21:04)
[2021-08-14] MEDS: SERTRALINE 100 MG TAB PO SCH (21:05)
[2021-08-14] MEDS: traZODone 100 MG TAB PO SCH (21:05)
[2021-08-14] MEDS ORDERED: VANCOMYCIN HCL 1,000 MG, VIAL MATE ADAPTER 1 EACH in NS 250 ML IV ONE ×2 (22:00→23:00)
[2021-08-14] MEDS ORDERED: NS 1,000 ML IV SCH (23:10)
[2021-08-14] MEDS ORDERED: PATIROMER SORBITEX CALCIUM 8.4 GM POWDER PACKET (VELTASSA) PO ONE (23:10)
[2021-08-15 00:28] VITALS: BP 120/56
[2021-08-15 01:19] LABS: CALCIUM LEVEL 8.2 MG/DL (8.5-10.1); CREATININE FOR GFR 1.91 MG/DL (0.70-1.30); GLOMERULAR FILTRATION RATE 38.7 (>56); POTASSIUM SERUM 4.7 MEQ/L (3.5-5.1)
[2021-08-15 01:20] VITALS: BP 113/54
[2021-08-15] MEDS: GABAPENTIN 300 MG CAP PO PRN ×2 (01:48→20:49)
[2021-08-15] MEDS: oxyCODONE 5MG TAB PO PRN ×3 (01:48→20:50)
[2021-08-15 03:30] LABS: MAGNESIUM LEVEL 1.9 MG/DL (1.8-2.4); PHOSPHORUS LEVEL 4.5 MG/DL (2.5-4.9)
[2021-08-15 04:27] VITALS: BP 139/60
[2021-08-15] MEDS: ACETAMINOPHEN TAB 650MG DOSE (2X325MG) PO PRN ×2 (05:01→16:53)
[2021-08-15 07:00] LABS: HEMATOCRIT 24.5 % (42.0-52.0); HEMOGLOBIN 8.5 g/dl (13.5-17.5); MEAN CORPUSCULAR HEMOGLOBIN 32.7 pg (27.0-33.0); MEAN CORPUSCULAR HGB CONC 34.7 g/dl (32.0-36.5); MEAN CORPUSCULAR VOLUME 94.2 fl (80.0-96.0); PLATELET COUNT, AUTOMATED 282 10^3/uL (150-450); WHITE BLOOD COUNT 8.9 10^3/uL (4.0-10.0)
[2021-08-15 07:13] LABS: INR 2.35; PROTHROMBIN TIME 26.1 SECONDS (12.7-14.5)
[2021-08-15 07:21] LABS: ERYTHROCYTE SEDIMENTATION RATE 106 mm/hr (0-20)
[2021-08-15 07:27] LABS: BLOOD UREA NITROGEN 45 MG/DL (7-18); CALCIUM LEVEL 8.9 MG/DL (8.5-10.1); CARBON DIOXIDE LEVEL 25 MEQ/L (21-32); CHLORIDE LEVEL 101 MEQ/L (98-107); CREATININE FOR GFR 1.29 MG/DL (0.70-1.30); GLOMERULAR FILTRATION RATE > 60.0 (>56); GLUCOSE, FASTING 139 MG/DL (70-100); MAGNESIUM LEVEL 2.1 MG/DL (1.8-2.4); PHOSPHORUS LEVEL 3.8 MG/DL (2.5-4.9); POTASSIUM SERUM 5.3 MEQ/L (3.5-5.1); SODIUM LEVEL 131 MEQ/L (136-145)
[2021-08-15 08:00] VITALS: BP 131/58
[2021-08-15] MEDS: HumaLOG INSULIN (NovoLOG) PER UNIT SC SCH ×4 (08:23→20:51)
[2021-08-15] MEDS: PANTOPRAZOLE 40MG TAB (PROTONIX) PO SCH ×2 (08:24→20:49)
[2021-08-15] MEDS: ATORVASTATIN 20 MG TAB PO SCH (08:24)
[2021-08-15] MEDS: valACYclovir HCL 500 MG TAB PO SCH (08:24)
[2021-08-15] MEDS: MECLIZINE 25 MG TABLET PO SCH (08:36)
[2021-08-15] MEDS: VANCOMYCIN HCL 750 MG, VIAL MATE ADAPTER 1 EACH in NS 250 ML IV SCH ×4 (08:37→22:51)
[2021-08-15] MEDS: cefTRIAXone SOD 1 GM in D5W MINI-BAG PLUS 50 ML IV SCH (13:51)
[2021-08-15] MEDS: HEPARIN DRIP 25,000 UNITS in IV 1 EA IV SCH (13:55)
[2021-08-15 16:00] VITALS: BP 139/63
[2021-08-15 20:19] VITALS: BP 133/66
[2021-08-15] MEDS: SERTRALINE 100 MG TAB PO SCH (20:48)
[2021-08-15] MEDS: traZODone 100 MG TAB PO SCH (20:49)
[2021-08-15] MEDS: DIVALPROEX 500MG *ER* TAB PO SCH (20:49)
[2021-08-16] VITALS (7 sets, daily range): BP systolic 129–144; BP diastolic 60–77
[2021-08-16] MEDS: ACETAMINOPHEN TAB 650MG DOSE (2X325MG) PO PRN (02:07)
[2021-08-16] MEDS: HEPARIN DRIP 25,000 UNITS in IV 1 EA IV SCH (05:33)
[2021-08-16 06:37] LABS: INR 1.35; PROTHROMBIN TIME 17.1 SECONDS (12.7-14.5)
[2021-08-16 06:50] LABS: VANCOMYCIN LEVEL TROUGH 11.8 UG/ML (10.0-20.0)
[2021-08-16 07:10] LABS: PARTIAL THROMBOPLASTIN TIME 76.8 SECONDS (25.9-37.0)
[2021-08-16] MEDS: HumaLOG INSULIN (NovoLOG) PER UNIT SC SCH ×4 (07:47→20:54)
[2021-08-16] MEDS: MECLIZINE 25 MG TABLET PO SCH (07:48)
[2021-08-16] MEDS: valACYclovir HCL 500 MG TAB PO SCH (07:48)
[2021-08-16] MEDS: ATORVASTATIN 20 MG TAB PO SCH (07:48)
[2021-08-16] MEDS: PANTOPRAZOLE 40MG TAB (PROTONIX) PO SCH ×2 (07:48→22:28)
[2021-08-16] MEDS: oxyCODONE 5MG TAB PO PRN ×2 (07:49→12:01)
[2021-08-16 08:26] LABS: BLOOD UREA NITROGEN 19 MG/DL (7-18); CALCIUM LEVEL 9.2 MG/DL (8.5-10.1); CARBON DIOXIDE LEVEL 30 MEQ/L (21-32); CHLORIDE LEVEL 102 MEQ/L (98-107); CREATININE FOR GFR 0.53 MG/DL (0.70-1.30); GLOMERULAR FILTRATION RATE > 60.0 (>56); GLUCOSE, FASTING 148 MG/DL (70-100); POTASSIUM SERUM 4.5 MEQ/L (3.5-5.1); SODIUM LEVEL 137 MEQ/L (136-145)
[2021-08-16 09:36] LABS: BASO % 0.4 % (0.0-1.0); EOS # 0.1 10^3/uL (0.0-0.5); EOS % 2.4 % (0.0-3.0); HEMATOCRIT 25.5 % (42.0-52.0); HEMOGLOBIN 8.6 g/dl (13.5-17.5); LYMPH # 1.4 10^3/uL (1.5-5.0); LYMPH % 24.9 % (24.0-44.0); MEAN CORPUSCULAR HEMOGLOBIN 32.5 pg (27.0-33.0); MEAN CORPUSCULAR HGB CONC 33.7 g/dl (32.0-36.5); MEAN CORPUSCULAR VOLUME 96.2 fl (80.0-96.0); MONO # 0.6 10^3/uL (0.0-0.8); MONO % 10.2 % (2.0-8.0); NEUTROPHILS # 3.4 10^3/uL (1.5-8.5); NEUTROPHILS % 61.7 % (36.0-66.0); PLATELET COUNT, AUTOMATED 322 10^3/uL (150-450); RED BLOOD COUNT 2.65 10^6/uL (4.30-6.10); WHITE BLOOD COUNT 5.5 10^3/uL (4.0-10.0)
[2021-08-16 09:49] LABS: ALBUMIN 2.7 GM/DL (3.2-5.2); ALT/SGPT 24 U/L (12-78); BILIRUBIN,TOTAL 0.3 MG/DL (0.2-1.0); TOTAL PROTEIN 5.6 GM/DL (6.4-8.2)
[2021-08-16] MEDS: VANCOMYCIN HCL 750 MG, VIAL MATE ADAPTER 1 EACH in NS 250 ML IV SCH ×2 (09:59→11:56)
[2021-08-16 10:02] LABS: ERYTHROCYTE SEDIMENTATION RATE 106 mm/hr (0-20)
[2021-08-16] MEDS: GABAPENTIN 300 MG CAP PO PRN (10:11)
[2021-08-16] MEDS: D5W/0.45% SODIUM CHLORIDE 1,000 ML IV SCH ×2 (10:29→21:47)
[2021-08-16] MEDS: cefTRIAXone SOD 1 GM in D5W MINI-BAG PLUS 50 ML IV SCH (14:06)
[2021-08-16] MEDS ORDERED: HYDROMORPHONE HCL 0.5 MG/ 0.5 ML SYRINGE (J1170 PER 1) IV ONE (14:15)
[2021-08-16] MEDS ORDERED: KETOROLAC 30 MG/ML 1ML VIAL IV ONE (14:15)
[2021-08-16] MEDS: VANCOMYCIN HCL 1,000 MG, VIAL MATE ADAPTER 1 EACH in NS 250 ML IV SCH (17:33)
[2021-08-16] MEDS ORDERED: LIDOCAINE W/EPINEPHRINE 1% 20ML VIAL As Ordered ONE (18:05)
[2021-08-16] MEDS ORDERED: ONDANSETRON 4MG/2ML VIAL As Ordered ONE (18:08)
[2021-08-16] MEDS ORDERED: propofoL 200 MG/20 ML VIAL As Ordered ONE (18:08)
[2021-08-16] MEDS ORDERED: ROCURONIUM BROMIDE 50 MG/5 ML VIAL As Ordered ONE (18:08)
[2021-08-16] MEDS ORDERED: LIDOCAINE 2% 100MG/5ML SDV (FOR ANES.) As Ordered ONE (18:08)
[2021-08-16] MEDS ORDERED: fentaNYL 100 MCG/2 ML INJECTION As Ordered ONE (18:08)
[2021-08-16] MEDS ORDERED: dexameTHASONE 4 MG/ML 1ML VIAL (J1100 PER 1MG) As Ordered ONE (18:08)
[2021-08-16] MEDS ORDERED: SUGAMMADEX SODIUM 500 MG/5 ML VIAL (BRIDION) As Ordered ONE (18:57)
[2021-08-16] MEDS ORDERED: BACITRACIN OINTMENT 30GM TUBE As Ordered ONE (19:18)
[2021-08-16] MEDS ORDERED: ACETAMINOPHEN 1000MG 100ML IV BTL (OFIRMEV) (J0131 PER 10MG) As Ordered ONE (19:18)
[2021-08-16] MEDS ORDERED: fentaNYL 100 MCG/2 ML INJECTION IV PRN (19:50)
[2021-08-16] MEDS ORDERED: ONDANSETRON 4MG/2ML VIAL IV PRN (19:50)
[2021-08-16] MEDS ORDERED: LR 1,000 ML IV SCH (19:50)
[2021-08-16] MEDS: BACITRACIN OINTMENT 30GM TUBE TOP SCH (21:00)
[2021-08-16] MEDS: DIVALPROEX 500MG *ER* TAB PO SCH (22:28)
[2021-08-16] MEDS: traZODone 100 MG TAB PO SCH (22:29)
[2021-08-16] MEDS: SERTRALINE 100 MG TAB PO SCH (22:29)
[2021-08-17] MEDS: oxyCODONE 5MG TAB PO PRN ×6 (00:11→22:13)
[2021-08-17] MEDS: VANCOMYCIN HCL 1,000 MG, VIAL MATE ADAPTER 1 EACH in NS 250 ML IV SCH ×2 (01:16→10:31)
[2021-08-17 04:00] VITALS: BP 141/74
[2021-08-17 05:27] LABS: BASO % 0.3 % (0.0-1.0); EOS % 0.2 % (0.0-3.0); HEMATOCRIT 25.7 % (42.0-52.0); HEMOGLOBIN 8.6 g/dl (13.5-17.5); LYMPH # 0.9 10^3/uL (1.5-5.0); LYMPH % 15.4 % (24.0-44.0); MEAN CORPUSCULAR HGB CONC 33.5 g/dl (32.0-36.5); MEAN CORPUSCULAR VOLUME 95.5 fl (80.0-96.0); MONO # 0.5 10^3/uL (0.0-0.8); MONO % 7.7 % (2.0-8.0); NEUTROPHILS # 4.6 10^3/uL (1.5-8.5); NEUTROPHILS % 76.1 % (36.0-66.0); PLATELET COUNT, AUTOMATED 334 10^3/uL (150-450); RED BLOOD COUNT 2.69 10^6/uL (4.30-6.10); WHITE BLOOD COUNT 6.1 10^3/uL (4.0-10.0)
[2021-08-17 05:40] LABS: INR 1.09; PROTHROMBIN TIME 14.5 SECONDS (12.7-14.5)
[2021-08-17 05:45] LABS: BLOOD UREA NITROGEN 13 MG/DL (7-18); CALCIUM LEVEL 8.6 MG/DL (8.5-10.1); CARBON DIOXIDE LEVEL 30 MEQ/L (21-32); CHLORIDE LEVEL 100 MEQ/L (98-107); CREATININE FOR GFR 0.54 MG/DL (0.70-1.30); GLOMERULAR FILTRATION RATE > 60.0 (>56); GLUCOSE, FASTING 176 MG/DL (70-100); POTASSIUM SERUM 4.8 MEQ/L (3.5-5.1); SODIUM LEVEL 135 MEQ/L (136-145)
[2021-08-17] MEDS: GABAPENTIN 300 MG CAP PO PRN ×2 (06:28→23:13)
[2021-08-17] MEDS: HumaLOG INSULIN (NovoLOG) PER UNIT SC SCH ×4 (07:30→21:00)
[2021-08-17 07:54] VITALS: BP 135/74
[2021-08-17] MEDS: PANTOPRAZOLE 40MG TAB (PROTONIX) PO SCH ×2 (08:30→22:11)
[2021-08-17] MEDS: ATORVASTATIN 20 MG TAB PO SCH (08:30)
[2021-08-17] MEDS: valACYclovir HCL 500 MG TAB PO SCH (08:30)
[2021-08-17] MEDS ORDERED: HEPARIN SOD (PORCINE) 5000UNITS/ML 1ML VIAL/SYRINGE IV PRN (09:00)
[2021-08-17] MEDS: MECLIZINE 25 MG TABLET PO SCH (09:00)
[2021-08-17 09:39] LABS: HEMATOCRIT 25.7 % (42.0-52.0); HEMOGLOBIN 8.7 g/dl (13.5-17.5); MEAN CORPUSCULAR HEMOGLOBIN 32.3 pg (27.0-33.0); MEAN CORPUSCULAR HGB CONC 33.9 g/dl (32.0-36.5); MEAN CORPUSCULAR VOLUME 95.5 fl (80.0-96.0); PLATELET COUNT, AUTOMATED 328 10^3/uL (150-450); RED BLOOD COUNT 2.69 10^6/uL (4.30-6.10); WHITE BLOOD COUNT 6.1 10^3/uL (4.0-10.0)
[2021-08-17] MEDS ORDERED: HEPARIN SOD (PORCINE) 5000UNITS/ML 1ML VIAL/SYRINGE IV ONE (09:55)
[2021-08-17] MEDS: HEPARIN DRIP 25,000 UNITS in IV 1 EA IV SCH ×2 (10:27→22:28)
[2021-08-17] MEDS: BACTRIM 160MG/800MG DS TAB PO SCH ×2 (12:10→22:12)
[2021-08-17] MEDS: CEFUROXIME 500 MG TAB PO SCH ×2 (12:10→22:11)
[2021-08-17] MEDS: BACITRACIN OINTMENT 30GM TUBE TOP SCH ×2 (12:11→22:12)
[2021-08-17] MEDS ORDERED: WARFARIN SOD 5MG TAB PO SCH (17:00)
[2021-08-17 17:07] LABS: INR 1.12; PROTHROMBIN TIME 14.8 SECONDS (12.7-14.5)
[2021-08-17 17:08] LABS: PARTIAL THROMBOPLASTIN TIME 67.5 SECONDS (25.9-37.0)
[2021-08-17 17:43] LABS: SOURCE, BODY FLUID TRIG OTHER; TRIGLYCERIDE, BODY FLUID 83 MG/DL (NOT ESTABLISHED)
[2021-08-17] MEDS ORDERED: MORPHINE 2 MG/ML 1ML VIAL IV ONE (17:50)
[2021-08-17] MEDS ORDERED: traMADol 50 MG TAB PO ONE (17:50)
[2021-08-17] MEDS: DIVALPROEX 500MG *ER* TAB PO SCH (22:11)
[2021-08-17] MEDS ORDERED: ONDANSETRON 4MG/2ML VIAL IV PRN (22:50)
[2021-08-17] MEDS: ACETAMINOPHEN TAB 650MG DOSE (2X325MG) PO PRN (23:11)
[2021-08-17] MEDS: traZODone 100 MG TAB PO SCH (23:18)
[2021-08-17] MEDS: SERTRALINE 100 MG TAB PO SCH (23:18)
[2021-08-18] VITALS: BP 109/53
[2021-08-18 00:24] LABS: INR 1.15; PROTHROMBIN TIME 15.1 SECONDS (12.7-14.5)
[2021-08-18 00:25] LABS: PARTIAL THROMBOPLASTIN TIME 75.9 SECONDS (25.9-37.0)
[2021-08-18 06:04] LABS: BASO % 0.5 % (0.0-1.0); EOS # 0.2 10^3/uL (0.0-0.5); EOS % 3.6 % (0.0-3.0); HEMATOCRIT 25.4 % (42.0-52.0); HEMOGLOBIN 8.7 g/dl (13.5-17.5); LYMPH # 1.8 10^3/uL (1.5-5.0); LYMPH % 29.7 % (24.0-44.0); MEAN CORPUSCULAR HGB CONC 34.3 g/dl (32.0-36.5); MEAN CORPUSCULAR VOLUME 93.4 fl (80.0-96.0); MONO # 0.5 10^3/uL (0.0-0.8); MONO % 8.7 % (2.0-8.0); NEUTROPHILS # 3.4 10^3/uL (1.5-8.5); NEUTROPHILS % 56.4 % (36.0-66.0); PLATELET COUNT, AUTOMATED 341 10^3/uL (150-450); RED BLOOD COUNT 2.72 10^6/uL (4.30-6.10); WHITE BLOOD COUNT 6.1 10^3/uL (4.0-10.0)
[2021-08-18 06:25] LABS: BLOOD UREA NITROGEN 9 MG/DL (7-18); CALCIUM LEVEL 9.1 MG/DL (8.5-10.1); CARBON DIOXIDE LEVEL 29 MEQ/L (21-32); CHLORIDE LEVEL 101 MEQ/L (98-107); CREATININE FOR GFR 0.62 MG/DL (0.70-1.30); GLOMERULAR FILTRATION RATE > 60.0 (>56); GLUCOSE, FASTING 124 MG/DL (70-100); POTASSIUM SERUM 4.1 MEQ/L (3.5-5.1); SODIUM LEVEL 135 MEQ/L (136-145)
[2021-08-18] MEDS: BACITRACIN OINTMENT 30GM TUBE TOP SCH ×2 (08:31→20:15)
[2021-08-18] MEDS: HumaLOG INSULIN (NovoLOG) PER UNIT SC SCH ×4 (08:31→20:15)
[2021-08-18] MEDS: ATORVASTATIN 20 MG TAB PO SCH (08:32)
[2021-08-18] MEDS: CEFUROXIME 500 MG TAB PO SCH ×2 (08:32→20:14)
[2021-08-18] MEDS: valACYclovir HCL 500 MG TAB PO SCH (08:32)
[2021-08-18] MEDS: MECLIZINE 25 MG TABLET PO SCH (08:32)
[2021-08-18] MEDS: BACTRIM 160MG/800MG DS TAB PO SCH ×2 (08:32→20:14)
[2021-08-18] MEDS: PANTOPRAZOLE 40MG TAB (PROTONIX) PO SCH ×2 (08:33→20:14)
[2021-08-18] MEDS: oxyCODONE 5MG TAB PO PRN ×3 (08:34→20:13)
[2021-08-18 08:35] VITALS: BP 122/65
[2021-08-18] MEDS: HEPARIN DRIP 25,000 UNITS in IV 1 EA IV SCH ×2 (10:39→22:40)
[2021-08-18] MEDS: traMADol 50 MG TAB PO PRN ×2 (11:48→23:12)
[2021-08-18 12:12] VITALS: BP 121/61
[2021-08-18] MEDS: GABAPENTIN 300 MG CAP PO PRN ×2 (12:35→21:35)
[2021-08-18 16:07] VITALS: BP 121/61
[2021-08-18] MEDS ORDERED: WARFARIN SOD 5MG TAB PO ONE (17:00)
[2021-08-18] MEDS: SERTRALINE 100 MG TAB PO SCH (20:13)
[2021-08-18] MEDS: DIVALPROEX 500MG *ER* TAB PO SCH (20:14)
[2021-08-18 20:26] VITALS: BP 146/65
[2021-08-18] MEDS: traZODone 100 MG TAB PO SCH (23:09)
[2021-08-18 23:49] VITALS: BP 129/66
[2021-08-19] MEDS: oxyCODONE 5MG TAB PO PRN ×5 (03:00→23:28)
[2021-08-19 05:30] VITALS: BP 139/65
[2021-08-19 06:17] LABS: BASO % 0.4 % (0.0-1.0); EOS # 0.3 10^3/uL (0.0-0.5); EOS % 3.9 % (0.0-3.0); HEMATOCRIT 25.1 % (42.0-52.0); HEMOGLOBIN 8.7 g/dl (13.5-17.5); LYMPH # 1.9 10^3/uL (1.5-5.0); LYMPH % 26.8 % (24.0-44.0); MEAN CORPUSCULAR HEMOGLOBIN 32.3 pg (27.0-33.0); MEAN CORPUSCULAR HGB CONC 34.7 g/dl (32.0-36.5); MEAN CORPUSCULAR VOLUME 93.3 fl (80.0-96.0); MONO # 0.7 10^3/uL (0.0-0.8); MONO % 9.7 % (2.0-8.0); NEUTROPHILS % 55.3 % (36.0-66.0); PLATELET COUNT, AUTOMATED 385 10^3/uL (150-450); RED BLOOD COUNT 2.69 10^6/uL (4.30-6.10); WHITE BLOOD COUNT 7.2 10^3/uL (4.0-10.0)
[2021-08-19 06:30] LABS: INR 1.52; PROTHROMBIN TIME 18.7 SECONDS (12.7-14.5)
[2021-08-19 06:32] LABS: PARTIAL THROMBOPLASTIN TIME 96.6 SECONDS (25.9-37.0)
[2021-08-19 07:13] LABS: BLOOD UREA NITROGEN 11 MG/DL (7-18); CALCIUM LEVEL 9.1 MG/DL (8.5-10.1); CARBON DIOXIDE LEVEL 29 MEQ/L (21-32); CHLORIDE LEVEL 101 MEQ/L (98-107); CREATININE FOR GFR 0.78 MG/DL (0.70-1.30); GLOMERULAR FILTRATION RATE > 60.0 (>56); GLUCOSE, FASTING 133 MG/DL (70-100); POTASSIUM SERUM 4.1 MEQ/L (3.5-5.1); SODIUM LEVEL 136 MEQ/L (136-145)
[2021-08-19] MEDS: PANTOPRAZOLE 40MG TAB (PROTONIX) PO SCH ×2 (08:15→21:01)
[2021-08-19] MEDS: valACYclovir HCL 500 MG TAB PO SCH (08:15)
[2021-08-19] MEDS: CEFUROXIME 500 MG TAB PO SCH ×2 (08:15→21:01)
[2021-08-19] MEDS: BACTRIM 160MG/800MG DS TAB PO SCH ×2 (08:15→21:01)
[2021-08-19] MEDS: MECLIZINE 25 MG TABLET PO SCH (08:15)
[2021-08-19] MEDS: ATORVASTATIN 20 MG TAB PO SCH (08:16)
[2021-08-19] MEDS: BACITRACIN OINTMENT 30GM TUBE TOP SCH ×2 (08:16→21:03)
[2021-08-19] MEDS: HumaLOG INSULIN (NovoLOG) PER UNIT SC SCH ×4 (08:17→20:39)
[2021-08-19] MEDS: GABAPENTIN 300 MG CAP PO PRN ×2 (08:23→21:01)
[2021-08-19] MEDS: HEPARIN DRIP 25,000 UNITS in IV 1 EA IV SCH ×2 (10:42→22:06)
[2021-08-19 14:00] VITALS: BP 107/49
[2021-08-19] MEDS: traMADol 50 MG TAB PO PRN (16:28)
[2021-08-19] MEDS ORDERED: WARFARIN SOD 5MG TAB PO ONE (17:00)
[2021-08-19 18:00] VITALS: BP 140/87
[2021-08-19] MEDS: SERTRALINE 100 MG TAB PO SCH (21:01)
[2021-08-19] MEDS: DIVALPROEX 500MG *ER* TAB PO SCH (21:01)
[2021-08-19] MEDS: ACETAMINOPHEN TAB 650MG DOSE (2X325MG) PO PRN (21:02)
[2021-08-20] MEDS: traZODone 100 MG TAB PO SCH ×2 (00:11→20:14)
[2021-08-20 02:28] VITALS: BP 128/57
[2021-08-20] MEDS: traMADol 50 MG TAB PO PRN ×4 (02:32→22:35)
[2021-08-20 06:18] VITALS: BP 126/59
[2021-08-20 07:26] LABS: BASO % 0.6 % (0.0-1.0); EOS # 0.3 10^3/uL (0.0-0.5); EOS % 4.8 % (0.0-3.0); HEMATOCRIT 28.3 % (42.0-52.0); HEMOGLOBIN 9.5 g/dl (13.5-17.5); LYMPH # 1.8 10^3/uL (1.5-5.0); LYMPH % 26.1 % (24.0-44.0); MEAN CORPUSCULAR HEMOGLOBIN 32.2 pg (27.0-33.0); MEAN CORPUSCULAR HGB CONC 33.6 g/dl (32.0-36.5); MEAN CORPUSCULAR VOLUME 95.9 fl (80.0-96.0); MONO # 0.8 10^3/uL (0.0-0.8); MONO % 11.2 % (2.0-8.0); NEUTROPHILS # 3.7 10^3/uL (1.5-8.5); NEUTROPHILS % 52.3 % (36.0-66.0); PLATELET COUNT, AUTOMATED 384 10^3/uL (150-450); RED BLOOD COUNT 2.95 10^6/uL (4.30-6.10)
[2021-08-20 08:14] LABS: PARTIAL THROMBOPLASTIN TIME 159.3 SECONDS (25.9-37.0)
[2021-08-20 08:21] LABS: BLOOD UREA NITROGEN 15 MG/DL (7-18); CALCIUM LEVEL 9.1 MG/DL (8.5-10.1); CARBON DIOXIDE LEVEL 27 MEQ/L (21-32); CHLORIDE LEVEL 104 MEQ/L (98-107); CREATININE FOR GFR 0.88 MG/DL (0.70-1.30); GLOMERULAR FILTRATION RATE > 60.0 (>56); GLUCOSE, FASTING 138 MG/DL (70-100); POTASSIUM SERUM 4.4 MEQ/L (3.5-5.1); SODIUM LEVEL 138 MEQ/L (136-145)
[2021-08-20] MEDS: BACTRIM 160MG/800MG DS TAB PO SCH ×2 (08:42→20:14)
[2021-08-20] MEDS: CEFUROXIME 500 MG TAB PO SCH ×2 (08:42→20:14)
[2021-08-20] MEDS: MECLIZINE 25 MG TABLET PO SCH (08:42)
[2021-08-20] MEDS: PANTOPRAZOLE 40MG TAB (PROTONIX) PO SCH ×2 (08:43→20:14)
[2021-08-20] MEDS: valACYclovir HCL 500 MG TAB PO SCH (08:43)
[2021-08-20] MEDS: HumaLOG INSULIN (NovoLOG) PER UNIT SC SCH ×4 (08:44→21:00)
[2021-08-20] MEDS: GABAPENTIN 300 MG CAP PO PRN ×2 (08:44→23:43)
[2021-08-20] MEDS: ATORVASTATIN 20 MG TAB PO SCH (08:44)
[2021-08-20] MEDS: BACITRACIN OINTMENT 30GM TUBE TOP SCH ×2 (08:45→20:16)
[2021-08-20 08:56] LABS: INR 2.56; PROTHROMBIN TIME 27.9 SECONDS (12.7-14.5)
[2021-08-20] MEDS: oxyCODONE 5MG TAB PO PRN ×2 (15:33→20:15)
[2021-08-20] MEDS: WARFARIN SOD 5MG TAB PO SCH (17:39)
[2021-08-20 18:15] VITALS: BP 128/71
[2021-08-20] MEDS: DIVALPROEX 500MG *ER* TAB PO SCH (20:14)
[2021-08-20] MEDS: SERTRALINE 100 MG TAB PO SCH (20:14)
[2021-08-20 22:00] VITALS: BP 124/60
[2021-08-21 02:00] VITALS: BP 122/59
[2021-08-21] MEDS: oxyCODONE 5MG TAB PO PRN ×4 (02:25→21:47)
[2021-08-21] MEDS: traMADol 50 MG TAB PO PRN ×2 (05:58→17:42)
[2021-08-21 06:00] VITALS: BP 137/55
[2021-08-21] MEDS ORDERED: CHLORASEPTIC SPRAY MT PRN (06:05)
[2021-08-21 06:32] LABS: HEMATOCRIT 28.7 % (42.0-52.0); HEMOGLOBIN 9.5 g/dl (13.5-17.5); MEAN CORPUSCULAR HEMOGLOBIN 32.2 pg (27.0-33.0); MEAN CORPUSCULAR HGB CONC 33.1 g/dl (32.0-36.5); MEAN CORPUSCULAR VOLUME 97.3 fl (80.0-96.0); PLATELET COUNT, AUTOMATED 372 10^3/uL (150-450); RED BLOOD COUNT 2.95 10^6/uL (4.30-6.10); WHITE BLOOD COUNT 7.2 10^3/uL (4.0-10.0)
[2021-08-21 06:51] LABS: BLOOD UREA NITROGEN 15 MG/DL (7-18); CALCIUM LEVEL 9.4 MG/DL (8.5-10.1); CARBON DIOXIDE LEVEL 26 MEQ/L (21-32); CHLORIDE LEVEL 104 MEQ/L (98-107); CREATININE FOR GFR 0.83 MG/DL (0.70-1.30); GLOMERULAR FILTRATION RATE > 60.0 (>56); GLUCOSE, FASTING 139 MG/DL (70-100); POTASSIUM SERUM 4.9 MEQ/L (3.5-5.1); SODIUM LEVEL 139 MEQ/L (136-145)
[2021-08-21 07:17] LABS: ATYPICAL LYMPH 1 % (0-5); BASOPHILS 1 % (0-1); EOSINOPHILS 6 % (0-3); LYMPHOCYTES 14 % (16-44); METAMYELOCYTES 2 % (0-0); MONOCYTES 8 % (0-5); NEUTROPHILS 67 % (28-66); PLATELET ESTIMATE NORMAL (NORMAL)
[2021-08-21] MEDS: HumaLOG INSULIN (NovoLOG) PER UNIT SC SCH ×4 (08:14→21:00)
[2021-08-21] MEDS: PANTOPRAZOLE 40MG TAB (PROTONIX) PO SCH ×2 (08:14→21:45)
[2021-08-21] MEDS: CEFUROXIME 500 MG TAB PO SCH ×2 (08:14→21:46)
[2021-08-21] MEDS: MECLIZINE 25 MG TABLET PO SCH (08:15)
[2021-08-21] MEDS: ATORVASTATIN 20 MG TAB PO SCH (08:15)
[2021-08-21] MEDS: valACYclovir HCL 500 MG TAB PO SCH (08:15)
[2021-08-21] MEDS: BACTRIM 160MG/800MG DS TAB PO SCH ×2 (08:17→21:45)
[2021-08-21] MEDS: BACITRACIN OINTMENT 30GM TUBE TOP SCH ×2 (08:19→21:48)
[2021-08-21 10:00] VITALS: BP 130/57
[2021-08-21 12:15] LABS: INR 2.77; PROTHROMBIN TIME 29.6 SECONDS (12.7-14.5)
[2021-08-21] MEDS: GABAPENTIN 300 MG CAP PO PRN (12:54)
[2021-08-21 14:00] VITALS: BP 124/57
[2021-08-21] MEDS: WARFARIN SOD 5MG TAB PO SCH (17:35)
[2021-08-21 18:00] VITALS: BP 123/60
[2021-08-21 20:00] VITALS: BP 126/76
[2021-08-21] MEDS: DIVALPROEX 500MG *ER* TAB PO SCH (21:45)
[2021-08-21] MEDS: traZODone 100 MG TAB PO SCH (21:46)
[2021-08-21] MEDS: SERTRALINE 100 MG TAB PO SCH (21:46)
[2021-08-22] VITALS: BP 126/67
[2021-08-22] MEDS: traMADol 50 MG TAB PO PRN (00:08)
[2021-08-22] MEDS: oxyCODONE 5MG TAB PO PRN ×3 (02:38→14:21)
[2021-08-22] MEDS: GABAPENTIN 300 MG CAP PO PRN (05:04)
[2021-08-22 06:14] LABS: HEMATOCRIT 29.3 % (42.0-52.0); HEMOGLOBIN 9.7 g/dl (13.5-17.5); MEAN CORPUSCULAR HEMOGLOBIN 32.1 pg (27.0-33.0); MEAN CORPUSCULAR HGB CONC 33.1 g/dl (32.0-36.5); PLATELET COUNT, AUTOMATED 346 10^3/uL (150-450); RED BLOOD COUNT 3.02 10^6/uL (4.30-6.10); WHITE BLOOD COUNT 6.7 10^3/uL (4.0-10.0)
[2021-08-22 06:34] LABS: BLOOD UREA NITROGEN 15 MG/DL (7-18); CALCIUM LEVEL 9.3 MG/DL (8.5-10.1); CARBON DIOXIDE LEVEL 26 MEQ/L (21-32); CHLORIDE LEVEL 103 MEQ/L (98-107); CREATININE FOR GFR 0.72 MG/DL (0.70-1.30); GLOMERULAR FILTRATION RATE > 60.0 (>56); GLUCOSE, FASTING 138 MG/DL (70-100); POTASSIUM SERUM 4.7 MEQ/L (3.5-5.1); SODIUM LEVEL 138 MEQ/L (136-145)
[2021-08-22 06:41] LABS: ANISOCYTOSIS 2+; BASOPHILS 1 % (0-1); EOSINOPHILS 6 % (0-3); LYMPHOCYTES 21 % (16-44); METAMYELOCYTES 1 % (0-0); MONOCYTES 6 % (0-5); NEUTROPHILS 65 % (28-66)
[2021-08-22 06:42] LABS: PLATELET ESTIMATE NORMAL (NORMAL)
[2021-08-22] MEDS ORDERED: BACIOIN5 OP (07:39)
[2021-08-22 09:46] VITALS: BP 147/64
[2021-08-22] MEDS: valACYclovir HCL 500 MG TAB PO SCH (09:46)
[2021-08-22] MEDS: HumaLOG INSULIN (NovoLOG) PER UNIT SC SCH ×2 (09:46→12:00)
[2021-08-22] MEDS: ATORVASTATIN 20 MG TAB PO SCH (09:46)
[2021-08-22] MEDS: PANTOPRAZOLE 40MG TAB (PROTONIX) PO SCH (09:46)
[2021-08-22] MEDS: MECLIZINE 25 MG TABLET PO SCH (09:46)
[2021-08-22] MEDS: BACITRACIN OINTMENT 30GM TUBE TOP SCH (09:47)
[2021-08-22] MEDS ORDERED: TRAM50TA2 PO (10:10)
[2021-08-22] MEDS ORDERED: OXYC-517 PO (10:10)
== END 2021-08-22 15:28 | disposition home or self-care (01) | DRG 863 ==
LOC: M ED 11:19 → M ED INP 18:14 → M MS5PR 23:53 → M PCU 08-15 01:16 → M MSPAV 08-18 23:41
PROVIDERS: ADMIT Internal Medicine; ATTEND Internal Medicine
PROC: 0J950ZZ Drainage of Left Neck Subcutaneous Tissue and Fascia, Open Approach (ICD-10-PCS; principal; 2021-08-16 17:30)
DX: T81.49XA Infection following a procedure, other surgical site, initial encounter (principal); D68.61 Antiphospholipid syndrome; L03.221 Cellulitis of neck; N17.9 Acute kidney failure, unspecified; E87.1 Hypo-osmolality and hyponatremia; C02.8 Malignant neoplasm of overlapping sites of tongue; I10 Essential (primary) hypertension; E78.5 Hyperlipidemia, unspecified; E11.9 Type 2 diabetes mellitus without complications; Z85.828 Personal history of other malignant neoplasm of skin; Z90.49 Acquired absence of other specified parts of digestive tract; Z98.890 Other specified postprocedural states; Z87.891 Personal history of nicotine dependence; K21.9 Gastro-esophageal reflux disease without esophagitis; I69.311 Memory deficit following cerebral infarction; Z79.01 Long term (current) use of anticoagulants; Z79.899 Other long term (current) drug therapy; Z88.0 Allergy status to penicillin; Z88.5 Allergy status to narcotic agent; Z88.8 Allergy status to other drugs, medicaments and biological substances; Z91.040 Latex allergy status

== ENCOUNTER → 2021-10-17 | Outpatient (CLI) | payer MEDICARE, MEDICAID ==
[~2021-10-17] MED LIST changes: +BACIOIN5 OP; +BYDU2INJ7 SC; +GABA600T4 PO; +IBUP-1022 PO; +OXYC-517 PO; +OXYC10TA12 PO; +TRAZ-189 PO; +ZOLO100T PO
== END ==
LOC: M PAIN 15:30
PROVIDERS: ATTEND Anesthesiology
DX: M47.816 Spondylosis without myelopathy or radiculopathy, lumbar region (principal); Z79.891 Long term (current) use of opiate analgesic; K21.9 Gastro-esophageal reflux disease without esophagitis; E78.00 Pure hypercholesterolemia, unspecified; E11.9 Type 2 diabetes mellitus without complications; Z85.828 Personal history of other malignant neoplasm of skin; N41.1 Chronic prostatitis; A60.02 Herpesviral infection of other male genital organs; Z86.15 Personal history of latent tuberculosis infection; M12.88 Other specific arthropathies, not elsewhere classified, other specified site; Z87.891 Personal history of nicotine dependence; Z79.01 Long term (current) use of anticoagulants; Z79.84 Long term (current) use of oral hypoglycemic drugs; Z79.899 Other long term (current) drug therapy; Z88.0 Allergy status to penicillin; Z88.8 Allergy status to other drugs, medicaments and biological substances; Z91.040 Latex allergy status

== ENCOUNTER → 2021-11-20 | Outpatient (CLI) | payer MEDICARE, MEDICAID | LOC: M PLARAD 10:34 | PROVIDERS: ATTEND Otolaryngology | DX: C02.1 Malignant neoplasm of border of tongue (principal); Z90.89 Acquired absence of other organs; I25.10 Atherosclerotic heart disease of native coronary artery without angina pectoris; N20.0 Calculus of kidney; I70.0 Atherosclerosis of aorta | CPT/HCPCS: 78815; A9552 ==

== ENCOUNTER → 2022-04-04 | Outpatient (REF) | payer MEDICARE, MEDICAID | LOC: M LAB REF 17:32 | PROVIDERS: ATTEND Otolaryngology | DX: D21.0 Benign neoplasm of connective and other soft tissue of head, face and neck (principal); L43.9 Lichen planus, unspecified ==

== ENCOUNTER → 2022-04-05 | Outpatient (CLI) | payer MEDICARE, MEDICAID | LOC: M PAIN 09:45 | PROVIDERS: ATTEND Nurse Practitioner Family | DX: M47.816 Spondylosis without myelopathy or radiculopathy, lumbar region (principal); G89.29 Other chronic pain; E11.9 Type 2 diabetes mellitus without complications; K21.9 Gastro-esophageal reflux disease without esophagitis; Z86.73 Personal history of transient ischemic attack (TIA), and cerebral infarction without residual deficits; Z96.653 Presence of artificial knee joint, bilateral; Z87.891 Personal history of nicotine dependence; Z88.0 Allergy status to penicillin; Z88.5 Allergy status to narcotic agent; Z88.8 Allergy status to other drugs, medicaments and biological substances; Z79.01 Long term (current) use of anticoagulants; Z79.84 Long term (current) use of oral hypoglycemic drugs; Z79.899 Other long term (current) drug therapy ==

== ENCOUNTER 2022-04-08 23:03 | Emergency (ER) | payer MEDICARE, MEDICAID ==
[~2022-04-08] VITALS: Ht 172.7 cm; Wt 115.0 kg
[2022-04-08 23:06] VITALS: BP 136/64
== END 2022-04-09 00:32 | disposition left against medical advice (07) ==
LOC: M ED 23:03
DX: Z53.21 Procedure and treatment not carried out due to patient leaving prior to being seen by health care provider (principal)

== ENCOUNTER → 2022-05-02 | Outpatient (CLI) | payer MEDICARE, MEDICAID | LOC: M PLARAD 10:30 | PROVIDERS: ATTEND Otolaryngology | DX: C02.1 Malignant neoplasm of border of tongue (principal) ==

== ENCOUNTER → 2022-05-28 | Outpatient (CLI) | payer MEDICARE, MEDICAID | LOC: M PLARAD 10:43 | PROVIDERS: ATTEND Otolaryngology | DX: C02.1 Malignant neoplasm of border of tongue (principal); N20.0 Calculus of kidney; Z90.89 Acquired absence of other organs | CPT/HCPCS: 78815; A9552 ==

== ENCOUNTER 2022-07-16 23:12 | Emergency (ER) | payer MEDICARE, MEDICAID ==
[~2022-07-16] VITALS: Ht 172.7 cm; Wt 112.7 kg
[2022-07-16 23:13] VITALS: BP 159/74
== END 2022-07-17 03:17 | disposition left against medical advice (07) ==
LOC: M ED 23:12
DX: Z53.21 Procedure and treatment not carried out due to patient leaving prior to being seen by health care provider (principal)

== ENCOUNTER → 2022-12-19 | Outpatient (REF) | payer MEDICARE, MEDICAID ==
[~2022-12-19] MED LIST changes: +GABA-284 PO; +LISI10TA22 PO; +TRUL0.5I SC
== END ==
LOC: M LAB REF 17:33
PROVIDERS: ATTEND Otolaryngology
DX: C02.1 Malignant neoplasm of border of tongue (principal)

== ENCOUNTER → 2023-01-11 | Outpatient (CLI) | payer MEDICARE, MEDICAID ==
[~2023-01-11] MED LIST changes: +EZET10TA58 PO; -ZETI10TA16 PO
== END ==
LOC: M PLAIMG 08:10
DX: C02.9 Malignant neoplasm of tongue, unspecified (principal)

== ENCOUNTER → 2023-10-02 | Outpatient (REF) | payer MEDICARE, MEDICAID ==
[2023-10-02 18:55] LABS: CREATININE,RANDOM URINE 66.4 MG/DL
[2023-10-02 18:56] LABS: TOTAL PROTEIN,RANDOM URINE < 6.0 MG/DL (0.0-14.0)
[2023-10-02 19:45] LABS: COMPLEMENT C3 162.8 MG/DL (90.0-170.0); COMPLEMENT C4 27.8 MG/DL (12-36)
== END ==
LOC: M LAB REF 16:53
PROVIDERS: ATTEND Internal Medicine Nephrology
DX: R80.9 Proteinuria, unspecified (principal)

== ENCOUNTER 2024-04-29 10:57 | Day surgery (SDC) | payer MEDICARE, MEDICAID ==
[~2024-04-29] VITALS: Ht 172.7 cm; Wt 109.6 kg
[~2024-04-29 10:57] MED LIST changes: +ERGO500029 PO; +GABA-1490 PO; -GABA600T4 PO; +HYDR-643 PO; +ONDA-282 SL; +PHENYLEPHRINE 10% OPHTH SOL 5ML OS PRN
[2024-04-29] MEDS: LIDOCAINE 3.5 % 1ML OPHTH TOPICAL GEL OU ONE (12:30)
[2024-04-29] MEDS: OFLOXACIN 0.3 % (OCUFLOX) OPTH SOL 5ML OS ONE (12:30)
[2024-04-29] MEDS: TROPICAMIDE 1% OPHTH SOLN 15ML OS SCH (12:31)
[2024-04-29] MEDS: PHENYLEPHRINE 2.5% OPHTH SOL 2ML OS SCH (12:31)
[2024-04-29] MEDS: CYCLOPENTOLATE 1% OPHTH SOLN 2ML BTL OS SCH (12:31)
[2024-04-29] MEDS ORDERED: MIDAZOLAM INJ 2MG/2ML VIAL As Ordered ONE (12:59)
[2024-04-29] MEDS ORDERED: fentaNYL 100 MCG/2 ML INJECTION As Ordered ONE (13:00)
[2024-04-29] MEDS: CEFUROXIME 1MG/0.1ML INTRACAMERAL INJ As Ordered ONE (13:36)
[2024-04-29] MEDS: BSS IRRIG/VANCO(10MG)/TOBRA(5MG)/EPINEPH(1:1000-0.5CC)500ML BAG-ORONLY As Ordered ONE (13:40)
[2024-04-29] MEDS: LIDOCAINE 1% SDV 5ML VIAL As Ordered ONE (13:40)
[2024-04-29] MEDS: MOXIFLOXACIN 0.6MG/0.4ML INTRAOCULAR SYRINGE As Ordered ONE (13:43)
[2024-04-29 13:51] VITALS: BP 174/77; TEMP 97.1; O2SAT 96
== END 2024-04-29 14:21 | disposition home or self-care (01) ==
LOC: M SDC 10:57
PROVIDERS: ATTEND Ophthalmology
DX: H25.12 Age-related nuclear cataract, left eye (principal); E11.9 Type 2 diabetes mellitus without complications; G47.30 Sleep apnea, unspecified; Z86.73 Personal history of transient ischemic attack (TIA), and cerebral infarction without residual deficits; Z88.0 Allergy status to penicillin; Z88.8 Allergy status to other drugs, medicaments and biological substances; Z88.5 Allergy status to narcotic agent
CPT/HCPCS: 66988; J0697; J2250; J3010; V2632

== ENCOUNTER 2024-05-06 07:27 | Day surgery (SDC) | payer MEDICARE, MEDICAID ==
[~2024-05-06] VITALS: Ht 172.7 cm; Wt 111.1 kg
[~2024-05-06 07:27] MED LIST changes: +MIDAZOLAM INJ 2MG/2ML VIAL As Ordered ONE; +PHENYLEPHRINE 10% OPHTH SOL 5ML OD PRN; -PHENYLEPHRINE 10% OPHTH SOL 5ML OS PRN; +fentaNYL 100 MCG/2 ML INJECTION As Ordered ONE
[2024-05-06] MEDS: LIDOCAINE 3.5 % 1ML OPHTH TOPICAL GEL OU ONE (08:24)
[2024-05-06] MEDS: TROPICAMIDE 1% OPHTH SOLN 15ML OD SCH (08:24)
[2024-05-06] MEDS: OFLOXACIN 0.3 % (OCUFLOX) OPTH SOL 5ML OD ONE (08:24)
[2024-05-06] MEDS: CYCLOPENTOLATE 1% OPHTH SOLN 2ML BTL OD SCH (08:24)
[2024-05-06] MEDS: PHENYLEPHRINE 2.5% OPHTH SOL 2ML OD SCH (08:24)
[2024-05-06] MEDS: LIDOCAINE 1% SDV 5ML VIAL As Ordered ONE (10:29)
[2024-05-06] MEDS: BSS IRRIG/VANCO(10MG)/TOBRA(5MG)/EPINEPH(1:1000-0.5CC)500ML BAG-ORONLY As Ordered ONE (10:29)
[2024-05-06] MEDS: MOXIFLOXACIN 0.6MG/0.4ML INTRAOCULAR SYRINGE As Ordered ONE (10:29)
[2024-05-06 10:39] VITALS: BP 128/57; TEMP 97.3; O2SAT 96
== END 2024-05-06 11:01 | disposition home or self-care (01) ==
LOC: M SDC 07:27
PROVIDERS: ATTEND Ophthalmology
DX: H25.9 Unspecified age-related cataract (principal); E11.9 Type 2 diabetes mellitus without complications; G47.30 Sleep apnea, unspecified; Z86.73 Personal history of transient ischemic attack (TIA), and cerebral infarction without residual deficits; Z88.0 Allergy status to penicillin; Z88.5 Allergy status to narcotic agent; Z88.1 Allergy status to other antibiotic agents; Z88.8 Allergy status to other drugs, medicaments and biological substances; Z91.040 Latex allergy status; Z98.42 Cataract extraction status, left eye; Z79.899 Other long term (current) drug therapy
CPT/HCPCS: 66984; J2250; J3010; V2632

== ENCOUNTER 2024-11-04 09:32 | Day surgery (SDC) | payer MEDICARE, MEDICAID ==
[~2024-11-04] VITALS: Ht 175.3 cm; Wt 108.9 kg
[~2024-11-04 09:32] MED LIST changes: -BYDU2INJ7 SC; +EXEN2AUT SC; +LIDO1ADH93 TD; -LIDO5DIS41 TD; -MIDAZOLAM INJ 2MG/2ML VIAL As Ordered ONE; +PANT40TA29 PO; -PHENYLEPHRINE 10% OPHTH SOL 5ML OD PRN; -PREG50CA PO; +PREG50CA87 PO; -fentaNYL 100 MCG/2 ML INJECTION As Ordered ONE
[2024-11-04] MEDS ORDERED: LIDOCAINE 2% 100 MG/5 ML SDV (FOR ANES.) As Ordered ONE (10:00)
[2024-11-04] MEDS ORDERED: LOVE1INJ SC (10:03)
[2024-11-04 10:37] VITALS: TEMP 97.9
[2024-11-04 10:54] VITALS: BP 118/57; O2SAT 98
== END 2024-11-04 11:24 | disposition home or self-care (01) ==
LOC: M OPP 09:32
PROVIDERS: ATTEND Internal Medicine Gastroenterology
DX: Z12.11 Encounter for screening for malignant neoplasm of colon (principal); K64.0 First degree hemorrhoids; K57.30 Diverticulosis of large intestine without perforation or abscess without bleeding; Z86.0100 Personal history of colon polyps, unspecified; K22.70 Barrett's esophagus without dysplasia; K44.9 Diaphragmatic hernia without obstruction or gangrene; K22.89 Other specified disease of esophagus; K31.89 Other diseases of stomach and duodenum; R12 Heartburn; Z86.73 Personal history of transient ischemic attack (TIA), and cerebral infarction without residual deficits; G47.30 Sleep apnea, unspecified; Z88.0 Allergy status to penicillin; Z88.5 Allergy status to narcotic agent; Z88.8 Allergy status to other drugs, medicaments and biological substances; Z91.040 Latex allergy status; Z79.84 Long term (current) use of oral hypoglycemic drugs; Z79.891 Long term (current) use of opiate analgesic; Z79.85 Long-term (current) use of injectable non-insulin antidiabetic drugs; Z79.01 Long term (current) use of anticoagulants; Z79.899 Other long term (current) drug therapy
CPT/HCPCS: 43239; 88305; G0105; J3010